=== PATIENT | male | born 1955 | race Caucasian/White ===

== ENCOUNTER 2018-11-08 05:42 | Emergency (ER) | payer BC, MEDICARE ==
[2018-11-08 05:51] VITALS: BP 133/79; PULSE 78; RESP 20; TEMP 98.3
[2018-11-08] MEDS ORDERED: MORPHINE SULFATE 4 MG/ML SYRINGE IM STA (06:33)
[2018-11-08] MEDS ORDERED: ORPHENADRINE 30 MG/ML 2 ML VIAL IM STA (06:33)
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
== END 2018-11-08 06:50 | disposition home or self-care (01) ==
LOC: EC 05:42
DX: M62.838 Other muscle spasm (principal); I10 Essential (primary) hypertension; F17.200 Nicotine dependence, unspecified, uncomplicated; Z79.899 Other long term (current) drug therapy
CPT/HCPCS: 99283; 96372 ×2; J2270; J2360

== ENCOUNTER 2018-11-10 15:02 | Inpatient (IN) | payer MEDICARE ==
[2018-11-10] MEDS ORDERED: SODIUM CHLORIDE 0.9% 1,000 ML IV STA ×2 (15:38)
[2018-11-10] MEDS ORDERED: MORPHINE SULFATE 4 MG/ML SYRINGE IVP STA (15:38)
[2018-11-10] MEDS ORDERED: PANTOPRAZOLE 40 MG/10 ML VIAL IVP STA (15:38)
[2018-11-10] MEDS ORDERED: ONDANSETRON 4 MG/2 ML VIAL IVP STA (15:38)
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
[2018-11-10 16:18] LABS: Anisocytosis Slight; Basophils % (A) 0 %; Eosinophils # (A) 0.1 k/uL (0-0.7); Eosinophils % (A) 1 %; HCT 40.7 % (39.0-53.0); HGB 13.1 gm/dL (13.0-17.5); Hypochromasia Slight; Lymphocytes # (A) 1.8 k/uL (1.0-4.8); Lymphocytes % (A) 15 %; MCHC 32.3 g/dL (31.0-37.0); MCV 80.5 fL (80.0-100.0); Mean Platelet Volume 6.9; Microcytosis Slight; Monocytes # (A) 0.9 k/uL (0-1.0); Monocytes % (A) 8 %; Neutrophils # (A) 8.4 k/uL (1.3-7.7); Neutrophils % (A) 73 %; Platelet Count 395 k/uL (150-450); RBC 5.05 m/uL (4.30-5.90); RDW 17.2 % (11.5-15.5); WBC 11.5 k/uL (3.8-10.6)
[2018-11-10] MEDS ORDERED: ONDANSETRON 4 MG/2 ML VIAL IVP PRN (16:22)
[2018-11-10 16:29] LABS: ALT 22 U/L (21-72); AST 46 U/L (17-59); Albumin 4.2 g/dL (3.5-5.0); Alkaline Phosphatase 52 U/L (38-126); Amylase <30 U/L (30-110); Anion Gap 11 mmol/L; Blood Urea Nitrogen 10 mg/dL (9-20); Calcium 9.5 mg/dL (8.4-10.2); Carbon Dioxide 23 mmol/L (22-30); Chloride 95 mmol/L (98-107); Glucose 99 mg/dL (74-99); Lipase 90 U/L (23-300); Sodium 129 mmol/L (137-145); Total Bilirubin 0.8 mg/dL (0.2-1.3); Total Protein 7.3 g/dL (6.3-8.2)
[2018-11-10 16:35] LABS: INR 0.9 (<1.2); Partial Thromboplastin Time 27.2 sec (22.0-30.0)
--- NOTE | 2018-11-10 17:52 | XR ---
EXAMINATION TYPE: XR abdomen acute w cxr DATE OF EXAM: 11/10/2018 COMPARISON: NONE HISTORY: Pain TECHNIQUE: 4 Views. FINDINGS: Chest radiograph: Negative. Supine and upright abdominal radiographs: There is no evidence for pneumoperitoneum. The bowel gas pa ttern shows nondilated gas-distended loops of small and large bowel in all 4 quadrants. The pattern s uggests nonobstructive ileus. No sizeable air fluid levels. No mass effects are seen. No unusual calcifications. IMPRESSION: Ileus pattern.
[2018-11-10] MEDS: MORPHINE SULFATE 4 MG/ML SYRINGE IVP PRN (19:47)
[2018-11-10] MEDS: PANTOPRAZOLE 40 MG/10 ML VIAL IVP SCH (19:47)
[2018-11-10] MEDS ORDERED: traMADol 50 MG TAB PO PRN (21:29)
[2018-11-10] MEDS ORDERED: NALOXONE 0.4 MG/ML 1 ML VIAL IV PRN (21:31)
[2018-11-10] MEDS ORDERED: ACETAMINOPHEN TAB 325 MG TAB PO PRN (21:31)
[2018-11-10] MEDS ORDERED: TEMAZEPAM 15 MG CAP PO PRN (21:31)
[2018-11-10] MEDS: LISINOPRIL 10 MG TAB PO SCH (21:42)
[2018-11-10] MEDS: ATENOLOL 50 MG TAB PO SCH (21:42)
[2018-11-10] MEDS: LACTATED RINGERS 1,000 ML IV SCH (21:42)
[2018-11-10] MEDS ORDERED: METHOCARBAMOL 750 MG TAB PO PRN (22:00)
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
[2018-11-10] MEDS: NICOTINE 21MG/24HR PATCH TRANSDERM SCH ×2 (22:41→22:42)
[2018-11-11] MEDS: LACTATED RINGERS 1,000 ML IV SCH ×3 (06:15→22:25)
[2018-11-11] MEDS: LISINOPRIL 10 MG TAB PO SCH ×2 (07:19→22:24)
[2018-11-11] MEDS: PANTOPRAZOLE 40 MG/10 ML VIAL IVP SCH ×2 (07:19→22:24)
[2018-11-11] MEDS: ATENOLOL 50 MG TAB PO SCH ×2 (07:20→22:24)
[2018-11-11] MEDS: MORPHINE SULFATE 4 MG/ML SYRINGE IVP PRN (07:28)
[2018-11-11] MEDS: NICOTINE 21MG/24HR PATCH TRANSDERM SCH (07:52)
[2018-11-11 08:34] LABS: Anisocytosis Slight; Basophils % (A) 0 %; Eosinophils # (A) 0.2 k/uL (0-0.7); Eosinophils % (A) 2 %; HCT 35.3 % (39.0-53.0); HGB 10.9 gm/dL (13.0-17.5); Hypochromasia Slight; Lymphocytes % (A) 27 %; MCH 25.4 pg (25.0-35.0); Mean Platelet Volume 6.4; Monocytes # (A) 0.8 k/uL (0-1.0); Monocytes % (A) 10 %; Neutrophils # (A) 4.3 k/uL (1.3-7.7); Neutrophils % (A) 56 %; Platelet Count 359 k/uL (150-450); RDW 17.5 % (11.5-15.5); WBC 7.6 k/uL (3.8-10.6)
[2018-11-11] MEDS ORDERED: LIDOCAINE 1% INJ 10MG/ML (20 ML MDV) ONE (11:13)
[2018-11-11] MEDS ORDERED: PROPOFOL 10 MG/ML 20 ML VIAL IV ONE (11:13)
[2018-11-11] MEDS ORDERED: IV FLUID CONTINUATION 1,000 ML IV ONE (11:15)
[2018-11-11] MEDS: DIAZEPAM 5 MG TAB PO PRN ×2 (12:12→19:30)
[2018-11-11 12:17] VITALS: BMI 26.6
--- NOTE | 2018-11-11 14:25 | P.PCN ---
Date of Procedure: 11/11/18 Description of Procedure: BRIEF HISTORY: 63-year-old male who presents with complaints of abdominal pain worsening over the past 3 days with associated dark stool. The patient reports numerous episodes of dark black stool. The patient had been taking Motrin 800 mg 3 times daily for the past few days prior to presentation for treatment of neck pain and spasm. Prior EGD in 2014 was significant for gastritis and duodenitis. PROCEDURE PERFORMED: Esophagogastroduodenoscopy. PREOPERATIVE DIAGNOSIS: Melena, abdominal pain. ESTIMATED BLOOD LOSS: Minimal. IV sedation per anesthesia. PROCEDURE: After informed consent was obtained, the patient was brought into the endoscopy unit. IV sedation was administered by Anesthesia under continuous monitoring. Initially the Olympus GIF-190 video endoscope was inserted into the mouth. Esophagus intubated without any difficulty. It was gradually advanced into the stomach and duodenum and carefully examined. The bulb was significant for moderate amount of inflammation and irritation suggestive of duodenitis in the setting of NSAID use. The second part of the duodenum appeared normal. The scope at this time was withdrawn to the stomach, adequately insufflated with air , and upon careful examination, mucosa of the antrum, body, cardia and the fundus appeared normal except for some mild scattered erythema in the antrum and body suggestive of gastritis. The scope was then withdrawn into the esophagus. The GE junction was located at 39 cm from the incisors. The esophagus appeared normal. There were no erosions or ulcerations seen and the patient tolerated the procedure well. IMPRESSION: 1. No active GI bleeding. 2. Mild gastritis. Moderate duodenitis. RECOMMENDATIONS: The findings of this examination were discussed with the patient. Okay for diet. Continue twice daily PPI therapy. Avoid NSAID therapy. Monitor hemoglobin and for signs and symptoms of GI bleeding.
[2018-11-11] MEDS: DIAZEPAM 5 MG TAB PO SCH (22:49)
[2018-11-11 23:09] VITALS: RESP 16
--- NOTE | 2018-11-11 23:48 | PN ---
PROGRESS NOTE DATE OF SERVICE: 11/11/2018 PRESENTING COMPLAINT: Dark stools. INTERVAL HISTORY: This patient was admitted with dark stools and abdominal pain. He had an EGD earlier today that did show duodenitis. No obvious ulcer was noted. Abdominal pain is better. Diet has been advanced. Overall feeling better. Had no further bowel movement when I saw this patient this afternoon. REVIEW OF SYSTEMS: Done for constitutional, cardiovascular, GI, pulmonary; relevant findings as above. CURRENT MEDICATIONS: Reviewed. They include IV fluids. PHYSICAL EXAMINATION: Temperature 97.2, pulse 73, respiration 20, blood pressure 118/73, pulse ox 97% on room air. GENERAL APPEARANCE: Lying in bed, comfortable. EYES: Pupils equal. Conjunctivae normal. NECK: JVD not raised. Mass not palpable. RESPIRATORY: Effort normal. LUNGS: Decreased breath sounds. CARDIOVASCULAR: First and second sounds normal. No edema. ABDOMEN: Soft, non-tender. Liver and spleen not palpable. PSYCHIATRY: Alert and oriented x3. Mood and affect normal. INVESTIGATIONS: White count 7.6, hemoglobin 10.9. ASSESSMENT: 1. Acute gastrointestinal bleed in a patient whose EGD has confirmed duodenitis. Patient may have also had a more distal bleed. 2. Acute blood loss anemia from acute gastrointestinal bleed. 3. Chronic nicotine dependence. Patient is an active cigarette smoker. 4. Chronic alcohol dependence. 5. Chronic cervical muscle neck spasms. 6. Hyponatremia, likely hypo-osmolar. PLAN: Continue current medication and treatment plan. Review patient's hemoglobin in the morning; make sure it does not drop any further. Care was discussed with the patient. Discussed with him not to take any NSAIDs. MMODL / IJN: [id number] /
[2018-11-12] MEDS: PANTOPRAZOLE 40 MG TABLET PO SCH ×2 (08:39→15:51)
[2018-11-12] MEDS: DIAZEPAM 5 MG TAB PO SCH ×2 (08:39→15:51)
[2018-11-12] MEDS: LISINOPRIL 10 MG TAB PO SCH (08:40)
[2018-11-12] MEDS: NICOTINE 21MG/24HR PATCH TRANSDERM SCH (08:40)
[2018-11-12] MEDS: ATENOLOL 50 MG TAB PO SCH (08:40)
[2018-11-12 09:42] LABS: Anisocytosis Slight; Basophils % (A) 1 %; Eosinophils # (A) 0.2 k/uL (0-0.7); Eosinophils % (A) 4 %; HCT 36.3 % (39.0-53.0); HGB 11.5 gm/dL (13.0-17.5); Hypochromasia Slight; Lymphocytes # (A) 1.7 k/uL (1.0-4.8); Lymphocytes % (A) 26 %; MCH 25.8 pg (25.0-35.0); MCHC 31.8 g/dL (31.0-37.0); MCV 81.2 fL (80.0-100.0); Mean Platelet Volume 6.4; Monocytes # (A) 0.7 k/uL (0-1.0); Monocytes % (A) 10 %; Neutrophils # (A) 3.5 k/uL (1.3-7.7); Neutrophils % (A) 56 %; Platelet Count 406 k/uL (150-450); RBC 4.47 m/uL (4.30-5.90); RDW 17.1 % (11.5-15.5); WBC 6.3 k/uL (3.8-10.6)
--- NOTE | 2018-11-12 10:41 | P.PN ---
Subjective Progress Note Date: 11/12/18 Principal diagnosis: GI bleed Hemoglobin stable 11.5. No bleeding. Denies abdominal pain. Tolerating diet. Status post EGD no evidence of peptic ulcer disease. Objective - Vital Signs Vital signs: Vital Signs Temp 99.1 F 11/12/18 07:00 Pulse 80 11/12/18 07:00 Resp 16 11/12/18 07:00 BP 140/87 11/12/18 07:00 Pulse Ox 97 11/12/18 07:00 Intake & Output 11/11/18 11/12/18 11/12/18 18:59 06:59 18:59 Intake Total 200 Balance 200 Weight 77.111 kg Intake: IV 200 Other: # Voids 3 2 # Bowel Movements 0 - Exam General appearance: The patient is alert, oriented, in no acute distress. HET: Head is normocephalic and atraumatic. Pupils are equal and reactive. Oropharynx is clear without lesions. Neck: Supple without lymphadenopathy. Trachea midline. Heart: S1 S2. Regular rate and rhythm. Lungs: No crackles or wheezes are heard. Abdomen: Soft, nontender, nondistended with bowel sounds. No peritoneal signs. No palpable organomegaly or masses. Extremities: Normal skin color and turgor. No cyanosis, rash, ulceration, clubbing, or edema. Radial and pedal pulses are 2/4 bilaterally. Neurological: No focal deficits. Strength and sensation are grossly intact. - Labs CBC & Chem 7: 11/12/18 08:36 11/10/18 15:50 Labs: Abnormal Lab Results - Last 24 Hours (Table) 11/12/18 Range/Units 08:36 Hgb 11.5 L (13.0-17.5) gm/dL Hct 36.3 L (39.0-53.0) % RDW 17.1 H (11.5-15.5) % Assessment and Plan (1) Acute GI bleeding Narrative/Plan: Status post EGD no evidence of peptic ulcer disease possible small bowel pathology appears to result with stable hemoglobin no further episodes of melena. 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 Avoid NSAIDs. Follow-up in office in 2-3 weeks. Agreeable for discharge. Light diet as tolerated. PPI daily. Assessment and plan a care discussed with Dr. Neal
[2018-11-12 15:28] VITALS: BP 156/88; PULSE 74; TEMP 97.5
--- NOTE | 2018-11-12 20:16 | DS ---
DISCHARGE SUMMARY DATE OF ADMISSION: 11/10/2018 DATE OF DISCHARGE: 11/12/2018 FINAL DIAGNOSES: 1. Acute gastrointestinal bleed in a patient showing acute duodenitis and gastritis. Patient possibly could have had a more distal small-bowel bleed. 2. Acute blood loss anemia from acute gastrointestinal bleed secondary to non- steroidal anti-inflammatories. 3. Chronic nicotine dependence. Patient is an active cigarette smoker. 4. Chronic alcohol dependence. 5. Chronic cervical muscle neck spasm. 6. Hyponatremia, likely hypo-osmolar. HOSPITAL COURSE: This patient who smokes cigarettes and drinks about 12 beers a day has known previous gastritis and duodenitis per EGD. He came in after he started taking Motrin for neck spasms with dark stools. Patient's hemoglobin did drop from 13.1 down to 10.9. Hemoglobin stabilized at 11.5. He underwent EGD that showed duodenitis but no obvious ulcer was noted. The patient was strongly advised against use of alcohol, smoking and use of any NSAIDs. On examination, temperature 97.5, pulse 74, respiration 16, blood pressure 140/87. ABDOMEN: Soft, nontender. LABS: Hemoglobin 11.5. DISCHARGE MEDICATIONS: 1. Tenormin 50 mg b.i.d. 2. [place] 10 one tablet t.i.d. p.r.n. 3. Robaxin 750 mg t.i.d. 4. Lisinopril 10 mg p.o. b.i.d. 5. Nicotine 20 mg patch. 6. Prilosec 20 mg b.i.d. NO NSAIDs. CONSULTATION: Dr. Neal from GI. Follow up with Dr. Michel on November 17, 2018. Follow up with Dr. Neal on December 04, 2018. Advised against use of NSAIDs. MMODL / IJN: [id number] /
== END 2018-11-12 16:11 | disposition home or self-care (01) | DRG 378 ==
LOC: EC 15:02 → 4MS4W 16:21
PROVIDERS: ADMIT Hospitalist; ATTEND Hospitalist
PROC: 0DJ08ZZ Inspection of Upper Intestinal Tract, Via Natural or Artificial Opening Endoscopic (ICD-10-PCS; principal; 2018-11-11 08:00)
DX: K29.81 Duodenitis with bleeding (principal); D62 Acute posthemorrhagic anemia; E87.1 Hypo-osmolality and hyponatremia; K29.71 Gastritis, unspecified, with bleeding; F10.20 Alcohol dependence, uncomplicated; F17.210 Nicotine dependence, cigarettes, uncomplicated; I10 Essential (primary) hypertension; Z71.41 Alcohol abuse counseling and surveillance of alcoholic; Z71.6 Tobacco abuse counseling; Z71.89 Other specified counseling; T39.395A Adverse effect of other nonsteroidal anti-inflammatory drugs [NSAID], initial encounter
CPT/HCPCS: 36415; 43235; 74022; 80053; 82150; 83690; 85025; 85610; 85730; 96361; 96374; 96375; 99285

== ENCOUNTER 2019-10-15 11:43 | Day surgery (SDC) | payer MEDICARE ==
[2019-10-14 09:02] VITALS: BMI 25.8
[~2019-10-15 11:43] MED LIST: LACTATED RINGERS 1,000 ML IV SCH; LIDOCAINE 1% 20 ML VIAL (10MG/ML) FOR IV START INTRADERMA PRN
[2019-10-15 12:27] VITALS: TEMP 98.1
[2019-10-15] MEDS ORDERED: PROPOFOL 10 MG/ML 20 ML VIAL IV ONE (12:50)
[2019-10-15] MEDS ORDERED: MIDAZOLAM 2 MG/2 ML VIAL ONE (12:50)
[2019-10-15] MEDS ORDERED: fentaNYL (PF) 50 MCG/ML 2 ML AMP ONE (12:50)
--- NOTE | 2019-10-15 13:04 | P.PCN ---
Date of Procedure: 10/15/19 Procedure(s) Performed: BRIEF HISTORY: Patient is a 64-year-old pleasant male scheduled for an elective colonoscopy as a part of evaluation of prior history of colon polyps. Last colonoscopy was 5 years ago. PROCEDURE PERFORMED: Colonoscopy. PREOPERATIVE DIAGNOSIS: History Of colon polyps. IV sedation per Anesthesia. PROCEDURE: After informed consent was obtained, the patient, was brought into the endoscopy unit. IV sedation was administered by Anesthesia under continuous monitoring. Digital rectal examination was normal. Initially the Olympus CF-160 flexible video colonoscope was then inserted in the rectum, gradually advanced into the cecum without any difficulty. Careful examination was performed as the scope was gradually being withdrawn. Ileocecal valve and the appendiceal orifice were visualized and appeared normal. Prep was good.. Mucosa of the cecum, ascending colon, transverse colon, descending colon, sigmoid colon, and rectum appeared normal. Retroflexion was performed in the rectum and small internal hemorrhoids were seen. The patient tolerated the procedure well. IMPRESSION: Normal-appearing colon from rectum to cecum with no evidence of colorectal neoplasia Small internal hemorrhoids. RECOMMENDATIONS: Findings of this examination were discussed with the patient as well as his family. He was advised to have a repeat surveillance colonoscopy in 5 years from now because of the prior history of colon polyps.
[2019-10-15 13:27] VITALS: BP 114/72; PULSE 78; RESP 18
== END 2019-10-15 13:40 | disposition home or self-care (01) ==
LOC: ORWHC2ENDO 11:43
PROVIDERS: ATTEND Internal Medicine Gastroenterology
DX: Z86.010 Personal history of colon polyps (principal); K64.8 Other hemorrhoids; I10 Essential (primary) hypertension; K21.9 Gastro-esophageal reflux disease without esophagitis; F17.210 Nicotine dependence, cigarettes, uncomplicated; Z79.899 Other long term (current) drug therapy; Z98.890 Other specified postprocedural states; Z97.2 Presence of dental prosthetic device (complete) (partial)
CPT/HCPCS: 45378; J2250; J3010; J2704

== ENCOUNTER 2020-03-21 23:39 | Inpatient (IN) | payer MEDICARE ==
[2020-03-21] MEDS ORDERED: MORPHINE SULFATE 4 MG/ML SYRINGE IM STA (23:56)
[2020-03-21] MEDS ORDERED: KETOROLAC 30 MG/ML 1 ML VIAL IM STA (23:56)
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
--- NOTE | 2020-03-22 00:26 | XR ---
EXAMINATION TYPE: XR ribs LT w pa chest xray DATE OF EXAM: 03/22/2020 COMPARISON: Chest x-ray 11/10/2018 HISTORY: Fall. Left rib pain TECHNIQUE: 5 views FINDINGS: Heart is normal. Lungs are clear of infiltrate. There is no pleural effusion or pneumothora x. There are mildly displaced fractures of the left side posterior lateral fourth and fifth and sixth and seventh and eighth ribs. There are no hilar masses. There is osteoarthritis in the left shoulder joint. IMPRESSION: Numerous acute left-sided rib fractures. No cardiopulmonary disease.
--- NOTE | 2020-03-22 00:28 | XR ---
EXAMINATION TYPE: XR wrist complete LT DATE OF EXAM: 03/22/2020 COMPARISON: NONE HISTORY: Fall. Wrist pain. TECHNIQUE: 4 views FINDINGS: There is some narrowing and spurring at the first carpometacarpal joint. I see no fracture nor dislocation. There are no erosions. Radiocarpal joint is intact. There is some narrowing of the s caphoid trapezium joint space. IMPRESSION: Mild osteoarthritis. No fracture seen.
[2020-03-22] MEDS ORDERED: MORPHINE SULFATE 4 MG/ML SYRINGE IVP STA (01:14)
[2020-03-22] MEDS ORDERED: HYDROmorphone 1 MG/ML 1 ML SYRINGE IVP PRN (01:14)
[2020-03-22] MEDS ORDERED: NALOXONE 0.4 MG/ML 1 ML VIAL IV PRN (01:14)
[2020-03-22] MEDS ORDERED: ACETAMINOPHEN TAB 325 MG TAB PO PRN (01:14)
[2020-03-22 01:21] LABS: Basophils % (A) 0 %; Eosinophils # (A) 0.1 k/uL (0-0.7); Eosinophils % (A) 0 %; HCT 43.4 % (39.0-53.0); HGB 14.8 gm/dL (13.0-17.5); Lymphocytes # (A) 0.9 k/uL (1.0-4.8); Lymphocytes % (A) 7 %; MCH 35.2 pg (25.0-35.0); MCHC 34.1 g/dL (31.0-37.0); MCV 103.2 fL (80.0-100.0); Macrocytosis Slight; Mean Platelet Volume 7.1; Monocytes # (A) 0.6 k/uL (0-1.0); Monocytes % (A) 4 %; Neutrophils # (A) 10.8 k/uL (1.3-7.7); Neutrophils % (A) 86 %; Platelet Count 195 k/uL (150-450); RBC 4.21 m/uL (4.30-5.90); RDW 12.8 % (11.5-15.5); WBC 12.5 k/uL (3.8-10.6)
[2020-03-22 01:33] LABS: ALT 22 U/L (4-49); AST 67 U/L (17-59); African American GFR (CKD) >90 (>60 ml/min/1.73 sqM); Albumin 4.2 g/dL (3.5-5.0); Alkaline Phosphatase 72 U/L (38-126); Anion Gap 11 mmol/L; Blood Urea Nitrogen 7 mg/dL (9-20); Carbon Dioxide 21 mmol/L (22-30); Chloride 93 mmol/L (98-107); Glucose 99 mg/dL (74-99); Non-African American GFR(CKD) >90 (>60 ml/min/1.73 sqM); Sodium 125 mmol/L (137-145); Total Bilirubin 0.5 mg/dL (0.2-1.3); Total Protein 6.9 g/dL (6.3-8.2)
[2020-03-22] MEDS: HYDROmorphone 0.5 MG/0.5 ML SYRINGE IVP PRN (07:17)
[2020-03-22] MEDS: KETOROLAC 30 MG/ML 1 ML VIAL IVP PRN (11:15)
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
[2020-03-22] MEDS: ENOXAPARIN 40 MG/0.4 ML SYRINGE SQ SCH (16:00)
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
[2020-03-22] MEDS: SODIUM CHLORIDE TAB 1 GM TAB PO SCH ×3 (18:25→21:12)
[2020-03-22] MEDS: DIAZEPAM 2 MG TAB PO SCH (18:25)
[2020-03-22] MEDS: NICOTINE 21MG/24HR PATCH TRANSDERM SCH (18:26)
[2020-03-22] MEDS ORDERED: MELATONIN 3 MG TABLET PO PRN (20:15)
[2020-03-22] MEDS: ATENOLOL 50 MG TAB PO SCH (21:12)
[2020-03-22] MEDS: LISINOPRIL 10 MG TAB PO SCH (21:12)
[2020-03-23] MEDS: DIAZEPAM 2 MG TAB PO SCH ×3 (00:33→17:41)
[2020-03-23] MEDS: HYDROmorphone 0.5 MG/0.5 ML SYRINGE IVP PRN ×3 (03:03→13:33)
[2020-03-23] MEDS: PANTOPRAZOLE 40 MG TABLET PO SCH (06:29)
[2020-03-23] MEDS: LISINOPRIL 10 MG TAB PO SCH ×2 (08:12→20:23)
[2020-03-23] MEDS: ENOXAPARIN 40 MG/0.4 ML SYRINGE SQ SCH (08:12)
[2020-03-23] MEDS: MULTIVITAMINS, THERA 1 EACH TAB PO SCH (08:12)
[2020-03-23] MEDS: ATENOLOL 50 MG TAB PO SCH ×2 (08:12→20:23)
[2020-03-23] MEDS: SODIUM CHLORIDE TAB 1 GM TAB PO SCH ×4 (08:17→20:22)
[2020-03-23 08:19] LABS: Basophils % (A) 0 %; Eosinophils # (A) 0.1 k/uL (0-0.7); Eosinophils % (A) 1 %; HCT 42.1 % (39.0-53.0); HGB 14.3 gm/dL (13.0-17.5); Lymphocytes # (A) 0.8 k/uL (1.0-4.8); Lymphocytes % (A) 9 %; MCH 35.5 pg (25.0-35.0); MCV 104.6 fL (80.0-100.0); Macrocytosis Slight; Mean Platelet Volume 7.5; Monocytes # (A) 0.5 k/uL (0-1.0); Monocytes % (A) 6 %; Neutrophils # (A) 7.7 k/uL (1.3-7.7); Neutrophils % (A) 83 %; Platelet Count 171 k/uL (150-450); RBC 4.02 m/uL (4.30-5.90); WBC 9.3 k/uL (3.8-10.6)
--- NOTE | 2020-03-23 08:20 | XR ---
EXAMINATION TYPE: XR chest 1V portable DATE OF EXAM: 03/23/2020 COMPARISON: 03/22/2020 INDICATION: Rib fractures TECHNIQUE: Single frontal view of the chest is obtained. FINDINGS: The heart size is normal. The pulmonary vasculature is normal. The lungs are clear. No pneumothorax is evident. Multiple left-sided rib fractures are again evident. This would include 3 , 5 through 7. IMPRESSION: 1. No acute pulmonary process. 2. Multiple left-sided rib fractures
[2020-03-23 08:47] LABS: ALT 23 U/L (4-49); AST 73 U/L (17-59); African American GFR (CKD) >90 (>60 ml/min/1.73 sqM); Albumin 4.3 g/dL (3.5-5.0); Alkaline Phosphatase 74 U/L (38-126); Anion Gap 8 mmol/L; Blood Urea Nitrogen 8 mg/dL (9-20); Calcium 9.2 mg/dL (8.4-10.2); Carbon Dioxide 28 mmol/L (22-30); Chloride 87 mmol/L (98-107); Glucose 114 mg/dL (74-99); Non-African American GFR(CKD) >90 (>60 ml/min/1.73 sqM); Potassium 4.4 mmol/L (3.5-5.1); Sodium 123 mmol/L (137-145); Total Protein 7.1 g/dL (6.3-8.2)
[2020-03-23] MEDS ORDERED: NON FORMULARY DRUG (Omeprazole 20 MG) PO SCH (09:00)
--- NOTE | 2020-03-23 11:14 | P.PN ---
Subjective Progress Note Date: 03/23/20 Principal diagnosis: Trauma, fall, multiple rib fractures 64-year-old white male patient of Dr. Michel with past medical history of hypertension, chronic smoker, patient carries [id number] smoking history, chronic back pain, hiatal hernia, history of gastritis and duodenitis and previous episode of GI bleeding. Patient was out fishing last night, and he was casting his fishing pole standing on the rocks by the bridge, he stepped off the rock and fell onto his left chest, and left hand and wrist, sustaining several rib fractures on the left side. He presented to the emergency department last night on 03/21/2020 at 2339 for evaluation of significant left-sided the chest pain and left wrist pain. Patient did not have any head or neck trauma, no loss of consciousness. He is not on any oral anticoagulation. His pain is significantly exacerbated with movement or deep inspiration. Chest x-ray showed numerous acute left-sided rib fractures. And his left wrist x-ray showed mild osteoarthritis but no fracture. His lab work showed white blood cell count of 12.5, hemoglobin of 14.8, MCV is 103.2, sodium is 125, potassium is 4.0, chloride is 93, CO2 is 21, B1 is 7, creatinine is 0.49, AST 67, ALT is 22, alk phos is 72. Vitals revealed a room air pulse ox of 99%, blood pressure was 163/94, he is afebrile. He is on the Toradol and Dilaudid for his left chest wall pain. He seen in the emergency department, he is awaiting a bed on selective care. No acute distress, his Covid 19 testing is pending at this time, follow-up chest x-ray has been ordered. On 03/23/2020 patient seen in follow-up on selective care unit, he is calm and comfortable, still having the left-sided chest pain, and patient is on combination of oral and IV narcotics in addition to Toradol, and pain is fairly controlled. Vital signs are stable, room air pulse ox is 94%, no fever or chills. His chest x-ray shows no acute pulmonary process, and multiple left- sided rib fractures. No pneumothorax. No acute events overnight. Today's lab work has been reviewed showing white blood cell, 9.3, sodium is down to 123, patient is free of any neurological deficits, no seizure activity. He is on fluid restriction at 1500 mL for 24 hours, and receiving oral sodium tablets. Objective - Vital Signs Vital signs: Vital Signs Temp 99.1 F 03/23/20 08:00 Pulse 83 03/23/20 08:00 Resp 16 03/23/20 08:00 BP 137/79 03/23/20 08:00 Pulse Ox 94 L 03/23/20 08:00 Intake & Output 03/22/20 03/23/20 03/23/20 18:59 06:59 18:59 Weight 74.4 kg Other: Voiding Method Toilet # Voids 3 - Exam GENERAL EXAM: Alert, pleasant, 64-year-old white male, on room air, with pulse ox of 94% on room air comfortable in no apparent distress. HEAD: Normocephalic/atraumatic. EYES: Normal reaction of pupils, equal size. Conjunctiva pink, sclera white. NOSE: Clear with pink turbinates. THROAT: No erythema or exudates. NECK: No masses, no JVD, no thyroid enlargement, no adenopathy. CHEST: No chest wall deformity. Symmetrical expansion. Left chest wall te nderness related to recent history of rib fractures from a fall LUNGS: Equal air entry with no crackles, wheeze, rhonchi or dullness. CVS: Regular rate and rhythm, normal S1 and S2, no gallops, no murmurs, no rubs ABDOMEN: Soft, nontender. No hepatosplenomegaly, normal bowel sounds, no guarding or rigidity. EXTREMITIES: No clubbing, no edema, no cyanosis, 2+ pulses and upper and lower extremities. MUSCULOSKELETAL: Muscle strength and tone normal. SPINE: No scoliosis or deformity SKIN: No rashes CENTRAL NERVOUS SYSTEM: Alert and oriented -3. No focal deficits, tone is normal in all 4 extremities. PSYCHIATRIC: Alert and oriented -3. Appropriate affect. Intact judgment and insight. - Labs CBC & Chem 7: 03/23/20 07:26 03/23/20 07:26 Labs: Abnormal Lab Results - Last 24 Hours (Table) 03/23/20 03/23/20 Range/Units 07:26 07:26 RBC 4.02 L (4.30-5.90) m/uL MCV 104.6 H (80.0-100.0) fL MCH 35.5 H (25.0-35.0) pg Lymphocytes # 0.8 L (1.0-4.8) k/uL Sodium 123 L (137-145) mmol/L Chloride 87 L (98-107) mmol/L BUN 8 L (9-20) mg/dL Creatinine 0.46 L (0.66-1.25) mg/dL Glucose 114 H (74-99) mg/dL Total Bilirubin 2.0 H (0.2-1.3) mg/dL AST 73 H (17-59) U/L Assessment and Plan Plan: Assessment: #1. Acute left chest pain related to numerous acute left-sided rib fractures, sustained after a fall on 03/21/2020 while fishing. His x-ray of the ribs showed mildly displaced fractures of the left side posterior lateral fourth, fifth, sixth, seventh and eighth ribs #2. Left wrist pain, related to a fall onto the rocks on 03/21/2020, but x-ray of the left wrist did not show acute fracture #3. Hyponatremia, possibly related to chronic EtOH abuse, with the possibility of SIADH component #4. Active history of EtOH abuse, and patient drinks 5 24 ounce beers per day #5. Hypertension #6. Previous history of GI bleeding, gastritis and duodenitis #7. Chronic back pain #8. History of hiatal hernia #9. Long history of nicotine dependence, patient carries [id number] smoking history, still smoking 1 pack a day Plan: Continue encouraging deep breathing and coughing, today's chest x-ray has been reviewed showing no evidence of pneumothorax, no acute pulmonary process. Maintain pain control, today's lab work has been reviewed and serum sodium to 123, patient is free of any neurological deficits or seizure activity, we will continue fluid restriction, and sodium tablets, send a serum and urine osmolality and urine sodium, repeat blood work in the morning. I performed a history & physical examination of the patient and discussed their management with my nurse practitioner, Luna Gamble. I reviewed the nurse practitioner's note and agree with the documented findings and plan of care. Lung sounds are positive for diminished breath sounds. The findings and the impression was discussed with the patient. I attest to the documentation by the nurse practitioner. Time with Patient: Less than 30
[2020-03-23] MEDS: guaiFENesin 600 MG TABLET.ER PO SCH ×2 (12:39→20:23)
--- NOTE | 2020-03-23 13:27 | P.PN ---
Subjective Progress Note Date: 03/23/20 CHIEF COMPLAINT: Fall HISTORY OF PRESENT ILLNESS: Patient examined at the bedside with Dr. Rowe. Patient states he is feeling well today. Denies chest pain or abdominal pain. Tolerating diet. PHYSICAL EXAM: VITAL SIGNS: Reviewed. GENERAL: Well-developed in no acute distress. HEENT: No sclera icterus. Extraocular movements grossly intact. Moist buccal mucosa. Head is atraumatic, normocephalic. ABDOMEN: Soft. Nondistended. Nontender. NEUROLOGIC: Alert and oriented. Cranial nerves II through XII grossly intact. ASSESSMENT: 1. Trauma, status post fall 2. Left-sided posterior rib fractures 4,5, 6,7 & 8 PLAN: -Pulmonary on consult. Appreciate input and recommendations -Incentive spirometer -Pain control -Anticipate discharge home when cleared by internal medicine Nurse practitioner note has been reviewed by physician. Signing provider agrees with the documented findings, assessment, and plan of care. Objective - Vital Signs Vital signs: Vital Signs Temp 99.1 F 03/23/20 12:00 Pulse 83 03/23/20 12:00 Resp 16 03/23/20 12:00 BP 137/79 03/23/20 12:00 Pulse Ox 94 L 03/23/20 12:00 Intake & Output 03/22/20 03/23/20 03/23/20 18:59 06:59 18:59 Weight 74.4 kg Other: Voiding Method Toilet Toilet # Voids 3 - Labs CBC & Chem 7: 03/23/20 07:26 03/23/20 07:26 Labs: Abnormal Lab Results - Last 24 Hours (Table) 03/23/20 03/23/20 03/23/20 Range/Units 07:26 07:26 07:26 RBC 4.02 L (4.30-5.90) m/uL MCV 104.6 H (80.0-100.0) fL MCH 35.5 H (25.0-35.0) pg Lymphocytes # 0.8 L (1.0-4.8) k/uL Sodium 123 L (137-145) mmol/L Chloride 87 L (98-107) mmol/L BUN 8 L (9-20) mg/dL Creatinine 0.46 L (0.66-1.25) mg/dL Glucose 114 H (74-99) mg/dL Osmolality 260 L (280-301) mosm/kg Total Bilirubin 2.0 H (0.2-1.3) mg/dL AST 73 H (17-59) U/L
[2020-03-23] MEDS: BUDESONIDE 1 MG/2 ML NEBU INHALATION SCH ×2 (16:38→20:32)
[2020-03-23] MEDS: IPRATROPIUM-ALBUTEROL 3 ML NEB INHALATION SCH ×3 (16:38→20:32)
--- NOTE | 2020-03-23 16:56 | P.PN ---
Progress Note - Text Progress Note Date: 03/23/20 - Chief Complaint fall - History of Present Illness Consultation: This is a pleasant 64-year-old patient who follows a Dr. Michel. Patient long- standing history of smoking and drinking significant amount of alcohol. Chronic stable conditions also include nicotine dependence, gastritis duodenitis as per EGD in 2019. Patient was climbing around the proximal near the liver. When he lost his balance. Patient fell on his left side. Hitting his chest to the rocks. Also to save his face he put his hand in front of the face and injured his left wrist. He is having pain there. But patient is able to move his thumb and fingers. Having pain in the left lateral chest wall. Patient is found to have fracture of 4-5 ribs. Patient has this chronic cough. Patient drinks about 5-24 ounce beers. Does get reflux symptoms. Denies any fever and chills. Patient was seen by me earlier today. Admitted with fall with multiple left-sided or fractures, hyponatremia,. Patient is put on fluid restriction and salt tablets. Today-patient feels better but tired. As a congested cough. On a fluid restriction diet. Sodium and on a bit more. Some wheezing. Review of systems: Was done for constitutional, cardiovascular, GI, pulmonary. relevant finding as above Active Medications Acetaminophen (Tylenol Tab) 650 mg PO Q6HR PRN PRN Reason: Mild Pain or Fever > 100.5 Last Admin: 03/22/20 11:15 Dose: 650 mg Documented by: Hydrocodone Bitart/Acetaminophen ([place] 5-325) 1 each PO Q4HR PRN PRN Reason: Pain Albuterol/Ipratropium (Duoneb 0.5 Mg-3 Mg/3 Ml Soln) 3 ml INHALATION RT-QID [facility] Last Admin: 03/23/20 16:38 Dose: 3 ml Documented by: Atenolol (Tenormin) 50 mg PO BID [facility] Last Admin: 03/23/20 08:12 Dose: 50 mg Documented by: Budesonide (Pulmicort) 1 mg INHALATION RT-BID [facility] Last Admin: 03/23/20 16:38 Dose: Not Given Documented by: Diazepam (Valium) 2 mg PO Q8H [facility] Stop: 03/23/20 23:59 Last Admin: 03/23/20 08:12 Dose: 2 mg Documented by: Diazepam (Valium) 1 mg PO Q8H [facility] Enoxaparin Sodium (Lovenox) 40 mg SQ DAILY [facility] Last Admin: 03/23/20 08:12 Dose: 40 mg Documented by: Guaifenesin (Mucinex) 1,200 mg PO Q12HR [facility] Last Admin: 03/23/20 12:39 Dose: 1,200 mg Documented by: Hydromorphone HCl (Dilaudid) 0.5 mg IVP Q3HR PRN PRN Reason: Moderate Pain Last Admin: 03/23/20 13:33 Dose: 0.5 mg Documented by: Hydromorphone HCl (Dilaudid) 1 mg IVP Q3HR PRN PRN Reason: Severe Pain Ketorolac Tromethamine (Toradol) 15 mg IVP Q6HR PRN PRN Reason: Moderate Pain Stop: 03/27/20 01:15 Last Admin: 03/22/20 11:15 Dose: 15 mg Documented by: Lisinopril (Zestril) 10 mg PO BID [facility] Last Admin: 03/23/20 08:12 Dose: 10 mg Documented by: Melatonin (Melatonin) 3 mg PO HS PRN PRN Reason: Insomnia Last Admin: 03/22/20 21:12 Dose: 3 mg Documented by: Multivitamins (Theragran) 1 each PO DAILY [facility] Last Admin: 03/23/20 08:12 Dose: 1 each Documented by: Naloxone HCl (Narcan) 0.2 mg IV Q2M PRN PRN Reason: Opioid Reversal Nicotine (Habitrol 21mg/24hr Patch) 1 patch TRANSDERM Q24H [facility] Last Admin: 03/22/20 18:26 Dose: Not Given Documented by: Pantoprazole Sodium (Protonix) 40 mg PO AC-BRKFST [facility] Last Admin: 03/23/20 06:29 Dose: 40 mg Documented by: Sodium Chloride (Sodium Chloride Tab) 2 gm PO QID [facility] Last Admin: 03/23/20 12:39 Dose: 2 gm Documented by: Physical examination: VITAL SIGNS: 99.1, 83, 20, 137/79, 94% on room air GENERAL: Sitting up in a chair, some wheezing. EYES: Pupils equal. Conjunctiva normal. HEENT: External appearance of nose and ears normal, oral cavity grossly normal. NECK: JVD not raised; masses not palpable. HEART: First and second heart sounds are normal; no edema. LUNGS: Respiratory rate increased, decreased breath sounds and extremity wheezing. ABDOMEN: Soft, nontender, liver spleen not palpable, no masses palpable. PSYCH: Alert and oriented x3; mood and affect slightly anxious MUSCULOSKELETAL: Tenderness over the left lateral chest wall . Good movement of the left wrist with some superficial bruising INVESTIGATIONS, reviewed in the clinical context: White count 9.3 hemoglobin 40.3 platelets is 171 sodium 123 creatinine 0.46 serum osmolarity 260 AST 73 Previous testing White count 12.5 hemoglobin 14.8 MCV 103.2 platelets 195 sodium 125 potassium 4 bun 7 creatinine 0.49 Left wrist x-ray-no fracture Left ribs and chest x-ray showing numerous acute left-sided or fractures no cord or pulmonary disease Assessment: -Multiple left-sided rib fractures secondary to blood injury secondary to fall -Chronic nicotine dependence patient cigarette smoker -Chronic alcohol use disorder -Hyponatremia-hypoosmolality from decreased salt intake 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 Fluid restriction to 1200 mL a day. Patient was educated again. Discussed. Continue with salt tablets. Repeat labs in the morning. Thank you Dr. Rowe
[2020-03-23] MEDS ORDERED: predniSONE 20 MG TAB PO STA (16:57)
[2020-03-23] MEDS: NICOTINE 21MG/24HR PATCH TRANSDERM SCH (17:42)
[2020-03-23] MEDS: HYDROcodone/APAP 5-325MG 1 EACH TAB PO PRN (20:22)
[2020-03-23 21:15] VITALS: RESP 16
[2020-03-23] MEDS: KETOROLAC 30 MG/ML 1 ML VIAL IVP PRN (23:18)
[2020-03-24] MEDS: HYDROcodone/APAP 5-325MG 1 EACH TAB PO PRN ×2 (06:12→10:34)
[2020-03-24] MEDS: PANTOPRAZOLE 40 MG TABLET PO SCH (06:13)
[2020-03-24 07:28] LABS: African American GFR (CKD) >90 (>60 ml/min/1.73 sqM); Anion Gap 7 mmol/L; Blood Urea Nitrogen 10 mg/dL (9-20); Calcium 9.2 mg/dL (8.4-10.2); Carbon Dioxide 26 mmol/L (22-30); Chloride 93 mmol/L (98-107); Glucose 125 mg/dL (74-99); Non-African American GFR(CKD) >90 (>60 ml/min/1.73 sqM); Potassium 4.6 mmol/L (3.5-5.1); Sodium 126 mmol/L (137-145)
[2020-03-24] MEDS ORDERED: DIAZEPAM 2 MG TAB PO SCH (08:00)
--- NOTE | 2020-03-24 08:10 | XR ---
EXAMINATION TYPE: XR chest 1V portable DATE OF EXAM: 03/24/2020 COMPARISON: Prior chest 03/24/2020 HISTORY: Rib fractures TECHNIQUE: Single frontal view of the chest is obtained. FINDINGS: Findings are similar to prior exam, technique is apical lordotic. Patient is rotated. No e vident pneumothorax. Multiple displaced left-sided rib fractures are present. Heart size is stable. P ersistent elevation of the left hemidiaphragm. Subsegmental basilar atelectatic changes noted. No michell dent effusion. IMPRESSION: Essentially stable findings. Subsegmental basilar atelectatic changes, posttraumatic keysha nges.
[2020-03-24] MEDS: BUDESONIDE 1 MG/2 ML NEBU INHALATION SCH (08:33)
[2020-03-24] MEDS: IPRATROPIUM-ALBUTEROL 3 ML NEB INHALATION SCH (08:33)
[2020-03-24] MEDS ORDERED: predniSONE 20 MG TAB PO SCH (09:00)
[2020-03-24] MEDS: ATENOLOL 50 MG TAB PO SCH (10:33)
[2020-03-24] MEDS: ENOXAPARIN 40 MG/0.4 ML SYRINGE SQ SCH (10:33)
[2020-03-24] MEDS: guaiFENesin 600 MG TABLET.ER PO SCH (10:33)
[2020-03-24] MEDS: LISINOPRIL 10 MG TAB PO SCH (10:34)
[2020-03-24] MEDS: MULTIVITAMINS, THERA 1 EACH TAB PO SCH (10:34)
[2020-03-24] MEDS: SODIUM CHLORIDE TAB 1 GM TAB PO SCH (10:37)
[2020-03-24 11:03] VITALS: BP 121/63; PULSE 79; TEMP 97.8
--- NOTE | 2020-03-24 12:06 | P.PN ---
Subjective Progress Note Date: 03/24/20 Principal diagnosis: Trauma, fall, multiple rib fractures 64-year-old white male patient of Dr. Michel with past medical history of hypertension, chronic smoker, patient carries 75-[id number] smoking history, chronic back pain, hiatal hernia, history of gastritis and duodenitis and previous episode of GI bleeding. Patient was out fishing last night, and he was casting his fishing pole standing on the rocks by the bridge, he stepped off the rock and fell onto his left chest, and left hand and wrist, sustaining several rib fractures on the left side. He presented to the emergency department last night on 03/21/2020 at 2339 for evaluation of significant left-sided the chest pain and left wrist pain. Patient did not have any head or neck trauma, no loss of consciousness. He is not on any oral anticoagulation. His pain is significantly exacerbated with movement or deep inspiration. Chest x-ray showed numerous acute left-sided rib fractures. And his left wrist x-ray showed mild osteoarthritis but no fracture. His lab work showed white blood cell count of 12.5, hemoglobin of 14.8, MCV is 103.2, sodium is 125, potassium is 4.0, chloride is 93, CO2 is 21, B1 is 7, creatinine is 0.49, AST 67, ALT is 22, alk phos is 72. Vitals revealed a room air pulse ox of 99%, blood pressure was 163/94, he is afebrile. He is on the Toradol and Dilaudid for his left chest wall pain. He seen in the emergency department, he is awaiting a bed on selective care. No acute distress, his Covid 19 testing is pending at this time, follow-up chest x-ray has been ordered. On 03/23/2020 patient seen in follow-up on selective care unit, he is calm and comfortable, still having the left-sided chest pain, and patient is on combination of oral and IV narcotics in addition to Toradol, and pain is fairly controlled. Vital signs are stable, room air pulse ox is 94%, no fever or chills. His chest x-ray shows no acute pulmonary process, and multiple left- sided rib fractures. No pneumothorax. No acute events overnight. Today's lab work has been reviewed showing white blood cell, 9.3, sodium is down to 123, patient is free of any neurological deficits, no seizure activity. He is on fluid restriction at 1500 mL for 24 hours, and receiving oral sodium tablets. On 03/24/2020 patient seen in follow-up on selective care unit, he is awake and alert, in no acute distress, sitting up in the chair, his left chest wall pain is fairly well controlled on oral medications. His been on water restriction, and receiving salt tablets and his sodium is up to 126 on today's labs. No neurologic deficits, no seizure activity, no specific complaints, no acute events overnight, room air pulse ox 94%, no fever or chills, respirations are nonlabored. Today's chest x-ray has been reviewed and showing essentially stable findings, with subsegmental basilar atelectatic changes, posture many changes. No pneumothorax, no pleural effusion. Objective - Vital Signs Vital signs: Vital Signs Temp 97.8 F 03/24/20 08:50 Pulse 79 03/24/20 08:50 Resp 16 03/24/20 08:50 BP 121/63 03/24/20 08:50 Pulse Ox 94 L 03/24/20 08:50 Intake & Output 03/23/20 03/24/20 03/24/20 18:59 06:59 18:59 Intake Total 180 360 Balance 180 360 Weight 74 kg Intake: Oral 180 360 Other: Voiding Method Toilet Toilet # Voids 2 - Exam GENERAL EXAM: Alert, pleasant, 64-year-old white male, on room air, with pulse ox of 94% on room air comfortable in no apparent distress. HEAD: Normocephalic/atraumatic. EYES: Normal reaction of pupils, equal size. Conjunctiva pink, sclera white. NOSE: Clear with pink turbinates. THROAT: No erythema or exudates. NECK: No masses, no JVD, no thyroid enlargement, no adenopathy. CHEST: No chest wall deformity. Symmetrical expansion. Left chest wall tenderness related to recent history of rib fractures from a fall LUNGS: Equal air entry with no crackles, wheeze, rhonchi or dullness. CVS: Regular rate and rhythm, normal S1 and S2, no gallops, no murmurs, no rubs ABDOMEN: Soft, nontender. No hepatosplenomegaly, normal bowel sounds, no guarding or rigidity. EXTREMITIES: No clubbing, no edema, no cyanosis, 2+ pulses and upper and lower extremities. MUSCULOSKELETAL: Muscle strength and tone normal. SPINE: No scoliosis or deformity SKIN: No rashes CENTRAL NERVOUS SYSTEM: Alert and oriented -3. No focal deficits, tone is normal in all 4 extremities. PSYCHIATRIC: Alert and oriented -3. Appropriate affect. Intact judgment and insight. - Labs CBC & Chem 7: 03/23/20 07:26 03/24/20 06:46 Labs: Abnormal Lab Results - Last 24 Hours (Table) 03/24/20 Range/Units 06:46 Sodium 126 L (137-145) mmol/L Chloride 93 L (98-107) mmol/L Creatinine 0.42 L (0.66-1.25) mg/dL Glucose 125 H (74-99) mg/dL Assessment and Plan Plan: Assessment: #1. Acute left chest pain related to numerous acute left-sided rib fractures, sustained after a fall on 03/21/2020 while fishing. His x-ray of the ribs showed mildly displaced fractures of the left side posterior lateral fourth, fifth, sixth, seventh and eighth ribs #2. Left wrist pain, related to a fall onto the rocks on 03/21/2020, but x-ray of the left wrist did not show acute fracture #3. Hyponatremia, possibly related to chronic EtOH abuse, with the possibility of SIADH component, improved with water restriction and salt tablets #4. Active history of EtOH abuse, and patient drinks 5 24 ounce beers per day #5. Hypertension #6. Previous history of GI bleeding, gastritis and duodenitis #7. Chronic back pain #8. History of hiatal hernia #9. Long history of nicotine dependence, patient carries 64-[id number]-urhc smoking history, still smoking 1 pack a day Plan: Patient is doing well, no acute events overnight, serum sodium is improving with water restriction, and salt tablets, vital signs are stable, left-sided chest pain is fairly well controlled with oral medications. From pulmonary persp ective patient is stable for discharge home today I performed a history & physical examination of the patient and discussed their management with my nurse practitioner, Luna Gamble. I reviewed the nurse practitioner's note and agree with the documented findings and plan of care. Lung sounds are positive for diminished breath sounds. The findings and the impression was discussed with the patient. I attest to the documentation by the nurse practitioner. Time with Patient: Less than 30
--- NOTE | 2020-03-24 13:08 | P.DS ---
Providers Date of admission: 03/22/20 01:16 Expected date of discharge: 03/24/20 Attending physician: Suhas Rowe Consults: 03/22/20 01:15 Consult Physician Urgent Consulting Provider: Kaela Vickers Consult Reason/Comments: Multiple rib fractures ICU management Do you want consulting provider notified?: Already Contacted 03/22/20 10:56 Consult Physician Routine Consulting Provider: Yang Gaspar Consult Reason/Comments: medical management Do you want consulting provider notified?: Yes Primary care physician: [facility] Course: 64-year-old male who presented to the emergency room after sustaining a fall. Patient states he was out fishing and fell on his left side after trying to climb on some rocks. Patient denies any loss of consciousness. Chest x-ray: Mildly displaced fractures of left-sided posterior lateral fourth, fifth, sixth, seventh, and eighth rib Wrist x-ray: Mild osteoarthritis. No fracture seen Patient was admitted to the hospital for observation. Patient was found to be hyponatremic. He was started on sodium tablets. The patient was deemed stable for discharge home today per Dr. Rowe. Please see EMR for further hospital course details. Discharge Diagnosis: 1. Trauma, status post fall 2. Left-sided posterior rib fractures 4,5, 6,7 & 8 3. Hyponatremia Nurse practitioner note has been reviewed by physician. Signing provider agrees with the documented findings, assessment, and plan of care. Patient Condition at Discharge: Stable Plan - Discharge Summary Discharge Rx Participant: No New Discharge Prescriptions: New Nicotine 21Mg/24Hr Patch [Habitrol] 1 patch TRANSDERM Q24H #14 patch Melatonin 3 mg PO HS PRN tablet PRN Reason: Insomnia predniSONE 10 mg PO DAILY #30 tab Sodium Chloride Tab 1 gm PO QID #14 tab Albuterol Sulfate [Ventolin HFA] 1 - 2 puff INHALATION Q6H PRN #1 inhaler PRN Reason: Wheezing Hydrocodone/Acetaminophen [[place] 5-325] 1 tab PO Q6HR PRN #10 tab PRN Reason: Pain Continue Atenolol [Tenormin] 50 mg PO BID Lisinopril [Zestril] 10 mg PO BID Omeprazole [PriLOSEC] 20 mg PO DAILY Multivitamins, Thera [Multivitamin (formulary)] 1 tab PO DAILY Discharge Medication List Atenolol [Tenormin] 50 mg PO BID 12/03/14 [History] Lisinopril [Zestril] 10 mg PO BID 11/10/18 [History] Omeprazole [PriLOSEC] 20 mg PO DAILY 10/14/19 [History] Multivitamins, Thera [Multivitamin (formulary)] 1 tab PO DAILY 03/22/20 [History] Albuterol Sulfate [Ventolin HFA] 1 - 2 puff INHALATION Q6H PRN #1 inhaler 03/24/20 [Rx] Hydrocodone/Acetaminophen [[place] 5-325] 1 tab PO Q6HR PRN #10 tab 03/24/20 [Rx] Melatonin 3 mg PO HS PRN tablet 03/24/20 [Rx] Nicotine 21Mg/24Hr Patch [Habitrol] 1 patch TRANSDERM Q24H #14 patch 03/24/20 [Rx] Sodium Chloride Tab 1 gm PO QID #14 tab 03/24/20 [Rx] predniSONE 10 mg PO DAILY #30 tab 03/24/20 [Rx] Follow up Appointment(s)/Referral(s): Keala Vickers MD [STAFF PHYSICIAN] - 1 Week Jc Michel DO [Primary Care Provider] - 1 Week (office is closed for lunch, please call to schedule follow up. ) Patient Instructions/Handouts: How to Stop Smoking (DC), Rib Fracture (DC) Activity/Diet/Wound Care/Special Instructions: bmp-5 days Discharge Disposition: HOME SELF-CARE
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
== END 2020-03-24 12:08 | disposition home or self-care (01) | DRG 184 ==
LOC: EC 23:39 → 2SICU 03-22 01:16 → 3SCARD 03-22 01:50
PROVIDERS: ADMIT Surgery; ATTEND Surgery
DX: S22.42XA Multiple fractures of ribs, left side, initial encounter for closed fracture (principal); E87.1 Hypo-osmolality and hyponatremia; J44.1 Chronic obstructive pulmonary disease with (acute) exacerbation; I10 Essential (primary) hypertension; K21.9 Gastro-esophageal reflux disease without esophagitis; F17.210 Nicotine dependence, cigarettes, uncomplicated; G89.29 Other chronic pain; M19.90 Unspecified osteoarthritis, unspecified site; K29.50 Unspecified chronic gastritis without bleeding; K29.80 Duodenitis without bleeding; K70.10 Alcoholic hepatitis without ascites; W18.30XA Fall on same level, unspecified, initial encounter; Z11.59 Encounter for screening for other viral diseases; Z79.899 Other long term (current) drug therapy; Z90.49 Acquired absence of other specified parts of digestive tract; Z98.890 Other specified postprocedural states
CPT/HCPCS: 36415; 71045; 80048; 80053; 83930; 83935; 84300; 85025; 87635; 94640; 96372; 96374; 96375; 99285

== ENCOUNTER 2020-03-29 14:35 | Inpatient (IN) | payer MEDICARE ==
[2020-03-29] MEDS ORDERED: SODIUM CHLORIDE 0.9% 1,000 ML IV STA ×2 (15:23→16:50)
[2020-03-29] MEDS ORDERED: PANTOPRAZOLE 40 MG/10 ML VIAL IVP STA (15:23)
[2020-03-29] MEDS ORDERED: ONDANSETRON 4 MG/2 ML VIAL IVP STA (15:23)
[2020-03-29] MEDS ORDERED: HYDROmorphone 1 MG/ML 1 ML SYRINGE IVP STA ×3 (15:23→17:16)
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
[2020-03-29 16:16] LABS: Basophils % (A) 0 %; Eosinophils % (A) 0 %; HCT 38.8 % (39.0-53.0); HGB 13.1 gm/dL (13.0-17.5); Lymphocytes % (A) 6 %; MCH 34.5 pg (25.0-35.0); MCHC 33.7 g/dL (31.0-37.0); MCV 102.5 fL (80.0-100.0); Macrocytosis Slight; Mean Platelet Volume 7.4; Monocytes % (A) 12 %; Neutrophils # (A) 12.8 k/uL (1.3-7.7); Neutrophils % (A) 78 %; RBC 3.79 m/uL (4.30-5.90); RDW 12.5 % (11.5-15.5); WBC 16.4 k/uL (3.8-10.6)
[2020-03-29 16:18] LABS: Platelet Count 452 k/uL (150-450)
[2020-03-29 16:21] LABS: Prothrombin Time 10.1 sec (9.0-12.0)
--- NOTE | 2020-03-29 16:22 | XR ---
EXAMINATION TYPE: XR chest 1V portable DATE OF EXAM: 03/29/2020 HISTORY: Shortness of breath. COMPARISON: 03/24/2020 TECHNIQUE: Single view of the chest is submitted. FINDINGS: Demonstrated are scattered senescent parenchymal change. New Left lower lobe infiltrate and/or pleural effusion. Right lung is relatively clear. The heart is stable. Hilar and mediastinal structures are within normal limits. Degenerative changes are seen of the dorsal spine. IMPRESSION: 1. New Left lower lobe infiltrate and/or pleural effusion. Right lung is relatively clear.
--- NOTE | 2020-03-29 16:40 | CT ---
EXAMINATION TYPE: CT abdomen pelvis w con DATE OF EXAM: 03/29/2020 COMPARISON: 12/03/2014 HISTORY: abdominal pain CT DLP: 627.7 mGycm CONTRAST: CT scan of the abdomen and pelvis is performed without Oral Contrast and with IV Contrast, patient in jected with 100 mL of Isovue 300. FINDINGS: LUNG BASES-: There is a large defect noted within the left hemidiaphragm which contains multiple thic kened loops of small bowel with haziness of the mesentery indicating strangulation and incarceration. There is a large left-sided pleural effusion noted. Underlying compressive atelectasis seen. Multipl e left-sided rib fractures are identified. One segmental fractures visualized. LIVER/GB: No calcified gallstones. No space occupying hepatic lesion. Biliary tree is of normal ca liber. PANCREAS: No inflammation. No distinct mass. SPLEEN: No splenic enlargement. No lesion seen. ADRENALS: No nodule. No thickening. KIDNEYS/BLADDER: No hydronephrosis. No nephrolithiasis. No distinct renal mass. Urinary bladder g rossly unremarkable. BOWEL: Normal appendix. Normal bowel caliber. No inflammation. GENITAL ORGANS: No gross abnormality. LYMPH NODES: No greater than 1cm abdominal or pelvic lymph nodes are appreciated. AORTA: No significant abnormality. OSSEOUS STRUCTURES: No significant abnormality is seen. OTHER: High density free fluid within the pelvis may represent blood byproducts. IMPRESSION: 1. Posttraumatic Large left-sided diaphragmatic hernia which contains multiple thickened loops of sma ll bowel with hazy mesentery indicating incarceration and/or strangulation. 2. Hemoperitoneum is noted. I do not see evidence for solid abdominal visceral injury. May be related to bowel injury. No definite free air is seen at this time. 3. Large left-sided pleural effusion. 4. Multiple left-sided rib fractures one of which appears to be segmental. Findings discussed with Dr. Crowley at the time of exam completion.
[2020-03-29 16:41] LABS: ALT 17 U/L (4-49); AST 34 U/L (17-59); African American GFR (CKD) >90 (>60 ml/min/1.73 sqM); Albumin 3.8 g/dL (3.5-5.0); Alkaline Phosphatase 75 U/L (38-126); Amylase 35 U/L (30-110); Anion Gap 11 mmol/L; Blood Urea Nitrogen 10 mg/dL (9-20); Calcium 9.3 mg/dL (8.4-10.2); Carbon Dioxide 24 mmol/L (22-30); Chloride 91 mmol/L (98-107); Glucose 140 mg/dL (74-99); Non-African American GFR(CKD) >90 (>60 ml/min/1.73 sqM); Potassium 4.4 mmol/L (3.5-5.1); Sodium 126 mmol/L (137-145); Total Bilirubin 1.1 mg/dL (0.2-1.3); Total Protein 6.9 g/dL (6.3-8.2)
[2020-03-29] MEDS ORDERED: NALOXONE 0.4 MG/ML 1 ML VIAL IV PRN (17:25)
[2020-03-29] MEDS ORDERED: HYDROmorphone 1 MG/ML 1 ML SYRINGE IVP PRN (17:25)
[2020-03-29] MEDS ORDERED: AMPICILLIN-SULBACTAM 3 GM in SODIUM CHLORIDE 0.9% 100 ML IVPB STA (17:26)
[2020-03-29] MEDS ORDERED: AMPICILLIN-SULBACTAM 1.5 GM in SODIUM CHLORIDE 0.9% 50 ML IVPB SCH (18:00)
[2020-03-29] MEDS ORDERED: SUCCINYLCHOLINE CHLORIDE 100 MG/5 ML SYR IV ONE (19:15)
[2020-03-29] MEDS ORDERED: fentaNYL (PF) 50 MCG/ML 2 ML AMP ONE (19:15)
[2020-03-29] MEDS ORDERED: PHENYLEPHRINE-0.9% NACL SYG 1 MG/10 ML SYRINGE ONE (19:15)
[2020-03-29] MEDS ORDERED: LIDOCAINE 1% INJ 10MG/ML (20 ML MDV) ONE (19:15)
[2020-03-29] MEDS ORDERED: ROCURONIUM BROMIDE 10 MG/ML 5 ML VIAL IV ONE (19:15)
[2020-03-29] MEDS ORDERED: MIDAZOLAM 2 MG/2 ML VIAL ONE (19:15)
[2020-03-29] MEDS ORDERED: PROPOFOL 10 MG/ML 20 ML VIAL IV ONE (19:15)
[2020-03-29] MEDS ORDERED: LACTATED RINGERS 1,000 ML IV ONE ×5 (19:20→20:41)
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
--- NOTE | 2020-03-29 20:40 | P.OP ---
Date of Procedure: 03/29/20 Preoperative Diagnosis: Strangulated diaphragmatic hernia Postoperative Diagnosis: Strangulated diaphragmatic hernia Procedure(s) Performed: Exploratory laparotomy Small bowel resection Repair of diaphragmatic hernia Placement of left chest tube Anesthesia: HERMILO Surgeon: Suhas Rowe Estimated Blood Loss (ml): 100 Pathology: other (Ischemic small bowel) Condition: critical Disposition: ICU Description of Procedure: The patient's placed the operative table in the supine position. He received general anesthesia. His abdomen was prepped and draped usual fashion. The abdomen was entered through an upper midline incision. The [place] with wound. There is evidence of some blood within the perineal cavity. The left diaphragm was examined. And there is evidence of a strangulated hernia containing small bowel. The diaphragmatic hernia was opened slightly with g entle traction and then the small bowel was reduced. The patient had approximately 40% of the small bowel within the left chest with ischemia and strangulation of the small bowel. At this point the bowel was transected proximal and distally at the viable margins and then using the Enseal device the mesentery the bowel was divided. The specimens of pathology. [id number] functional end-to-end staple anastomosis then created using MINNA and TA stapler. 3-0 GI silk sutures uses crotch stitch. Approximately 1 L of bloody fluid was aspirated from the left chest. The diaphragmatic laceration was then repaired using 0 Ethibond suture. The abdomen was then irrigated with 4 L of normal saline. The fascia was then closed with looped #1 PDS suture. Skin was closed boyd. A left chest tube was placed in the fourth intercostal space in the lateral axillary line. This extended to a Pleur-evac under suction. The patient remained intubated and was sent to the ICU in guarded condition.
[2020-03-29 21:06] LABS: Glucose,Whole Blood 105 mg/dL (75-99)
[2020-03-29] MEDS: PROPOFOL 1,000 MG in EMPTY BAG 1 BAG IV SCH (21:15)
[2020-03-29] MEDS ORDERED: PROPOFOL 100 ML IV ONE (21:18)
[2020-03-29] MEDS: SODIUM CHLORIDE 0.9% 1,000 ML IV SCH (21:41)
--- NOTE | 2020-03-29 21:43 | XR ---
EXAMINATION TYPE: XR chest 1V portable DATE OF EXAM: 03/29/2020 COMPARISON: Today HISTORY: Left side chest tube TECHNIQUE: FINDINGS: There is some patchy infiltrate and atelectasis at the left lung base. There is left-sided chest tube and the tip is in the posterior sulcus in the left paraspinal left lower lobe. There is de crease in the left pleural effusion compared to exam earlier today 5 hours ago. There is no heart brian lure. The endotracheal tube is 2 cm from the teo. I see no definite pneumothorax. There is nasogas tric tube in the stomach. IMPRESSION: Decrease in left pleural effusion compared to exam earlier today. Patchy atelectasis and infiltrate left lung base. No heart failure seen.
[2020-03-29] MEDS ORDERED: ACETAMINOPHEN TAB 325 MG TAB PO PRN (22:09)
[2020-03-29] MEDS ORDERED: IPRATROPIUM-ALBUTEROL 3 ML NEB INHALATION PRN (22:09)
[2020-03-29 22:26] LABS: ABG Base Excess -3.4 mmol/L; ABG HCO3 23 mmol/L (21-25); ABG Oxygen Saturation 99.9 % (94-97); ABG PCO2 43 mmHg (35-45); ABG PH 7.33 (7.35-7.45); ABG PO2 >400 mmHg (83-108); ABG TCO2 24 mmol/L (19-24); Allen Test Performed? Yes
[2020-03-29] MEDS ORDERED: NOREPINEPHRIN 4 MG-0.9% NS PMX 4 MG/250 ML ML IV ONE (23:34)
[2020-03-29] MEDS ORDERED: SODIUM CHLORIDE 0.9% 1,000 ML IV ONE (23:48)
[2020-03-30] MEDS: PIPERACILLIN-TAZOBACTAM 3.375 GM in SODIUM CHLORIDE 0.9% 100 ML IVPB SCH ×3 (00:19→18:15)
[2020-03-30] MEDS: AMPICILLIN-SULBACTAM 1.5 GM in SODIUM CHLORIDE 0.9% 50 ML IVPB SCH ×3 (00:19→12:16)
[2020-03-30] MEDS: IPRATROPIUM-ALBUTEROL 3 ML NEB INHALATION SCH ×6 (00:37→20:02)
[2020-03-30 01:10] LABS: HCT 39.4 % (39.0-53.0); HGB 12.7 gm/dL (13.0-17.5); Hypochromasia Slight; MCHC 32.3 g/dL (31.0-37.0); Macrocytosis Moderate; Platelet Count 320 k/uL (150-450); RBC 3.63 m/uL (4.30-5.90); RDW 12.8 % (11.5-15.5); WBC 11.1 k/uL (3.8-10.6)
[2020-03-30 01:19] LABS: MCV 108.5 fL (80.0-100.0)
[2020-03-30] MEDS: PROPOFOL 1,000 MG in EMPTY BAG 1 BAG IV SCH ×2 (02:36→06:09)
[2020-03-30] MEDS: NOREPINEPHRINE 8 MG in SODIUM CHLORIDE 0.9% 250 ML IV SCH (02:37)
[2020-03-30] MEDS: SODIUM CHLORIDE 0.9% 1,000 ML IV SCH ×3 (02:38→18:15)
[2020-03-30 02:49] LABS: Band Neutrophils % 41 %; Lymphocytes # (M) 0.78 k/uL (1.0-4.8); Metamyelocytes # (M) 0.22 k/uL (0); Metamyelocytes % 2 %; Monocytes # (M) 1.22 k/uL (0-1.0); Neutrophils % (M) 39 %; Nucleated Red Blood Cells 0 /100 WBC (0-0)
[2020-03-30 02:50] LABS: Total Cells Counted 200
[2020-03-30 02:51] LABS: Anisocytosis (M) Present; Crenated RBC Present; Poikilocytosis (M) Present; Toxic Granulation Present
[2020-03-30 05:19] LABS: ABG Base Excess -0.9 mmol/L; ABG HCO3 24 mmol/L (21-25); ABG Oxygen Saturation 97.1 % (94-97); ABG PCO2 42 mmHg (35-45); ABG PH 7.38 (7.35-7.45); ABG PO2 93 mmHg (83-108); ABG TCO2 26 mmol/L (19-24); Allen Test Performed? Yes
[2020-03-30 05:34] LABS: Appearance,Urine Clear (Clear); Bilirubin,Urine Negative (Negative); Blood,Urine Negative (Negative); Color,Urine Yellow; Glucose,Urine (UA) Negative (Negative); Ketones,Urine Negative (Negative); Leukocyte Esterase,Urine Negative (Negative); Nitrite,Urine Negative (Negative); PH, Urine 5.5 (5.0-8.0); Protein,Urine Trace (Negative)
[2020-03-30 05:44] LABS: Specific Gravity,Urine >1.050 (1.001-1.035)
[2020-03-30 05:54] LABS: HCT 39.4 % (39.0-53.0); HGB 13.3 gm/dL (13.0-17.5); MCH 35.2 pg (25.0-35.0); MCHC 33.9 g/dL (31.0-37.0); Macrocytosis Slight; Mean Platelet Volume 8.5; Platelet Count 311 k/uL (150-450); RBC 3.79 m/uL (4.30-5.90); WBC 16.1 k/uL (3.8-10.6)
[2020-03-30 06:31] LABS: Glucose,Whole Blood 91 mg/dL (75-99)
[2020-03-30 07:56] LABS: ALT 13 U/L (4-49); AST 47 U/L (17-59); African American GFR (CKD) >90 (>60 ml/min/1.73 sqM); Albumin 2.3 g/dL (3.5-5.0); Alkaline Phosphatase 41 U/L (38-126); Anion Gap 12 mmol/L; Blood Urea Nitrogen 14 mg/dL (9-20); Calcium 8.2 mg/dL (8.4-10.2); Carbon Dioxide 21 mmol/L (22-30); Chloride 98 mmol/L (98-107); Glucose 61 mg/dL (74-99); Non-African American GFR(CKD) >90 (>60 ml/min/1.73 sqM); Potassium 4.9 mmol/L (3.5-5.1); Sodium 131 mmol/L (137-145); Total Protein 4.6 g/dL (6.3-8.2)
[2020-03-30 08:12] LABS: Glucose,Whole Blood 105 mg/dL (75-99)
--- NOTE | 2020-03-30 08:52 | XR ---
EXAMINATION TYPE: XR chest 1V portable DATE OF EXAM: 03/30/2020 Comparison: 03/29/2020 Clinical History: 64-year-old male Tube placement Findings: ET tube has been pulled back, tip just below the level of the medial clavicular heads. NG tube satisf actory. Left-sided chest tube is present without appreciable pneumothorax. Low lung volumes. Patchy o pacity throughout the left mid and lower lung persists, possible small left effusion as well. Impression: 1. Left-sided chest tube without appreciable pneumothorax. 2. Low lung volumes with satisfactory ET tube. 3. Patchy left mid and lower lung infiltrate persists possibly with a small left effusion as well.
[2020-03-30 08:53] LABS: Band Neutrophils % 27 %; Lymphocytes # (M) 0.81 k/uL (1.0-4.8); Monocytes # (M) 2.09 k/uL (0-1.0); Neutrophils % (M) 56 %; Nucleated Red Blood Cells 0 /100 WBC (0-0); Total Cells Counted 200
[2020-03-30 08:56] LABS: Toxic Granulation Present
[2020-03-30 08:57] LABS: Anisocytosis (M) Present; Poikilocytosis (M) Present
[2020-03-30 08:58] LABS: Polychromasia Present
[2020-03-30] MEDS ORDERED: CHLORHEXIDINE GLUCONATE 15 ML CUP MUCOUS MEM SCH (09:00)
[2020-03-30] MEDS ORDERED: PANTOPRAZOLE 40 MG/10 ML VIAL IV SCH (09:00)
[2020-03-30] MEDS: LACTATED RINGERS 1,000 ML IV ONE ×2 (09:10→09:38)
[2020-03-30] MEDS ORDERED: LACTATED RINGERS 1,000 ML IV ONE ×3 (09:15→11:15)
[2020-03-30] MEDS ORDERED: DEXMEDETOMIDINE/0.9% NACL(PMX) 400 MCG in EMPTY BAG 1 BAG IV SCH (09:15)
[2020-03-30] MEDS: ENOXAPARIN 40 MG/0.4 ML SYRINGE SQ SCH (09:36)
[2020-03-30] MEDS: PANTOPRAZOLE 40 MG/10 ML VIAL IV SCH (09:36)
[2020-03-30] MEDS: HYDROmorphone 0.5 MG/0.5 ML SYRINGE IVP PRN ×2 (11:36→18:05)
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
--- NOTE | 2020-03-30 12:03 | P.PN ---
Subjective Progress Note Date: 03/30/20 CHIEF COMPLAINT: Strangulated diaphragmatic hernia HISTORY OF PRESENT ILLNESS: Patient is status post exploratory laparotomy, small bowel resection, repair of diaphragmatic hernia, and placement of left chest tube with Dr. Rowe. Postop day #1. Patient remains on mechanical ventilation in the intensive care unit. Patient has received 2 L of IV fluid boluses today. His urine output remains marginal. He remains on vasopressors. PHYSICAL EXAM: VITAL SIGNS: Reviewed. GENERAL: Well-developed in no acute distress. HEENT: No sclera icterus. Extraocular movements grossly intact. Moist buccal mucosa. Head is atraumatic, normocephalic. ABDOMEN: Soft. Nondistended. Dressing clean dry and intact. Abdominal binder noted. Left chest tube noted. NG to LIS NEUROLOGIC: Sedated on mechanical ventilation ASSESSMENT: 1. Strangulated diaphragmatic hernia, status post exploratory laparotomy, small bowel resection, repair of diaphragmatic hernia, and placement of left chest tube with Dr. Rowe PLAN: -Continue ventilator management per Dr. Soto -Monitor urine output -Wean vasopressors as tolerated -Given additional 2 L fluid boluses per Dr. Rowe Nurse practitioner note has been reviewed by physician. Signing provider agrees with the documented findings, assessment, and plan of care. Objective - Vital Signs Vital signs: Vital Signs Temp 100.0 F H 03/30/20 08:00 Pulse 86 03/30/20 10:00 Resp 19 03/30/20 10:00 BP 100/57 03/30/20 10:00 Pulse Ox 99 03/30/20 10:00 Intake & Output 03/29/20 03/30/20 03/30/20 18:59 06:59 18:59 Intake Total 5897.400 2313.091 Output Total 400 140 Balance 5497.400 2173.091 Weight 74.389 kg 75 kg Intake: IV 3200 Intake, IV Titration 2697.400 2313.091 Amount Ampicillin-Sulbactam 1.5 200 gm In Sodium Chloride 0.9 % 50 ml @ 100 mls/hr IVPB Q6HR [facility] Rx#:[id number] Lactated Ringers 1,000 ml 300 @ 150 mls/hr IV .Q6H40M [facility] Rx#:[id number] Lactated Ringers 1,000 ml 2000 @ 999 mls/hr IV .Q1H1M [facility] Rx#:[id number] Norepinephrine 8 mg In 36.538 53.091 Sodium Chloride 0.9% 250 ml @ 0.05 MCG/KG/MIN 7. 197 mls/hr IV .Q24H [facility] Rx#:[id number] Piperacillin-Tazobactam 3 100 .375 gm In Sodium Chloride 0.9% 100 ml @ 25 mls/hr IVPB Q8HR [facility] Rx# :[id number] Propofol 1,000 mg In 150.862 Empty Bag 1 bag @ Titrate IV .Q0M [facility] Rx#: [id number] Sodium Chloride 0.9% 1, 520 260 000 ml @ 130 mls/hr IV . Q7H42M [facility] Rx#:[id number] Sodium Chloride 0.9% 1, 390 000 ml @ 130 mls/hr IV . Q7H42M [facility] Rx#:[id number] Sodium Chloride 0.9% 1, 1000 000 ml @ 999 mls/hr IV . Q1H1M [facility] Rx#:[id number] Output: Urine 300 140 Estimated Blood Loss 100 Other: Voiding Method Indwelling Catheter - Labs CBC & Chem 7: 03/30/20 05:23 03/30/20 05:23 Labs: Abnormal Lab Results - Last 24 Hours (Table) 03/29/20 03/29/20 03/29/20 Range/Units 15:17 15:17 21:04 WBC 16.4 H (3.8-10.6) k/uL RBC 3.79 L (4.30-5.90) m/uL Hgb (13.0-17.5) gm/dL Hct 38.8 L (39.0-53.0) % MCV 102.5 H (80.0-100.0) fL MCH (25.0-35.0) pg Plt Count 452 H D (150-450) k/uL Neutrophils # 12.8 H (1.3-7.7) k/uL Neutrophils # (Manual) (1.3-7.7) k/uL Lymphocytes # (Manual) (1.0-4.8) k/uL Monocytes # 2.0 H (0-1.0) k/uL Monocytes # (Manual) (0-1.0) k/uL Metamyelocytes # (Man) (0) k/uL ABG pH (7.35-7.45) ABG pO2 (83-108) mmHg ABG Total CO2 (19-24) mmol/L ABG O2 Saturation (94-97) % Sodium 126 L (137-145) mmol/L Chloride 91 L (98-107) mmol/L Carbon Dioxide (22-30) mmol/L Creatinine 0.45 L (0.66-1.25) mg/dL Glucose 140 H (74-99) mg/dL POC Glucose (mg/dL) 105 H (75-99) mg/dL Calcium (8.4-10.2) mg/dL Total Protein (6.3-8.2) g/dL Albumin (3.5-5.0) g/dL Ur Specific [place] (1.001-1.035) Urine Protein (Negative) 03/29/20 03/30/20 03/30/20 Range/Units 22:21 00:12 04:45 WBC 11.1 H (3.8-10.6) k/uL RBC 3.63 L (4.30-5.90) m/uL Hgb 12.7 L (13.0-17.5) gm/dL Hct (39.0-53.0) % MCV 108.5 H D (80.0-100.0) fL MCH (25.0-35.0) pg Plt Count (150-450) k/uL Neutrophils # (1.3-7.7) k/uL Neutrophils # (Manual) 8.80 H (1.3-7.7) k/uL Lymphocytes # (Manual) 0.78 L (1.0-4.8) k/uL Monocytes # (0-1.0) k/uL Monocytes # (Manual) 1.22 H (0-1.0) k/uL Metamyelocytes # (Man) 0.22 H (0) k/uL ABG pH 7.33 L (7.35-7.45) ABG pO2 >400 H (83-108) mmHg ABG Total CO2 (19-24) mmol/L ABG O2 Saturation 99.9 H (94-97) % Sodium (137-145) mmol/L Chloride (98-107) mmol/L Carbon Dioxide (22-30) mmol/L Creatinine (0.66-1.25) mg/dL Glucose (74-99) mg/dL POC Glucose (mg/dL) (75-99) mg/dL Calcium (8.4-10.2) mg/dL Total Protein (6.3-8.2) g/dL Albumin (3.5-5.0) g/dL Ur Specific [place] >1.050 H (1.001-1.035) Urine Protein Trace H (Negative) 03/30/20 03/30/20 03/30/20 Range/Units 05:05 05:23 05:23 WBC 16.1 H (3.8-10.6) k/uL RBC 3.79 L (4.30-5.90) m/uL Hgb (13.0-17.5) gm/dL Hct (39.0-53.0) % MCV 104.0 H (80.0-100.0) fL MCH 35.2 H (25.0-35.0) pg Plt Count (150-450) k/uL Neutrophils # (1.3-7.7) k/uL Neutrophils # (Manual) 13.30 H (1.3-7.7) k/uL Lymphocytes # (Manual) 0.81 L (1.0-4.8) k/uL Monocytes # (0-1.0) k/uL Monocytes # (Manual) 2.09 H (0-1.0) k/uL Metamyelocytes # (Man) (0) k/uL ABG pH (7.35-7.45) ABG pO2 (83-108) mmHg ABG Total CO2 26 H (19-24) mmol/L ABG O2 Saturation 97.1 H (94-97) % Sodium 131 L (137-145) mmol/L Chloride (98-107) mmol/L Carbon Dioxide 21 L (22-30) mmol/L Creatinine (0.66-1.25) mg/dL Glucose 61 L (74-99) mg/dL POC Glucose (mg/dL) (75-99) mg/dL Calcium 8.2 L (8.4-10.2) mg/dL Total Protein 4.6 L (6.3-8.2) g/dL Albumin 2.3 L (3.5-5.0) g/dL Ur Specific [place] (1.001-1.035) Urine Protein (Negative) 03/30/20 Range/Units 08:10 WBC (3.8-10.6) k/uL RBC (4.30-5.90) m/uL Hgb (13.0-17.5) gm/dL Hct (39.0-53.0) % MCV (80.0-100.0) fL MCH (25.0-35.0) pg Plt Count (150-450) k/uL Neutrophils # (1.3-7.7) k/uL Neutrophils # (Manual) (1.3-7.7) k/uL Lymphocytes # (Manual) (1.0-4.8) k/uL Monocytes # (0-1.0) k/uL Monocytes # (Manual) (0-1.0) k/uL Metamyelocytes # (Man) (0) k/uL ABG pH (7.35-7.45) ABG pO2 (83-108) mmHg ABG Total CO2 (19-24) mmol/L ABG O2 Saturation (94-97) % Sodium (137-145) mmol/L Chloride (98-107) mmol/L Carbon Dioxide (22-30) mmol/L Creatinine (0.66-1.25) mg/dL Glucose (74-99) mg/dL POC Glucose (mg/dL) 105 H (75-99) mg/dL Calcium (8.4-10.2) mg/dL Total Protein (6.3-8.2) g/dL Albumin (3.5-5.0) g/dL Ur Specific [place] (1.001-1.035) Urine Protein (Negative) Microbiology - Last 24 Hours (Table) 03/30/20 01:03 Sputum Culture - Preliminary Sputum
[2020-03-30 12:21] LABS: Glucose,Whole Blood 98 mg/dL (75-99)
[2020-03-30] MEDS ORDERED: KETOROLAC 30 MG/ML 1 ML VIAL IVP PRN (12:31)
[2020-03-30] MEDS: ACETAMINOPHEN IV (For NPO) 1,000 MG in EMPTY BAG 1 BAG IVPB SCH ×2 (13:32→18:08)
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
[2020-03-30 17:38] LABS: Glucose,Whole Blood 71 mg/dL (75-99)
[2020-03-30] MEDS: NICOTINE 21MG/24HR PATCH TRANSDERM SCH (19:16)
[2020-03-31] MEDS: NOREPINEPHRINE 8 MG in SODIUM CHLORIDE 0.9% 250 ML IV SCH ×2 (00:29→22:41)
[2020-03-31] MEDS: ACETAMINOPHEN IV (For NPO) 1,000 MG in EMPTY BAG 1 BAG IVPB SCH ×2 (00:40→05:34)
[2020-03-31] MEDS: PIPERACILLIN-TAZOBACTAM 3.375 GM in SODIUM CHLORIDE 0.9% 100 ML IVPB SCH ×4 (00:41→23:24)
[2020-03-31] MEDS: SODIUM CHLORIDE 0.9% 1,000 ML IV SCH ×4 (00:41→23:25)
[2020-03-31] MEDS: HYDROmorphone 1 MG/ML 1 ML SYRINGE IVP PRN ×6 (00:46→23:21)
[2020-03-31 05:24] LABS: African American GFR (CKD) >90 (>60 ml/min/1.73 sqM); Anion Gap 3 mmol/L; Blood Urea Nitrogen 16 mg/dL (9-20); Calcium 7.6 mg/dL (8.4-10.2); Carbon Dioxide 26 mmol/L (22-30); Chloride 96 mmol/L (98-107); Glucose 93 mg/dL (74-99); Non-African American GFR(CKD) >90 (>60 ml/min/1.73 sqM); Sodium 125 mmol/L (137-145)
[2020-03-31 05:26] LABS: Basophils % (A) 0 %; Eosinophils # (A) 0.1 k/uL (0-0.7); Eosinophils % (A) 1 %; HCT 26.1 % (39.0-53.0); Lymphocytes % (A) 8 %; MCH 35.4 pg (25.0-35.0); Macrocytosis Slight; Mean Platelet Volume 6.9; Monocytes # (A) 0.7 k/uL (0-1.0); Monocytes % (A) 5 %; Neutrophils # (A) 10.8 k/uL (1.3-7.7); Neutrophils % (A) 84 %; Platelet Count 330 k/uL (150-450); RBC 2.51 m/uL (4.30-5.90); WBC 12.9 k/uL (3.8-10.6)
[2020-03-31 05:54] LABS: HGB 8.9 gm/dL (13.0-17.5)
[2020-03-31] MEDS: IPRATROPIUM-ALBUTEROL 3 ML NEB INHALATION SCH ×4 (07:29→20:17)
--- NOTE | 2020-03-31 08:41 | XR ---
EXAMINATION TYPE: XR chest 1V portable DATE OF EXAM: 03/31/2020 COMPARISON: Prior chest x-ray 03/30/2020 HISTORY: Extubated, left chest tube TECHNIQUE: Single frontal view of the chest is obtained. FINDINGS: Lung lines are low. Endotracheal and NG tube have been removed. Left-sided chest tube eleanor ins coiled in the lower left chest. There is no sizable pneumothorax. Abnormal increased density with in the left lung shows a similar appearance. Subsegmental basilar atelectatic changes are present on the right. Heart size is stable. Left-sided rib fractures have been previously documented. IMPRESSION: Interval extubation. Low lung volumes. Atelectatic changes, difficult to exclude effusio n
[2020-03-31] MEDS: PANTOPRAZOLE 40 MG/10 ML VIAL IV SCH (08:58)
[2020-03-31] MEDS: ENOXAPARIN 40 MG/0.4 ML SYRINGE SQ SCH (08:58)
[2020-03-31] MEDS: NICOTINE 21MG/24HR PATCH TRANSDERM SCH ×2 (08:58→09:25)
--- NOTE | 2020-03-31 09:58 | P.PN ---
Subjective Progress Note Date: 03/31/20 Principal diagnosis: Abdominal pain, status post exploratory laparotomy, small bowel resection, repair of diaphragmatic hernia, left chest tube placement. Postoperative day #2 The patient is seen today 03/31/2020 in follow-up in the intensive care unit. He had initially presented with abdominal discomfort after developing constipation from pain medication being taken for from recent fall with rib fractures. He was found to have a diaphragmatic hernia with strangulated bowel. He is status post exploratory laparotomy, small bowel resection, repair of diaphragmatic hernia, placement of left chest tube. This is postoperative day #2. He is currently sitting up in bed. Awake and alert in no acute distress. He initially was on mechanical ventilator and extubated yesterday. He is currently on 3 L nasal cannula. 0.9 normal saline at 130 ML's per hour. Today's chest x- ray reveals left-sided chest tube in the lower left chest. No sizable pneumothorax. Increased density within the left lung similar to prior. There is subsegmental basilar atelectatic changes on the right. Blood and sputum cultures reveal no growth to date. White count 12.9. Hemoglobin 8.9. MCV 104. Sodium 125. Potassium 4.0. Creatinine 0.56. Franco virus not detected. Objective - Vital Signs Vital signs: Vital Signs Temp 98.4 F 03/31/20 08:00 Pulse 86 03/31/20 09:00 Resp 14 03/31/20 09:00 BP 124/71 03/31/20 09:00 Pulse Ox 93 L 03/31/20 09:00 Intake & Output 03/30/20 03/31/20 03/31/20 18:59 06:59 18:59 Intake Total 5897.310 2328.349 490 Output Total 655 567 195 Balance 5242.310 1761.349 295 Weight 84.8 kg Intake: IV 590 1860 490 ACETAMINOPHEN IV (For NPO 100 200 ) 1,000 mg In Empty Bag 1 bag @ 400 mls/hr IVPB Q6HR [facility] Rx#:[id number] Piperacillin-Tazobactam 3 100 100 100 .375 gm In Sodium Chloride 0.9% 100 ml @ 25 mls/hr IVPB Q8HR [facility] Rx# :[id number] Sodium Chloride 0.9% 1, 390 1560 390 000 ml @ 130 mls/hr IV . Q7H42M [facility] Rx#:[id number] Intake, IV Titration 5307.310 8.349 Amount ACETAMINOPHEN IV (For NPO 400 ) 1,000 mg In Empty Bag 1 bag @ 400 mls/hr IVPB Q6HR [facility] Rx#:[id number] Dexmedetomidine/0.9% NaCl 11.594 (Pmx) 400 mcg In Empty Bag 1 bag @ Titrate IV . Q0M [facility] Rx#:[id number] Lactated Ringers 1,000 ml 3000 @ 999 mls/hr IV .Q1H1M [facility] Rx#:[id number] Lactated Ringers 1,000 ml 1000 @ 999 mls/hr IV .Q1H1M [facility] Rx#:[id number] Norepinephrine 8 mg In 145.716 8.349 Sodium Chloride 0.9% 250 ml @ 0.05 MCG/KG/MIN 7. 197 mls/hr IV .Q24H [facility] Rx#:[id number] Piperacillin-Tazobactam 3 100 .375 gm In Sodium Chloride 0.9% 100 ml @ 25 mls/hr IVPB Q8HR [facility] Rx# :[id number] Sodium Chloride 0.9% 1, 650 000 ml @ 130 mls/hr IV . Q7H42M [facility] Rx#:[id number] Oral 460 Output: Chest Tube Drainage 220 Left 220 Urine 435 567 195 Other: Voiding Method Indwelling Catheter Indwelling Catheter - Exam GENERAL EXAM: Alert, pleasant 64-year-old gentleman, and 3 L nasal cannula, fairly comfortable in no apparent distress. HEAD: Normocephalic. EYES: Normal reaction of pupils, equal size. NOSE: Clear with pink turbinates. THROAT: No erythema or exudates. NECK: No masses, no JVD. CHEST: Left chest tube remains in place. LUNGS: Equal air entry with few scattered rhonchi, crackles in the bases. CVS: S1 and S2 normal with no audible murmur, regular rhythm. ABDOMEN: Abdominal dressing dry and intact. Binder in place. No active bowel sounds. SPINE: No scoliosis or deformity SKIN: No rashes CENTRAL NERVOUS SYSTEM: No focal deficits, tone is normal in all 4 extremities. EXTREMITIES: There is no peripheral edema. No clubbing, no cyanosis. Peripheral pulses are intact. - Labs CBC & Chem 7: 03/31/20 04:49 03/31/20 04:49 Labs: Abnormal Lab Results - Last 24 Hours (Table) 03/30/20 03/31/20 03/31/20 Range/Units 17:35 04:49 04:49 WBC 12.9 H (3.8-10.6) k/uL RBC 2.51 L (4.30-5.90) m/uL Hgb 8.9 L D (13.0-17.5) gm/dL Hct 26.1 L (39.0-53.0) % MCV 104.0 H (80.0-100.0) fL MCH 35.4 H (25.0-35.0) pg Neutrophils # 10.8 H (1.3-7.7) k/uL Sodium 125 L (137-145) mmol/L Chloride 96 L (98-107) mmol/L Creatinine 0.56 L (0.66-1.25) mg/dL POC Glucose (mg/dL) 71 L (75-99) mg/dL Calcium 7.6 L (8.4-10.2) mg/dL Microbiology - Last 24 Hours (Table) 03/29/20 17:49 Blood Culture - Preliminary Blood No Growth after 24 hours 03/30/20 01:03 Gram Stain - Preliminary Sputum Sputum Culture - Preliminary Assessment and Plan Assessment: 1 Abdominal pain secondary to strangulated diaphragmatic hernia, status post exploratory laparotomy, small bowel resection, repair of diaphragmatic hernia and placement of the left chest tube. This is postoperative day #2. 2 Acute hypoxemic respiratory failure secondary to above, extubated on 03/30/2020, currently on 3 L nasal cannula 3 Recent admission for left chest wall pain and rib fractures status post fall requiring narcotics and subsequent constipation 4 Hyponatremia, suspected chronic in nature 5 Previous history of alcohol abuse 6 Chronic tobacco dependence 7 History of previous GI bleeding, gastritis and duodenitis 8 Hypertension 9 History of hiatal hernia Plan: The patient was seen and evaluated by Dr. Stoo Chest x-ray and labs reviewed Add incentive spirometer and encourage cough and deep breathing exercises Increase his activity as tolerated Could be transferred out of the intensive care unit today Repeat chest x-ray in a.m. We'll continue to follow and make further recommendations based on his clinical status I, the cosigning physician, performed a history & physical examination of the patient. Lungs sounds with few scattered rhonchi, crackles in the posterior bas es. Maintaining good O2 saturations in the 90s on 3 L/m per nasal cannula. I discussed the assessment and plan of care with my nurse practitioner, Maria Dolores Espinosa. I attest to the above note as dictated by her.
--- NOTE | 2020-03-31 13:49 | P.PN ---
Subjective Progress Note Date: 03/31/20 CHIEF COMPLAINT: Strangulated diaphragmatic hernia HISTORY OF PRESENT ILLNESS: Patient is status post exploratory laparotomy, small bowel resection, repair of diaphragmatic hernia, and placement of left chest tube with Dr. Rowe. Postop day #2. Patient was extubated yesterday. Patient is sitting up in the chair. He reports his pain is tolerable. Tolerat ing ice chips and sips of clears without nausea or vomiting. Left chest tube with 250 mL of drainage today per nursing. PHYSICAL EXAM: VITAL SIGNS: Reviewed. GENERAL: Well-developed in no acute distress. HEENT: No sclera icterus. Extraocular movements grossly intact. Moist buccal mucosa. Head is atraumatic, normocephalic. ABDOMEN: Soft. Nondistended. Dressing clean dry and intact. Abdominal binder noted. Left chest tube noted. NEUROLOGIC: Awake and alert ASSESSMENT: 1. Strangulated diaphragmatic hernia, status post exploratory laparotomy, small bowel resection, repair of diaphragmatic hernia, and placement of left chest tube with Dr. Rowe PLAN: -Pain control -Incentive spirometer -Activity as tolerated -Begin clear liquid diet -Continue chest tube -Continue Hayward catheter for today Nurse practitioner note has been reviewed by physician. Signing provider agrees with the documented findings, assessment, and plan of care. Objective - Vital Signs Vital signs: Vital Signs Temp 98.4 F 03/31/20 08:00 Pulse 94 03/31/20 11:37 Resp 20 03/31/20 11:00 BP 109/68 03/31/20 11:00 Pulse Ox 94 L 03/31/20 11:00 Intake & Output 03/30/20 03/31/20 03/31/20 18:59 06:59 18:59 Intake Total 5897.310 2328.349 750 Output Total 655 567 295 Balance 5242.310 1761.349 455 Weight 84.8 kg Intake: IV 590 1860 750 ACETAMINOPHEN IV (For NPO 100 200 ) 1,000 mg In Empty Bag 1 bag @ 400 mls/hr IVPB Q6HR [facility] Rx#:[id number] Piperacillin-Tazobactam 3 100 100 100 .375 gm In Sodium Chloride 0.9% 100 ml @ 25 mls/hr IVPB Q8HR [facility] Rx# :[id number] Sodium Chloride 0.9% 1, 390 1560 650 000 ml @ 130 mls/hr IV . Q7H42M [facility] Rx#:[id number] Intake, IV Titration 5307.310 8.349 Amount ACETAMINOPHEN IV (For NPO 400 ) 1,000 mg In Empty Bag 1 bag @ 400 mls/hr IVPB Q6HR [facility] Rx#:[id number] Dexmedetomidine/0.9% NaCl 11.594 (Pmx) 400 mcg In Empty Bag 1 bag @ Titrate IV . Q0M [facility] Rx#:[id number] Lactated Ringers 1,000 ml 3000 @ 999 mls/hr IV .Q1H1M [facility] Rx#:[id number] Lactated Ringers 1,000 ml 1000 @ 999 mls/hr IV .Q1H1M [facility] Rx#:[id number] Norepinephrine 8 mg In 145.716 8.349 Sodium Chloride 0.9% 250 ml @ 0.05 MCG/KG/MIN 7. 197 mls/hr IV .Q24H [facility] Rx#:[id number] Piperacillin-Tazobactam 3 100 .375 gm In Sodium Chloride 0.9% 100 ml @ 25 mls/hr IVPB Q8HR [facility] Rx# :[id number] Sodium Chloride 0.9% 1, 650 000 ml @ 130 mls/hr IV . Q7H42M [facility] Rx#:[id number] Oral 460 Output: Chest Tube Drainage 220 Left 220 Urine 435 567 295 Other: Voiding Method Indwelling Catheter Indwelling Catheter Indwelling Catheter - Labs CBC & Chem 7: 03/31/20 04:49 03/31/20 04:49 Labs: Abnormal Lab Results - Last 24 Hours (Table) 03/30/20 03/31/20 03/31/20 Range/Units 17:35 04:49 04:49 WBC 12.9 H (3.8-10.6) k/uL RBC 2.51 L (4.30-5.90) m/uL Hgb 8.9 L D (13.0-17.5) gm/dL Hct 26.1 L (39.0-53.0) % MCV 104.0 H (80.0-100.0) fL MCH 35.4 H (25.0-35.0) pg Neutrophils # 10.8 H (1.3-7.7) k/uL Sodium 125 L (137-145) mmol/L Chloride 96 L (98-107) mmol/L Creatinine 0.56 L (0.66-1.25) mg/dL POC Glucose (mg/dL) 71 L (75-99) mg/dL Calcium 7.6 L (8.4-10.2) mg/dL Microbiology - Last 24 Hours (Table) 03/29/20 17:49 Blood Culture - Preliminary Blood No Growth after 24 hours 03/30/20 01:03 Gram Stain - Preliminary Sputum Sputum Culture - Preliminary
[2020-03-31] MEDS ORDERED: DEXTROSE 5% IN WATER 100 ML with AMIODARONE 150 MG IV ONE (21:30)
[2020-03-31] MEDS ORDERED: AMIODARONE 360 MG in DEXTROSE 5% IN WATER 200 ML IV ONE ×2 (22:00)
--- NOTE | 2020-03-31 22:06 | P.PN ---
Progress Note - Text Progress Note Date: 03/31/20 - Chief Complaint Abdominal pain Consultation: This is a pleasant 64-year-old patient who follows a Dr. Michel. Patient long- standing history of smoking and drinking significant amount of alcohol. Chronic stable conditions also include nicotine dependence, gastritis duodenitis as per EGD in 2019. Patient is having the hospital about 7 days ago he took a fall was admitted with left-sided rib fractures 4 to-5 drips also found to be severely hyponatremic. Patient is doing well at the time of discharge. Patient now presents with worsening abdominal pain going on for close to a week. Has not had a bowel movement since then. End patient's abdominal pain was progressively getting worse. He also noticed some bruising to the left lower abdomen for the last couple of days. Denied any fever and chills. Some nausea. Patient was taken to the operating room by Dr. Rowe last night. Found to strangulate a diaphragmatic hernia. Does some blood in the peritoneal cavity. The hernia containing small bowel. Patient about 40% of the small bowel within the left chest and ischemia to strangulate of the small bowel. About 1 L of bloody fluid was aspirated from the left chest. Patient is currently in the ICU. Has a midline dressing. In the abdomen. Left chest tube to suction. Today-in the ICU. Sitting upon a chair. On a clear liquid diet. Chest tube connected to drain. Some abdominal pain is present. Review of systems: Was done for constitutional, cardiovascular, GI, pulmonary. relevant finding as above Active Medications Acetaminophen (Tylenol Tab) 650 mg PO Q4HR PRN PRN Reason: Fever and/or Mild Pain Albuterol/Ipratropium (Duoneb 0.5 Mg-3 Mg/3 Ml Soln) 3 ml INHALATION RT-Q2H PRN PRN Reason: Shortness Of Breath Or Wheezing Albuterol/Ipratropium (Duoneb 0.5 Mg-3 Mg/3 Ml Soln) 3 ml INHALATION RT-QID [facility] Last Admin: 03/31/20 20:17 Dose: 3 ml Documented by: Enoxaparin Sodium (Lovenox) 40 mg SQ DAILY [facility] Last Admin: 03/31/20 08:58 Dose: 40 mg Documented by: Hydromorphone HCl (Dilaudid) 0.5 mg IVP Q3HR PRN PRN Reason: Moderate to Severe Pain Last Admin: 03/30/20 18:05 Dose: 0.5 mg Documented by: Hydromorphone HCl (Dilaudid) 1 mg IVP Q2HR PRN PRN Reason: Severe Pain Last Admin: 03/31/20 16:52 Dose: 1 mg Documented by: Sodium Chloride (Saline 0.9%) 1,000 mls @ 130 mls/hr IV .Q7H42M [facility] Last Admin: 03/31/20 16:51 Dose: 130 mls/hr Documented by: Piperacillin Sod/Tazobactam (Sod 3.375 gm/ Sodium Chloride) 100 mls @ 25 mls/hr IVPB Q8HR [facility] Last Admin: 03/31/20 16:51 Dose: 25 mls/hr Documented by: Norepinephrine Bitartrate 8 mg (/ Sodium Chloride) 258 mls @ 7.197 mls/hr IV .Q24H [facility]; Protocol Last Admin: 03/31/20 00:29 Dose: Not Given Documented by: Amiodarone HCl 360 mg/ (Dextrose/Water) 200 mls @ 33.333 mls/hr IV .Q6H [facility]; Protocol Stop: 04/01/20 03:59 Last Admin: 03/31/20 21:32 Dose: 1 mg/min, 33.333 mls/hr Documented by: Amiodarone HCl 300 mg/ (Dextrose/Water) 250 mls @ 25 mls/hr IV .Q10H [facility]; Protocol Stop: 04/01/20 21:59 Ketorolac Tromethamine (Toradol) 15 mg IVP Q6HR PRN PRN Reason: Mild Pain Stop: 04/03/20 12:31 Naloxone HCl (Narcan) 0.2 mg IV Q2M PRN PRN Reason: Opioid Reversal Nicotine (Habitrol 21mg/24hr Patch) 1 patch TRANSDERM DAILY [facility] Last Admin: 03/31/20 09:25 Dose: Not Given Documented by: Ondansetron HCl (Zofran) 4 mg IVP Q8HR PRN PRN Reason: Nausea And Vomiting Pantoprazole Sodium (Protonix) 40 mg IV DAILY [facility] Last Admin: 03/31/20 08:58 Dose: 40 mg Documented by: Physical examination: VITAL SIGNS: 97.5, 90, 18, 124/77, 97% on 3 L GENERAL: Sitting up in a chair, awake more comfortable today EYES: Pupils equal. Conjunctiva normal. HEENT: External appearance of nose and ears normal, oral cavity grossly normal. NECK: JVD not raised; masses not palpable. HEART: First and second heart sounds are normal; no edema. LUNGS: Respiratory rate increased, decreased breath sounds chest tube to the left chest wall to drainage. ABDOMEN: Tender, no guarding or rigidity, dressing over midline incision, liver spleen not palpable, no masses palpable. PSYCH: Alert and oriented x3; mood and affect normal. MUSCULOSKELETAL: Tenderness over the left lateral chest wall . INVESTIGATIONS, reviewed in the clinical context: White count 12.9 hemoglobin 8.9 potassium 4 creatinine 0.56 sodium 125 Admission testing: Computed tomography scan of the chest abdomen-large left-sided diaphragmatic hernia which contains multiple thickened loops of small bowel with a haziness entry, hemoperitoneum was noted, large left-sided pleural effusion, multiple left-sided rib fracture White count 16.4 hemoglobin 13.1 sodium 126 potassium 4.4 creatinine 0.45-upon presentation Assessment: -Acute strangulate diaphragmatic hernia with small bowel loops with ischemia strangulate the small bowel-status post surgery -Chronic nicotine dependence patient cigarette smoker -Chronic alcohol use disorder -Hyponatremia suspect hypoosmolar -Chronic gastritis, duodenitis from alcoholism -GERD -Essential hypertension -Multiple left-sided fractures from recent falls -Hemoperitoneum from ischemic bowel -Hypoglycemia from alcoholism and decreased oral intake Plan: ICU. On DuoNeb, on IV Zosyn. Nicotine patch. Advance to clear liquid diet by Dr. Rowe. Later put on amiodarone. Thank you Dr. Rowe
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
[2020-04-01] MEDS: HYDROmorphone 1 MG/ML 1 ML SYRINGE IVP PRN (03:36)
[2020-04-01] MEDS ORDERED: LORazepam 2 MG/ML INJ IV PRN ×3 (03:45)
[2020-04-01] MEDS: AMIODARONE 300 MG in DEXTROSE 5% IN WATER 250 ML IV SCH ×4 (04:00→14:46)
[2020-04-01 06:27] LABS: Basophils % (A) 0 %; Eosinophils # (A) 0.2 k/uL (0-0.7); Eosinophils % (A) 1 %; HCT 27.3 % (39.0-53.0); HGB 8.7 gm/dL (13.0-17.5); Lymphocytes # (A) 0.9 k/uL (1.0-4.8); Lymphocytes % (A) 5 %; MCHC 31.8 g/dL (31.0-37.0); MCV 103.8 fL (80.0-100.0); Macrocytosis Slight; Mean Platelet Volume 7.1; Monocytes # (A) 0.8 k/uL (0-1.0); Monocytes % (A) 5 %; Neutrophils # (A) 14.2 k/uL (1.3-7.7); Neutrophils % (A) 87 %; Platelet Count 377 k/uL (150-450); RBC 2.63 m/uL (4.30-5.90); RDW 12.7 % (11.5-15.5); WBC 16.3 k/uL (3.8-10.6)
[2020-04-01 06:37] LABS: ALT 17 U/L (4-49); AST 41 U/L (17-59); African American GFR (CKD) >90 (>60 ml/min/1.73 sqM); Albumin 1.9 g/dL (3.5-5.0); Alkaline Phosphatase 56 U/L (38-126); Blood Urea Nitrogen 11 mg/dL (9-20); Calcium 7.6 mg/dL (8.4-10.2); Carbon Dioxide 26 mmol/L (22-30); Glucose 98 mg/dL (74-99); Non-African American GFR(CKD) >90 (>60 ml/min/1.73 sqM); Potassium 3.9 mmol/L (3.5-5.1); Sodium 126 mmol/L (137-145); Total Bilirubin 0.7 mg/dL (0.2-1.3)
--- NOTE | 2020-04-01 06:39 | XR ---
EXAMINATION TYPE: XR chest 1V portable DATE OF EXAM: 04/01/2020 CLINICAL HISTORY: Difficulty breathing progress study. TECHNIQUE: Single AP portable upright view of the chest is obtained. COMPARISON: Chest x-ray from one day earlier and older studies. FINDINGS: Low lung volumes redemonstrated. Persistent left basilar chest tube. There is no sizable p neumothorax. Adjacent subcutaneous emphysema noted. Abnormal increased density within the left lung s hows more prominent towards the base is redemonstrated. Slightly more prominent right basilar opacity noted. Heart size is stable and mildly enlarged. Left-sided rib fractures not as well-seen on curren t study. IMPRESSION: Low lung volumes and chronic parenchymal changes with left-sided chest tube and left mid to lower lung acute infiltrate and/or atelectasis. Findings fairly stable. Better visualization or sl ightly more prominent adjacent subcutaneous emphysema noted. Worsening patchy right basilar acute ate lectasis and/or infiltrate noted.
[2020-04-01 06:51] LABS: Anion Gap 5 mmol/L; Chloride 95 mmol/L (98-107)
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
[2020-04-01] MEDS: IPRATROPIUM-ALBUTEROL 3 ML NEB INHALATION SCH ×4 (07:43→20:23)
[2020-04-01] MEDS: PIPERACILLIN-TAZOBACTAM 3.375 GM in SODIUM CHLORIDE 0.9% 100 ML IVPB SCH (08:07)
[2020-04-01] MEDS: SODIUM CHLORIDE 0.9% 1,000 ML IV SCH ×4 (08:08→22:30)
[2020-04-01] MEDS ORDERED: Potassium Replacement Protocol 1 EACH MISC MISCELLANE PRN (08:26)
[2020-04-01] MEDS: NICOTINE 21MG/24HR PATCH TRANSDERM SCH (08:54)
[2020-04-01] MEDS: ENOXAPARIN 40 MG/0.4 ML SYRINGE SQ SCH (08:54)
[2020-04-01] MEDS: PANTOPRAZOLE 40 MG/10 ML VIAL IV SCH (08:54)
[2020-04-01] MEDS: METOPROLOL TARTRATE 25 MG TAB PO SCH ×2 (08:55→20:01)
[2020-04-01] MEDS ORDERED: POTASSIUM CHLORIDE ER 20 MEQ TAB.ER PO SCH (09:00)
[2020-04-01] MEDS: HYDROmorphone 0.5 MG/0.5 ML SYRINGE IVP PRN ×3 (09:18→19:56)
--- NOTE | 2020-04-01 10:28 | P.PN ---
Subjective Progress Note Date: 04/01/20 Principal diagnosis: Traumatic diaphragmatic injury Patient doing well. Mild tachycardia. White blood cell count 16.3. Hemoglobin 8.7 today. Last night he did have A. fib with rapid ventricular response. Improved this morning. No bowel activity. Denies nausea or vomiting. Tolerating clears. Objective - Vital Signs Vital signs: Vital Signs Temp 98.8 F 04/01/20 08:00 Pulse 112 H 04/01/20 09:00 Resp 17 04/01/20 09:00 BP 122/87 04/01/20 09:00 Pulse Ox 95 04/01/20 09:00 Intake & Output 03/31/20 04/01/20 04/01/20 18:59 06:59 18:59 Intake Total 1630 1130 740 Output Total 950 485 110 Balance 680 645 630 Weight 91 kg Intake: IV 1630 1010 490 Piperacillin-Tazobactam 3 200 100 100 .375 gm In Sodium Chloride 0.9% 100 ml @ 25 mls/hr IVPB Q8HR [facility] Rx# :[id number] Sodium Chloride 0.9% 1, 1430 910 390 000 ml @ 130 mls/hr IV . Q7H42M [facility] Rx#:[id number] Oral 120 250 Output: Chest Tube Drainage 320 Left 320 Urine 630 485 110 Other: Voiding Method Indwelling Catheter Indwelling Catheter Indwelling Catheter - Exam Abdomen: Soft, mild distention, mild tenderness, dressing clean dry - Labs CBC & Chem 7: 04/01/20 05:26 04/01/20 05:26 Labs: Abnormal Lab Results - Last 24 Hours (Table) 04/01/20 04/01/20 Range/Units 05:26 05:26 WBC 16.3 H (3.8-10.6) k/uL RBC 2.63 L (4.30-5.90) m/uL Hgb 8.7 L (13.0-17.5) gm/dL Hct 27.3 L (39.0-53.0) % MCV 103.8 H (80.0-100.0) fL Neutrophils # 14.2 H (1.3-7.7) k/uL Lymphocytes # 0.9 L (1.0-4.8) k/uL Sodium 126 L (137-145) mmol/L Chloride 95 L (98-107) mmol/L Creatinine 0.39 L (0.66-1.25) mg/dL Calcium 7.6 L (8.4-10.2) mg/dL Total Protein 4.0 L (6.3-8.2) g/dL Albumin 1.9 L (3.5-5.0) g/dL Microbiology - Last 24 Hours (Table) 03/29/20 17:49 Blood Culture - Preliminary Blood No Growth after 48 hours 03/30/20 01:03 Gram Stain - Preliminary Sputum Sputum Culture - Preliminary Streptococcus pneumoniae Assessment and Plan (1) Diaphragmatic hernia Narrative/Plan: Continue pulmonary to it. Continue ICU observation for today. Keep on clear liquids. Appreciate cardiology input. Hold anticoagulation. Current Visit: Yes Status: Acute Code(s): K44.9 - DIAPHRAGMATIC HERNIA WITHOUT OBSTRUCTION OR GANGRENE SNOMED Code(s): 19882120
--- NOTE | 2020-04-01 12:32 | XR ---
EXAMINATION TYPE: XR chest 1V portable DATE OF EXAM: 04/01/2020 CLINICAL HISTORY: Left-sided chest tube removal. TECHNIQUE: Single AP portable upright view of the chest is obtained. COMPARISON: Chest x-ray from earlier today FINDINGS: Tiny left apical pneumothorax estimated under 5% is felt present after left basilar chest tube removal. Background low lung volumes and chronic minimal change with left greater than right bib asilar opacities. Persistent left lower thoracic subcutaneous emphysema. Persistent cardiomegaly with atherosclerotic and ectatic thoracic aorta causing mass effect on trachea. Redemonstration of displa lois lateral left rib fractures. IMPRESSION: Suspect tiny left apical pneumothorax under 5% after chest tube removal.
--- NOTE | 2020-04-01 13:12 | ECHOF ---
Referral Reason:EF MEASUREMENTS -------- HEIGHT: 172.7 cm WEIGHT: 90.7 kg BP: 105/69 IVSd: 1.4 cm (0.6 - 1.1) LVIDd: 3.2 cm (3.9 - 5.3) LVPWd: 1.6 cm (0.6 - 1.1) IVSs: 1.9 cm LVIDs: 1.7 cm LVPWs: 1.7 cm Ao Diam: 3.7 cm (2.0 - 3.7) AV Cusp: 1.7 cm (1.5 - 2.6) LA Diam: 4.2 cm (2.7 - 3.8) MV EXCURSION: 34.360 mm (> 18.000) MV EF SLOPE: 102 mm/s (70 - 150) EPSS: 1.2 cm MV E [place]: 1.00 m/s MV DecT: 220 ms MV A [place]: 0.51 m/s MV E/A Ratio: 1.95 AR PHT: 697 ms RAP: 5.00 mmHg RVSP: 27.75 mmHg FINDINGS -------- Resting tachycardia (HR>100bpm). This was a technically adequate study. The left ventricular size is normal. There is moderate concentric left ventricular hypertrophy. O verall left ventricular systolic function is normal with, an EF between 60 - 65 %. The right ventricle is normal in size. The left atrial size is normal. The right atrial size is normal. Unable to visualize the septum. The aortic valve is trileaflet and appears structurally normal. There is mild aortic regurgitation. The mitral valve is normal. The mitral valve leaflets are mildly thickened. There is trace mitral regurgitation. The tricuspid valve appears structurally normal. Trace tricuspid regurgitation present. Right willian tricular systolic pressure is normal at < 35 mmHg. There is no pulmonic regurgitation present. The aortic root size is normal. IVC Not well visulized. There is a trivial pericardial effusion present. CONCLUSIONS -------- 1. Resting tachycardia (HR>100bpm). 2. This was a technically adequate study. 3. The left ventricular size is normal. 4. There is moderate concentric left ventricular hypertrophy. 5. Overall left ventricular systolic function is normal with, an EF between 60 - 65 %. 6. The right ventricle is normal in size. 7. The left atrial size is normal. 8. The right atrial size is normal. 9. Unable to visualize the septum. 10. The aortic valve is trileaflet and appears structurally normal. 11. There is mild aortic regurgitation. 12. The mitral valve is normal. 13. The mitral valve leaflets are mildly thickened. 14. There is trace mitral regurgitation. 15. The tricuspid valve appears structurally normal. 16. Trace tricuspid regurgitation present. 17. Right ventricular systolic pressure is normal at < 35 mmHg. 18. There is no pulmonic regurgitation present. 19. The aortic root size is normal. 20. IVC Not well visulized. 21. There is a trivial pericardial effusion present. CDL TRUCK DRIVER: Angella Tinsley RDCS
--- NOTE | 2020-04-01 13:26 | P.PN ---
Subjective Progress Note Date: 04/01/20 Principal diagnosis: Abdominal pain, status post exploratory laparotomy, small bowel resection, repair of diaphragmatic hernia, left chest tube placement. Postoperative day #3 The patient is seen today 04/01/2020 in follow-up in the intensive care unit. He had initially presented with abdominal discomfort after developing constipation from pain medication being taken for from recent fall with rib fractures. He was found to have a diaphragmatic hernia with strangulated bowel. He is status post exploratory laparotomy, small bowel resection, repair of diaphragmatic hernia, placement of left chest tube. This is postoperative day #3. Pathology revealed acute ischemic enteritis with submucosal and mesenteric hemorrhage and vascular congestion. No evidence of malignancy. He is currently sitting up in a chair. Awake and alert in no acute distress. He initially was on mechanical ventilator and extubated on 03/30/2020. He is currently on 2 L nasal cannula. Chest x-ray reveals low lung volumes and chronic parenchymal changes with left- sided chest tube and left mid to lower lung acute infiltrate/atelectasis. Stable compared to previous. Subcutaneous emphysema noted. Worsening patchy right basilar acute atelectasis. He has been having atrial fibrillation which is new for him. Echocardiogram revealed preserved left ventricular systolic function with ejection fraction 60-65%. He is on amiodarone drip at 0.5 mg/m. 0.9 normal saline at 130 ML's per hour. 0.9 normal saline at 130 ML's per hour. Sputum culture is positive for Streptococcus pneumoniae and Haemophilus influenza. He is currently on Zosyn. Objective - Vital Signs Vital signs: Vital Signs Temp 98.4 F 04/01/20 12:00 Pulse 107 H 04/01/20 13:00 Resp 12 04/01/20 13:00 BP 94/68 04/01/20 12:00 Pulse Ox 99 04/01/20 13:00 Intake & Output 03/31/20 04/01/20 04/01/20 18:59 06:59 18:59 Intake Total 1630 1130 1510 Output Total 950 485 220 Balance 388 091 6309 Weight 91 kg Intake: IV 1630 1010 1010 Piperacillin-Tazobactam 3 200 100 100 .375 gm In Sodium Chloride 0.9% 100 ml @ 25 mls/hr IVPB Q8HR [facility] Rx# :[id number] Sodium Chloride 0.9% 1, 1430 910 910 000 ml @ 130 mls/hr IV . Q7H42M [facility] Rx#:[id number] Oral 120 500 Output: Chest Tube Drainage 320 Left 320 Urine 630 485 220 Other: Voiding Method Indwelling Catheter Indwelling Catheter Indwelling Catheter - Exam GENERAL EXAM: Alert, pleasant 64-year-old gentleman, and 2 L nasal cannula, fairly comfortable in no apparent distress. HEAD: Normocephalic. EYES: Normal reaction of pupils, equal size. NOSE: Clear with pink turbinates. THROAT: No erythema or exudates. NECK: No masses, no JVD. CHEST: Left chest tube remains in place. LUNGS: Equal air entry with few scattered rhonchi, crackles in the bases. CVS: S1 and S2 normal with no audible murmur, regular rhythm. ABDOMEN: Abdominal dressing dry and intact. Binder in place. No active bowel sounds. SPINE: No scoliosis or deformity SKIN: No rashes CENTRAL NERVOUS SYSTEM: No focal deficits, tone is normal in all 4 extremities. EXTREMITIES: There is no peripheral edema. No clubbing, no cyanosis. Peripheral pulses are intact. - Labs CBC & Chem 7: 04/01/20 05:26 04/01/20 05:26 Labs: Abnormal Lab Results - Last 24 Hours (Table) 04/01/20 04/01/20 Range/Units 05:26 05:26 WBC 16.3 H (3.8-10.6) k/uL RBC 2.63 L (4.30-5.90) m/uL Hgb 8.7 L (13.0-17.5) gm/dL Hct 27.3 L (39.0-53.0) % MCV 103.8 H (80.0-100.0) fL Neutrophils # 14.2 H (1.3-7.7) k/uL Lymphocytes # 0.9 L (1.0-4.8) k/uL Sodium 126 L (137-145) mmol/L Chloride 95 L (98-107) mmol/L Creatinine 0.39 L (0.66-1.25) mg/dL Calcium 7.6 L (8.4-10.2) mg/dL Total Protein 4.0 L (6.3-8.2) g/dL Albumin 1.9 L (3.5-5.0) g/dL Microbiology - Last 24 Hours (Table) 03/30/20 01:03 Gram Stain - Final Sputum Sputum Culture - Final Streptococcus pneumoniae Haemophilus influenzae 03/29/20 17:49 Blood Culture - Preliminary Blood No Growth after 48 hours Assessment and Plan Assessment: 1 Abdominal pain secondary to strangulated diaphragmatic hernia, status post exploratory laparotomy, small bowel resection, repair of diaphragmatic hernia and placement of the left chest tube. This is postoperative day #3. 2 Acute hypoxemic respiratory failure secondary to above, extubated on 03/30/2020, currently on 2 L nasal cannula. Sputum cultures positive for Streptococcus pneumoniae and Haemophilus influenza 3 Recent admission for left chest wall pain and rib fractures status post fall requiring narcotics and subsequent constipation 4 Hyponatremia, suspected chronic in nature, sodium 126 5 Previous history of alcohol abuse 6 Chronic tobacco dependence 7 History of previous GI bleeding, gastritis and duodenitis 8 Hypertension 9 History of hiatal hernia 10 New-onset atrial fibrillation, currently on amiodarone drip at 0.5 mg/m. Plan: The patient was seen and evaluated by Dr. Soto Chest x-ray and labs reviewed Left-sided chest tube removed, follow-up chest x-ray reveals less than 5% pneumothorax in the left apex Encouraged the increased use of the incentive spirometer and encourage cough and deep breathing exercises Sputum culture reviewed, discontinue Zosyn. Start oral Levaquin. Increase his activity as tolerated We'll continue to follow and make further recommendations based on his clinical status I, the cosigning physician, performed a history & physical examination of the patient. Lungs sounds with few scattered rhonchi, crackles in the posterior bases. Maintaining good O2 saturations in the 90s on 2 L/m per nasal cannula. I discussed the assessment and plan of care with my nurse practitioner, Maria Dolores Espinosa. I attest to the above note as dictated by her.
--- NOTE | 2020-04-01 18:34 | PN ---
PROGRESS NOTE DATE OF SERVICE: 04/01/2020 REASON FOR FOLLOWUP: Pneumonia. INTERVAL HISTORY: The patient is currently afebrile. Patient is breathing comfortably. The patient's chest pain as well as abdominal pain is currently controlled. No nausea, no vomiting and no diarrhea. PHYSICAL EXAMINATION: Blood pressure 94/68 with a pulse of 94, temperature 98.4. He is 99% on 2 L nasal cannula. General description is an elderly male up in the chair in no distress. Respiratory system: Unlabored breathing, decreased breath sounds. No wheeze. HEART: S1, S2. Regular rate and rhythm. Abdomen soft, no tenderness. LABS: Hemoglobin 8.7, hematocrit 15.2, BUN of 11, creatinine 0.39. Sputum is strep pneumo Haemophilus influenzae is sensitive pathogen. DIAGNOSTIC IMPRESSION AND PLAN: Patient with a positive strep pneumo, Haemophilus influenzae sensitive pathogen in this patient admitted to hospital with incarcerated diaphragmatic hernia status post repair. The patient's antibiotic has been adjusted to Augmentin. Will continue and we will monitor clinical course closely. MMODL / IJN: [id number] /
[2020-04-01] MEDS: AMIODARONE 200 MG TAB PO SCH (20:01)
[2020-04-01] MEDS: AMOXIC-POT CLAV 875-125MG 1 EACH TAB PO SCH (20:01)
[2020-04-01] MEDS: ONDANSETRON 4 MG/2 ML VIAL IVP PRN (20:04)
[2020-04-01] MEDS ORDERED: SODIUM CHLORIDE 0.9% 500 ML 500 ML IV ONE (20:58)
[2020-04-01] MEDS: METOCLOPRAMIDE 5 MG/ML 2 ML VIAL IVP SCH (21:23)
--- NOTE | 2020-04-01 22:23 | P.PN ---
Progress Note - Text Progress Note Date: 04/01/20 - Chief Complaint Abdominal pain Consultation: This is a pleasant 64-year-old patient who follows a Dr. Michel. Patient long- standing history of smoking and drinking significant amount of alcohol. Chronic stable conditions also include nicotine dependence, gastritis duodenitis as per EGD in 2019. Patient is having the hospital about 7 days ago he took a fall was admitted with left-sided rib fractures 4 to-5 drips also found to be severely hyponatremic. Patient is doing well at the time of discharge. Patient now presents with worsening abdominal pain going on for close to a week. Has not had a bowel movement since then. End patient's abdominal pain was progressively getting worse. He also noticed some bruising to the left lower abdomen for the last couple of days. Denied any fever and chills. Some nausea. Patient was taken to the operating room by Dr. Rowe last night. Found to strangulate a diaphragmatic hernia. Does some blood in the peritoneal cavity. The hernia containing small bowel. Patient about 40% of the small bowel within the left chest and ischemia to strangulate of the small bowel. About 1 L of bloody fluid was aspirated from the left chest. Patient is currently in the ICU. Has a midline dressing. In the abdomen. Left chest tube to suction. Recently went into atrial fibrillation with rapid ventricular rate. Put on IV amiodarone. Today-ICU. Up in a chair. This morning chest tube was taken out. Pain better controlled. No bowel movement.. Patient had been a clear liquid diet. Review of systems: Was done for constitutional, cardiovascular, GI, pulmonary. relevant finding as above Active Medications Acetaminophen (Tylenol Tab) 650 mg PO Q4HR PRN PRN Reason: Fever and/or Mild Pain Albuterol/Ipratropium (Duoneb 0.5 Mg-3 Mg/3 Ml Soln) 3 ml INHALATION RT-Q2H PRN PRN Reason: Shortness Of Breath Or Wheezing Albuterol/Ipratropium (Duoneb 0.5 Mg-3 Mg/3 Ml Soln) 3 ml INHALATION RT-QID [facility] Last Admin: 04/01/20 20:23 Dose: 3 ml Documented by: Amiodarone HCl (Cordarone) 400 mg PO BID [facility] Last Admin: 04/01/20 20:01 Dose: 400 mg Documented by: Amoxicillin/Clavulanate Potassium (Augmentin 875-125) 1 each PO Q12HR [facility] Last Admin: 04/01/20 20:01 Dose: 1 each Documented by: Enoxaparin Sodium (Lovenox) 40 mg SQ DAILY [facility] Last Admin: 04/01/20 08:54 Dose: 40 mg Documented by: Hydromorphone HCl (Dilaudid) 0.5 mg IVP Q3HR PRN PRN Reason: Moderate to Severe Pain Last Admin: 04/01/20 19:56 Dose: 0.5 mg Documented by: Hydromorphone HCl (Dilaudid) 1 mg IVP Q2HR PRN PRN Reason: Severe Pain Last Admin: 04/01/20 03:36 Dose: 1 mg Documented by: Sodium Chloride (Saline 0.9%) 1,000 mls @ 130 mls/hr IV .Q7H42M [facility] Last Admin: 04/01/20 21:23 Dose: 130 mls/hr Documented by: Norepinephrine Bitartrate 8 mg (/ Sodium Chloride) 258 mls @ 7.197 mls/hr IV .Q24H [facility]; Protocol Last Admin: 03/31/20 22:41 Dose: Not Given Documented by: Ketorolac Tromethamine (Toradol) 15 mg IVP Q6HR PRN PRN Reason: Mild Pain Stop: 04/03/20 12:31 Last Admin: 04/01/20 08:10 Dose: 15 mg Documented by: Lorazepam (Ativan) 1 mg IV Q2HR PRN PRN Reason: CIWA 8 or 9 Lorazepam (Ativan) 1 mg IV Q1HR PRN PRN Reason: CIWA 10 to 15 Last Admin: 04/01/20 03:55 Dose: 1 mg Documented by: Lorazepam (Ativan) 2 mg IV Q10M PRN PRN Reason: CIWA 16 or higher Stop: 04/03/20 03:45 Metoclopramide HCl (Reglan) 10 mg IVP Q6H [facility] Last Admin: 04/01/20 21:23 Dose: 10 mg Documented by: Metoprolol Tartrate (Lopressor) 25 mg PO BID [facility] Last Admin: 04/01/20 20:01 Dose: 25 mg Documented by: Miscellaneous Information (Potassium Per Protocol) 1 each MISCELLANE DAILY PRN; Protocol PRN Reason: Per Protocol Naloxone HCl (Narcan) 0.2 mg IV Q2M PRN PRN Reason: Opioid Reversal Nicotine (Habitrol 21mg/24hr Patch) 1 patch TRANSDERM DAILY [facility] Last Admin: 04/01/20 08:54 Dose: 1 patch Documented by: Ondansetron HCl (Zofran) 4 mg IVP Q8HR PRN PRN Reason: Nausea And Vomiting Last Admin: 04/01/20 20:04 Dose: 4 mg Documented by: Pantoprazole Sodium (Protonix) 40 mg IV DAILY [facility] Last Admin: 04/01/20 08:54 Dose: 40 mg Documented by: Physical examination: VITAL SIGNS: 98.4, 105, 12, 119/80, 96% on nasal cannula GENERAL: Sitting up in a chair, awake EYES: Pupils equal. Conjunctiva normal. HEENT: External appearance of nose and ears normal, oral cavity grossly normal. NECK: JVD not raised; masses not palpable. HEART: First and second heart sounds are normal; no edema. LUNGS: Respiratory rate increased, decreased breath sounds-chest tube discontinued. ABDOMEN: Tender, no guarding or rigidity, dressing over midline incision, liver spleen not palpable, no masses palpable. PSYCH: Alert and oriented x3; mood and affect normal. MUSCULOSKELETAL: Tenderness over the left lateral chest wall . INVESTIGATIONS, reviewed in the clinical context: White count 6.3 hemoglobin 8.7 sodium 126 potassium 3.9 creatinine 0.39 Admission testing: Computed tomography scan of the chest abdomen-large left-sided diaphragmatic hernia which contains multiple thickened loops of small bowel with a haziness entry, hemoperitoneum was noted, large left-sided pleural effusion, multiple left-sided rib fracture White count 16.4 hemoglobin 13.1 sodium 126 potassium 4.4 creatinine 0.45-upon presentation 2-D echocardiogram-moderate concentric LVH, EF 60-65% Assessment: -Acute strangulate diaphragmatic hernia with small bowel loops with ischemia strangulate the small bowel-status post surgery -Chronic nicotine dependence patient cigarette smoker -Chronic alcohol use disorder -Hyponatremia suspect hypoosmolar -soaked respond -Chronic gastritis, duodenitis from alcoholism -GERD -Essential hypertension -Multiple left-sided fractures from recent falls -Hemoperitoneum from ischemic bowel -Hypoglycemia from alcoholism and decreased oral intake -Paroxysmal atrial fibrillation with rapid ventricular rate Plan: ICU. On DuoNeb, changed from IV Zosyn to oral Augmentin.. Nicotine patch. Clear liquid diet. Now on oral amiodarone. And beta ari. We'll put the patient on salt tablets. Decreased IV fluids. Thank you Dr. Rowe
[2020-04-02] MEDS: NOREPINEPHRINE 8 MG in SODIUM CHLORIDE 0.9% 250 ML IV SCH ×2 (01:23→23:39)
[2020-04-02] MEDS: SODIUM CHLORIDE TAB 1 GM TAB PO SCH ×4 (02:04→21:20)
[2020-04-02] MEDS: HYDROmorphone 1 MG/ML 1 ML SYRINGE IVP PRN (03:46)
[2020-04-02] MEDS: METOCLOPRAMIDE 5 MG/ML 2 ML VIAL IVP SCH ×4 (03:46→21:22)
[2020-04-02 04:58] LABS: Basophils % (A) 0 %; Eosinophils # (A) 0.1 k/uL (0-0.7); Eosinophils % (A) 0 %; HGB 9.1 gm/dL (13.0-17.5); Lymphocytes # (A) 0.6 k/uL (1.0-4.8); Lymphocytes % (A) 4 %; MCH 35.1 pg (25.0-35.0); MCHC 33.6 g/dL (31.0-37.0); MCV 104.3 fL (80.0-100.0); Macrocytosis Slight; Mean Platelet Volume 7.8; Monocytes # (A) 0.7 k/uL (0-1.0); Monocytes % (A) 5 %; Neutrophils # (A) 14.3 k/uL (1.3-7.7); Neutrophils % (A) 90 %; Platelet Count 461 k/uL (150-450); RBC 2.58 m/uL (4.30-5.90); RDW 12.7 % (11.5-15.5)
[2020-04-02 05:25] LABS: ALT 18 U/L (4-49); AST 35 U/L (17-59); African American GFR (CKD) >90 (>60 ml/min/1.73 sqM); Albumin 2.2 g/dL (3.5-5.0); Alkaline Phosphatase 71 U/L (38-126); Anion Gap 9 mmol/L; Blood Urea Nitrogen 11 mg/dL (9-20); Calcium 7.8 mg/dL (8.4-10.2); Carbon Dioxide 22 mmol/L (22-30); Chloride 94 mmol/L (98-107); Glucose 86 mg/dL (74-99); Non-African American GFR(CKD) >90 (>60 ml/min/1.73 sqM); Sodium 125 mmol/L (137-145); Total Bilirubin 0.9 mg/dL (0.2-1.3); Total Protein 4.7 g/dL (6.3-8.2)
--- NOTE | 2020-04-02 07:01 | P.PN ---
Subjective Progress Note Date: 04/02/20 Principal diagnosis: Paroxysmal atrial fibrillation This is a 64-year-old gentleman who I requested to see in the ICU for further evaluation of atrial fibrillation which is a new to the patient. The patient is a 64-year-old gentleman with a past medical history significant for hypertension where he was receiving as an outpatient atenolol as well as lisinopril but no diabetes or dyslipidemia or coronary artery disease. The patient does have significant history of smoking as well as drinking alcohol. The patient presented to the emergency department with abdominal discomfort and he was diagnosed with fourth and fifth rib fractures on the right side. Apparently the patient fell. He is a somewhat poor historian. He was taken to the operation room where he underwent partial small bowel resection was From repair. Apparently the surgery was quite extensive. The patient was found to have strangulated hiatal hernia as well. We consulted to see the patient this time because off further evaluation of atrial fibrillation with RVR. Please note that the patient is alcohol he. This is the #3 after the surgery. Last night he went into atrial fibrillation with RVR and he was started on amiodarone drip. His blood pressure has been marginal. Anticoagulation is on hold at this point because of the recent surgery. No prior history of atrial fibrillation. No prior history of coronary artery disease or congestive heart failure or any kind of cardiac arrhythmia. 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 At this point, I am going to start the patient on oral beta ari with metoprolol at 12.5 mg by mouth twice a day and continue monitor the blood pressure very closely. I would keep the amiodarone IV and restart him on amiodarone by mouth. We will hold oral anticoagulation at this point until from the surgeon. Beside that I am going to obtain an echocardiogram was Doppler and follow-up with the patient. The patient was seen today, April 022019. He is converted to normal sinus mechanism. The heart rate appears to be in the 80s. The pressure is within normal limits. I am going to increase the dose of metoprolol to 25 mg by mouth 3 times a day trying to keep the patient in normal sinus mechanism. Continue holding any oral anticoagulation at this point until we have the green light from the surgical team. The echo was reviewed and reveals normal left ventricular systolic function without significant valvular abnormalities. Objective - Vital Signs Vital signs: Vital Signs Temp 97.4 F L 04/02/20 04:00 Pulse 96 04/02/20 06:00 Resp 20 04/02/20 06:00 BP 134/80 04/02/20 06:00 Pulse Ox 95 04/02/20 06:00 Intake & Output 04/01/20 04/01/20 04/02/20 06:59 18:59 06:59 Intake Total 1130 2690 2400 Output Total 485 400 235 Balance 645 2290 2165 Weight 91 kg Intake: IV 1010 1790 780 Piperacillin-Tazobactam 3 100 100 .375 gm In Sodium Chloride 0.9% 100 ml @ 25 mls/hr IVPB Q8HR [facility] Rx# :[id number] Sodium Chloride 0.9% 1, 910 1690 780 000 ml @ 130 mls/hr IV . Q7H42M [facility] Rx#:[id number] Intake, IV Titration 250 1500 Amount Amiodarone 300 mg In 250 Dextrose 5% in Water 250 ml @ 0.5 MG/MIN 25 mls/hr IV .Q10H [facility] Rx#: [id number] Sodium Chloride 0.9% 500 1500 ml 500 ml @ 999 mls/hr IV .Q31M [facility] Rx#:[id number] Oral 120 650 120 Output: Urine 485 400 235 Other: Voiding Method Indwelling Catheter Indwelling Catheter Indwelling Catheter - Constitutional General appearance: Present: no acute distress - Cardiovascular Rhythm: regular Heart sounds: normal: S1, S2 - Labs CBC & Chem 7: 04/02/20 03:55 04/02/20 03:55 Labs: Abnormal Lab Results - Last 24 Hours (Table) 04/02/20 04/02/20 Range/Units 03:55 03:55 WBC 16.0 H (3.8-10.6) k/uL RBC 2.58 L (4.30-5.90) m/uL Hgb 9.1 L (13.0-17.5) gm/dL Hct 27.0 L (39.0-53.0) % MCV 104.3 H (80.0-100.0) fL MCH 35.1 H (25.0-35.0) pg Plt Count 461 H (150-450) k/uL Neutrophils # 14.3 H (1.3-7.7) k/uL Lymphocytes # 0.6 L (1.0-4.8) k/uL Sodium 125 L (137-145) mmol/L Chloride 94 L (98-107) mmol/L Creatinine 0.38 L (0.66-1.25) mg/dL Calcium 7.8 L (8.4-10.2) mg/dL Total Protein 4.7 L (6.3-8.2) g/dL Albumin 2.2 L (3.5-5.0) g/dL Microbiology - Last 24 Hours (Table) 03/29/20 17:49 Blood Culture - Preliminary Blood No Growth after 72 hours 03/30/20 01:03 Gram Stain - Final Sputum Sputum Culture - Final Streptococcus pneumoniae Haemophilus influenzae Assessment and Plan Assessment: Assessment #1 status post fall and chest/abdominal trauma #2 status post abdominal surgery #3 paroxysmal atrial fibrillation #4 hypertension #5 significant history of alcohol use #6 significant history of smoking Plan #1 continue amiodarone by mouth #2 increase the dose of metoprolol #3 hold oral anticoagulation at this point #4 the echo was reviewed and showed normal LV function #5 follow-up with the patient
--- NOTE | 2020-04-02 07:29 | XR ---
EXAMINATION TYPE: XR chest 1V portable DATE OF EXAM: 04/02/2020 COMPARISON: 04/01/2020 HISTORY: Chest tube removal. Small pneumothorax. TECHNIQUE: Single frontal view of the chest is obtained. FINDINGS: Left apical pneumothorax estimated to be approximately 5% or less. Similarly redemonstrate d medially along the left lung apex. Left basilar linear atelectasis is again noted. Subcutaneous emp hysema in the left chest is improved. Cardiomediastinal silhouette is rotated secondary to patient po sitioning creating artificial widening of the mediastinum. IMPRESSION: Redemonstration of a very small 5% or less left apical pneumothorax and left basal atele ctasis with improving left chest wall subcutaneous emphysema.
[2020-04-02] MEDS: IPRATROPIUM-ALBUTEROL 3 ML NEB INHALATION SCH ×4 (08:11→20:13)
[2020-04-02] MEDS: HYDROmorphone 0.5 MG/0.5 ML SYRINGE IVP PRN ×3 (08:54→21:16)
[2020-04-02] MEDS: AMIODARONE 200 MG TAB PO SCH ×2 (08:57→21:21)
[2020-04-02] MEDS: ENOXAPARIN 40 MG/0.4 ML SYRINGE SQ SCH (08:57)
[2020-04-02] MEDS: AMOXIC-POT CLAV 875-125MG 1 EACH TAB PO SCH ×2 (08:57→21:21)
[2020-04-02] MEDS: NICOTINE 21MG/24HR PATCH TRANSDERM SCH (08:58)
[2020-04-02] MEDS: PANTOPRAZOLE 40 MG/10 ML VIAL IV SCH (08:58)
[2020-04-02] MEDS: ONDANSETRON 4 MG/2 ML VIAL IVP PRN (10:05)
[2020-04-02] MEDS ORDERED: FUROSEMIDE 10 MG/ML 4 ML VIAL IV STA (10:23)
[2020-04-02] MEDS: METOPROLOL TARTRATE 25 MG TAB PO SCH ×3 (10:29→21:21)
[2020-04-02 12:40] LABS: Magnesium 1.4 mg/dL (1.6-2.3); Phosphorus 3.2 mg/dL (2.5-4.5)
--- NOTE | 2020-04-02 12:41 | P.PN ---
Subjective Progress Note Date: 04/02/20 Principal diagnosis: Abdominal pain, status post exploratory laparotomy, small bowel resection, repair of diaphragmatic hernia, left chest tube placement. Postoperative day #3 The patient is seen today 04/01/2020 in follow-up in the intensive care unit. He had initially presented with abdominal discomfort after developing constipation from pain medication being taken for from recent fall with rib fractures. He was found to have a diaphragmatic hernia with strangulated bowel. He is status post exploratory laparotomy, small bowel resection, repair of diaphragmatic hernia, placement of left chest tube. This is postoperative day #3. Pathology revealed acute ischemic enteritis with submucosal and mesenteric hemorrhage and vascular congestion. No evidence of malignancy. He is currently sitting up in a chair. Awake and alert in no acute distress. He initially was on mechanical ventilator and extubated on 03/30/2020. He is currently on 2 L nasal cannula. Chest x-ray reveals low lung volumes and chronic parenchymal changes with left- sided chest tube and left mid to lower lung acute infiltrate/atelectasis. Stable compared to previous. Subcutaneous emphysema noted. Worsening patchy right basilar acute atelectasis. He has been having atrial fibrillation which is new for him. Echocardiogram revealed preserved left ventricular systolic function with ejection fraction 60-65%. He is on amiodarone drip at 0.5 mg/m. 0.9 normal saline at 130 ML's per hour. 0.9 normal saline at 130 ML's per hour. Sputum culture is positive for Streptococcus pneumoniae and Haemophilus influenza. He is currently on Zosyn. The patient is seen today 04/02/2020 in follow-up in the intensive care unit. He is currently sitting up in a chair at the bedside. Awake and alert in no acute distress. He is maintaining O2 saturations in the 90s on 2 L/m per nasal cannula. Chest x-ray reveals less than 5% left apical pneumothorax and left basal atelectasis with improving left chest wall subcutaneous emphysema. Chest tube was removed yesterday. Sputum was positive for Streptococcus pneumoniae in Haemophilus influenza. He has 0.9 normal saline at 130 ML's per hour. He remains in a positive balance. He is having some increased lower extremity edema. White count 16.0. Hemoglobin 9.1. Sodium 125. Potassium 4.0. Creatinine 0.38. He remains on bronchodilators, Augmentin, oral amiodarone. Objective - Vital Signs Vital signs: Vital Signs Temp 97.8 F 04/02/20 12:00 Pulse 118 H 04/02/20 12:00 Resp 12 04/02/20 12:00 BP 141/89 04/02/20 12:00 Pulse Ox 98 04/02/20 12:00 Intake & Output 04/01/20 04/02/20 04/02/20 18:59 06:59 18:59 Intake Total 2690 2660 720 Output Total 400 280 635 Balance 2290 2380 85 Weight 91 kg Intake: IV 1790 1040 620 Piperacillin-Tazobactam 3 100 .375 gm In Sodium Chloride 0.9% 100 ml @ 25 mls/hr IVPB Q8HR [facility] Rx# :[id number] Sodium Chloride 0.9% 1, 1690 1040 520 000 ml @ 130 mls/hr IV . Q7H42M [facility] Rx#:[id number] Sodium Chloride 0.9% 1, 100 000 ml @ 50 mls/hr IV . Q20H [facility] Rx#:[id number] Intake, IV Titration 250 1500 Amount Amiodarone 300 mg In 250 Dextrose 5% in Water 250 ml @ 0.5 MG/MIN 25 mls/hr IV .Q10H [facility] Rx#: [id number] Sodium Chloride 0.9% 500 1500 ml 500 ml @ 999 mls/hr IV .Q31M [facility] Rx#:[id number] Oral 650 120 100 Output: Urine 400 280 635 Other: Voiding Method Indwelling Catheter Indwelling Catheter Indwelling Catheter - Exam GENERAL EXAM: Alert, pleasant 64-year-old gentleman, and 2 L nasal cannula, fairly comfortable in no apparent distress. HEAD: Normocephalic. EYES: Normal reaction of pupils, equal size. NOSE: Clear with pink turbinates. THROAT: No erythema or exudates. NECK: No masses, no JVD. CHEST: Left chest tube remains in place. LUNGS: Equal air entry with few scattered rhonchi, crackles in the bases. CVS: S1 and S2 normal with no audible murmur, regular rhythm. ABDOMEN: Abdominal dressing dry and intact. Binder in place. No active bowel sounds. SPINE: No scoliosis or deformity SKIN: No rashes CENTRAL NERVOUS SYSTEM: No focal deficits, tone is normal in all 4 extremities. EXTREMITIES: There is no peripheral edema. No clubbing, no cyanosis. Peripheral pulses are intact. - Labs CBC & Chem 7: 04/02/20 03:55 04/02/20 03:55 Labs: Abnormal Lab Results - Last 24 Hours (Table) 04/02/20 04/02/20 Range/Units 03:55 03:55 WBC 16.0 H (3.8-10.6) k/uL RBC 2.58 L (4.30-5.90) m/uL Hgb 9.1 L (13.0-17.5) gm/dL Hct 27.0 L (39.0-53.0) % MCV 104.3 H (80.0-100.0) fL MCH 35.1 H (25.0-35.0) pg Plt Count 461 H (150-450) k/uL Neutrophils # 14.3 H (1.3-7.7) k/uL Lymphocytes # 0.6 L (1.0-4.8) k/uL Sodium 125 L (137-145) mmol/L Chloride 94 L (98-107) mmol/L Creatinine 0.38 L (0.66-1.25) mg/dL Calcium 7.8 L (8.4-10.2) mg/dL Total Protein 4.7 L (6.3-8.2) g/dL Albumin 2.2 L (3.5-5.0) g/dL Microbiology - Last 24 Hours (Table) 03/29/20 17:49 Blood Culture - Preliminary Blood No Growth after 72 hours 03/30/20 01:03 Gram Stain - Final Sputum Sputum Culture - Final Streptococcus pneumoniae Haemophilus influenzae Assessment and Plan Assessment: 1 Abdominal pain secondary to strangulated diaphragmatic hernia, status post exploratory laparotomy, small bowel resection, repair of diaphragmatic hernia and placement of the left chest tube with subsequent removal on 04/01/2020. This is postoperative day #4. 2 Acute hypoxemic respiratory failure secondary to above, extubated on 03/30/2020, currently on 2 L nasal cannula. Sputum cultures positive for Streptococcus pneumoniae and Haemophilus influenza 3 Recent admission for left chest wall pain and rib fractures status post fall requiring narcotics and subsequent constipation 4 Hyponatremia, suspected chronic in nature, sodium 125 5 History of alcohol abuse 6 Chronic tobacco dependence 7 History of previous GI bleeding, gastritis and duodenitis 8 Hypertension 9 History of hiatal hernia 10 New-onset atrial fibrillation, currently on oral amiodarone Plan: The patient was seen and evaluated by Dr. Soto Chest x-ray and labs reviewed We'll give Lasix 40 mg IVP 1 Decrease IV fluids to 0.9 normal saline at 50 mL per hour Encouraged the increased use of the incentive spirometer Continued on bronchodilators and Augmentin Increase his activity as tolerated We'll continue to follow and make further recommendations based on his clinical status I, the cosigning physician, performed a history & physical examination of the patient. Lungs sounds with few scattered rhonchi, crackles in the posterior bases. Maintaining good O2 saturations in the 90s on 2 L/m per nasal cannula. I discussed the assessment and plan of care with my nurse practitioner, Maria Dolores Espinosa. I attest to the above note as dictated by her.
[2020-04-02] MEDS ORDERED: BISACODYL 10 MG SUPP RECTAL STA (13:04)
[2020-04-02] MEDS: SODIUM CHLORIDE 0.9% 1,000 ML IV SCH (13:25)
--- NOTE | 2020-04-02 13:54 | P.PN ---
Subjective Progress Note Date: 04/02/20 Principal diagnosis: Traumatic diaphragmatic injury Patient doing fairly well today. Heart rate remains slightly elevated. White blood cell count 16. Chest tube was removed. Chest x-ray shows less than 5% pneumothorax. Pain is 5 out of 10. He says he feels well. No bowel movement or flatus. He was nauseated yesterday. No nausea currently. He states he is hungry. Objective - Vital Signs Vital signs: Vital Signs Temp 97.8 F 04/02/20 12:00 Pulse 118 H 04/02/20 13:00 Resp 12 04/02/20 13:00 BP 141/89 04/02/20 13:00 Pulse Ox 98 04/02/20 12:00 Intake & Output 04/01/20 04/02/20 04/02/20 18:59 06:59 18:59 Intake Total 2690 2660 895 Output Total 400 280 785 Balance 2290 2380 110 Weight 91 kg Intake: IV 1790 1040 670 Piperacillin-Tazobactam 3 100 .375 gm In Sodium Chloride 0.9% 100 ml @ 25 mls/hr IVPB Q8HR [facility] Rx# :[id number] Sodium Chloride 0.9% 1, 1690 1040 520 000 ml @ 130 mls/hr IV . Q7H42M [facility] Rx#:[id number] Sodium Chloride 0.9% 1, 150 000 ml @ 50 mls/hr IV . Q20H [facility] Rx#:[id number] Intake, IV Titration 250 1500 Amount Amiodarone 300 mg In 250 Dextrose 5% in Water 250 ml @ 0.5 MG/MIN 25 mls/hr IV .Q10H [facility] Rx#: [id number] Sodium Chloride 0.9% 500 1500 ml 500 ml @ 999 mls/hr IV .Q31M [facility] Rx#:[id number] Oral 650 120 225 Output: Urine 400 280 785 Other: Voiding Method Indwelling Catheter Indwelling Catheter Indwelling Catheter - Exam Abdomen: Soft, minimal distention, mild tenderness, incision clean and dry - Labs CBC & Chem 7: 04/02/20 03:55 04/02/20 03:55 Labs: Abnormal Lab Results - Last 24 Hours (Table) 04/02/20 04/02/20 04/02/20 Range/Units 03:55 03:55 03:55 WBC 16.0 H (3.8-10.6) k/uL RBC 2.58 L (4.30-5.90) m/uL Hgb 9.1 L (13.0-17.5) gm/dL Hct 27.0 L (39.0-53.0) % MCV 104.3 H (80.0-100.0) fL MCH 35.1 H (25.0-35.0) pg Plt Count 461 H (150-450) k/uL Neutrophils # 14.3 H (1.3-7.7) k/uL Lymphocytes # 0.6 L (1.0-4.8) k/uL Sodium 125 L (137-145) mmol/L Chloride 94 L (98-107) mmol/L Creatinine 0.38 L (0.66-1.25) mg/dL Calcium 7.8 L (8.4-10.2) mg/dL Magnesium 1.4 L (1.6-2.3) mg/dL Total Protein 4.7 L (6.3-8.2) g/dL Albumin 2.2 L (3.5-5.0) g/dL Microbiology - Last 24 Hours (Table) 03/29/20 17:49 Blood Culture - Preliminary Blood No Growth after 72 hours 03/30/20 01:03 Gram Stain - Final Sputum Sputum Culture - Final Streptococcus pneumoniae Haemophilus influenzae Assessment and Plan (1) Diaphragmatic hernia Narrative/Plan: Resume clear liquid diet. Dulcolax suppository daily. Continue pulmonary toilet. Continue observation in the ICU. Current Visit: Yes Status: Acute Code(s): K44.9 - DIAPHRAGMATIC HERNIA WITHOUT OBSTRUCTION OR GANGRENE SNOMED Code(s): 96026697
[2020-04-02] MEDS ORDERED: MVI, ADULT NO.4 WITH VIT K 10 ML, TRACE (CONC-1ML/DOSE) 1 ML in AMINO ACID 4.25%-D10W+L... IV ONE ×3 (14:00)
[2020-04-02] MEDS: FAT EMULSION 20% 250 ML in EMPTY BAG 1 BAG IV SCH (14:58)
--- NOTE | 2020-04-02 20:02 | P.PN ---
Progress Note - Text Progress Note Date: 04/02/20 - Chief Complaint Abdominal pain Consultation: This is a pleasant 64-year-old patient who follows a Dr. Michel. Patient long- standing history of smoking and drinking significant amount of alcohol. Chronic stable conditions also include nicotine dependence, gastritis duodenitis as per EGD in 2019. Patient is having the hospital about 7 days ago he took a fall was admitted with left-sided rib fractures 4 to-5 drips also found to be severely hyponatremic. Patient is doing well at the time of discharge. Patient now presents with worsening abdominal pain going on for close to a week. Has not had a bowel movement since then. End patient's abdominal pain was progressively getting worse. He also noticed some bruising to the left lower abdomen for the last couple of days. Denied any fever and chills. Some nausea. Patient was taken to the operating room by Dr. Rowe last night. Found to strangulate a diaphragmatic hernia. Does some blood in the peritoneal cavity. The hernia containing small bowel. Patient about 40% of the small bowel within the left chest and ischemia to strangulate of the small bowel. About 1 L of bloody fluid was aspirated from the left chest. Patient is currently in the ICU. Has a midline dressing. In the abdomen. Left chest tube to suction. Recently went into atrial fibrillation with rapid ventricular rate. Put on IV amiodarone. Today-ICU. Up in a chair. Breathing stable. Overnight does some distention of the abdomen. Was made nothing by mouth. Clear liquids resumed this morning by Dr. Johnson. Did get some IV fluids. Some edema. Not passed any flatus. Some left lateral chest wall. Review of systems: Was done for constitutional, cardiovascular, GI, pulmonary. relevant finding as above Active Medications Acetaminophen (Tylenol Tab) 650 mg PO Q4HR PRN PRN Reason: Fever and/or Mild Pain Albuterol/Ipratropium (Duoneb 0.5 Mg-3 Mg/3 Ml Soln) 3 ml INHALATION RT-Q2H PRN PRN Reason: Shortness Of Breath Or Wheezing Albuterol/Ipratropium (Duoneb 0.5 Mg-3 Mg/3 Ml Soln) 3 ml INHALATION RT-QID [facility] Last Admin: 04/02/20 15:37 Dose: 3 ml Documented by: Amiodarone HCl (Cordarone) 400 mg PO BID [facility] Last Admin: 04/02/20 08:57 Dose: 400 mg Documented by: Amoxicillin/Clavulanate Potassium (Augmentin 875-125) 1 each PO Q12HR [facility] Last Admin: 04/02/20 08:57 Dose: 1 each Documented by: Bisacodyl (Dulcolax) 10 mg RECTAL DAILY [facility] Enoxaparin Sodium (Lovenox) 40 mg SQ DAILY [facility] Last Admin: 04/02/20 08:57 Dose: 40 mg Documented by: Hydromorphone HCl (Dilaudid) 0.5 mg IVP Q3HR PRN PRN Reason: Moderate to Severe Pain Last Admin: 04/02/20 13:23 Dose: 0.5 mg Documented by: Hydromorphone HCl (Dilaudid) 1 mg IVP Q2HR PRN PRN Reason: Severe Pain Last Admin: 04/02/20 03:46 Dose: 1 mg Documented by: Norepinephrine Bitartrate 8 mg (/ Sodium Chloride) 258 mls @ 7.197 mls/hr IV .Q24H [facility]; Protocol Last Admin: 04/02/20 01:23 Dose: Not Given Documented by: Sodium Chloride (Saline 0.9%) 1,000 mls @ 50 mls/hr IV .Q20H [facility] Last Admin: 04/02/20 13:25 Dose: 50 mls/hr Documented by: Fat Emulsion Intravenous 250 (ml/ IV Solution) 250 mls @ 21 mls/hr IV Q24H [facility] Last Admin: 04/02/20 14:58 Dose: 21 mls/hr Documented by: Parenteral Vitamin Supplement 10 ml/ Chromium/Copper/Manganese/Seleni/Zn 1 ml/Amino Ac/Electrol/Dextrose/Calcium 1,011 mls @ 50 mls/hr IV .[id number] ONE Stop: 04/03/20 10:13 Last Admin: 04/02/20 14:58 Dose: 50 mls/hr Documented by: Parenteral Vitamin Supplement 10 ml/ Chromium/Copper/Manganese/Seleni/Zn 1 ml/Amino Ac/Electrol/Dextrose/Calcium 1,011 mls @ 100 mls/hr IV .BY DURATION [facility] Amino Ac/Electrol/Dextrose/Calcium (Clinimix E 4.25%-D10% Solution) 1,000 mls @ 100 mls/hr IV .BY DURATION [facility] Ketorolac Tromethamine (Toradol) 15 mg IVP Q6HR PRN PRN Reason: Mild Pain Stop: 04/03/20 12:31 Last Admin: 04/01/20 08:10 Dose: 15 mg Documented by: Lorazepam (Ativan) 1 mg IV Q2HR PRN PRN Reason: CIWA 8 or 9 Lorazepam (Ativan) 1 mg IV Q1HR PRN PRN Reason: CIWA 10 to 15 Last Admin: 04/01/20 03:55 Dose: 1 mg Documented by: Lorazepam (Ativan) 2 mg IV Q10M PRN PRN Reason: CIWA 16 or higher Stop: 04/03/20 03:45 Metoclopramide HCl (Reglan) 10 mg IVP Q6H [facility] Last Admin: 04/02/20 15:22 Dose: 10 mg Documented by: Metoprolol Tartrate (Lopressor) 25 mg PO TID [facility] Last Admin: 04/02/20 16:10 Dose: 25 mg Documented by: Miscellaneous Information (Potassium Per Protocol) 1 each MISCELLANE DAILY PRN; Protocol PRN Reason: Per Protocol Naloxone HCl (Narcan) 0.2 mg IV Q2M PRN PRN Reason: Opioid Reversal Nicotine (Habitrol 21mg/24hr Patch) 1 patch TRANSDERM DAILY [facility] Last Admin: 04/02/20 08:58 Dose: Not Given Documented by: Ondansetron HCl (Zofran) 4 mg IVP Q8HR PRN PRN Reason: Nausea And Vomiting Last Admin: 04/02/20 10:05 Dose: 4 mg Documented by: Pantoprazole Sodium (Protonix) 40 mg IV DAILY [facility] Last Admin: 04/02/20 08:58 Dose: 40 mg Documented by: Sodium Chloride (Sodium Chloride Tab) 2 gm PO TID [facility] Last Admin: 04/02/20 16:10 Dose: 2 gm Documented by: Physical examination: VITAL SIGNS: 97.8, 118, 12, 141/89, 98% on 2 L GENERAL: Sitting up in a chair, slightly anxious EYES: Pupils equal. Conjunctiva normal. HEENT: External appearance of nose and ears normal, oral cavity grossly normal. NECK: JVD not raised; masses not palpable. HEART: First and second heart sounds are normal; mild edema LUNGS: Respiratory rate increased, decreased breath sounds-chest tube discontinued. ABDOMEN: Tender, no guarding or rigidity, dressing over midline incision, liver spleen not palpable, no masses palpable. PSYCH: Alert and oriented x3; mood and affect slightly anxious . INVESTIGATIONS, reviewed in the clinical context: White count 16 hemoglobin 9.1 platelets 461 sodium 125 potassium 4 creatinine 0.38 Admission testing: Computed tomography scan of the chest abdomen-large left-sided diaphragmatic hernia which contains multiple thickened loops of small bowel with a haziness entry, hemoperitoneum was noted, large left-sided pleural effusion, multiple left-sided rib fracture White count 16.4 hemoglobin 13.1 sodium 126 potassium 4.4 creatinine 0.45-upon presentation 2-D echocardiogram-moderate concentric LVH, EF 60-65% Assessment: -Acute strangulate diaphragmatic hernia with small bowel loops with ischemia strangulate the small bowel-status post surgery -Chronic nicotine dependence patient cigarette smoker -Chronic alcohol use disorder -Hyponatremia suspect hypoosmolar -slow to respond -Chronic gastritis, duodenitis from alcoholism -GERD -Essential hypertension -Multiple left-sided fractures from recent falls -Hemoperitoneum from ischemic bowel -Hypoglycemia from alcoholism and decreased oral intake -Paroxysmal atrial fibrillation with rapid ventricular rate Plan: ICU. Started on TPN and lipids. On salt tablets. Check serum osmolality in the the morning.. Thank you Dr. Rowe
--- NOTE | 2020-04-03 01:10 | PN ---
PROGRESS NOTE DATE OF SERVICE: 04/02/2020 REASON FOR FOLLOWUP: Pneumonia. INTERIM HISTORY: The patient is currently afebrile, has been breathing comfortably. Denies chest pain, currently controlled. Occasional cough. No nausea, vomiting. No abdominal pain, no diarrhea. PHYSICAL EXAMINATION: Blood pressure 131/67 with the pulse of 94, temperature 98.3. He is 97% on 2 L nasal cannula. General description is an elderly male up in the chair in no distress. RESPIRATORY SYSTEM: Unlabored breathing with decreased intense breath sounds. No wheeze. HEART: S1, S2. Regular rate and rhythm. ABDOMEN: Soft, no tenderness. LABS: Hemoglobin 9.1, white count 16, with a BUN of 11, creatinine 0.38. DIAGNOSTIC IMPRESSION AND PLAN: 1. The patient with Streptococcus pneumoniae and Haemophilus influenzae pneumonia currently covered with Augmentin. 2. Patient with elevated white count, possibly reactive and will monitor closely. If there is any fever or any worsening white count to adjust antibiotic further. MMODL / IJN: [id number] /
[2020-04-03] MEDS: HYDROmorphone 0.5 MG/0.5 ML SYRINGE IVP PRN (03:16)
[2020-04-03] MEDS ORDERED: FUROSEMIDE 10 MG/ML 2 ML VIAL IV ONE (04:16)
[2020-04-03] MEDS: METOCLOPRAMIDE 5 MG/ML 2 ML VIAL IVP SCH ×4 (04:36→20:43)
[2020-04-03 04:54] LABS: Basophils % (A) 0 %; Eosinophils # (A) 0.1 k/uL (0-0.7); Eosinophils % (A) 1 %; HCT 28.7 % (39.0-53.0); HGB 9.1 gm/dL (13.0-17.5); Hypochromasia Slight; Lymphocytes # (A) 0.5 k/uL (1.0-4.8); Lymphocytes % (A) 4 %; MCH 32.4 pg (25.0-35.0); MCHC 31.6 g/dL (31.0-37.0); MCV 102.6 fL (80.0-100.0); Macrocytosis Slight; Mean Platelet Volume 6.8; Monocytes # (A) 0.4 k/uL (0-1.0); Monocytes % (A) 3 %; Neutrophils # (A) 12.3 k/uL (1.3-7.7); Neutrophils % (A) 89 %; Platelet Count 540 k/uL (150-450); RDW 12.8 % (11.5-15.5); WBC 13.9 k/uL (3.8-10.6)
[2020-04-03 05:04] LABS: Ionized Calcium 4.8 mg/dL (4.5-5.3)
[2020-04-03 05:16] LABS: ALT 18 U/L (4-49); AST 34 U/L (17-59); African American GFR (CKD) >90 (>60 ml/min/1.73 sqM); Albumin 2.3 g/dL (3.5-5.0); Alkaline Phosphatase 75 U/L (38-126); Anion Gap 5 mmol/L; Blood Urea Nitrogen 14 mg/dL (9-20); Calcium 8.1 mg/dL (8.4-10.2); Carbon Dioxide 27 mmol/L (22-30); Chloride 92 mmol/L (98-107); Glucose 126 mg/dL (74-99); Magnesium 1.6 mg/dL (1.6-2.3); Non-African American GFR(CKD) >90 (>60 ml/min/1.73 sqM); Phosphorus 3.1 mg/dL (2.5-4.5); Potassium 3.8 mmol/L (3.5-5.1); Sodium 124 mmol/L (137-145); Total Bilirubin 0.7 mg/dL (0.2-1.3); Total Protein 4.9 g/dL (6.3-8.2)
[2020-04-03] MEDS: MAGNESIUM SULFATE-D5W PMX 1 GM in DEXTROSE/WATER 1 100ML.BAG IVPB SCH ×2 (06:38→08:01)
[2020-04-03] MEDS ORDERED: POTASSIUM CHLORIDE ER 20 MEQ TAB.ER PO SCH (07:00)
--- NOTE | 2020-04-03 07:23 | P.PN ---
Subjective Progress Note Date: 04/03/20 Principal diagnosis: Paroxysmal atrial fibrillation This is a 64-year-old gentleman who I requested to see in the ICU for further evaluation of atrial fibrillation which is a new to the patient. The patient is a 64-year-old gentleman with a past medical history significant for hypertension where he was receiving as an outpatient atenolol as well as lisinopril but no diabetes or dyslipidemia or coronary artery disease. The patient does have significant history of smoking as well as drinking alcohol. The patient presented to the emergency department with abdominal discomfort and he was diagnosed with fourth and fifth rib fractures on the right side. Apparently the patient fell. He is a somewhat poor historian. He was taken to the operation room where he underwent partial small bowel resection was From repair. Apparently the surgery was quite extensive. The patient was found to have strangulated hiatal hernia as well. We consulted to see the patient this time because off further evaluation of atrial fibrillation with RVR. Please note that the patient is alcohol he. This is the #3 after the surgery. Last night he went into atrial fibrillation with RVR and he was started on amiodarone drip. His blood pressure has been marginal. Anticoagulation is on hold at this point because of the recent surgery. No prior history of atrial fibrillation. No prior history of coronary artery disease or congestive heart failure or any kind of cardiac arrhythmia. The patient does not follow-up with a toddler caregiver. At this point, I am going to start the patient on oral beta ari with metoprolol at 12.5 mg by mouth twice a day and continue monitor the blood pressure very closely. I would keep the amiodarone IV and restart him on amiodarone by mouth. We will hold oral anticoagulation at this point until from the surgeon. Beside that I am going to obtain an echocardiogram was Doppler and follow-up with the patient. The patient was seen today, April [id number]. He has been in and out of atrial fibrillation. Currently he is on amiodarone by mouth as well as metoprolol by mouth. I'm going to increase the dose of metoprolol to 50 mg by mouth twice a day. Continue monitor the blood pressure very closely. Would back of the dose of metoprolol if the pressure dropped down. Also we will check with the surgical team when it's safe to start the patient on oral anticoagulation. Objective - Vital Signs Vital signs: Vital Signs Temp 98.5 F 04/03/20 04:00 Pulse 96 04/03/20 07:00 Resp 18 04/03/20 07:00 BP 132/81 04/03/20 07:00 Pulse Ox 93 L 04/03/20 07:00 Intake & Output 04/02/20 04/03/20 04/03/20 18:59 06:59 18:59 Intake Total 1445 1200 150 Output Total 1280 756 140 Balance 165 444 10 Weight 91 kg 93.1 kg Intake: IV 920 1200 150 Mvi, Adult No.4 with Vit 600 100 K 10 ml Trace (Conc-1Ml/ Dose) 1 ml In Amino Acid 4.25%-D10w+Lytes*E* 1,000 ml @ 100 mls/hr IV .BY DURATION [facility] Rx#: [id number] Sodium Chloride 0.9% 1, 520 000 ml @ 130 mls/hr IV . Q7H42M [facility] Rx#:[id number] Sodium Chloride 0.9% 1, 400 600 50 000 ml @ 50 mls/hr IV . Q20H [facility] Rx#:[id number] Oral 525 Output: Urine 1280 756 140 Other: Voiding Method Indwelling Catheter Indwelling Catheter # Bowel Movements 1 - Constitutional General appearance: Present: no acute distress - Labs CBC & Chem 7: 04/03/20 04:22 04/03/20 04:22 Labs: Abnormal Lab Results - Last 24 Hours (Table) 04/02/20 04/03/20 04/03/20 Range/Units 03:55 04:22 04:22 WBC 13.9 H (3.8-10.6) k/uL RBC 2.80 L (4.30-5.90) m/uL Hgb 9.1 L (13.0-17.5) gm/dL Hct 28.7 L (39.0-53.0) % MCV 102.6 H (80.0-100.0) fL Plt Count 540 H (150-450) k/uL Neutrophils # 12.3 H (1.3-7.7) k/uL Lymphocytes # 0.5 L (1.0-4.8) k/uL Sodium 124 L (137-145) mmol/L Chloride 92 L (98-107) mmol/L Creatinine 0.44 L (0.66-1.25) mg/dL Glucose 126 H (74-99) mg/dL Calcium 8.1 L (8.4-10.2) mg/dL Magnesium 1.4 L (1.6-2.3) mg/dL Total Protein 4.9 L (6.3-8.2) g/dL Albumin 2.3 L (3.5-5.0) g/dL Microbiology - Last 24 Hours (Table) 03/29/20 17:49 Blood Culture - Preliminary Blood No Growth after 96 hours Assessment and Plan Assessment: Assessment #1 status post fall and chest/abdominal trauma #2 status post abdominal surgery #3 paroxysmal atrial fibrillation #4 hypertension #5 significant history of alcohol use #6 significant history of smoking Plan #1 continue amiodarone by mouth #2 increase the dose of metoprolol #3 hold oral anticoagulation at this point #4 the echo was reviewed and showed normal LV function #5 follow-up with the patient
--- NOTE | 2020-04-03 07:29 | XR ---
EXAMINATION TYPE: XR chest 1V portable DATE OF EXAM: 04/03/2020 COMPARISON: 04/02/2020 HISTORY: Abnormal x-ray TECHNIQUE: Single frontal view of the chest is obtained. FINDINGS: Chronic changes involving the AC joints noted. Persistent bilateral consolidation and pleu ral effusion greater on the left. Subcutaneous emphysema noted. No sizable pneumothorax. Chronic rib deformities on the left seen. Heart size stable. IMPRESSION: 1. No sizable pneumothorax on today's exam. 2. Bilateral consolidation and pleural effusion persist.
[2020-04-03] MEDS: IPRATROPIUM-ALBUTEROL 3 ML NEB INHALATION SCH ×4 (08:02→19:28)
[2020-04-03] MEDS: AMOXIC-POT CLAV 875-125MG 1 EACH TAB PO SCH ×2 (08:03→20:49)
[2020-04-03] MEDS: METOPROLOL TARTRATE 50 MG TAB PO SCH ×2 (08:03→20:43)
[2020-04-03] MEDS: AMIODARONE 200 MG TAB PO SCH ×2 (08:03→20:43)
[2020-04-03] MEDS: SODIUM CHLORIDE TAB 1 GM TAB PO SCH ×3 (08:03→23:27)
[2020-04-03] MEDS: SODIUM CHLORIDE 0.9% 1,000 ML IV SCH (08:04)
[2020-04-03] MEDS: ENOXAPARIN 40 MG/0.4 ML SYRINGE SQ SCH (08:04)
[2020-04-03] MEDS: PANTOPRAZOLE 40 MG/10 ML VIAL IV SCH (08:04)
[2020-04-03] MEDS: NICOTINE 21MG/24HR PATCH TRANSDERM SCH (08:05)
[2020-04-03] MEDS: BISACODYL 10 MG SUPP RECTAL SCH (08:05)
[2020-04-03] MEDS ORDERED: FUROSEMIDE 10 MG/ML 4 ML VIAL IV STA (08:18)
--- NOTE | 2020-04-03 12:25 | P.PN ---
Subjective Progress Note Date: 04/03/20 this is a 64-year-old malet is being seen in follow-up in the intensivcare unit. Note tmitted initially for abdominal pain, status post exploratory laparotomy, small bowel resection, repair of diaphragmatic hernia, left chest tube placement. Postoperative day #4. He had initially presented with abdominal discomfort after developing constipation from pain medication being taken for from recent fall with rib fractures. He was found to have a diaphragmatic hernia with strangulated bowel. He is status post exploratory laparotomy, small bowel resection, repair of diaphragmatic hernia, placement of left chest tube. Pathology revealed acute ischemic enteritis with submucosal and mesenteric hemorrhage and vascular congestion. No evidence of malignancy. He initially was on mechanical ventilator and extubated on 03/30/2020. He is currently on 2 L nasal cannula. Chest x-ray reveals low lung volumes and chronic parenchymal changes with left-sided chest tube was removed. He has been having atrial fibrillation which is new for him. Echocardiogram revealed preserved left ventricular systolic function with ejection fraction 60-65%. He is on amiodarone drip has been discontinued and the patient was started on oral amiodarone. . Sputum culture is positive for Streptococcus pneumoniae and Haemophilus influenza. He is currently on Zosyn. On today's evaluation of 04/03/2020, the patient is sitting up on a chair. He was noted to have some increased swelling in lower extremities bilaterally and some in the upper extremities. He was receiving IV fluids at the rate of 50 mL an hour in addition to TPN for nutritional support running at 100 mL an hour. He is on 2 L of oxygen by nasal cannula with a pulse ox of 93%. He is using incentive spirometer pulling approximately 500-750. He didn't pass bowel movements. The chest x-ray from today shows no sizable pneumothorax and there is some bilateral consolidation and pleural effusions that are still present compared to the earlier chest x- ray. Objective - Vital Signs Vital signs: Vital Signs Temp 98.2 F 04/03/20 08:00 Pulse 99 04/03/20 11:27 Resp 19 04/03/20 11:00 BP 130/72 04/03/20 11:00 Pulse Ox 93 L 04/03/20 11:00 Intake & Output 04/02/20 04/03/20 04/03/20 18:59 06:59 18:59 Intake Total 1445 1200 600 Output Total 1280 756 900 Balance 165 444 -300 Weight 91 kg 93.1 kg Intake: IV 920 1200 600 Mvi, Adult No.4 with Vit 600 500 K 10 ml Trace (Conc-1Ml/ Dose) 1 ml In Amino Acid 4.25%-D10w+Lytes*E* 1,000 ml @ 100 mls/hr IV .BY DURATION [facility] Rx#: [id number] Sodium Chloride 0.9% 1, 520 000 ml @ 130 mls/hr IV . Q7H42M [facility] Rx#:[id number] Sodium Chloride 0.9% 1, 400 600 100 000 ml @ 50 mls/hr IV . Q20H [facility] Rx#:[id number] Oral 525 Output: Urine 1280 756 900 Other: Voiding Method Indwelling Catheter Indwelling Catheter Indwelling Catheter # Bowel Movements 1 - Exam GENERAL EXAM: Alert, pleasant 64-year-old gentleman, and 2 L nasal cannula, fairly comfortable in no apparent distress. HEAD: Normocephalic. EYES: Normal reaction of pupils, equal size. NOSE: Clear with pink turbinates. THROAT: No erythema or exudates. NECK: No masses, no JVD. CHEST: Left chest tube remains in place. LUNGS: Equal air entry with few scattered rhonchi, crackles in the bases. CVS: S1 and S2 normal with no audible murmur, regular rhythm. ABDOMEN: Abdominal dressing dry and intact. Binder in place. No active bowel sounds. The patient has no abdominal drains. The patient has bowel sounds in all 4 quadrants. He was passing bowel movements. No direct tenderness. No rebound tenderness. No guarding. SPINE: No scoliosis or deformity SKIN: No rashes CENTRAL NERVOUS SYSTEM: No focal deficits, tone is normal in all 4 extremities. EXTREMITIES: There is significant peripheral edema in all 4 extremities.. No clubbing, no cyanosis. Peripheral pulses are intact. - Labs CBC & Chem 7: 04/03/20 04:22 04/03/20 04:22 Labs: Abnormal Lab Results - Last 24 Hours (Table) 04/02/20 04/03/20 04/03/20 Range/Units 03:55 04:22 04:22 WBC 13.9 H (3.8-10.6) k/uL RBC 2.80 L (4.30-5.90) m/uL Hgb 9.1 L (13.0-17.5) gm/dL Hct 28.7 L (39.0-53.0) % MCV 102.6 H (80.0-100.0) fL Plt Count 540 H (150-450) k/uL Neutrophils # 12.3 H (1.3-7.7) k/uL Lymphocytes # 0.5 L (1.0-4.8) k/uL Sodium 124 L (137-145) mmol/L Chloride 92 L (98-107) mmol/L Creatinine 0.44 L (0.66-1.25) mg/dL Glucose 126 H (74-99) mg/dL Calcium 8.1 L (8.4-10.2) mg/dL Magnesium 1.4 L (1.6-2.3) mg/dL Total Protein 4.9 L (6.3-8.2) g/dL Albumin 2.3 L (3.5-5.0) g/dL Microbiology - Last 24 Hours (Table) 03/29/20 17:49 Blood Culture - Preliminary Blood No Growth after 96 hours Assessment and Plan Plan: 1 Abdominal pain secondary to strangulated diaphragmatic hernia, status post exploratory laparotomy, small bowel resection, repair of diaphragmatic hernia and placement of the left chest tube with subsequent removal on 04/01/2020. This is postoperative day #5. The patient is currently on PPN for nutritional support. The patient is receiving oral Augmentin and he was taken off the IV Zosyn. The patient has bowel sounds and the patient has had bowel movement. Chest x-ray showed no evidence of any pneumothorax. The patient has developed some increased edema in lower extremities bilaterally. 2 Acute hypoxemic respiratory failure secondary to above, extubated on 03/30/2020, currently on 2 L nasal cannula. Sputum cultures positive for Streptococcus pneumoniae and Haemophilus influenza, and the patient has significant consolidation of the lung bases left more than right, with subsequent improvement. The patient is currently on oxygen at 2 L per minute. 3 Recent admission for left chest wall pain and rib fractures status post fall requiring narcotics and subsequent constipation. Noted the patient was in the hospital approximately 10 days ago where the patientwas admitted with left-sided rib fractures and the patient was found also to be hyponatremic attributed to alcohol drinking. 4 Hyponatremia, suspected chronic in nature, sodium 124 5 History of alcohol abuse 6 Chronic tobacco dependence 7 History of previous GI bleeding, gastritis and duodenitis 8 Hypertension 9 History of hiatal hernia 10 New-onset atrial fibrillation, currently on oral amiodarone Plan The IV Fluids to KVO Give the patient dose of Lasix 40 mg IV push Continue oral Augmentin Continue PPN for nutritional support Gradually advance diet as tolerated Continue oral metoprolol and amiodarone was switched to oral 400 mg by mouth twice a day monitored abdominal wound Monitor sodium level We'll continue to follow.
--- NOTE | 2020-04-03 13:29 | P.PN ---
Subjective Progress Note Date: 04/03/20 CHIEF COMPLAINT: Strangulated diaphragmatic hernia HISTORY OF PRESENT ILLNESS: Patient is status post exploratory laparotomy, small bowel resection, repair of diaphragmatic hernia, and placement of left chest tube with Dr. Rowe. Postop day #5. Patient states his pain is tolerable. Tolerating clear liquid diet. No nausea or vomiting. PHYSICAL EXAM: VITAL SIGNS: Reviewed. GENERAL: Well-developed in no acute distress. HEENT: No sclera icterus. Extraocular movements grossly intact. Moist buccal mucosa. Head is atraumatic, normocephalic. ABDOMEN: Soft. Nondistended. Dressing clean dry and intact. NEUROLOGIC: Awake and alert ASSESSMENT: 1. Strangulated diaphragmatic hernia, status post exploratory laparotomy, small bowel resection, repair of diaphragmatic hernia, and placement of left chest tube with Dr. Rowe PLAN: -Pain control -Incentive spirometer -Activity as tolerated -Discontinue benson -advance diet to full liquids -Wean off TPN Nurse practitioner note has been reviewed by physician. Signing provider agrees with the documented findings, assessment, and plan of care. Objective - Vital Signs Vital signs: Vital Signs Temp 98.2 F 04/03/20 08:00 Pulse 94 04/03/20 10:00 Resp 14 04/03/20 10:00 BP 131/71 04/03/20 10:00 Pulse Ox 94 L 04/03/20 10:00 Intake & Output 04/02/20 04/03/20 04/03/20 18:59 06:59 18:59 Intake Total 1445 1200 500 Output Total 1280 756 825 Balance 165 444 -325 Weight 91 kg 93.1 kg Intake: IV 920 1200 500 Mvi, Adult No.4 with Vit 600 400 K 10 ml Trace (Conc-1Ml/ Dose) 1 ml In Amino Acid 4.25%-D10w+Lytes*E* 1,000 ml @ 100 mls/hr IV .BY DURATION [facility] Rx#: [id number] Sodium Chloride 0.9% 1, 520 000 ml @ 130 mls/hr IV . Q7H42M [facility] Rx#:[id number] Sodium Chloride 0.9% 1, 400 600 100 000 ml @ 50 mls/hr IV . Q20H [facility] Rx#:[id number] Oral 525 Output: Urine 1280 756 825 Other: Voiding Method Indwelling Catheter Indwelling Catheter # Bowel Movements 1 - Labs CBC & Chem 7: 04/03/20 04:22 04/03/20 04:22 Labs: Abnormal Lab Results - Last 24 Hours (Table) 04/02/20 04/03/20 04/03/20 Range/Units 03:55 04:22 04:22 WBC 13.9 H (3.8-10.6) k/uL RBC 2.80 L (4.30-5.90) m/uL Hgb 9.1 L (13.0-17.5) gm/dL Hct 28.7 L (39.0-53.0) % MCV 102.6 H (80.0-100.0) fL Plt Count 540 H (150-450) k/uL Neutrophils # 12.3 H (1.3-7.7) k/uL Lymphocytes # 0.5 L (1.0-4.8) k/uL Sodium 124 L (137-145) mmol/L Chloride 92 L (98-107) mmol/L Creatinine 0.44 L (0.66-1.25) mg/dL Glucose 126 H (74-99) mg/dL Calcium 8.1 L (8.4-10.2) mg/dL Magnesium 1.4 L (1.6-2.3) mg/dL Total Protein 4.9 L (6.3-8.2) g/dL Albumin 2.3 L (3.5-5.0) g/dL Microbiology - Last 24 Hours (Table) 03/29/20 17:49 Blood Culture - Preliminary Blood No Growth after 96 hours
[2020-04-03] MEDS: 1: MVI, ADULT NO.4 WITH VIT K 10 ML, TRACE (CONC-1ML/DOSE) 1 ML in AMINO ACID 4.25%-D10W IV SCH ×6 (14:55→15:08)
[2020-04-03] MEDS: FAT EMULSION 20% 250 ML in EMPTY BAG 1 BAG IV SCH (14:56)
--- NOTE | 2020-04-03 18:56 | P.PN ---
Progress Note - Text Progress Note Date: 04/03/20 - Chief Complaint Abdominal pain Consultation: This is a pleasant 64-year-old patient who follows a Dr. Michel. Patient long- standing history of smoking and drinking significant amount of alcohol. Chronic stable conditions also include nicotine dependence, gastritis duodenitis as per EGD in 2019. Patient is having the hospital about 7 days ago he took a fall was admitted with left-sided rib fractures 4 to-5 drips also found to be severely hyponatremic. Patient is doing well at the time of discharge. Patient now presents with worsening abdominal pain going on for close to a week. Has not had a bowel movement since then. End patient's abdominal pain was progressively getting worse. He also noticed some bruising to the left lower abdomen for the last couple of days. Denied any fever and chills. Some nausea. Patient was taken to the operating room by Dr. Rowe last night. Found to strangulate a diaphragmatic hernia. Does some blood in the peritoneal cavity. The hernia containing small bowel. Patient about 40% of the small bowel within the left chest and ischemia to strangulate of the small bowel. About 1 L of bloody fluid was aspirated from the left chest. Patient is currently in the ICU. Has a midline dressing. In the abdomen. Left chest tube to suction. Recently went into atrial fibrillation with rapid ventricular rate. Put on IV amiodarone. Today-ICU. Sitting up in a chair. Awake. Using incentive spirometry. Has a Hayward catheter. No bowel movement. Has been tolerating liquids. Getting TPN and lipids. Patient remains in and out of atrial fibrillation. Review of systems: Was done for constitutional, cardiovascular, GI, pulmonary. relevant finding as above Active Medications Acetaminophen (Tylenol Tab) 650 mg PO Q4HR PRN PRN Reason: Fever and/or Mild Pain Albuterol/Ipratropium (Duoneb 0.5 Mg-3 Mg/3 Ml Soln) 3 ml INHALATION RT-Q2H PRN PRN Reason: Shortness Of Breath Or Wheezing Albuterol/Ipratropium (Duoneb 0.5 Mg-3 Mg/3 Ml Soln) 3 ml INHALATION RT-QID [facility] Last Admin: 04/03/20 15:34 Dose: 3 ml Documented by: Amiodarone HCl (Cordarone) 400 mg PO BID [facility] Last Admin: 04/03/20 08:03 Dose: 400 mg Documented by: Amoxicillin/Clavulanate Potassium (Augmentin 875-125) 1 each PO Q12HR [facility] Last Admin: 04/03/20 08:03 Dose: 1 each Documented by: Bisacodyl (Dulcolax) 10 mg RECTAL DAILY [facility] Last Admin: 04/03/20 08:05 Dose: Not Given Documented by: Enoxaparin Sodium (Lovenox) 40 mg SQ DAILY [facility] Last Admin: 04/03/20 08:04 Dose: 40 mg Documented by: Hydromorphone HCl (Dilaudid) 0.5 mg IVP Q3HR PRN PRN Reason: Moderate to Severe Pain Last Admin: 04/03/20 03:16 Dose: 0.5 mg Documented by: Hydromorphone HCl (Dilaudid) 1 mg IVP Q2HR PRN PRN Reason: Severe Pain Last Admin: 04/02/20 03:46 Dose: 1 mg Documented by: Norepinephrine Bitartrate 8 mg (/ Sodium Chloride) 258 mls @ 7.197 mls/hr IV .Q24H [facility]; Protocol Last Admin: 04/02/20 23:39 Dose: Not Given Documented by: Fat Emulsion Intravenous 250 (ml/ IV Solution) 250 mls @ 21 mls/hr IV Q24H [facility] Last Admin: 04/03/20 14:56 Dose: 21 mls/hr Documented by: Parenteral Vitamin Supplement 10 ml/ Chromium/Copper/Manganese/Seleni/Zn 1 ml/Amino Ac/Electrol/Dextrose/Calcium 1,011 mls @ 100 mls/hr IV .BY DURATION [facility] Stop: 04/04/20 00:59 Last Admin: 04/03/20 14:55 Dose: 100 mls/hr Documented by: Amino Ac/Electrol/Dextrose/Calcium (Clinimix E 4.25%-D10% Solution) 1,000 mls @ 100 mls/hr IV .BY DURATION [facility] Stop: 04/04/20 00:59 Last Admin: 04/03/20 15:08 Dose: Not Given Documented by: Parenteral Vitamin Supplement 10 ml/ Chromium/Copper/Manganese/Seleni/Zn 1 ml/Amino Ac/Electrol/Dextrose/Calcium 1,011 mls @ 100 mls/hr IV .BY DURATION [facility] Amino Ac/Electrol/Dextrose/Calcium (Clinimix E 4.25%-D10% Solution) 1,000 mls @ 100 mls/hr IV .BY DURATION [facility] Lorazepam (Ativan) 1 mg IV Q2HR PRN PRN Reason: CIWA 8 or 9 Lorazepam (Ativan) 1 mg IV Q1HR PRN PRN Reason: CIWA 10 to 15 Last Admin: 04/01/20 03:55 Dose: 1 mg Documented by: Metoclopramide HCl (Reglan) 10 mg IVP Q6H [facility] Last Admin: 04/03/20 15:15 Dose: 10 mg Documented by: Metoprolol Tartrate (Lopressor) 50 mg PO BID [facility] Last Admin: 04/03/20 08:03 Dose: 50 mg Documented by: Miscellaneous Information (Potassium Per Protocol) 1 each MISCELLANE DAILY PRN; Protocol PRN Reason: Per Protocol Naloxone HCl (Narcan) 0.2 mg IV Q2M PRN PRN Reason: Opioid Reversal Nicotine (Habitrol 21mg/24hr Patch) 1 patch TRANSDERM DAILY [facility] Last Admin: 04/03/20 08:05 Dose: Not Given Documented by: Ondansetron HCl (Zofran) 4 mg IVP Q8HR PRN PRN Reason: Nausea And Vomiting Last Admin: 04/02/20 10:05 Dose: 4 mg Documented by: Pantoprazole Sodium (Protonix) 40 mg IV DAILY [facility] Last Admin: 04/03/20 08:04 Dose: 40 mg Documented by: Sodium Chloride (Sodium Chloride Tab) 2 gm PO TID [facility] Last Admin: 04/03/20 17:27 Dose: 2 gm Documented by: Physical examination: VITAL SIGNS: 98.1, 92, 19, 116/83, 93% on 2 L GENERAL: Sitting up in a chair, slightly anxious EYES: Pupils equal. Conjunctiva normal. HEENT: External appearance of nose and ears normal, oral cavity grossly normal. NECK: JVD not raised; masses not palpable. HEART: First and second heart sounds are normal; mild edema LUNGS: Respiratory rate increased, decreased breath sounds-chest tube discontinued. ABDOMEN: Tender, no guarding or rigidity, dressing over midline incision, liver spleen not palpable, no masses palpable. Hayward catheter. PSYCH: Alert and oriented x3; mood and affect slightly anxious . INVESTIGATIONS, reviewed in the clinical context: White count 13.9 hemoglobin 9.1 potassium 3.8 crit 0.44 Admission testing: Computed tomography scan of the chest abdomen-large left-sided diaphragmatic hernia which contains multiple thickened loops of small bowel with a haziness entry, hemoperitoneum was noted, large left-sided pleural effusion, multiple left-sided rib fracture White count 16.4 hemoglobin 13.1 sodium 126 potassium 4.4 creatinine 0.45-upon presentation 2-D echocardiogram-moderate concentric LVH, EF 60-65% Assessment: -Acute strangulate diaphragmatic hernia with small bowel loops with ischemia strangulate the small bowel-status post surgery -Chronic nicotine dependence patient cigarette smoker -Chronic alcohol use disorder -Hyponatremia suspect hypoosmolar -slow to respond -Chronic gastritis, duodenitis from alcoholism -GERD -Essential hypertension -Multiple left-sided fractures from recent falls -Hemoperitoneum from ischemic bowel -Hypoglycemia from alcoholism and decreased oral intake -Paroxysmal atrial fibrillation with rapid ventricular rate. Has been in and out of atrial fibrillation. On amiodarone. Plan: ICU. Continue TPN and lipids. Hayward catheter will be discontinued. Patient been advanced to full liquids for supper per surgery. Patient encouraged to use incentive spirometer. Rakan wrap's during daytime. On the lower extremity. There was a beta ari being increased by cardiology. Thank you Dr. Rowe
--- NOTE | 2020-04-03 22:29 | PN ---
PROGRESS NOTE DATE OF SERVICE: 04/03/2020 REASON FOR FOLLOWUP: Pneumonia. INTERVAL HISTORY: The patient is currently afebrile, has been breathing comfortably. Denies having any chest pain. Occasional cough. No nausea or vomiting. No abdominal pain or diarrhea. PHYSICAL EXAMINATION: Blood pressure 102/60 with a pulse of 74, temperature 98.7. He is 92% on 2 L nasal cannula. General description is an elderly male up in the chair in no distress. RESPIRATORY SYSTEM: Unlabored breathing with decreased breath sounds at the base. No wheeze. HEART: S1, S2. Regular rate and rhythm. ABDOMEN: Soft. No tenderness. LABS: Hemoglobin 9.1, white count 13.9, BUN of 14, creatinine 0.44. DIAGNOSTIC IMPRESSION AND PLAN: Patient with Streptococcus pneumoniae and Haemophilus pneumonias, on Augmentin; to continue and monitor clinical course closely. MMODL / IJN: [id number] /
[2020-04-03] MEDS: NOREPINEPHRINE 8 MG in SODIUM CHLORIDE 0.9% 250 ML IV SCH (22:31)
[2020-04-04] MEDS ORDERED: 1: MVI, ADULT NO.4 WITH VIT K 10 ML, TRACE (CONC-1ML/DOSE) 1 ML in AMINO ACID 4.25%-D10W IV SCH ×3 (01:00)
[2020-04-04] MEDS: METOCLOPRAMIDE 5 MG/ML 2 ML VIAL IVP SCH ×2 (02:53→08:00)
[2020-04-04 04:54] LABS: Basophils % (A) 0 %; Eosinophils # (A) 0.1 k/uL (0-0.7); Eosinophils % (A) 1 %; HCT 25.5 % (39.0-53.0); HGB 8.1 gm/dL (13.0-17.5); Hypochromasia Slight; Lymphocytes # (A) 0.6 k/uL (1.0-4.8); Lymphocytes % (A) 5 %; MCH 32.8 pg (25.0-35.0); MCHC 31.9 g/dL (31.0-37.0); MCV 102.7 fL (80.0-100.0); Macrocytosis Slight; Mean Platelet Volume 6.7; Monocytes # (A) 1.1 k/uL (0-1.0); Monocytes % (A) 8 %; Neutrophils # (A) 10.7 k/uL (1.3-7.7); Neutrophils % (A) 83 %; Platelet Count 519 k/uL (150-450); RBC 2.48 m/uL (4.30-5.90); RDW 12.8 % (11.5-15.5); WBC 12.8 k/uL (3.8-10.6)
[2020-04-04 05:12] LABS: African American GFR (CKD) >90 (>60 ml/min/1.73 sqM); Anion Gap 5 mmol/L; Blood Urea Nitrogen 13 mg/dL (9-20); Carbon Dioxide 29 mmol/L (22-30); Chloride 89 mmol/L (98-107); Glucose 102 mg/dL (74-99); Magnesium 1.8 mg/dL (1.6-2.3); Non-African American GFR(CKD) >90 (>60 ml/min/1.73 sqM); Phosphorus 2.9 mg/dL (2.5-4.5); Potassium 3.8 mmol/L (3.5-5.1); Sodium 123 mmol/L (137-145)
[2020-04-04] MEDS ORDERED: POTASSIUM CHLORIDE ER 20 MEQ TAB.ER PO SCH (07:00)
[2020-04-04] MEDS: 1: MVI, ADULT NO.4 WITH VIT K 10 ML, TRACE (CONC-1ML/DOSE) 1 ML in AMINO ACID 4.25%-D10W IV SCH ×6 (07:37→17:30)
[2020-04-04] MEDS: NICOTINE 21MG/24HR PATCH TRANSDERM SCH (07:38)
[2020-04-04] MEDS: BISACODYL 10 MG SUPP RECTAL SCH (07:38)
[2020-04-04] MEDS: SODIUM CHLORIDE TAB 1 GM TAB PO SCH ×3 (07:58→20:55)
[2020-04-04] MEDS: AMOXIC-POT CLAV 875-125MG 1 EACH TAB PO SCH (07:59)
[2020-04-04] MEDS: METOPROLOL TARTRATE 50 MG TAB PO SCH ×2 (07:59→20:56)
[2020-04-04] MEDS: AMIODARONE 200 MG TAB PO SCH ×2 (07:59→20:55)
[2020-04-04] MEDS: ENOXAPARIN 40 MG/0.4 ML SYRINGE SQ SCH ×2 (07:59→08:20)
[2020-04-04] MEDS: PANTOPRAZOLE 40 MG/10 ML VIAL IV SCH (08:01)
[2020-04-04] MEDS: DILTIAZEM 125 MG in SODIUM CHLORIDE 0.9% 100 ML IV SCH ×2 (08:01→23:28)
[2020-04-04] MEDS: IPRATROPIUM-ALBUTEROL 3 ML NEB INHALATION SCH ×4 (08:54→20:32)
--- NOTE | 2020-04-04 08:54 | XR ---
EXAMINATION TYPE: XR chest 1V portable DATE OF EXAM: 04/04/2020 COMPARISON: 04/03/2020 HISTORY: Tube placement TECHNIQUE: Single frontal view of the chest is obtained. FINDINGS: Bilateral consolidation and pleural effusion seen. Subcutaneous emphysema and rib deformit ies are again noted. As a tiny less than 5% left apical pneumothorax. Heart size stable. IMPRESSION: 1. Bilateral infiltrate and pleural effusion stable. There is interval development of 5% left apical pneumothorax. 2. Persistent chronic rib cage deformity suggestive of fracture.
--- NOTE | 2020-04-04 08:56 | P.PN ---
Subjective Progress Note Date: 04/04/20 Principal diagnosis: Paroxysmal atrial fibrillation This is a 64-year-old gentleman who I requested to see in the ICU for further evaluation of atrial fibrillation which is a new to the patient. The patient is a 64-year-old gentleman with a past medical history significant for hypertension where he was receiving as an outpatient atenolol as well as lisinopril but no diabetes or dyslipidemia or coronary artery disease. The patient does have significant history of smoking as well as drinking alcohol. The patient presented to the emergency department with abdominal discomfort and he was diagnosed with fourth and fifth rib fractures on the right side. Apparently the patient fell. He is a somewhat poor historian. He was taken to the operation room where he underwent partial small bowel resection was From repair. Apparently the surgery was quite extensive. The patient was found to have strangulated hiatal hernia as well. We consulted to see the patient this time because off further evaluation of atrial fibrillation with RVR. Please note that the patient is alcohol he. This is the #3 after the surgery. Last night he went into atrial fibrillation with RVR and he was started on amiodarone drip. His blood pressure has been marginal. Anticoagulation is on hold at this point because of the recent surgery. No prior history of atrial fibrillation. No prior history of coronary artery disease or congestive heart failure or any kind of cardiac arrhythmia. The patient does not follow-up with a clinical reimbursement specialist. At this point, I am going to start the patient on oral beta ari with metoprolol at 12.5 mg by mouth twice a day and continue monitor the blood pressure very closely. I would keep the amiodarone IV and restart him on amiodarone by mouth. We will hold oral anticoagulation at this point until from the surgeon. Beside that I am going to obtain an echocardiogram was Doppler and follow-up with the patient. The patient was seen today, April [id number]. He flipped back into atrial fibrillation with RVR and continues to be in atrial fibrillation. Currently he is on amiodarone by mouth as well as metoprolol by mouth. I am going to start the patient on Cardizem IV. We'll check with the surgical team regarding the safety of starting oral anticoagulation. Objective - Vital Signs Vital signs: Vital Signs Temp 97.2 F L 04/04/20 08:00 Pulse 123 H 04/04/20 08:00 Resp 25 H 04/04/20 08:00 BP 113/86 04/04/20 08:00 Pulse Ox 90 L 04/04/20 08:00 Intake & Output 04/03/20 04/04/20 04/04/20 18:59 06:59 18:59 Intake Total 1384 1452 171 Output Total 1200 540 50 Balance 184 912 121 Weight 92.6 kg Intake: IV 1384 1452 171 Fat Emulsion 20% 250 ml 84 252 21 In Empty Bag 1 bag @ 21 mls/hr IV Q24H [facility] Rx#: [id number] Mvi, Adult No.4 with Vit 1200 1200 150 K 10 ml Trace (Conc-1Ml/ Dose) 1 ml In Amino Acid 4.25%-D10w+Lytes*E* 1,000 ml @ 100 mls/hr IV .BY DURATION [facility] Rx#: [id number] Sodium Chloride 0.9% 1, 100 000 ml @ 50 mls/hr IV . Q20H [facility] Rx#:[id number] Output: Urine 1200 540 50 Other: Voiding Method Urinal Urinal # Voids 0 0 0 # Bowel Movements 3 - Constitutional General appearance: Present: no acute distress - Respiratory Respiratory: bilateral: diminished - Cardiovascular Rhythm: irregularly irregular Heart sounds: normal: S1, S2 - Labs CBC & Chem 7: 04/04/20 04:12 04/04/20 04:12 Labs: Abnormal Lab Results - Last 24 Hours (Table) 04/04/20 04/04/20 Range/Units 04:12 04:12 WBC 12.8 H (3.8-10.6) k/uL RBC 2.48 L (4.30-5.90) m/uL Hgb 8.1 L (13.0-17.5) gm/dL Hct 25.5 L (39.0-53.0) % MCV 102.7 H (80.0-100.0) fL Plt Count 519 H (150-450) k/uL Neutrophils # 10.7 H (1.3-7.7) k/uL Lymphocytes # 0.6 L (1.0-4.8) k/uL Monocytes # 1.1 H (0-1.0) k/uL Sodium 123 L (137-145) mmol/L Chloride 89 L (98-107) mmol/L Creatinine 0.36 L (0.66-1.25) mg/dL Glucose 102 H (74-99) mg/dL Calcium 8.0 L (8.4-10.2) mg/dL Microbiology - Last 24 Hours (Table) 03/29/20 17:49 Blood Culture - Preliminary Blood No Growth after 120 hours Assessment and Plan Assessment: Assessment #1 status post fall and chest/abdominal trauma #2 status post abdominal surgery #3 paroxysmal atrial fibrillation #4 hypertension #5 significant history of alcohol use #6 significant history of smoking Plan #1 continue oral amiodarone and oral metoprolol #2 start the patient on Cardizem IV #3 follow-up with the patient
[2020-04-04] MEDS ORDERED: LORazepam 2 MG/ML INJ IV PRN (08:57)
[2020-04-04] MEDS ORDERED: FUROSEMIDE 10 MG/ML 4 ML VIAL IV SCH (09:00)
[2020-04-04] MEDS ORDERED: [UNRECOGNIZED DRUG - REMARK] IV SCH ×4 (09:00)
[2020-04-04] MEDS ORDERED: FUROSEMIDE 10 MG/ML 4 ML VIAL IV STA ×2 (09:07→14:25)
[2020-04-04 11:00] LABS: Glucose,Whole Blood 104 mg/dL (75-99)
--- NOTE | 2020-04-04 11:04 | CT ---
EXAMINATION TYPE: CT brain wo con for TPA DATE OF EXAM: 04/04/2020 COMPARISON: None INDICATION: AMS DLP: 1088 mGycm, Automated exposure control for dose reduction was used. CONTRAST: None CT of the brain is performed utilizing 3 mm thick sections through the posterior fossa and 3 mm thick sections through the remaining calvarium. Study is performed within 24 hours of arrival to the hosp ital. No abnormal hyperdensity is present to suggest an acute intracranial hemorrhage. No mass lesion is evident. No acute infarcts are evident. There is some mild periventricular white matter hypodensity, most like ly on the basis of chronic white matter ischemic changes. Ventricles and sulci are prominent for the patient age. Paranasal sinuses and mastoid air cells within the [id number] are clear. IMPRESSIONS: 1. Mild atrophy with chronic appearing periventricular white matter ischemic type changes.
[2020-04-04 11:17] LABS: Basophils % (A) 0 %; Eosinophils # (A) 0.1 k/uL (0-0.7); Eosinophils % (A) 1 %; HCT 26.1 % (39.0-53.0); HGB 8.5 gm/dL (13.0-17.5); Hypochromasia Slight; Lymphocytes # (A) 0.5 k/uL (1.0-4.8); Lymphocytes % (A) 3 %; MCH 33.5 pg (25.0-35.0); MCHC 32.4 g/dL (31.0-37.0); MCV 103.6 fL (80.0-100.0); Macrocytosis Slight; Monocytes # (A) 0.9 k/uL (0-1.0); Monocytes % (A) 6 %; Neutrophils # (A) 13.4 k/uL (1.3-7.7); Neutrophils % (A) 87 %; Platelet Count 539 k/uL (150-450); RBC 2.52 m/uL (4.30-5.90); RDW 13.2 % (11.5-15.5); WBC 15.3 k/uL (3.8-10.6)
[2020-04-04 11:25] LABS: ALT 16 U/L (4-49); AST 34 U/L (17-59); African American GFR (CKD) >90 (>60 ml/min/1.73 sqM); Albumin 2.2 g/dL (3.5-5.0); Alkaline Phosphatase 69 U/L (38-126); Anion Gap 4 mmol/L; Blood Urea Nitrogen 12 mg/dL (9-20); Calcium 7.7 mg/dL (8.4-10.2); Carbon Dioxide 30 mmol/L (22-30); Chloride 90 mmol/L (98-107); Glucose 93 mg/dL (74-99); Non-African American GFR(CKD) >90 (>60 ml/min/1.73 sqM); Potassium 3.4 mmol/L (3.5-5.1); Sodium 124 mmol/L (137-145); Total Bilirubin 0.5 mg/dL (0.2-1.3); Total Protein 4.7 g/dL (6.3-8.2)
[2020-04-04 11:42] LABS: INR 0.9 (<1.2); Partial Thromboplastin Time 29.5 sec (22.0-30.0); Prothrombin Time 9.8 sec (9.0-12.0)
--- NOTE | 2020-04-04 11:47 | CT ---
EXAMINATION TYPE: CT angio head neck DATE OF EXAM: 04/04/2020 HISTORY: AMS COMPARISON: None CT DLP: 591.2 mGycm. Automated Exposure Control for Dose Reduction was Utilized. TECHNIQUE: CTA scan of the neck is performed with IV Contrast, patient injected with 65 mL of Isovue 370, axial images are obtained, coronal and sagittal reformatted images are reviewed. Three-D recons tructed images are created on an independent workstation and reviewed. Source images are reviewed. FINDINGS: Carotid/Vascular Structures: There is a three-vessel arch. The origin of the left common carotid jazz ry may be stenotic at the aortic arch. Likewise, the left subclavian artery likely stenotic at the or igin on the arch. There is atheromatous plaquing at the bilateral carotid bifurcations. Significant f low-limiting stenosis is not identified. There is some redundancy of the internal carotid arteries bi laterally. Cervical of [place]: Vertebral basilar system appears normal. Posterior cerebral vasculature is unrema rkable. Internal carotid arteries bifurcate normally into A1 and M1 segments. A2 segments are normal. The anterior communicating artery is patent. Left Posterior communicating artery is patent. Right po sterior communicating artery is patent. Other: Small left apical pneumothorax is evident. Reported on the prior chest film. Small left and mi nimal right pleural fluid collections are present. There is some thickening along the lateral left up per lung field. IMPRESSION: 1. No flow-limiting stenosis bilateral carotid bifurcations. Atheromatous plaquing is present and the re is some tortuosity of the bilateral internal carotid arteries 2. Some plaquing at the great vessel aortic arch origins may be contributing to stenosis at these le vels. 3. Normal [place] 4. Small Left apical pneumothorax 5-10%. Report was called to the LEA Villareal RN by Dr Sarabia by tel ephone to confirm knowledge of the pneumothorax 11:40 hours.
[2020-04-04 11:58] LABS: ABG Base Excess 3.1 mmol/L; ABG HCO3 27 mmol/L (21-25); ABG Oxygen Saturation 94.5 % (94-97); ABG PCO2 41 mmHg (35-45); ABG PH 7.43 (7.35-7.45); ABG PO2 73 mmHg (83-108); ABG TCO2 29 mmol/L (19-24); Allen Test Performed? Yes
[2020-04-04] MEDS ORDERED: SODIUM CHLORIDE 3%(HYPERTONIC) 500 ML IV SCH (12:00)
--- NOTE | 2020-04-04 12:15 | XR ---
EXAMINATION TYPE: XR chest 1V DATE OF EXAM: 04/04/2020 COMPARISON: 04/04/2020 HISTORY: Shortness of breath TECHNIQUE: Single frontal view of the chest is obtained. FINDINGS: There are low lung volumes. There is blunting of the left costophrenic angle poor visualiz ation of the left hemidiaphragm. Right basilar consolidation has resolved. Cardiomediastinal silhouet te appears enlarged but overall stable from the prior and is visualized portion. Subcutaneous emphyse ma noted along the left chest wall with left-sided rib fractures. Less than 5% left apical pneumothor ax redemonstrated. IMPRESSION: Stable exam of the left hemithorax with trace apical left pneumothorax and small left pl eural effusion as well as left rib fractures and subcutaneous emphysema the chest wall. Resolved righ t basilar atelectasis.
[2020-04-04] MEDS: POTASSIUM CHLORIDE 10 MEQ in WATER FOR INJECTION 1 100ML.BAG IVPB SCH ×4 (12:27→16:05)
--- NOTE | 2020-04-04 13:04 | P.PN ---
Subjective Progress Note Date: 04/04/20 this is a 64-year-old male is being seen in follow-up in the intensivcare unit. Note tmitted initially for abdominal pain, status post exploratory laparotomy, small bowel resection, repair of diaphragmatic hernia, left chest tube placement. Postoperative day #4. He had initially presented with abdominal discomfort after developing constipation from pain medication being taken for from recent fall with rib fractures. He was found to have a diaphragmatic hernia with strangulated bowel. He is status post exploratory laparotomy, small bowel resection, repair of diaphragmatic hernia, placement of left chest tube. Pathology revealed acute ischemic enteritis with submucosal and mesenteric hemorrhage and vascular congestion. No evidence of malignancy. He initially was on mechanical ventilator and extubated on 03/30/2020. He is currently on 2 L nasal cannula. Chest x-ray reveals low lung volumes and chronic parenchymal changes with left-sided chest tube was removed. He has been having atrial fibrillation which is new for him. Echocardiogram revealed preserved left ventricular systolic function with ejection fraction 60-65%. He is on amiodarone drip has been discontinued and the patient was started on oral amiodarone. . Sputum culture is positive for Streptococcus pneumoniae and Haemophilus influenza. He is currently on Zosyn. On today's evaluation of 04/03/2020, the patient is sitting up on a chair. He was noted to have some increased swelling in lower extremities bilaterally and some in the upper extremities. He was receiving IV fluids at the rate of 50 mL an hour in addition to TPN for nutritional support running at 100 mL an hour. He is on 2 L of oxygen by nasal cannula with a pulse ox of 93%. He is using incentive spirometer pulling approximately 500-750. He didn't pass bowel movements. The chest x-ray from today shows no sizable pneumothorax and there is some bilateral consolidation and pleural effusions that are still present compared to the earlier chest x- ray. On today's evaluation of 62,020 and seeing Yordy for a follow-up in the intensive care unit following his abdominal surgery. As mentioned, the patient is alcoholic and he is postop day #5 with the patient underwent expiratory laparotomy and small bowel resection and repair of a diaphragmatic hernia with a left-sided chest tube insertion and subsequent removal. Earlier this morning, he felt that the patient was lethargic and weak and a bit confused. He told that he hasn't slept for several days. He told me that he typically takes alcohol to help him with his chronic insomnia. He had requested some Ativan to help him sleep as the patient was getting jittery and nervous overnight. He was having excessive swelling in all 4 extremities and especially in the lower extremities and the patient had significant third spacing. Note that the patient was given a dose of Lasix yesterday for the grams IV push following which she made adequate urine output. Nevertheless, he is overall fluid balance has been essentially positive. The patient did have a bout of atrial fibrillation yesterday and the patient is currently on oral amiodarone 400 mg by mouth twice a day and metoprolol 50 mg by mouth twice a day. His sodium level remains low at 124. Rest of the electrolytes show some mild hypokalemia with a potassium level of 3.4. Based on this, I made a decision to aggressively d iurese this patient and I put an order for Lasix 40 mg IV push every 8 hours. Within a few hours of my around, the patient became acutely unresponsive. Based on this a code stroke was called and the robot was activated. The patient was found to be quite unresponsive and lethargic and his initial NIH score was 4. The patient was having unintelligible speech and was told that the patient was aphasic in addition to confusion. No focal neurological deficit was noted. The patient was taken for a stat CAT scan of the brain and it showed mild atrophy and chronic periventricular white matter ischemic Changes. The patient also had a CT angios done that showed no flow limitation stenosis in the carotids bilaterally. There was some plaquing of the great vessels of the aortic arch mainly. There was a normal [place] of [place]. Neurology consultation has been obtained. The chest x-ray showed a stable left lung with a very tiny left apical pneumothorax and a left-sided pleural effusion in addition to some minimal amount of subcutaneous emphysema. The right basilar atelectatic changes have already resolved. The patient had a blood gases that showed a pH of 7.43 with a pCO2 of 41 and pO2 of 73 and this was done and 36% FiO2. His sodium level was 123. He was started on hypertonic saline solution at 3% normal state rate of 40 mL an hour. Close monitoring of his sodium level will be done. Consider symptomatically hyponatremia. Consider altered mentation related to electrolyte imbalance. No documented seizure activity and Neurology has been involved. Objective - Vital Signs Vital signs: Vital Signs Temp 98.4 F 04/04/20 12:00 Pulse 98 04/04/20 12:00 Resp 15 04/04/20 12:00 BP 109/73 04/04/20 12:00 Pulse Ox 94 L 04/04/20 11:00 Intake & Output 04/03/20 04/04/20 04/04/20 18:59 06:59 18:59 Intake Total 1384 1452 221 Output Total 8480 143 4750 Balance 184 912 -779 Weight 92.6 kg Intake: IV 1384 1452 221 Fat Emulsion 20% 250 ml 84 252 21 In Empty Bag 1 bag @ 21 mls/hr IV Q24H YAJAIRA Rx#: [id number] Mvi, Adult No.4 with Vit 1200 1200 200 K 10 ml Trace (Conc-1Ml/ Dose) 1 ml In Amino Acid 4.25%-D10w+Lytes*E* 1,000 ml @ 100 mls/hr IV .BY DURATION YAJAIRA Rx#: [id number] Sodium Chloride 0.9% 1, 100 000 ml @ 50 mls/hr IV . Q20H YAJAIRA Rx#:[id number] Output: Urine 8413 777 7542 Other: Voiding Method Urinal Urinal # Voids 0 0 0 # Bowel Movements 3 - Exam GENERAL EXAM: Alert, pleasant 64-year-old gentleman, and the patient was placed on on the percent nonrebreather facemask. At this point in time, the patient is lethargic and has diminished level of consciousness. No agitation. No focal neurological deficits. HEAD: Normocephalic. EYES: Normal reaction of pupils, equal size. NOSE: Clear with pink turbinates. THROAT: No erythema or exudates. NECK: No masses, no JVD. CHEST: Left chest tube remains in place. LUNGS: Equal air entry with few scattered rhonchi, crackles in the bases. CVS: S1 and S2 normal with no audible murmur, regular rhythm. ABDOMEN: Abdominal dressing dry and intact. Binder in place. No active bowel sounds. The patient has no abdominal drains. The patient has bowel sounds in all 4 quadrants. He was passing bowel movements. No direct tenderness. No rebound tenderness. No guarding. SPINE: No scoliosis or deformity SKIN: No rashes CENTRAL NERVOUS SYSTEM: Lethargic and obtunded, withdraws to painful stimulation. Pupils are equal and reactive to light. No nystagmus. No preferential gaze. No facial asymmetry. EXTREMITIES: There is significant peripheral edema in all 4 extremities.. No clubbing, no cyanosis. Peripheral pulses are intact. - Labs CBC & Chem 7: 04/04/20 11:02 04/04/20 11:02 Labs: Abnormal Lab Results - Last 24 Hours (Table) 04/04/20 04/04/20 04/04/20 Range/Units 04:12 04:12 10:58 WBC 12.8 H (3.8-10.6) k/uL RBC 2.48 L (4.30-5.90) m/uL Hgb 8.1 L (13.0-17.5) gm/dL Hct 25.5 L (39.0-53.0) % MCV 102.7 H (80.0-100.0) fL Plt Count 519 H (150-450) k/uL Neutrophils # 10.7 H (1.3-7.7) k/uL Lymphocytes # 0.6 L (1.0-4.8) k/uL Monocytes # 1.1 H (0-1.0) k/uL ABG pO2 (83-108) mmHg ABG HCO3 (21-25) mmol/L ABG Total CO2 (19-24) mmol/L Sodium 123 L (137-145) mmol/L Potassium (3.5-5.1) mmol/L Chloride 89 L (98-107) mmol/L Creatinine 0.36 L (0.66-1.25) mg/dL Glucose 102 H (74-99) mg/dL POC Glucose (mg/dL) 104 H (75-99) mg/dL Calcium 8.0 L (8.4-10.2) mg/dL Total Protein (6.3-8.2) g/dL Albumin (3.5-5.0) g/dL 04/04/20 04/04/20 04/04/20 Range/Units 11:02 11:02 11:56 WBC 15.3 H (3.8-10.6) k/uL RBC 2.52 L (4.30-5.90) m/uL Hgb 8.5 L (13.0-17.5) gm/dL Hct 26.1 L (39.0-53.0) % MCV 103.6 H (80.0-100.0) fL Plt Count 539 H (150-450) k/uL Neutrophils # 13.4 H (1.3-7.7) k/uL Lymphocytes # 0.5 L (1.0-4.8) k/uL Monocytes # (0-1.0) k/uL ABG pO2 73 L (83-108) mmHg ABG HCO3 27 H (21-25) mmol/L ABG Total CO2 29 H (19-24) mmol/L Sodium 124 L (137-145) mmol/L Potassium 3.4 L (3.5-5.1) mmol/L Chloride 90 L (98-107) mmol/L Creatinine 0.37 L (0.66-1.25) mg/dL Glucose (74-99) mg/dL POC Glucose (mg/dL) (75-99) mg/dL Calcium 7.7 L (8.4-10.2) mg/dL Total Protein 4.7 L (6.3-8.2) g/dL Albumin 2.2 L (3.5-5.0) g/dL Microbiology - Last 24 Hours (Table) 03/29/20 17:49 Blood Culture - Preliminary Blood No Growth after 120 hours Assessment and Plan Plan: 1 Abdominal pain secondary to strangulated diaphragmatic hernia, status post exploratory laparotomy, small bowel resection, repair of diaphragmatic hernia and placement of the left chest tube with subsequent removal on 04/01/2020. This is postoperative day # 6. The patient is currently on PPN for nutritional support. The patient is receiving oral Augmentin and he was taken off the IV Zosyn. The patient has bowel sounds and the patient has had bowel movement. Chest x-ray showed no evidence of any pneumothorax. The patient has developed some increased edema in lower extremities bilaterally. 2 Acute hypoxemic respiratory failure secondary to above, extubated on 03/30/2020 . Sputum cultures positive for Streptococcus pneumoniae and Haemophilus influenza, and the patient has significant consolidation of the lung bases left more than right, with subsequent improvement. The patient had a follow-up chest x-ray showed a tiny left apical pneumothorax without any significant abnormalities and there is improvement in the right basilar atelectasis. Small bilateral pleural effusions are probably present. 3 Recent admission for left chest wall pain and rib fractures status post fall requiring narcotics and subsequent constipation. Noted the patient was in the hospital approximately 10 days ago where the patient was admitted with left- sided rib fractures and the patient was found also to be hyponatremic attributed to alcohol drinking. 4 altered mentation possibly related to symptomatic hyponatremia. Neuro workup has been completed including a CAT scan of the brain and a CT angiogram showed no evidence of any acute CVA. Sodium level is at 123 and the patient is given hypertonic saline solution at 3% running at 40 mL an hour. Close monitoring of the sodium level is being done in the intensive care unit. A repeat level is to be done in 3 hours. 5 History of alcohol abuse 6 Chronic tobacco dependence 7 History of previous GI bleeding, gastritis and duodenitis 8 Hypertension 9 History of hiatal hernia 10 New-onset atrial fibrillation, currently on amiodarone Plan Monitor mental status Neurology consultation Hypertonic saline at 3% at the rate of 40 mL an hour IV Lasix Monitor urine output Monitor sodium level at 3 hour interval Cardizem drip at 5 mg an hour for rate control Unable to take the oral medication for now and the patient will be given his oral medication was more awake. He did develop some altered mentation as stated above. Check ammonia level Blood gas was noted. Continue supportive care will continue to follow make further recommendations based on his progress. Condition is critical. This evaluation was done a than 30 minutes. Case was discussed with general surgeon. Time with Patient: Greater than 30
--- NOTE | 2020-04-04 15:38 | PN ---
PROGRESS NOTE DATE OF SERVICE: 04/04/2020 REASON FOR FOLLOWUP: Pneumonia. INTERVAL HISTORY: The patient did have a change in his clinical condition, as the patient seems to be getting a little bit confused and less responsive. No vomiting or diarrhea has been reported by the nursing staff. The patient denies having any chest pain, though requiring a high level of oxygen. No pressor support. Denies worsening abdominal pain or diarrhea. PHYSICAL EXAMINATION: Blood pressure 116/52 with a pulse of 84, temperature 98.4. He is 95% on 4 L nasal cannula. General description is an elderly male up in the bed in no distress. RESPIRATORY SYSTEM: Unlabored breathing with some coarse breath sounds at the base. No wheeze. HEART: S1, S2. Regular rate and rhythm. ABDOMEN: Soft, mildly distended. No guarding or rigidity. LABS: White count is up to 15,000. DIAGNOSTIC IMPRESSION AND PLAN: Patient with pneumonia. Sputum has been positive for Strep pneumoniae , now with worsening of his respiratory status and a question of aspiration pneumonitis. Antibiotic will be adjusted to Unasyn 3 grams q.6 hours. Clinical condition will be monitored closely. Continue with supportive care. MMODL / IJN: [id number] /
[2020-04-04] MEDS ORDERED: FAT EMULSION 20% 250 ML in EMPTY BAG 1 BAG IV SCH (16:00)
[2020-04-04] MEDS: FUROSEMIDE 10 MG/ML 4 ML VIAL IV SCH ×2 (16:05→23:23)
[2020-04-04] MEDS ORDERED: METOPROLOL TARTRATE 50 MG TAB PO STA (16:24)
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
[2020-04-04] MEDS: AMPICILLIN-SULBACTAM 3 GM in SODIUM CHLORIDE 0.9% 100 ML IVPB SCH ×2 (17:06→20:55)
[2020-04-04] MEDS: HYDROmorphone 1 MG/ML 1 ML SYRINGE IVP PRN (20:56)
--- NOTE | 2020-04-04 22:28 | P.PN ---
Progress Note - Text Progress Note Date: 04/04/20 - Chief Complaint Abdominal pain Consultation: This is a pleasant 64-year-old patient who follows a Dr. Michel. Patient long- standing history of smoking and drinking significant amount of alcohol. Chronic stable conditions also include nicotine dependence, gastritis duodenitis as per EGD in 2019. Patient is having the hospital about 7 days ago he took a fall was admitted with left-sided rib fractures 4 to-5 drips also found to be severely hyponatremic. Patient is doing well at the time of discharge. Patient now presents with worsening abdominal pain going on for close to a week. Has not had a bowel movement since then. End patient's abdominal pain was progressively getting worse. He also noticed some bruising to the left lower abdomen for the last couple of days. Denied any fever and chills. Some nausea. Patient was taken to the operating room by Dr. Rowe last night. Found to strangulate a diaphragmatic hernia. Does some blood in the peritoneal cavity. The hernia containing small bowel. Patient about 40% of the small bowel within the left chest and ischemia to strangulate of the small bowel. About 1 L of bloody fluid was aspirated from the left chest. Patient is currently in the ICU. Has a midline dressing. In the abdomen. Left chest tube to suction. Recently went into atrial fibrillation with rapid ventricular rate. Put on IV amiodarone. Today-ICU. Patient became more lethargic today. Had edema. A computed tomography scan of the brain was done. No stroke. Starting a daily dose of IV Lasix. Patient requiring Ventimask. Patient does answer some questions.. Review of systems: Attempted for constitutional, cardiovascular, GI, pulmonary. relevant finding as above Active Medications Acetaminophen (Tylenol Tab) 650 mg PO Q4HR PRN PRN Reason: Fever and/or Mild Pain Albuterol/Ipratropium (Duoneb 0.5 Mg-3 Mg/3 Ml Soln) 3 ml INHALATION RT-Q2H PRN PRN Reason: Shortness Of Breath Or Wheezing Albuterol/Ipratropium (Duoneb 0.5 Mg-3 Mg/3 Ml Soln) 3 ml INHALATION RT-QID [facility] Last Admin: 04/04/20 20:32 Dose: Not Given Documented by: Amiodarone HCl (Cordarone) 400 mg PO BID [facility] Last Admin: 04/04/20 20:55 Dose: 400 mg Documented by: Enoxaparin Sodium (Lovenox) 40 mg SQ DAILY [facility] Last Admin: 04/04/20 08:20 Dose: 40 mg Documented by: Furosemide (Lasix) 40 mg IV Q8HR [facility] Last Admin: 04/04/20 16:05 Dose: 40 mg Documented by: Hydromorphone HCl (Dilaudid) 0.5 mg IVP Q3HR PRN PRN Reason: Moderate to Severe Pain Last Admin: 04/03/20 03:16 Dose: 0.5 mg Documented by: Hydromorphone HCl (Dilaudid) 1 mg IVP Q2HR PRN PRN Reason: Severe Pain Last Admin: 04/04/20 20:56 Dose: 1 mg Documented by: Diltiazem HCl 125 mg/ Sodium (Chloride) 125 mls @ 5 mls/hr IV .Q24H [facility] Last Admin: 04/04/20 08:01 Dose: 5 mg/hr, 5 mls/hr Documented by: Sodium Chloride (Hypertonic) (Saline 3% (Hypertonic)) 500 mls @ 20 mls/hr IV .Q24H [facility]; Protocol Stop: 04/05/20 11:55 Last Admin: 04/04/20 12:28 Dose: 20 mls/hr Documented by: Ampicillin Sodium/Sulbactam (Sodium 3 gm/ Sodium Chloride) 100 mls @ 200 mls/hr IVPB Q6H [facility] Last Admin: 04/04/20 20:55 Dose: 200 mls/hr Documented by: Fat Emulsion Intravenous 250 (ml/ IV Solution) 250 mls @ 21 mls/hr IV Q24H [facility] Last Admin: 04/04/20 17:30 Dose: 21 mls/hr Documented by: Parenteral Vitamin Supplement 10 ml/ Chromium/Copper/Manganese/Seleni/Zn 1 ml/Amino Ac/Electrol/Dextrose/Calcium 1,011 mls @ 100 mls/hr IV .BY DURATION [facility] Last Admin: 04/04/20 17:30 Dose: 100 mls/hr Documented by: Amino Ac/Electrol/Dextrose/Calcium (Clinimix E 4.25%-D10% Solution) 1,000 mls @ 100 mls/hr IV .BY DURATION [facility] Lorazepam (Ativan) 1 mg IV Q8HR PRN PRN Reason: Anxiety Last Admin: 04/04/20 09:15 Dose: 1 mg Documented by: Metoprolol Tartrate (Lopressor) 100 mg PO BID [facility] Last Admin: 04/04/20 20:56 Dose: 100 mg Documented by: Miscellaneous Information (Potassium Per Protocol) 1 each MISCELLANE DAILY PRN; Protocol PRN Reason: Per Protocol Naloxone HCl (Narcan) 0.2 mg IV Q2M PRN PRN Reason: Opioid Reversal Nicotine (Habitrol 21mg/24hr Patch) 1 patch TRANSDERM DAILY [facility] Last Admin: 04/04/20 07:38 Dose: Not Given Documented by: Ondansetron HCl (Zofran) 4 mg IVP Q8HR PRN PRN Reason: Nausea And Vomiting Last Admin: 04/02/20 10:05 Dose: 4 mg Documented by: Pantoprazole Sodium (Protonix) 40 mg IV DAILY [facility] Last Admin: 04/04/20 08:01 Dose: 40 mg Documented by: Sodium Chloride (Sodium Chloride Tab) 2 gm PO TID [facility] Last Admin: 04/04/20 20:55 Dose: 2 gm Documented by: Physical examination: VITAL SIGNS: 98.4, 98, 25, 109 073, 95% on a Ventimask, GENERAL: Propped up in bed, lethargic but arousable short of breath EYES: Pupils equal. Conjunctiva normal. HEENT: External appearance of nose and ears normal, oral cavity grossly normal. NECK: JVD not raised; masses not palpable. HEART: First and second heart sounds are normal; mild edema LUNGS: Respiratory rate increased, decreased breath accessory muscles a working, not able to speak in full sentences ABDOMEN: Tender, no guarding or rigidity, dressing over midline incision, liver spleen not palpable, no masses palpable. [place] catheter. PSYCH: Lethargic but arousable can answer occasional questions . INVESTIGATIONS, reviewed in the clinical context: White count 15.3 hemoglobin 8.5 platelets 539 sodium 124 potassium 3.4 creatinine 0.37, pro calcitonin 0.3 to Chest x-ray film personally reviewed by me-no obvious infiltrate Admission testing: Computed tomography scan of the chest abdomen-large left-sided diaphragmatic hernia which contains multiple thickened loops of small bowel with a haziness entry, hemoperitoneum was noted, large left-sided pleural effusion, multiple left-sided rib fracture White count 16.4 hemoglobin 13.1 sodium 126 potassium 4.4 creatinine 0.45-upon presentation 2-D echocardiogram-moderate concentric LVH, EF 60-65% Assessment: -Acute change in mental status with some delirium possibly could be from alcohol withdrawal syndrome/DTs patient does drink a significant amount of alcohol, patient's sodium has been running low for quite a while that could be contributing. -Acute pulmonary edema -Acute hypoxic respiratory failure, patient requiring higher amount of oxygen today -Acute strangulate diaphragmatic hernia with small bowel loops with ischemia strangulate the small bowel-status post surgery -Chronic nicotine dependence patient cigarette smoker -Chronic alcohol use disorder -Hyponatremia suspect hypoosmolar -slow to respond -Chronic gastritis, duodenitis from alcoholism -GERD -Essential hypertension -Multiple left-sided fractures from recent falls -Hemoperitoneum from ischemic bowel -Hypoglycemia from alcoholism and decreased oral intake -Paroxysmal atrial fibrillation with rapid ventricular rate. Has been in and out of atrial fibrillation. On amiodarone. Plan: ICU-computed tomography scan of the brain was done to rule out a stroke. Patient does receive a dose of IV Lasix earlier today. I did repeat a dose of Lasix this afternoon. Neurology was consulted. Hypertonic saline as ordered per Dr. Phillips. Alcohol withdrawal syndrome cannot be ruled out. Including DTs Thank you Dr. Rowe
[2020-04-05] MEDS: HYDROmorphone 1 MG/ML 1 ML SYRINGE IVP PRN (00:44)
[2020-04-05] MEDS: AMPICILLIN-SULBACTAM 3 GM in SODIUM CHLORIDE 0.9% 100 ML IVPB SCH ×4 (02:16→21:06)
[2020-04-05] MEDS: 1: MVI, ADULT NO.4 WITH VIT K 10 ML, TRACE (CONC-1ML/DOSE) 1 ML in AMINO ACID 4.25%-D10W IV SCH ×3 (02:53)
[2020-04-05 04:58] LABS: Basophils % (A) 0 %; Eosinophils # (A) 0.3 k/uL (0-0.7); Eosinophils % (A) 2 %; HCT 25.3 % (39.0-53.0); HGB 8.2 gm/dL (13.0-17.5); Hypochromasia Slight; Lymphocytes # (A) 0.9 k/uL (1.0-4.8); Lymphocytes % (A) 6 %; MCH 33.9 pg (25.0-35.0); MCHC 32.5 g/dL (31.0-37.0); MCV 104.4 fL (80.0-100.0); Macrocytosis Slight; Mean Platelet Volume 7.4; Monocytes # (A) 1.2 k/uL (0-1.0); Monocytes % (A) 8 %; Neutrophils # (A) 12.9 k/uL (1.3-7.7); Neutrophils % (A) 84 %; Platelet Count 523 k/uL (150-450); RBC 2.42 m/uL (4.30-5.90); RDW 13.2 % (11.5-15.5); WBC 15.4 k/uL (3.8-10.6)
[2020-04-05 05:11] LABS: African American GFR (CKD) >90 (>60 ml/min/1.73 sqM); Anion Gap 5 mmol/L; Blood Urea Nitrogen 9 mg/dL (9-20); Calcium 7.4 mg/dL (8.4-10.2); Carbon Dioxide 30 mmol/L (22-30); Chloride 91 mmol/L (98-107); Glucose 97 mg/dL (74-99); Magnesium 1.5 mg/dL (1.6-2.3); Non-African American GFR(CKD) >90 (>60 ml/min/1.73 sqM); Phosphorus 3.5 mg/dL (2.5-4.5); Potassium 3.8 mmol/L (3.5-5.1); Sodium 126 mmol/L (137-145)
[2020-04-05] MEDS ORDERED: Magnesium Replacement Protocol 1 EACH MISC MISCELLANE PRN (05:18)
[2020-04-05] MEDS: MAGNESIUM SULFATE-D5W PMX 1 GM in DEXTROSE/WATER 1 100ML.BAG IVPB SCH ×2 (05:23→06:37)
[2020-04-05] MEDS ORDERED: POTASSIUM CHLORIDE ER 20 MEQ TAB.ER PO SCH (06:00)
--- NOTE | 2020-04-05 07:17 | P.PN ---
Subjective Progress Note Date: 04/04/20 CHIEF COMPLAINT: Strangulated diaphragmatic hernia HISTORY OF PRESENT ILLNESS: Patient is status post exploratory laparotomy, small bowel resection, repair of diaphragmatic hernia, and placement of left chest tube with Dr. Rowe. Postop day #6. Patient apparently became unresponsive earlier and a code stroke was called. CT negative. Neurology is following. PHYSICAL EXAM: VITAL SIGNS: Reviewed. GENERAL: Well-developed in no acute distress. HEENT: No sclera icterus. Extraocular movements grossly intact. Moist buccal mucosa. Head is atraumatic, normocephalic. ABDOMEN: Soft. Nondistended. Dressing clean dry and intact. NEUROLOGIC: Awake and alert. ASSESSMENT: 1. Strangulated diaphragmatic hernia, status post exploratory laparotomy, small bowel resection, repair of diaphragmatic hernia, and placement of left chest tube with Dr. Rowe PLAN: -Pain control -Incentive spirometer -Activity as tolerated -Continue diet as tolerated -Continue TPN Nurse practitioner note has been reviewed by physician. Signing provider agrees with the documented findings, assessment, and plan of care. Objective - Vital Signs Vital signs: Vital Signs Temp 98.4 F 04/04/20 12:00 Pulse 87 04/04/20 13:00 Resp 19 04/04/20 13:00 BP 116/52 04/04/20 13:00 Pulse Ox 94 L 04/04/20 11:00 Intake & Output 04/03/20 04/04/20 04/04/20 18:59 06:59 18:59 Intake Total 1384 1452 241 Output Total 9218 908 5320 Balance 184 912 -884 Weight 92.6 kg Intake: IV 1384 1452 241 Fat Emulsion 20% 250 ml 84 252 21 In Empty Bag 1 bag @ 21 mls/hr IV Q24H [facility] Rx#: [id number] Mvi, Adult No.4 with Vit 1200 1200 200 K 10 ml Trace (Conc-1Ml/ Dose) 1 ml In Amino Acid 4.25%-D10w+Lytes*E* 1,000 ml @ 100 mls/hr IV .BY DURATION [facility]A Rx#: [id number] Sodium Chloride 0.9% 1, 100 000 ml @ 50 mls/hr IV . Q20H [facility] Rx#:[id number] Sodium Chloride 3%( 20 Hypertonic) 500 ml @ 20 mls/hr IV .Q24H [facility] Rx#: [id number] Output: Urine 5303 063 5610 Other: Voiding Method Urinal Urinal # Voids 0 0 0 # Bowel Movements 3 - Labs CBC & Chem 7: 04/05/20 04:22 04/05/20 04:22 Labs: Abnormal Lab Results - Last 24 Hours (Table) 04/04/20 04/04/20 04/04/20 Range/Units 04:12 04:12 10:58 WBC 12.8 H (3.8-10.6) k/uL RBC 2.48 L (4.30-5.90) m/uL Hgb 8.1 L (13.0-17.5) gm/dL Hct 25.5 L (39.0-53.0) % MCV 102.7 H (80.0-100.0) fL Plt Count 519 H (150-450) k/uL Neutrophils # 10.7 H (1.3-7.7) k/uL Lymphocytes # 0.6 L (1.0-4.8) k/uL Monocytes # 1.1 H (0-1.0) k/uL ABG pO2 (83-108) mmHg ABG HCO3 (21-25) mmol/L ABG Total CO2 (19-24) mmol/L Sodium 123 L (137-145) mmol/L Potassium (3.5-5.1) mmol/L Chloride 89 L (98-107) mmol/L Creatinine 0.36 L (0.66-1.25) mg/dL Glucose 102 H (74-99) mg/dL POC Glucose (mg/dL) 104 H (75-99) mg/dL Calcium 8.0 L (8.4-10.2) mg/dL Total Protein (6.3-8.2) g/dL Albumin (3.5-5.0) g/dL 04/04/20 04/04/20 04/04/20 Range/Units 11:02 11:02 11:56 WBC 15.3 H (3.8-10.6) k/uL RBC 2.52 L (4.30-5.90) m/uL Hgb 8.5 L (13.0-17.5) gm/dL Hct 26.1 L (39.0-53.0) % MCV 103.6 H (80.0-100.0) fL Plt Count 539 H (150-450) k/uL Neutrophils # 13.4 H (1.3-7.7) k/uL Lymphocytes # 0.5 L (1.0-4.8) k/uL Monocytes # (0-1.0) k/uL ABG pO2 73 L (83-108) mmHg ABG HCO3 27 H (21-25) mmol/L ABG Total CO2 29 H (19-24) mmol/L Sodium 124 L (137-145) mmol/L Potassium 3.4 L (3.5-5.1) mmol/L Chloride 90 L (98-107) mmol/L Creatinine 0.37 L (0.66-1.25) mg/dL Glucose (74-99) mg/dL POC Glucose (mg/dL) (75-99) mg/dL Calcium 7.7 L (8.4-10.2) mg/dL Total Protein 4.7 L (6.3-8.2) g/dL Albumin 2.2 L (3.5-5.0) g/dL Microbiology - Last 24 Hours (Table) 03/29/20 17:49 Blood Culture - Preliminary Blood No Growth after 120 hours
[2020-04-05] MEDS: IPRATROPIUM-ALBUTEROL 3 ML NEB INHALATION SCH ×5 (07:41→20:28)
[2020-04-05] MEDS: NICOTINE 21MG/24HR PATCH TRANSDERM SCH (08:40)
--- NOTE | 2020-04-05 08:43 | XR ---
EXAMINATION TYPE: XR chest 1V DATE OF EXAM: 04/05/2020 COMPARISON: 04/04/2020 HISTORY: Shortness of breath TECHNIQUE: Single frontal view of the chest is obtained. FINDINGS: Subcutaneous emphysema is noted. Left apical pneumothorax measuring less than 5% stable. M ultiple rib fractures seen and there is bilateral consolidation and small effusion. No overt failure. Arthropathy of the shoulders. IMPRESSION: 1. Bilateral pleural-parenchymal changes are stable. Less than 5% left apical pneumothorax stable.
[2020-04-05] MEDS: FUROSEMIDE 10 MG/ML 4 ML VIAL IV SCH ×3 (09:03→23:07)
[2020-04-05] MEDS: AMIODARONE 200 MG TAB PO SCH ×2 (09:03→21:07)
[2020-04-05] MEDS: METOPROLOL TARTRATE 50 MG TAB PO SCH ×2 (09:04→21:07)
[2020-04-05] MEDS: ENOXAPARIN 40 MG/0.4 ML SYRINGE SQ SCH (09:04)
[2020-04-05] MEDS: PANTOPRAZOLE 40 MG/10 ML VIAL IV SCH (09:04)
[2020-04-05] MEDS: SODIUM CHLORIDE TAB 1 GM TAB PO SCH (09:05)
--- NOTE | 2020-04-05 10:03 | P.PN ---
Subjective Progress Note Date: 04/05/20 Principal diagnosis: Paroxysmal atrial fibrillation This is a 64-year-old gentleman who I requested to see in the ICU for further evaluation of atrial fibrillation which is a new to the patient. The patient is a 64-year-old gentleman with a past medical history significant for hypertension where he was receiving as an outpatient atenolol as well as lisinopril but no diabetes or dyslipidemia or coronary artery disease. The patient does have significant history of smoking as well as drinking alcohol. The patient presented to the emergency department with abdominal discomfort and he was diagnosed with fourth and fifth rib fractures on the right side. Apparently the patient fell. He is a somewhat poor historian. He was taken to the operation room where he underwent partial small bowel resection was From repair. Apparently the surgery was quite extensive. The patient was found to have strangulated hiatal hernia as well. We consulted to see the patient this time because off further evaluation of atrial fibrillation with RVR. Please note that the patient is alcohol he. This is the #3 after the surgery. Last night he went into atrial fibrillation with RVR and he was started on amiodarone drip. His blood pressure has been marginal. Anticoagulation is on hold at this point because of the recent surgery. No prior history of atrial fibrillation. No prior history of coronary artery disease or congestive heart failure or any kind of cardiac arrhythmia. 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 At this point, I am going to start the patient on oral beta ari with metoprolol at 12.5 mg by mouth twice a day and continue monitor the blood pressure very closely. I would keep the amiodarone IV and restart him on amiodarone by mouth. We will hold oral anticoagulation at this point until from the surgeon. Beside that I am going to obtain an echocardiogram was Doppler and follow-up with the patient. The patient was seen today, 04/05/2020. Overall he is doing good from the cardiac vascular standpoint overview. He has been maintaining normal sinus mechanism. He is on amiodarone by mouth as well as metoprolol by mouth. He still on Cardizem IV which I am going to shut down. Also going to start the patient on oral anticoagulation. Objective - Vital Signs Vital signs: Vital Signs Temp 98.9 F 04/05/20 08:00 Pulse 87 06/03/20 08:00 Resp 18 04/05/20 08:00 BP 102/63 04/05/20 08:00 Pulse Ox 100 04/05/20 08:00 Intake & Output 04/04/20 04/05/20 04/05/20 18:59 06:59 18:59 Intake Total 1062 2210.25 241 Output Total 1765 1625 55 Balance -703 585.25 186 Weight 90.7 kg Intake: IV 1062 2133 241 Amino Acid 4.25%-D10w+ 500 100 Lytes*E* 1,000 ml @ 100 mls/hr IV .BY DURATION YAJAIRA Rx#:[id number] Ampicillin-Sulbactam 3 gm 100 200 In Sodium Chloride 0.9% 100 ml @ 200 mls/hr IVPB Q6H YAJAIRA Rx#:[id number] Fat Emulsion 20% 250 ml 42 273 21 In Empty Bag 1 bag @ 21 mls/hr IV Q24H YAJAIRA Rx#: [id number] Magnesium Sulfate-D5w Pmx 100 100 1 gm In Dextrose/Water 1 100ml.bag @ 100 mls/hr IVPB Q1H YAJAIRA Rx#: [id number] Mvi, Adult No.4 with Vit 300 800 K 10 ml Trace (Conc-1Ml/ Dose) 1 ml In Amino Acid 4.25%-D10w+Lytes*E* 1,000 ml @ 100 mls/hr IV .BY DURATION YAJAIRA Rx#: [id number] Potassium Chloride 10 meq 500 In Water For Injection 1 100ml.bag @ 100 mls/hr IVPB Q1HR YAJAIRA Rx#: [id number] Sodium Chloride 3%( 120 260 20 Hypertonic) 500 ml @ 20 mls/hr IV .Q24H YAJAIRA Rx#: [id number] Intake, IV Titration 77.25 Amount Diltiazem 125 mg In 77.25 Sodium Chloride 0.9% 100 ml @ 5 MG/HR 5 mls/hr IV .Q24H YAJAIRA Rx#:[id number] Output: Urine 1765 1625 55 Other: Voiding Method Indwelling Catheter Indwelling Catheter Indwelling Catheter # Voids 0 # Bowel Movements 1 - Constitutional General appearance: Present: no acute distress - Respiratory Respiratory: bilateral: diminished - Cardiovascular Rhythm: regular Heart sounds: normal: S1, S2 - Labs CBC & Chem 7: 04/05/20 04:22 04/05/20 08:25 Labs: Abnormal Lab Results - Last 24 Hours (Table) 04/04/20 04/04/20 04/04/20 Range/Units 10:58 11:02 11:02 WBC 15.3 H (3.8-10.6) k/uL RBC 2.52 L (4.30-5.90) m/uL Hgb 8.5 L (13.0-17.5) gm/dL Hct 26.1 L (39.0-53.0) % MCV 103.6 H (80.0-100.0) fL Plt Count 539 H (150-450) k/uL Neutrophils # 13.4 H (1.3-7.7) k/uL Lymphocytes # 0.5 L (1.0-4.8) k/uL Monocytes # (0-1.0) k/uL ABG pO2 (83-108) mmHg ABG HCO3 (21-25) mmol/L ABG Total CO2 (19-24) mmol/L Sodium 124 L (137-145) mmol/L Potassium 3.4 L (3.5-5.1) mmol/L Chloride 90 L (98-107) mmol/L Creatinine 0.37 L (0.66-1.25) mg/dL POC Glucose (mg/dL) 104 H (75-99) mg/dL Calcium 7.7 L (8.4-10.2) mg/dL Magnesium (1.6-2.3) mg/dL Total Protein 4.7 L (6.3-8.2) g/dL Albumin 2.2 L (3.5-5.0) g/dL Procalcitonin (0.02-0.09) ng/mL 04/04/20 04/04/20 04/04/20 Range/Units 11:02 11:56 14:56 WBC (3.8-10.6) k/uL RBC (4.30-5.90) m/uL Hgb (13.0-17.5) gm/dL Hct (39.0-53.0) % MCV (80.0-100.0) fL Plt Count (150-450) k/uL Neutrophils # (1.3-7.7) k/uL Lymphocytes # (1.0-4.8) k/uL Monocytes # (0-1.0) k/uL ABG pO2 73 L (83-108) mmHg ABG HCO3 27 H (21-25) mmol/L ABG Total CO2 29 H (19-24) mmol/L Sodium 124 L (137-145) mmol/L Potassium (3.5-5.1) mmol/L Chloride (98-107) mmol/L Creatinine (0.66-1.25) mg/dL POC Glucose (mg/dL) (75-99) mg/dL Calcium (8.4-10.2) mg/dL Magnesium (1.6-2.3) mg/dL Total Protein (6.3-8.2) g/dL Albumin (3.5-5.0) g/dL Procalcitonin 0.32 H (0.02-0.09) ng/mL 04/04/20 04/04/20 04/05/20 Range/Units 18:53 22:57 04:22 WBC (3.8-10.6) k/uL RBC (4.30-5.90) m/uL Hgb (13.0-17.5) gm/dL Hct (39.0-53.0) % MCV (80.0-100.0) fL Plt Count (150-450) k/uL Neutrophils # (1.3-7.7) k/uL Lymphocytes # (1.0-4.8) k/uL Monocytes # (0-1.0) k/uL ABG pO2 (83-108) mmHg ABG HCO3 (21-25) mmol/L ABG Total CO2 (19-24) mmol/L Sodium 125 L 125 L 126 L (137-145) mmol/L Potassium (3.5-5.1) mmol/L Chloride 91 L (98-107) mmol/L Creatinine 0.34 L (0.66-1.25) mg/dL POC Glucose (mg/dL) (75-99) mg/dL Calcium 7.4 L (8.4-10.2) mg/dL Magnesium 1.5 L (1.6-2.3) mg/dL Total Protein (6.3-8.2) g/dL Albumin (3.5-5.0) g/dL Procalcitonin (0.02-0.09) ng/mL 04/05/20 04/05/20 Range/Units 04:22 08:25 WBC 15.4 H (3.8-10.6) k/uL RBC 2.42 L (4.30-5.90) m/uL Hgb 8.2 L (13.0-17.5) gm/dL Hct 25.3 L (39.0-53.0) % MCV 104.4 H (80.0-100.0) fL Plt Count 523 H (150-450) k/uL Neutrophils # 12.9 H (1.3-7.7) k/uL Lymphocytes # 0.9 L (1.0-4.8) k/uL Monocytes # 1.2 H (0-1.0) k/uL ABG pO2 (83-108) mmHg ABG HCO3 (21-25) mmol/L ABG Total CO2 (19-24) mmol/L Sodium 126 L (137-145) mmol/L Potassium (3.5-5.1) mmol/L Chloride (98-107) mmol/L Creatinine (0.66-1.25) mg/dL POC Glucose (mg/dL) (75-99) mg/dL Calcium (8.4-10.2) mg/dL Magnesium (1.6-2.3) mg/dL Total Protein (6.3-8.2) g/dL Albumin (3.5-5.0) g/dL Procalcitonin (0.02-0.09) ng/mL Microbiology - Last 24 Hours (Table) 03/29/20 17:49 Blood Culture - Final Blood No Growth after 144 hours Assessment and Plan Assessment: Assessment #1 status post fall and chest/abdominal trauma #2 status post abdominal surgery #3 paroxysmal atrial fibrillation #4 hypertension #5 significant history of alcohol use #6 significant history of smoking Plan #1 continue the current dose of amiodarone and metoprolol by mouth #2 start the patient on oral anticoagulation #3 follow-up with the patient
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
[2020-04-05] MEDS ORDERED: SODIUM CHLORIDE 0.65% NASAL SPRAY 44 ML BTL NASAL PRN (11:34)
--- NOTE | 2020-04-05 11:47 | P.PN ---
Subjective Progress Note Date: 04/05/20 this is a 64-year-old male is being seen in follow-up in the intensivcare unit. Note tmitted initially for abdominal pain, status post exploratory laparotomy, small bowel resection, repair of diaphragmatic hernia, left chest tube placement. Postoperative day #4. He had initially presented with abdominal discomfort after developing constipation from pain medication being taken for from recent fall with rib fractures. He was found to have a diaphragmatic hernia with strangulated bowel. He is status post exploratory laparotomy, small bowel resection, repair of diaphragmatic hernia, placement of left chest tube. Pathology revealed acute ischemic enteritis with submucosal and mesenteric hemorrhage and vascular congestion. No evidence of malignancy. He initially was on mechanical ventilator and extubated on 03/30/2020. He is currently on 2 L nasal cannula. Chest x-ray reveals low lung volumes and chronic parenchymal changes with left-sided chest tube was removed. He has been having atrial fibrillation which is new for him. Echocardiogram revealed preserved left ventricular systolic function with ejection fraction 60-65%. He is on amiodarone drip has been discontinued and the patient was started on oral amiodarone. . Sputum culture is positive for Streptococcus pneumoniae and Haemophilus influenza. He is currently on Zosyn. On today's evaluation of 04/03/2020, the patient is sitting up on a chair. He was noted to have some increased swelling in lower extremities bilaterally and some in the upper extremities. He was receiving IV fluids at the rate of 50 mL an hour in addition to TPN for nutritional support running at 100 mL an hour. He is on 2 L of oxygen by nasal cannula with a pulse ox of 93%. He is using incentive spirometer pulling approximately 500-750. He didn't pass bowel movements. The chest x-ray from today shows no sizable pneumothorax and there is some bilateral consolidation and pleural effusions that are still present compared to the earlier chest x- ray. On today's evaluation of 62,020 and seeing Yordy for a follow-up in the intensive care unit following his abdominal surgery. As mentioned, the patient is alcoholic and he is postop day #5 with the patient underwent expiratory laparotomy and small bowel resection and repair of a diaphragmatic hernia with a left-sided chest tube insertion and subsequent removal. Earlier this morning, he felt that the patient was lethargic and weak and a bit confused. He told that he hasn't slept for several days. He told me that he typically takes alcohol to help him with his chronic insomnia. He had requested some Ativan to help him sleep as the patient was getting jittery and nervous overnight. He was having excessive swelling in all 4 extremities and especially in the lower extremities and the patient had significant third spacing. Note that the patient was given a dose of Lasix yesterday for the grams IV push following which she made adequate urine output. Nevertheless, he is overall fluid balance has been essentially positive. The patient did have a bout of atrial fibrillation yesterday and the patient is currently on oral amiodarone 400 mg by mouth twice a day and metoprolol 50 mg by mouth twice a day. His sodium level remains low at 124. Rest of the electrolytes show some mild hypokalemia with a potassium level of 3.4. Based on this, I made a decision to aggressively d iurese this patient and I put an order for Lasix 40 mg IV push every 8 hours. Within a few hours of my around, the patient became acutely unresponsive. Based on this a code stroke was called and the robot was activated. The patient was found to be quite unresponsive and lethargic and his initial NIH score was 4. The patient was having unintelligible speech and was told that the patient was aphasic in addition to confusion. No focal neurological deficit was noted. The patient was taken for a stat CAT scan of the brain and it showed mild atrophy and chronic periventricular white matter ischemic Changes. The patient also had a CT angios done that showed no flow limitation stenosis in the carotids bilaterally. There was some plaquing of the great vessels of the aortic arch mainly. There was a normal [place]. Neurology consultation has been obtained. The chest x-ray showed a stable left lung with a very tiny left apical pneumothorax and a left-sided pleural effusion in addition to some minimal amount of subcutaneous emphysema. The right basilar atelectatic changes have already resolved. The patient had a blood gases that showed a pH of 7.43 with a pCO2 of 41 and pO2 of 73 and this was done and 36% FiO2. His sodium level was 123. He was started on hypertonic saline solution at 3% normal state rate of 40 mL an hour. Close monitoring of his sodium level will be done. Consider symptomatically hyponatremia. Consider altered mentation related to electrolyte imbalance. No documented seizure activity and Neurology has been involved. On 04/05/2020, the patient is being seen for a follow-up. Is awake and alert and following commands and answering questions. No significant complaints. Is sitting up on a chair. Since yesterday, the patient had liquidy stool around 7- 10 of them. The patient has possible sounds. Surgical with a dry clean and intact. He remains on IV Unasyn. His IV fluids currently is on a hypertonic saline solution at 20 mL an hour and the patient is receiving IV Lasix 40 mg every 8 hours. He is also on a hypertonic saline solution 20 mL an hour. There has been gradual improvement in his sodium level which is up to 126 on today's evaluation and the patient's sodium level is being monitored very closely as the patient has chronic hyponatremia. Mental status improved significantly and the patient is back to normal. There noted improvement in the peripheral edema. He is taking oral material and for that reason the TPN will be discontinued and stool for C. diff will be checked. No other complaints otherwise. Is awake and alert and he is using incentive spirometer. He is afebrile. Ammonia level was less than 9 from yesterday. Objective - Vital Signs Vital signs: Vital Signs Temp 98.9 F 04/05/20 08:00 Pulse 87 04/05/20 11:00 Resp 20 04/05/20 11:00 BP 119/74 04/05/20 11:00 Pulse Ox 97 04/05/20 11:00 Intake & Output 04/04/20 04/05/20 04/05/20 18:59 06:59 18:59 Intake Total 1062 2210.25 781 Output Total 1765 1625 165 Balance -703 585.25 616 Weight 90.7 kg Intake: IV 1062 2133 481 Amino Acid 4.25%-D10w+ 500 100 Lytes*E* 1,000 ml @ 100 mls/hr IV .BY DURATION YAJAIRA Rx#:[id number] Ampicillin-Sulbactam 3 gm 100 200 In Sodium Chloride 0.9% 100 ml @ 200 mls/hr IVPB Q6H YAJAIRA Rx#:[id number] Fat Emulsion 20% 250 ml 42 273 21 In Empty Bag 1 bag @ 21 mls/hr IV Q24H YAJAIRA Rx#: [id number] Magnesium Sulfate-D5w Pmx 100 300 1 gm In Dextrose/Water 1 100ml.bag @ 100 mls/hr IVPB Q1H YAJAIRA Rx#: [id number] Mvi, Adult No.4 with Vit 300 800 K 10 ml Trace (Conc-1Ml/ Dose) 1 ml In Amino Acid 4.25%-D10w+Lytes*E* 1,000 ml @ 100 mls/hr IV .BY DURATION YAJAIRA Rx#: [id number] Potassium Chloride 10 meq 500 In Water For Injection 1 100ml.bag @ 100 mls/hr IVPB Q1HR YAJAIRA Rx#: [id number] Sodium Chloride 3%( 120 260 60 Hypertonic) 500 ml @ 20 mls/hr IV .Q24H YAJAIRA Rx#: [id number] Intake, IV Titration 77.25 Amount Diltiazem 125 mg In 77.25 Sodium Chloride 0.9% 100 ml @ 5 MG/HR 5 mls/hr IV .Q24H YAJAIRA Rx#:[id number] Oral 300 Output: Urine 1765 1625 165 Other: Voiding Method Indwelling Catheter Indwelling Catheter Indwelling Catheter # Voids 0 # Bowel Movements 1 2 - Exam GENERAL EXAM: Alert, pleasant 64-year-old gentleman, . and the patient is currently on 4 L of oxygen by nasal cannula, comfortable hemodynamically stable awake and alert following commands and answering questions appropriately. HEAD: Normocephalic. EYES: Normal reaction of pupils, equal size. NOSE: Clear with pink turbinates. THROAT: No erythema or exudates. NECK: No masses, no JVD. CHEST: Left chest tube remains in place. LUNGS: Equal air entry with few scattered rhonchi, crackles in the bases. CVS: S1 and S2 normal with no audible murmur, regular rhythm. ABDOMEN: Abdominal dressing dry and intact. Binder in place. No active bowel sounds. The patient has no abdominal drains. The patient has bowel sounds in all 4 quadrants. He was passing bowel movements. No direct tenderness. No rebound tenderness. No guarding. SPINE: No scoliosis or deformity SKIN: No rashes CENTRAL NERVOUS SYSTEM: awake and oriented 3 without any focal neurological deficit. Pupils are equal and reactive to light. No nystagmus. No preferential gaze. No facial asymmetry. EXTREMITIES: There is significant peripheral edema in all 4 extremities.. No clubbing, no cyanosis. Peripheral pulses are intact. - Labs CBC & Chem 7: 04/05/20 04:22 04/05/20 08:25 Labs: Abnormal Lab Results - Last 24 Hours (Table) 04/04/20 04/04/20 04/04/20 Range/Units 11:02 11:56 14:56 WBC (3.8-10.6) k/uL RBC (4.30-5.90) m/uL Hgb (13.0-17.5) gm/dL Hct (39.0-53.0) % MCV (80.0-100.0) fL Plt Count (150-450) k/uL Neutrophils # (1.3-7.7) k/uL Lymphocytes # (1.0-4.8) k/uL Monocytes # (0-1.0) k/uL ABG pO2 73 L (83-108) mmHg ABG HCO3 27 H (21-25) mmol/L ABG Total CO2 29 H (19-24) mmol/L Sodium 124 L (137-145) mmol/L Chloride (98-107) mmol/L Creatinine (0.66-1.25) mg/dL Calcium (8.4-10.2) mg/dL Magnesium (1.6-2.3) mg/dL Procalcitonin 0.32 H (0.02-0.09) ng/mL 04/04/20 04/04/20 04/05/20 Range/Units 18:53 22:57 04:22 WBC (3.8-10.6) k/uL RBC (4.30-5.90) m/uL Hgb (13.0-17.5) gm/dL Hct (39.0-53.0) % MCV (80.0-100.0) fL Plt Count (150-450) k/uL Neutrophils # (1.3-7.7) k/uL Lymphocytes # (1.0-4.8) k/uL Monocytes # (0-1.0) k/uL ABG pO2 (83-108) mmHg ABG HCO3 (21-25) mmol/L ABG Total CO2 (19-24) mmol/L Sodium 125 L 125 L 126 L (137-145) mmol/L Chloride 91 L (98-107) mmol/L Creatinine 0.34 L (0.66-1.25) mg/dL Calcium 7.4 L (8.4-10.2) mg/dL Magnesium 1.5 L (1.6-2.3) mg/dL Procalcitonin (0.02-0.09) ng/mL 04/05/20 04/05/20 Range/Units 04:22 08:25 WBC 15.4 H (3.8-10.6) k/uL RBC 2.42 L (4.30-5.90) m/uL Hgb 8.2 L (13.0-17.5) gm/dL Hct 25.3 L (39.0-53.0) % MCV 104.4 H (80.0-100.0) fL Plt Count 523 H (150-450) k/uL Neutrophils # 12.9 H (1.3-7.7) k/uL Lymphocytes # 0.9 L (1.0-4.8) k/uL Monocytes # 1.2 H (0-1.0) k/uL ABG pO2 (83-108) mmHg ABG HCO3 (21-25) mmol/L ABG Total CO2 (19-24) mmol/L Sodium 126 L (137-145) mmol/L Chloride (98-107) mmol/L Creatinine (0.66-1.25) mg/dL Calcium (8.4-10.2) mg/dL Magnesium (1.6-2.3) mg/dL Procalcitonin (0.02-0.09) ng/mL Microbiology - Last 24 Hours (Table) 03/29/20 17:49 Blood Culture - Final Blood No Growth after 144 hours Assessment and Plan Plan: 1 Abdominal pain secondary to strangulated diaphragmatic hernia, status post exploratory laparotomy, small bowel resection, repair of diaphragmatic hernia and placement of the left chest tube with subsequent removal on 04/01/2020. This is postoperative day # 7. The patient is currently on PPN for nutritional support. The patient is receiving oral Augmentin and he was taken off the IV Zosyn. The patient was subsequently changed to IV Unasyn. In any rate, the surgical wound site is dry clean and intact and the patient is tolerating oral material and the patient may be taken off the TPN for now. He is having loose liquidy bowel movements. The patient will have stool for C. diff checked. 2 Acute hypoxemic respiratory failure secondary to above, extubated on 03/30/2020 . Sputum cultures positive for Streptococcus pneumoniae and Haemophilus influenza, and the patient has significant consolidation of the lung bases left more than right, with subsequent improvement. The patient had a follow-up chest x-ray showed a tiny left apical pneumothorax without any significant abnormalities and there is improvement in the right basilar atelectasis. Small bilateral pleural effusions are probably present. the patient is currently on 4 L of oxygen by nasal cannula, comfortable using incentive spirometer. 3 Recent admission for left chest wall pain and rib fractures status post fall requiring narcotics and subsequent constipation. Noted the patient was in the hospital approximately 10 days ago where the patient was admitted with left- sided rib fractures and the patient was found also to be hyponatremic attributed to alcohol drinking. 4 altered mentation possibly related to symptomatic hyponatremia. the neuro workup was negative. The patient recovered his mentation is back to normal. Sodium level is gradually building up to 126 and the patient is receiving hypertonic saline in addition to diuresis. 5 History of alcohol abuse 6 Chronic tobacco dependence 7 History of previous GI bleeding, gastritis and duodenitis 8 Hypertension 9 History of hiatal hernia 10 New-onset atrial fibrillation, currently on by mouth amiodarone and the patient is also on long-term articulation with Eliquis. Cardizem had to be restarted family grams an hour for a tighter rate control. 11 chronic hyponatremia, currently on hypertonic saline solution at the rate of 20 mL an hour and the patient has a sodium level up to 126. Plan Mental status is improved Continue IV Lasix Continue 3% saline at the rate of 20 mL's an hour Monitor sodium level and stop the hypertonic saline once the sodium level is up to 128 to 1:30 The patient will increase his oral intake Stop PPN Check stool for C. diff Ammonia level was normal Monitor fluid balance IV Unasyn per ID Management of atrial fibrillation with a combination of metoprolol and Eliquis. The patient is also on Cardizem 5 mg an hour this can be weaned off and discontinued We'll continue to follow
--- NOTE | 2020-04-05 14:56 | P.PN ---
Subjective Progress Note Date: 04/05/20 CHIEF COMPLAINT: Strangulated diaphragmatic hernia HISTORY OF PRESENT ILLNESS: Patient is status post exploratory laparotomy, small bowel resection, repair of diaphragmatic hernia, and placement of left chest tube with Dr. Rowe. Patient states his pain is tolerable. He is tolerating full liquid diet. He is having frequent loose bowel movements. WBC 15.4. Hemoglobin 8.2. PHYSICAL EXAM: VITAL SIGNS: Reviewed. GENERAL: Well-developed in no acute distress. HEENT: No sclera icterus. Extraocular movements grossly intact. Moist buccal mucosa. Head is atraumatic, normocephalic. ABDOMEN: Soft. Nondistended. Dressing clean dry and intact. NEUROLOGIC: Awake and alert. ASSESSMENT: 1. Strangulated diaphragmatic hernia, status post exploratory laparotomy, small bowel resection, repair of diaphragmatic hernia, and placement of left chest tube with Dr. Rowe PLAN: -Pain control -Incentive spirometer -Activity as tolerated -Advance diet -Discontinue TPN -May discontinue urinary catheter if okay with other consulting providers Nurse practitioner note has been reviewed by physician. Signing provider agrees with the documented findings, assessment, and plan of care. Objective - Vital Signs Vital signs: Vital Signs Temp 98.9 F 04/05/20 08:00 Pulse 87 04/05/20 11:00 Resp 20 04/05/20 11:00 BP 119/74 04/05/20 11:00 Pulse Ox 97 04/05/20 11:00 Intake & Output 04/04/20 04/05/20 04/05/20 18:59 06:59 18:59 Intake Total 1062 2210.25 861 Output Total 1765 1625 1065 Balance -703 585.25 -204 Weight 90.7 kg Intake: IV 1062 2133 561 .9 NS 40 Amino Acid 4.25%-D10w+ 500 100 Lytes*E* 1,000 ml @ 100 mls/hr IV .BY DURATION YAJAIRA Rx#:[id number] Ampicillin-Sulbactam 3 gm 100 200 In Sodium Chloride 0.9% 100 ml @ 200 mls/hr IVPB Q6H YAJAIRA Rx#:[id number] Fat Emulsion 20% 250 ml 42 273 21 In Empty Bag 1 bag @ 21 mls/hr IV Q24H YAJAIRA Rx#: [id number] Magnesium Sulfate-D5w Pmx 100 300 1 gm In Dextrose/Water 1 100ml.bag @ 100 mls/hr IVPB Q1H YAJAIRA Rx#: [id number] Mvi, Adult No.4 with Vit 300 800 K 10 ml Trace (Conc-1Ml/ Dose) 1 ml In Amino Acid 4.25%-D10w+Lytes*E* 1,000 ml @ 100 mls/hr IV .BY DURATION YAJAIRA Rx#: [id number] Potassium Chloride 10 meq 500 In Water For Injection 1 100ml.bag @ 100 mls/hr IVPB Q1HR YAJAIRA Rx#: [id number] Sodium Chloride 3%( 120 260 100 Hypertonic) 500 ml @ 20 mls/hr IV .Q24H YAJAIRA Rx#: [id number] Intake, IV Titration 77.25 Amount Diltiazem 125 mg In 77.25 Sodium Chloride 0.9% 100 ml @ 5 MG/HR 5 mls/hr IV .Q24H YAJAIRA Rx#:[id number] Oral 300 Output: Urine 1765 1625 1065 Other: Voiding Method Indwelling Catheter Indwelling Catheter Indwelling Catheter # Voids 0 # Bowel Movements 1 2 - Labs CBC & Chem 7: 04/05/20 04:22 04/05/20 12:09 Labs: Abnormal Lab Results - Last 24 Hours (Table) 04/04/20 04/04/20 04/04/20 Range/Units 11:02 14:56 18:53 WBC (3.8-10.6) k/uL RBC (4.30-5.90) m/uL Hgb (13.0-17.5) gm/dL Hct (39.0-53.0) % MCV (80.0-100.0) fL Plt Count (150-450) k/uL Neutrophils # (1.3-7.7) k/uL Lymphocytes # (1.0-4.8) k/uL Monocytes # (0-1.0) k/uL Sodium 124 L 125 L (137-145) mmol/L Chloride (98-107) mmol/L Creatinine (0.66-1.25) mg/dL Calcium (8.4-10.2) mg/dL Magnesium (1.6-2.3) mg/dL Procalcitonin 0.32 H (0.02-0.09) ng/mL 0604/05/20 04/05/20 Range/Units 22:57 04:22 04:22 WBC 15.4 H (3.8-10.6) k/uL RBC 2.42 L (4.30-5.90) m/uL Hgb 8.2 L (13.0-17.5) gm/dL Hct 25.3 L (39.0-53.0) % MCV 104.4 H (80.0-100.0) fL Plt Count 523 H (150-450) k/uL Neutrophils # 12.9 H (1.3-7.7) k/uL Lymphocytes # 0.9 L (1.0-4.8) k/uL Monocytes # 1.2 H (0-1.0) k/uL Sodium 125 L 126 L (137-145) mmol/L Chloride 91 L (98-107) mmol/L Creatinine 0.34 L (0.66-1.25) mg/dL Calcium 7.4 L (8.4-10.2) mg/dL Magnesium 1.5 L (1.6-2.3) mg/dL Procalcitonin (0.02-0.09) ng/mL 04/05/20 Range/Units 08:25 WBC (3.8-10.6) k/uL RBC (4.30-5.90) m/uL Hgb (13.0-17.5) gm/dL Hct (39.0-53.0) % MCV (80.0-100.0) fL Plt Count (150-450) k/uL Neutrophils # (1.3-7.7) k/uL Lymphocytes # (1.0-4.8) k/uL Monocytes # (0-1.0) k/uL Sodium 126 L (137-145) mmol/L Chloride (98-107) mmol/L Creatinine (0.66-1.25) mg/dL Calcium (8.4-10.2) mg/dL Magnesium (1.6-2.3) mg/dL Procalcitonin (0.02-0.09) ng/mL Microbiology - Last 24 Hours (Table) 03/29/20 17:49 Blood Culture - Final Blood No Growth after 144 hours
--- NOTE | 2020-04-05 15:25 | PN ---
PROGRESS NOTE DATE OF SERVICE: 04/05/2020 REASON FOR FOLLOWUP: Pneumonia. INTERVAL HISTORY: The patient is currently afebrile. The patient seems to be more awake and alert today, he is breathing comfortably. Denies having any chest pain. Occasional cough. No abdominal pain or diarrhea. PHYSICAL EXAMINATION: Blood pressure 110/66, pulse 85, temperature 98.9, he is 97% on 4 L. His general description is an elderly male, up in the chair in no distress. RESPIRATORY SYSTEM: Unlabored breathing with coarse breath sounds at the base. No wheeze. HEART: S1, S2. Regular rate and rhythm. ABDOMEN: Soft, no tenderness. LABS: Hemoglobin 8.8, white count 15.4, BUN of 9, creatinine 0.34. DIAGNOSTIC IMPRESSION AND PLAN: Patient with strep pneumo and hemoptysis pneumonia. This patient is currently responding to Unasyn. He seems to have shown improvement compared to yesterday. Will continue to monitor clinical course closely. MMODL / IJN: [id number] /
--- NOTE | 2020-04-05 15:56 | P.PN ---
Subjective Progress Note Date: 04/05/20 Patient was seen for a follow-up. Patient is sitting on the bedside commode. Fully alert and awake. Denies any numbness tingling focal weakness. Objective - Vital Signs Vital signs: Vital Signs Temp 98.9 F 04/05/20 12:00 Pulse 86 04/05/20 15:00 Resp 18 04/05/20 15:00 BP 123/66 04/05/20 14:00 Pulse Ox 97 04/05/20 15:00 Intake & Output 04/04/20 04/05/20 04/05/20 18:59 06:59 18:59 Intake Total 1062 2210.25 981 Output Total 1765 1625 1565 Balance -703 585.25 -584 Weight 90.7 kg 90.7 kg Intake: IV 1062 2133 681 .9 NS 80 Amino Acid 4.25%-D10w+ 500 100 Lytes*E* 1,000 ml @ 100 mls/hr IV .BY DURATION YAJAIRA Rx#:[id number] Ampicillin-Sulbactam 3 gm 100 200 In Sodium Chloride 0.9% 100 ml @ 200 mls/hr IVPB Q6H YAJAIRA Rx#:[id number] Fat Emulsion 20% 250 ml 42 273 21 In Empty Bag 1 bag @ 21 mls/hr IV Q24H YAJAIRA Rx#: [id number] Magnesium Sulfate-D5w Pmx 100 300 1 gm In Dextrose/Water 1 100ml.bag @ 100 mls/hr IVPB Q1H YAJAIRA Rx#: [id number] Mvi, Adult No.4 with Vit 300 800 K 10 ml Trace (Conc-1Ml/ Dose) 1 ml In Amino Acid 4.25%-D10w+Lytes*E* 1,000 ml @ 100 mls/hr IV .BY DURATION YAJAIRA Rx#: [id number] Potassium Chloride 10 meq 500 In Water For Injection 1 100ml.bag @ 100 mls/hr IVPB Q1HR YAJAIRA Rx#: [id number] Sodium Chloride 3%( 120 260 180 Hypertonic) 500 ml @ 20 mls/hr IV .Q24H YAJAIRA Rx#: [id number] Intake, IV Titration 77.25 Amount Diltiazem 125 mg In 77.25 Sodium Chloride 0.9% 100 ml @ 5 MG/HR 5 mls/hr IV .Q24H YAJAIRA Rx#:[id number] Oral 300 Output: Urine 1765 1625 1565 Other: Voiding Method Indwelling Catheter Indwelling Catheter Indwelling Catheter # Voids 0 # Bowel Movements 1 2 - Exam Patient's mental status, speech and language functions are normal. Cranial nerves appears normal. Detailed testing deferred. - Labs CBC & Chem 7: 04/05/20 04:22 04/05/20 12:09 Labs: Abnormal Lab Results - Last 24 Hours (Table) 04/04/20 04/04/20 04/04/20 Range/Units 11:02 18:53 22:57 WBC (3.8-10.6) k/uL RBC (4.30-5.90) m/uL Hgb (13.0-17.5) gm/dL Hct (39.0-53.0) % MCV (80.0-100.0) fL Plt Count (150-450) k/uL Neutrophils # (1.3-7.7) k/uL Lymphocytes # (1.0-4.8) k/uL Monocytes # (0-1.0) k/uL Sodium 125 L 125 L (137-145) mmol/L Chloride (98-107) mmol/L Creatinine (0.66-1.25) mg/dL Osmolality (280-301) mosm/kg Calcium (8.4-10.2) mg/dL Magnesium (1.6-2.3) mg/dL Procalcitonin 0.32 H (0.02-0.09) ng/mL 04/05/20 04/05/20 04/05/20 Range/Units 04:22 04:22 08:25 WBC 15.4 H (3.8-10.6) k/uL RBC 2.42 L (4.30-5.90) m/uL Hgb 8.2 L (13.0-17.5) gm/dL Hct 25.3 L (39.0-53.0) % MCV 104.4 H (80.0-100.0) fL Plt Count 523 H (150-450) k/uL Neutrophils # 12.9 H (1.3-7.7) k/uL Lymphocytes # 0.9 L (1.0-4.8) k/uL Monocytes # 1.2 H (0-1.0) k/uL Sodium 126 L 126 L (137-145) mmol/L Chloride 91 L (98-107) mmol/L Creatinine 0.34 L (0.66-1.25) mg/dL Osmolality (280-301) mosm/kg Calcium 7.4 L (8.4-10.2) mg/dL Magnesium 1.5 L (1.6-2.3) mg/dL Procalcitonin (0.02-0.09) ng/mL 04/05/20 Range/Units 12:09 WBC (3.8-10.6) k/uL RBC (4.30-5.90) m/uL Hgb (13.0-17.5) gm/dL Hct (39.0-53.0) % MCV (80.0-100.0) fL Plt Count (150-450) k/uL Neutrophils # (1.3-7.7) k/uL Lymphocytes # (1.0-4.8) k/uL Monocytes # (0-1.0) k/uL Sodium 125 L (137-145) mmol/L Chloride (98-107) mmol/L Creatinine (0.66-1.25) mg/dL Osmolality 260 L (280-301) mosm/kg Calcium (8.4-10.2) mg/dL Magnesium (1.6-2.3) mg/dL Procalcitonin (0.02-0.09) ng/mL Microbiology - Last 24 Hours (Table) 03/29/20 17:49 Blood Culture - Final Blood No Growth after 144 hours Assessment and Plan Assessment: * Altered mental status, possible toxic metabolic encephalopathy. Some focal symptoms were noted, therefore TIAs also a possibility. * New onset atrial fibrillation. * Status post respiratory failure. * Pneumonia * Peripheral edema * History of alcohol use, tobacco use disorder * Hypertension Plan: * Patient's mentation is back to normal. * Patient has atrial fibrillation. Patient has been started on Apixaban 2.5 mg twice a day. * Gastric ulcer prophylaxis. Patient currently on Protonix. * Your medical management. * Neurology will sign off. Please call neurology if any other concerns.
--- NOTE | 2020-04-05 16:41 | P.PN ---
Progress Note - Text Progress Note Date: 04/05/20 - Chief Complaint Abdominal pain Consultation: This is a pleasant 64-year-old patient who follows a Dr. Michel. Patient long- standing history of smoking and drinking significant amount of alcohol. Chronic stable conditions also include nicotine dependence, gastritis duodenitis as per EGD in 2019. Patient is having the hospital about 7 days ago he took a fall was admitted with left-sided rib fractures 4 to-5 drips also found to be severely hyponatremic. Patient is doing well at the time of discharge. Patient now presents with worsening abdominal pain going on for close to a week. Has not had a bowel movement since then. End patient's abdominal pain was progressively getting worse. He also noticed some bruising to the left lower abdomen for the last couple of days. Denied any fever and chills. Some nausea. Patient was taken to the operating room by Dr. Rowe last night. Found to strangulate a diaphragmatic hernia. Does some blood in the peritoneal cavity. The hernia containing small bowel. Patient about 40% of the small bowel within the left chest and ischemia to strangulate of the small bowel. About 1 L of bloody fluid was aspirated from the left chest. Patient is currently in the ICU. Has a midline dressing. In the abdomen. Left chest tube to suction. Recently went into atrial fibrillation with rapid ventricular rate. Put on IV amiodarone. Left chest tube was pulled out. Patient had become hypoxic lethargic. Computed tomography scan of the brain was negative for stroke. When I followed overload. Proceed IV Lasix. Responded well. Also has pneumonia treated with antibiotics. Also received hypertonic saline for hyponatremia. Also started on eliquis. Today-ICU. Patient much more awake today. Sitting up. Having a few loose stools. Abdominal pain better. Tolerated full liquids. On 4 L nasal cannula. Salt tablets were discontinued. Patient received hypertonic saline. Patient back into sinus rhythm. IV Cardizem drip is being discontinued. Review of systems: Done for constitutional, cardiovascular, GI, pulmonary. relevant finding as above Active Medications Acetaminophen (Tylenol Tab) 650 mg PO Q4HR PRN PRN Reason: Fever and/or Mild Pain Albuterol/Ipratropium (Duoneb 0.5 Mg-3 Mg/3 Ml Soln) 3 ml INHALATION RT-Q2H PRN PRN Reason: Shortness Of Breath Or Wheezing Albuterol/Ipratropium (Duoneb 0.5 Mg-3 Mg/3 Ml Soln) 3 ml INHALATION RT-QID [facility] Last Admin: 04/05/20 16:04 Dose: Not Given Documented by: Amiodarone HCl (Cordarone) 400 mg PO BID [facility] Last Admin: 04/05/20 09:03 Dose: 400 mg Documented by: Apixaban (Eliquis) 2.5 mg PO BID [facility] Furosemide (Lasix) 40 mg IV Q8HR [facility] Last Admin: 04/05/20 09:03 Dose: 40 mg Documented by: Hydromorphone HCl (Dilaudid) 0.5 mg IVP Q3HR PRN PRN Reason: Moderate to Severe Pain Last Admin: 04/03/20 03:16 Dose: 0.5 mg Documented by: Hydromorphone HCl (Dilaudid) 1 mg IVP Q2HR PRN PRN Reason: Severe Pain Last Admin: 04/05/20 00:44 Dose: 1 mg Documented by: Diltiazem HCl 125 mg/ Sodium (Chloride) 125 mls @ 5 mls/hr IV .Q24H [facility] Last Admin: 04/04/20 23:28 Dose: 5 mg/hr, 5 mls/hr Documented by: Ampicillin Sodium/Sulbactam (Sodium 3 gm/ Sodium Chloride) 100 mls @ 200 mls/hr IVPB Q6H [facility] Last Admin: 04/05/20 11:40 Dose: 200 mls/hr Documented by: Fat Emulsion Intravenous 250 (ml/ IV Solution) 250 mls @ 21 mls/hr IV Q24H [facility] Last Admin: 04/04/20 17:30 Dose: 21 mls/hr Documented by: Parenteral Vitamin Supplement 10 ml/ Chromium/Copper/Manganese/Seleni/Zn 1 ml/Amino Ac/Electrol/Dextrose/Calcium 1,011 mls @ 100 mls/hr IV .BY DURATION [facility] Last Admin: 04/04/20 17:30 Dose: 100 mls/hr Documented by: Amino Ac/Electrol/Dextrose/Calcium (Clinimix E 4.25%-D10% Solution) 1,000 mls @ 100 mls/hr IV .BY DURATION [facility] Last Admin: 04/05/20 02:53 Dose: 100 mls/hr Documented by: Lorazepam (Ativan) 1 mg IV Q8HR PRN PRN Reason: Anxiety Last Admin: 04/04/20 09:15 Dose: 1 mg Documented by: Metoprolol Tartrate (Lopressor) 100 mg PO BID [facility] Last Admin: 04/05/20 09:04 Dose: 100 mg Documented by: Miscellaneous Information (Potassium Per Protocol) 1 each MISCELLANE DAILY PRN; Protocol PRN Reason: Per Protocol Miscellaneous Information (Magnesium Per Protocol) 1 each MISCELLANE DAILY PRN; Protocol PRN Reason: Per Protocol Naloxone HCl (Narcan) 0.2 mg IV Q2M PRN PRN Reason: Opioid Reversal Nicotine (Habitrol 21mg/24hr Patch) 1 patch TRANSDERM DAILY [facility] Last Admin: 04/05/20 08:40 Dose: Not Given Documented by: Ondansetron HCl (Zofran) 4 mg IVP Q8HR PRN PRN Reason: Nausea And Vomiting Last Admin: 04/02/20 10:05 Dose: 4 mg Documented by: Pantoprazole Sodium (Protonix) 40 mg IV DAILY [facility] Last Admin: 04/05/20 09:04 Dose: 40 mg Documented by: Sodium Chloride (Deep Sea) 2 spray NASAL QID PRN PRN Reason: Dry Nasal Passages Physical examination: VITAL SIGNS: 98.9, 86, 22, 140/64, 96% on 4 L GENERAL: Sitting upon a chair, awake, answering questions, on nasal cannula EYES: Pupils equal. Conjunctiva normal. HEENT: External appearance of nose and ears normal, oral cavity grossly normal. NECK: JVD not raised; masses not palpable. HEART: Heart sounds irregular; mild edema LUNGS: Respiratory rate increased, decreased breath sounds ABDOMEN: Less Tender, no guarding or rigidity, dressing over midline incision, liver spleen not palpable, no masses palpable. Hayward catheter. PSYCH: Lethargic but arousable can answer occasional questions . INVESTIGATIONS, reviewed in the clinical context: White count 15.4 hemoglobin 8.2 platelets 523 potassium 3.8 creatinine 0.34 sodium 126 serum osmolality-260 Admission testing: Computed tomography scan of the chest abdomen-large left-sided diaphragmatic hernia which contains multiple thickened loops of small bowel with a haziness entry, hemoperitoneum was noted, large left-sided pleural effusion, multiple left-sided rib fracture White count 16.4 hemoglobin 13.1 sodium 126 potassium 4.4 creatinine 0.45-upon presentation 2-D echocardiogram-moderate concentric LVH, EF 60-65% Assessment: -Acute change in mental status with some delirium possibly could be from alcohol withdrawal syndrome/DTs patient does drink a significant amount of alcohol, patient's sodium has been running low for quite a while that could be contributing.-Improved -Acute pulmonary edema-improved -Acute hypoxic respiratory failure,-respond to Lasix now on 4 L of oxygen -Acute strangulate diaphragmatic hernia with small bowel loops with ischemia strangulate the small bowel-status post surgery -Chronic nicotine dependence patient cigarette smoker -Chronic alcohol use disorder -Hyponatremia suspect hypoosmolar -, on hypertonic saline, slow to respond -Chronic gastritis, duodenitis from alcoholism -GERD -Essential hypertension -Multiple left-sided fractures from recent falls -Hemoperitoneum from ischemic bowel -Hypoglycemia from alcoholism and decreased oral intake -Paroxysmal atrial fibrillation with rapid ventricular rate. Has been in and out of atrial fibrillation. On amiodarone.-Now back in sinus rhythm -Alcohol dependence syndrome -Pneumonia from Streptococcus pneumoniae and Haemophilus influenza Plan: ICU-patient is on 4 L walked in. More awake. The patient. On a full liquid diet. Has had a few bowel movements. On hypertonic saline. Serum osmolality-260. On IV Unasyn. On TPN and lipids. IV Cardizem drip has been discontinued. Started him eliquis. Spoke to patient's on the phone. At length. Clinical picture was described all the conditions were discussed and questions were answered. Total time spent today was about 40 minutes with over 25 minutes in discussion. Thank you Dr. Rowe
[2020-04-05 20:54] LABS: % Iron Saturation 5.26 (15.00-50.00)
[2020-04-05] MEDS: APIXABAN 2.5 MG TABLET PO SCH (21:07)
[2020-04-05] MEDS: MELATONIN 3 MG TABLET PO PRN (21:07)
[2020-04-05] MEDS ORDERED: TOLVAPTAN 15 MG 1/2 TABLET PO ONE (22:00)
[2020-04-06] MEDS: AMPICILLIN-SULBACTAM 3 GM in SODIUM CHLORIDE 0.9% 100 ML IVPB SCH ×4 (02:08→20:06)
[2020-04-06 04:57] LABS: Basophils % (A) 0 %; Eosinophils # (A) 0.2 k/uL (0-0.7); Eosinophils % (A) 2 %; HCT 26.5 % (39.0-53.0); HGB 8.8 gm/dL (13.0-17.5); Hypochromasia Moderate; Lymphocytes % (A) 8 %; MCH 33.7 pg (25.0-35.0); MCHC 33.3 g/dL (31.0-37.0); MCV 101.3 fL (80.0-100.0); Monocytes # (A) 0.7 k/uL (0-1.0); Monocytes % (A) 5 %; Neutrophils # (A) 11.1 k/uL (1.3-7.7); Neutrophils % (A) 83 %; Platelet Count 634 k/uL (150-450); Poikilocytosis Slight; RBC 2.62 m/uL (4.30-5.90); RDW 13.2 % (11.5-15.5); WBC 13.4 k/uL (3.8-10.6)
[2020-04-06 05:21] LABS: African American GFR (CKD) >90 (>60 ml/min/1.73 sqM); Albumin 2.3 g/dL (3.5-5.0); Alkaline Phosphatase 71 U/L (38-126); Anion Gap 6 mmol/L; Calcium 7.7 mg/dL (8.4-10.2); Carbon Dioxide 29 mmol/L (22-30); Chloride 93 mmol/L (98-107); Glucose 88 mg/dL (74-99); Non-African American GFR(CKD) >90 (>60 ml/min/1.73 sqM); Sodium 128 mmol/L (137-145); Total Bilirubin 0.7 mg/dL (0.2-1.3)
[2020-04-06 05:24] LABS: Blood Urea Nitrogen 6 mg/dL (9-20); Phosphorus 3.1 mg/dL (2.5-4.5); Potassium 4.4 mmol/L (3.5-5.1)
[2020-04-06 05:25] LABS: ALT 16 U/L (4-49); AST 41 U/L (17-59); Magnesium 1.4 mg/dL (1.6-2.3)
[2020-04-06] MEDS: IPRATROPIUM-ALBUTEROL 3 ML NEB INHALATION SCH ×4 (07:31→20:32)
[2020-04-06] MEDS: NICOTINE 21MG/24HR PATCH TRANSDERM SCH (07:33)
--- NOTE | 2020-04-06 09:05 | XR ---
EXAMINATION TYPE: XR chest 1V DATE OF EXAM: 04/06/2020 COMPARISON: 04/05/2020 HISTORY: Pleural effusion, TECHNIQUE: Single frontal view of the chest is obtained. FINDINGS: Chronic rib deformities are seen. Arthropathy of the shoulders. Bilateral consolidation sm all effusion. No overt failure. No pneumothorax. IMPRESSION: 1. Multiple rib fractures with chronic pleural-parenchymal changes which are stable.
[2020-04-06] MEDS: METOPROLOL TARTRATE 50 MG TAB PO SCH ×2 (09:09→20:05)
[2020-04-06] MEDS: AMIODARONE 200 MG TAB PO SCH ×2 (09:09→20:06)
[2020-04-06] MEDS: APIXABAN 2.5 MG TABLET PO SCH ×2 (09:10→20:06)
[2020-04-06] MEDS: FUROSEMIDE 10 MG/ML 4 ML VIAL IV SCH ×3 (09:10→23:29)
[2020-04-06] MEDS: PANTOPRAZOLE 40 MG/10 ML VIAL IV SCH (09:10)
--- NOTE | 2020-04-06 09:11 | P.PN ---
Subjective Progress Note Date: 04/06/20 Principal diagnosis: Paroxysmal atrial fibrillation This is a 64-year-old gentleman who I requested to see in the ICU for further evaluation of atrial fibrillation which is a new to the patient. The patient is a 64-year-old gentleman with a past medical history significant for hypertension where he was receiving as an outpatient atenolol as well as lisinopril but no diabetes or dyslipidemia or coronary artery disease. The patient does have significant history of smoking as well as drinking alcohol. The patient presented to the emergency department with abdominal discomfort and he was diagnosed with fourth and fifth rib fractures on the right side. Apparently the patient fell. He is a somewhat poor historian. He was taken to the operation room where he underwent partial small bowel resection was From repair. Apparently the surgery was quite extensive. The patient was found to have strangulated hiatal hernia as well. We consulted to see the patient this time because off further evaluation of atrial fibrillation with RVR. Please note that the patient is alcohol he. This is the #3 after the surgery. Last night he went into atrial fibrillation with RVR and he was started on amiodarone drip. His blood pressure has been marginal. Anticoagulation is on hold at this point because of the recent surgery. No prior history of atrial fibrillation. No prior history of coronary artery disease or congestive heart failure or any kind of cardiac arrhythmia. 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 At this point, I am going to start the patient on oral beta ari with metoprolol at 12.5 mg by mouth twice a day and continue monitor the blood pressure very closely. I would keep the amiodarone IV and restart him on amiodarone by mouth. We will hold oral anticoagulation at this point until from the surgeon. Beside that I am going to obtain an echocardiogram was Doppler and follow-up with the patient. The patient was seen today, April [id number]. Overall is doing better. He is in normal sinus mechanism. He is on amiodarone as well as metoprolol. I started the patient yesterday on oral anticoagulation. From the cardiovascular sta ndpoint of view, the patient can be transferred out of the ICU. Objective - Vital Signs Vital signs: Vital Signs Temp 98.7 F 04/06/20 04:00 Pulse 96 04/06/20 07:44 Resp 15 04/06/20 07:00 BP 100/71 06/04/20 06:00 Pulse Ox 96 04/06/20 07:00 Intake & Output 04/05/20 04/06/20 04/06/20 18:59 06:59 18:59 Intake Total 1011 320 10 Output Total 2225 1950 200 Balance -5404 -7150 -190 Weight 90.7 kg 87.5 kg Intake: IV 711 320 10 .9 NS 110 120 10 Amino Acid 4.25%-D10w+ 100 Lytes*E* 1,000 ml @ 100 mls/hr IV .BY DURATION [facility] Rx#:[id number] Ampicillin-Sulbactam 3 gm 200 In Sodium Chloride 0.9% 100 ml @ 200 mls/hr IVPB Q6H [facility] Rx#:[id number] Fat Emulsion 20% 250 ml 21 In Empty Bag 1 bag @ 21 mls/hr IV Q24H [facility] Rx#: [id number] Magnesium Sulfate-D5w Pmx 300 1 gm In Dextrose/Water 1 100ml.bag @ 100 mls/hr IVPB Q1H [facility] Rx#: [id number] Sodium Chloride 3%( 180 Hypertonic) 500 ml @ 20 mls/hr IV .Q24H [facility] Rx#: [id number] Oral 300 Output: Urine 2225 1950 200 Other: Voiding Method Indwelling Catheter Indwelling Catheter # Bowel Movements 2 1 - Constitutional General appearance: Present: no acute distress - Respiratory Respiratory: bilateral: CTA - Cardiovascular Rhythm: regular Heart sounds: normal: S1, S2 - Labs CBC & Chem 7: 04/06/20 04:42 04/06/20 04:42 Labs: Abnormal Lab Results - Last 24 Hours (Table) 04/05/20 04/05/20 04/05/20 Range/Units 08:25 12:09 15:55 WBC (3.8-10.6) k/uL RBC (4.30-5.90) m/uL Hgb (13.0-17.5) gm/dL Hct (39.0-53.0) % MCV (80.0-100.0) fL Plt Count (150-450) k/uL Neutrophils # (1.3-7.7) k/uL Sodium 126 L 125 L 127 L (137-145) mmol/L Chloride (98-107) mmol/L BUN (9-20) mg/dL Creatinine (0.66-1.25) mg/dL Osmolality 260 L (280-301) mosm/kg Calcium (8.4-10.2) mg/dL Magnesium (1.6-2.3) mg/dL Iron 10 L (65-175) ug/dL TIBC 190 L (228-460) ug/dL % Saturation 5.26 L (15.00-50.00) Total Protein (6.3-8.2) g/dL Albumin (3.5-5.0) g/dL 04/05/20 04/06/20 04/06/20 Range/Units 20:22 00:41 04:42 WBC (3.8-10.6) k/uL RBC (4.30-5.90) m/uL Hgb (13.0-17.5) gm/dL Hct (39.0-53.0) % MCV (80.0-100.0) fL Plt Count (150-450) k/uL Neutrophils # (1.3-7.7) k/uL Sodium 126 L 126 L 128 L (137-145) mmol/L Chloride 93 L (98-107) mmol/L BUN 6 L (9-20) mg/dL Creatinine 0.35 L (0.66-1.25) mg/dL Osmolality (280-301) mosm/kg Calcium 7.7 L (8.4-10.2) mg/dL Magnesium 1.4 L (1.6-2.3) mg/dL Iron (65-175) ug/dL TIBC (228-460) ug/dL % Saturation (15.00-50.00) Total Protein 5.0 L (6.3-8.2) g/dL Albumin 2.3 L (3.5-5.0) g/dL 04/06/20 Range/Units 04:42 WBC 13.4 H (3.8-10.6) k/uL RBC 2.62 L (4.30-5.90) m/uL Hgb 8.8 L (13.0-17.5) gm/dL Hct 26.5 L (39.0-53.0) % MCV 101.3 H (80.0-100.0) fL Plt Count 634 H (150-450) k/uL Neutrophils # 11.1 H (1.3-7.7) k/uL Sodium (137-145) mmol/L Chloride (98-107) mmol/L BUN (9-20) mg/dL Creatinine (0.66-1.25) mg/dL Osmolality (280-301) mosm/kg Calcium (8.4-10.2) mg/dL Magnesium (1.6-2.3) mg/dL Iron (65-175) ug/dL TIBC (228-460) ug/dL % Saturation (15.00-50.00) Total Protein (6.3-8.2) g/dL Albumin (3.5-5.0) g/dL Assessment and Plan Assessment: Assessment #1 status post fall and chest/abdominal trauma #2 status post abdominal surgery #3 paroxysmal atrial fibrillation #4 hypertension #5 significant history of alcohol use #6 significant history of smoking Plan #1 continue the current dose of amiodarone and metoprolol by mouth #2 continue oral anticoagulation #3 the patient can be transferred out of the ICU
--- NOTE | 2020-04-06 11:21 | P.PN ---
Subjective Progress Note Date: 04/06/20 this is a 64-year-old male is being seen in follow-up in the intensivcare unit. Note tmitted initially for abdominal pain, status post exploratory laparotomy, small bowel resection, repair of diaphragmatic hernia, left chest tube placement. Postoperative day #4. He had initially presented with abdominal discomfort after developing constipation from pain medication being taken for from recent fall with rib fractures. He was found to have a diaphragmatic hernia with strangulated bowel. He is status post exploratory laparotomy, small bowel resection, repair of diaphragmatic hernia, placement of left chest tube. Pathology revealed acute ischemic enteritis with submucosal and mesenteric hemorrhage and vascular congestion. No evidence of malignancy. He initially was on mechanical ventilator and extubated on 03/30/2020. He is currently on 2 L nasal cannula. Chest x-ray reveals low lung volumes and chronic parenchymal changes with left-sided chest tube was removed. He has been having atrial fibrillation which is new for him. Echocardiogram revealed preserved left ventricular systolic function with ejection fraction 60-65%. He is on amiodarone drip has been discontinued and the patient was started on oral amiodarone. . Sputum culture is positive for Streptococcus pneumoniae and Haemophilus influenza. He is currently on Zosyn. On today's evaluation of 04/03/2020, the patient is sitting up on a chair. He was noted to have some increased swelling in lower extremities bilaterally and some in the upper extremities. He was receiving IV fluids at the rate of 50 mL an hour in addition to TPN for nutritional support running at 100 mL an hour. He is on 2 L of oxygen by nasal cannula with a pulse ox of 93%. He is using incentive spirometer pulling approximately 500-750. He didn't pass bowel movements. The chest x-ray from today shows no sizable pneumothorax and there is some bilateral consolidation and pleural effusions that are still present compared to the earlier chest x- ray. On today's evaluation of 62,020 and seeing Yordy for a follow-up in the intensive care unit following his abdominal surgery. As mentioned, the patient is alcoholic and he is postop day #5 with the patient underwent expiratory laparotomy and small bowel resection and repair of a diaphragmatic hernia with a left-sided chest tube insertion and subsequent removal. Earlier this morning, he felt that the patient was lethargic and weak and a bit confused. He told that he hasn't slept for several days. He told me that he typically takes alcohol to help him with his chronic insomnia. He had requested some Ativan to help him sleep as the patient was getting jittery and nervous overnight. He was having excessive swelling in all 4 extremities and especially in the lower extremities and the patient had significant third spacing. Note that the patient was given a dose of Lasix yesterday for the grams IV push following which she made adequate urine output. Nevertheless, he is overall fluid balance has been essentially positive. The patient did have a bout of atrial fibrillation yesterday and the patient is currently on oral amiodarone 400 mg by mouth twice a day and metoprolol 50 mg by mouth twice a day. His sodium level remains low at 124. Rest of the electrolytes show some mild hypokalemia with a potassium level of 3.4. Based on this, I made a decision to aggressively d iurese this patient and I put an order for Lasix 40 mg IV push every 8 hours. Within a few hours of my around, the patient became acutely unresponsive. Based on this a code stroke was called and the robot was activated. The patient was found to be quite unresponsive and lethargic and his initial NIH score was 4. The patient was having unintelligible speech and was told that the patient was aphasic in addition to confusion. No focal neurological deficit was noted. The patient was taken for a stat CAT scan of the brain and it showed mild atrophy and chronic periventricular white matter ischemic Changes. The patient also had a CT angios done that showed no flow limitation stenosis in the carotids bilaterally. There was some plaquing of the great vessels of the aortic arch mainly. There was a normal [place] of [place]. Neurology consultation has been obtained. The chest x-ray showed a stable left lung with a very tiny left apical pneumothorax and a left-sided pleural effusion in addition to some minimal amount of subcutaneous emphysema. The right basilar atelectatic changes have already resolved. The patient had a blood gases that showed a pH of 7.43 with a pCO2 of 41 and pO2 of 73 and this was done and 36% FiO2. His sodium level was 123. He was started on hypertonic saline solution at 3% normal state rate of 40 mL an hour. Close monitoring of his sodium level will be done. Consider symptomatically hyponatremia. Consider altered mentation related to electrolyte imbalance. No documented seizure activity and Neurology has been involved. On 04/05/2020, the patient is being seen for a follow-up. Is awake and alert and following commands and answering questions. No significant complaints. Is sitting up on a chair. Since yesterday, the patient had liquidy stool around 7- 10 of them. The patient has possible sounds. Surgical with a dry clean and intact. He remains on IV Unasyn. His IV fluids currently is on a hypertonic saline solution at 20 mL an hour and the patient is receiving IV Lasix 40 mg every 8 hours. He is also on a hypertonic saline solution 20 mL an hour. There has been gradual improvement in his sodium level which is up to 126 on today's evaluation and the patient's sodium level is being monitored very closely as the patient has chronic hyponatremia. Mental status improved significantly and the patient is back to normal. There noted improvement in the peripheral edema. He is taking oral material and for that reason the TPN will be discontinued and stool for C. diff will be checked. No other complaints otherwise. Is awake and alert and he is using incentive spirometer. He is afebrile. Ammonia level was less than 9 from yesterday. On 04/06/2020 the patient is doing well. No complaints. Sitting up on a chair. Still being diuresed with IV Lasix. Hypertonic saline solution was discontinued as the patient's sodium level is up to 128. Abdominal incision is having some minimal amount of serous drainage. No erythema. No signs of infection. He was weaned off and he was placed on room air oxygen with a pulse of 71-92%. No IV fluids which are currently at KVO. He is using incentive spirometer at 7 50 mL and the patient is a dynamically stable. The patient is producing stool. No altered mentation. He is gradually getting stronger. Objective - Vital Signs Vital signs: Vital Signs Temp 98.7 F 04/06/20 04:00 Pulse 89 04/06/20 09:00 Resp 22 04/06/20 09:00 BP 114/68 04/06/20 09:00 Pulse Ox 92 L 04/06/20 09:00 Intake & Output 04/05/20 04/06/20 04/06/20 18:59 06:59 18:59 Intake Total 1011 320 10 Output Total 8153 9928 710 Balance -1214 -1630 -700 Weight 90.7 kg 87.5 kg Intake: IV 711 320 10 .9 NS 110 120 10 Amino Acid 4.25%-D10w+ 100 Lytes*E* 1,000 ml @ 100 mls/hr IV .BY DURATION [facility] Rx#:[id number] Ampicillin-Sulbactam 3 gm 200 In Sodium Chloride 0.9% 100 ml @ 200 mls/hr IVPB Q6H [facility] Rx#:[id number] Fat Emulsion 20% 250 ml 21 In Empty Bag 1 bag @ 21 mls/hr IV Q24H [facility] Rx#: [id number] Magnesium Sulfate-D5w Pmx 300 1 gm In Dextrose/Water 1 100ml.bag @ 100 mls/hr IVPB Q1H [facility] Rx#: [id number] Sodium Chloride 3%( 180 Hypertonic) 500 ml @ 20 mls/hr IV .Q24H [facility] Rx#: [id number] Oral 300 Output: Urine 2225 1950 710 Other: Voiding Method Indwelling Catheter Indwelling Catheter Indwelling Catheter # Bowel Movements 2 1 - Exam GENERAL EXAM: Alert, pleasant 64-year-old gentleman, . and the patient is currently on room air oxygen, comfortable hemodynamically stable awake and alert following commands and answering questions appropriately. HEAD: Normocephalic. EYES: Normal reaction of pupils, equal size. NOSE: Clear with pink turbinates. THROAT: No erythema or exudates. NECK: No masses, no JVD. CHEST: Left chest tube remains in place. LUNGS: Equal air entry with few scattered rhonchi, crackles in the bases. CVS: S1 and S2 normal with no audible murmur, regular rhythm. ABDOMEN: Abdominal dressing dry and intact. Binder in place. No active bowel sounds. The patient has no abdominal drains. The patient has bowel sounds in all 4 quadrants. He was passing bowel movements. No direct tenderness. No rebound tenderness. No guarding. SPINE: No scoliosis or deformity SKIN: No rashes CENTRAL NERVOUS SYSTEM: awake and oriented 3 without any focal neurological deficit. Pupils are equal and reactive to light. No nystagmus. No preferential gaze. No facial asymmetry. EXTREMITIES: There is significant peripheral edema in all 4 extremities.. No clubbing, no cyanosis. Peripheral pulses are intact. - Labs CBC & Chem 7: 04/06/20 04:42 04/06/20 04:42 Labs: Abnormal Lab Results - Last 24 Hours (Table) 04/05/20 04/05/20 04/05/20 Range/Units 12:09 15:55 20:22 WBC (3.8-10.6) k/uL RBC (4.30-5.90) m/uL Hgb (13.0-17.5) gm/dL Hct (39.0-53.0) % MCV (80.0-100.0) fL Plt Count (150-450) k/uL Neutrophils # (1.3-7.7) k/uL Sodium 125 L 127 L 126 L (137-145) mmol/L Chloride (98-107) mmol/L BUN (9-20) mg/dL Creatinine (0.66-1.25) mg/dL Osmolality 260 L (280-301) mosm/kg Calcium (8.4-10.2) mg/dL Magnesium (1.6-2.3) mg/dL Iron 10 L (65-175) ug/dL TIBC 190 L (228-460) ug/dL % Saturation 5.26 L (15.00-50.00) Total Protein (6.3-8.2) g/dL Albumin (3.5-5.0) g/dL 04/06/20 04/06/20 04/06/20 Range/Units 00:41 04:42 04:42 WBC 13.4 H (3.8-10.6) k/uL RBC 2.62 L (4.30-5.90) m/uL Hgb 8.8 L (13.0-17.5) gm/dL Hct 26.5 L (39.0-53.0) % MCV 101.3 H (80.0-100.0) fL Plt Count 634 H (150-450) k/uL Neutrophils # 11.1 H (1.3-7.7) k/uL Sodium 126 L 128 L (137-145) mmol/L Chloride 93 L (98-107) mmol/L BUN 6 L (9-20) mg/dL Creatinine 0.35 L (0.66-1.25) mg/dL Osmolality (280-301) mosm/kg Calcium 7.7 L (8.4-10.2) mg/dL Magnesium 1.4 L (1.6-2.3) mg/dL Iron (65-175) ug/dL TIBC (228-460) ug/dL % Saturation (15.00-50.00) Total Protein 5.0 L (6.3-8.2) g/dL Albumin 2.3 L (3.5-5.0) g/dL Assessment and Plan Plan: 1 Abdominal pain secondary to strangulated diaphragmatic hernia, status post exploratory laparotomy, small bowel resection, repair of diaphragmatic hernia and placement of the left chest tube with subsequent removal on 04/01/2020. This is postoperative day # 8. Still on IV Zosyn. Off TPN. Diet is being advanced. 2 Acute hypoxemic respiratory failure secondary to above, extubated on 03/30/2020 . Sputum cultures positive for Streptococcus pneumoniae and Haemophilus influenza, and the patient has significant consolidation of the lung bases left more than right, with subsequent improvement. The patient is currently on room air oxygen. Using incentive spirometer. 3 Recent admission for left chest wall pain and rib fractures status post fall requiring narcotics and subsequent constipation. Noted the patient was in the hospital approximately 10 days ago where the patient was admitted with left- sided rib fractures and the patient was found also to be hyponatremic attributed to alcohol drinking. 4 altered mentation possibly related to symptomatic hyponatremia. The sodium level is improved and the patient's mentation has normalized 5 History of alcohol abuse 6 Chronic tobacco dependence 7 History of previous GI bleeding, gastritis and duodenitis 8 Hypertension 9 History of hiatal hernia 10 New-onset atrial fibrillation, currently on by mouth amiodarone and the patient is also on long-term articulation with Eliquis. 11 chronic hyponatremia, currently on hypertonic saline solution at the rate of 20 mL an hour and the patient has a sodium level up to 128 Plan Continued IV Lasix and the patient continues to have some edema in lower extremities bilaterally. The patient is receiving 40 mg every 8 hours. Aggressive pulmonary toileting Continue IV Unasyn PPN has been discontinued Advance diet as tolerated Surgical wound site is dry clean and intact Monitor the sodium level Continue oral amiodarone and metoprolol and Eliquis The patient can be downgraded to medical surgical floor transferred
--- NOTE | 2020-04-06 12:16 | P.PN ---
Subjective Progress Note Date: 04/06/20 CHIEF COMPLAINT: Strangulated diaphragmatic hernia HISTORY OF PRESENT ILLNESS: Patient is status post exploratory laparotomy, small bowel resection, repair of diaphragmatic hernia, and placement of left chest tube with Dr. Rowe. Patient states his pain is tolerable. He is tolerating regular diet. He is having frequent loose bowel movements. WBC 13.4. He moglobin 8.8. PHYSICAL EXAM: VITAL SIGNS: Reviewed. GENERAL: Well-developed in no acute distress. HEENT: No sclera icterus. Extraocular movements grossly intact. Moist buccal mucosa. Head is atraumatic, normocephalic. ABDOMEN: Soft. Nondistended. Dressing clean dry and intact. NEUROLOGIC: Awake and alert. ASSESSMENT: 1. Strangulated diaphragmatic hernia, status post exploratory laparotomy, small bowel resection, repair of diaphragmatic hernia, and placement of left chest tube with Dr. Rowe PLAN: -Pain control -Incentive spirometer -Activity as tolerated -Continue current diet Nurse practitioner note has been reviewed by physician. Signing provider agrees with the documented findings, assessment, and plan of care. Objective - Vital Signs Vital signs: Vital Signs Temp 98.7 F 04/06/20 04:00 Pulse 89 04/06/20 09:00 Resp 22 04/06/20 09:00 BP 114/68 04/06/20 09:00 Pulse Ox 92 L 04/06/20 09:00 Intake & Output 04/05/20 04/06/20 04/06/20 18:59 06:59 18:59 Intake Total 1011 320 110 Output Total 2225 1950 1810 Balance -1214 -1630 -1700 Weight 90.7 kg 87.5 kg Intake: IV 711 320 110 .9 NS 110 120 10 Amino Acid 4.25%-D10w+ 100 Lytes*E* 1,000 ml @ 100 mls/hr IV .BY DURATION [facility] Rx#:[id number] Ampicillin-Sulbactam 3 gm 200 100 In Sodium Chloride 0.9% 100 ml @ 200 mls/hr IVPB Q6H [facility] Rx#:[id number] Fat Emulsion 20% 250 ml 21 In Empty Bag 1 bag @ 21 mls/hr IV Q24H [facility] Rx#: [id number] Magnesium Sulfate-D5w Pmx 300 1 gm In Dextrose/Water 1 100ml.bag @ 100 mls/hr IVPB Q1H [facility] Rx#: [id number] Sodium Chloride 3%( 180 Hypertonic) 500 ml @ 20 mls/hr IV .Q24H [facility] Rx#: [id number] Oral 300 Output: Urine 2225 1950 1810 Other: Voiding Method Indwelling Catheter Indwelling Catheter Indwelling Catheter # Bowel Movements 2 1 - Labs CBC & Chem 7: 04/06/20 04:42 04/06/20 04:42 Labs: Abnormal Lab Results - Last 24 Hours (Table) 04/05/20 04/05/20 04/05/20 Range/Units 12:09 15:55 20:22 WBC (3.8-10.6) k/uL RBC (4.30-5.90) m/uL Hgb (13.0-17.5) gm/dL Hct (39.0-53.0) % MCV (80.0-100.0) fL Plt Count (150-450) k/uL Neutrophils # (1.3-7.7) k/uL Sodium 125 L 127 L 126 L (137-145) mmol/L Chloride (98-107) mmol/L BUN (9-20) mg/dL Creatinine (0.66-1.25) mg/dL Osmolality 260 L (280-301) mosm/kg Calcium (8.4-10.2) mg/dL Magnesium (1.6-2.3) mg/dL Iron 10 L (65-175) ug/dL TIBC 190 L (228-460) ug/dL % Saturation 5.26 L (15.00-50.00) Total Protein (6.3-8.2) g/dL Albumin (3.5-5.0) g/dL 04/06/20 04/06/20 04/06/20 Range/Units 00:41 04:42 04:42 WBC 13.4 H (3.8-10.6) k/uL RBC 2.62 L (4.30-5.90) m/uL Hgb 8.8 L (13.0-17.5) gm/dL Hct 26.5 L (39.0-53.0) % MCV 101.3 H (80.0-100.0) fL Plt Count 634 H (150-450) k/uL Neutrophils # 11.1 H (1.3-7.7) k/uL Sodium 126 L 128 L (137-145) mmol/L Chloride 93 L (98-107) mmol/L BUN 6 L (9-20) mg/dL Creatinine 0.35 L (0.66-1.25) mg/dL Osmolality (280-301) mosm/kg Calcium 7.7 L (8.4-10.2) mg/dL Magnesium 1.4 L (1.6-2.3) mg/dL Iron (65-175) ug/dL TIBC (228-460) ug/dL % Saturation (15.00-50.00) Total Protein 5.0 L (6.3-8.2) g/dL Albumin 2.3 L (3.5-5.0) g/dL
[2020-04-06] MEDS ORDERED: TOLVAPTAN 15 MG 1/2 TABLET PO ONE (13:00)
--- NOTE | 2020-04-06 13:58 | PN ---
PROGRESS NOTE Patient is seen for follow up for hyponatremia which is mainly hypervolemic. Patient was maintained on sodium chloride tablets and 3% saline. He has significant edema. He is also maintained on IV Lasix. The 3% saline was discontinued yesterday along with the sodium chloride tablets. Patient did receive a dose of tolvaptan last night. His serum sodium today is 128 and improved. On examination today, patient is comfortable. He denies any significant complaints. He is trying to increase his oral intake. Blood pressure is 101/74, heart rate 91 per minute, he is afebrile. Examination of the heart, S1, S2. Examination of the lungs, breath sounds are heard, decreased breath sounds at the bases. Abdomen is soft, nontender. Examination of the lower extremities reveal edema bilaterally. [employer]LE [employer] examination grossly intact. LABS: Show sodium 128, potassium 4.4, chloride 93, . ASSESSMENT: 1. Hyponatremia which is mainly hyperolemic, maintained on Lasix, s/p tolvaptan 15 mg yesterday. I will repeat another dose of tolvaptan today. . 2. Status post fall and strangulated left diaphragmatic hernia, s/p repair 3. Left pneumothorax, s/p chest tube. No active bleeding noted. RECOMMENDATION: 1. Continue off of 3% saline and sodium chloride tabs, repeat tolvaptan. Repaet labs . MMODL / IJN: [id number] / MTDD
--- NOTE | 2020-04-06 19:53 | P.PN ---
Progress Note - Text Progress Note Date: 04/06/20 - Chief Complaint Abdominal pain Consultation: This is a pleasant 64-year-old patient who follows a Dr. Michel. Patient long- standing history of smoking and drinking significant amount of alcohol. Chronic stable conditions also include nicotine dependence, gastritis duodenitis as per EGD in 2019. Patient is having the hospital about 7 days ago he took a fall was admitted with left-sided rib fractures 4 to-5 drips also found to be severely hyponatremic. Patient is doing well at the time of discharge. Patient now presents with worsening abdominal pain going on for close to a week. Has not had a bowel movement since then. End patient's abdominal pain was progressively getting worse. He also noticed some bruising to the left lower abdomen for the last couple of days. Denied any fever and chills. Some nausea. Patient was taken to the operating room by Dr. Rowe last night. Found to strangulate a diaphragmatic hernia. Does some blood in the peritoneal cavity. The hernia containing small bowel. Patient about 40% of the small bowel within the left chest and ischemia to strangulate of the small bowel. About 1 L of bloody fluid was aspirated from the left chest. Patient is currently in the ICU. Has a midline dressing. In the abdomen. Left chest tube to suction. Recently went into atrial fibrillation with rapid ventricular rate. Put on IV amiodarone. Left chest tube was pulled out. Patient had become hypoxic lethargic. Computed tomography scan of the brain was negative for stroke. When I followed overload. Proceed IV Lasix. Responded well. Also has pneumonia treated with antibiotics. Also received hypertonic saline for hyponatremia. Also started on eliquis. Today-ICU. Doing much better. On room air. That advance to regular. Sodium up to 128. Getting IV Lasix bolus. Walked about 50 feet with physical therapist. Slight serous drainage from the incision site of the abdomen. Breathing better. Review of systems: Done for constitutional, cardiovascular, GI, pulmonary. relevant finding as above Active Medications Acetaminophen (Tylenol Tab) 650 mg PO Q4HR PRN PRN Reason: Fever and/or Mild Pain Last Admin: 04/05/20 17:05 Dose: 650 mg Documented by: Albuterol/Ipratropium (Duoneb 0.5 Mg-3 Mg/3 Ml Soln) 3 ml INHALATION RT-Q2H PRN PRN Reason: Shortness Of Breath Or Wheezing Albuterol/Ipratropium (Duoneb 0.5 Mg-3 Mg/3 Ml Soln) 3 ml INHALATION RT-QID [facility] Last Admin: 04/06/20 16:34 Dose: 3 ml Documented by: Amiodarone HCl (Cordarone) 400 mg PO BID [facility] Last Admin: 04/06/20 09:09 Dose: 400 mg Documented by: Apixaban (Eliquis) 2.5 mg PO BID [facility] Last Admin: 04/06/20 09:10 Dose: 2.5 mg Documented by: Furosemide (Lasix) 40 mg IV Q8HR [facility] Last Admin: 04/06/20 16:22 Dose: 40 mg Documented by: Hydromorphone HCl (Dilaudid) 0.5 mg IVP Q3HR PRN PRN Reason: Moderate to Severe Pain Last Admin: 04/03/20 03:16 Dose: 0.5 mg Documented by: Hydromorphone HCl (Dilaudid) 1 mg IVP Q2HR PRN PRN Reason: Severe Pain Last Admin: 04/05/20 00:44 Dose: 1 mg Documented by: Ampicillin Sodium/Sulbactam (Sodium 3 gm/ Sodium Chloride) 100 mls @ 200 mls/hr IVPB Q6H [facility] Last Admin: 04/06/20 16:22 Dose: 200 mls/hr Documented by: Ferric Sodium Gluconate 125 mg (/ Sodium Chloride) 110 mls @ 100 mls/hr IVPB DAILY [facility] Stop: 04/09/20 23:59 Lorazepam (Ativan) 1 mg IV Q8HR PRN PRN Reason: Anxiety Last Admin: 04/04/20 09:15 Dose: 1 mg Documented by: Melatonin (Melatonin) 3 mg PO HS PRN PRN Reason: Insomnia Last Admin: 04/05/20 21:07 Dose: 3 mg Documented by: Metoprolol Tartrate (Lopressor) 100 mg PO BID [facility] Last Admin: 04/06/20 09:09 Dose: 100 mg Documented by: Miscellaneous Information (Potassium Per Protocol) 1 each MISCELLANE DAILY PRN; Protocol PRN Reason: Per Protocol Miscellaneous Information (Magnesium Per Protocol) 1 each MISCELLANE DAILY PRN; Protocol PRN Reason: Per Protocol Naloxone HCl (Narcan) 0.2 mg IV Q2M PRN PRN Reason: Opioid Reversal Nicotine (Habitrol 21mg/24hr Patch) 1 patch TRANSDERM DAILY [facility] Last Admin: 04/06/20 07:33 Dose: Not Given Documented by: Ondansetron HCl (Zofran) 4 mg IVP Q8HR PRN PRN Reason: Nausea And Vomiting Last Admin: 04/02/20 10:05 Dose: 4 mg Documented by: Pantoprazole Sodium (Protonix) 40 mg IV DAILY [facility] Last Admin: 04/06/20 09:10 Dose: 40 mg Documented by: Sodium Chloride (Deep Sea) 2 spray NASAL QID PRN PRN Reason: Dry Nasal Passages Physical examination: VITAL SIGNS: 98.7, 81, 16, 110 076, 96% room air GENERAL: Sitting upon a chair, breathing better EYES: Pupils equal. Conjunctiva normal. HEENT: External appearance of nose and ears normal, oral cavity grossly normal. NECK: JVD not raised; masses not palpable. HEART: Heart sounds irregular; mild edema LUNGS: Respiratory rate increased, decreased breath sounds ABDOMEN: Less Tender, no guarding or rigidity, dressing over midline incision, liver spleen not palpable, no masses palpable. [place] catheter. PSYCH: Alert and she, more affect anxious . INVESTIGATIONS, reviewed in the clinical context: White count 13.4 hemoglobin 8.8 platelets 674 sodium 128 potassium 4.4 creatinine 0.35 Admission testing: Computed tomography scan of the chest abdomen-large left-sided diaphragmatic hernia which contains multiple thickened loops of small bowel with a haziness entry, hemoperitoneum was noted, large left-sided pleural effusion, multiple left-sided rib fracture White count 16.4 hemoglobin 13.1 sodium 126 potassium 4.4 creatinine 0.45-upon presentation 2-D echocardiogram-moderate concentric LVH, EF 60-65% serum osmolality-260 Assessment: -Acute change in mental status with some delirium possibly could be from alcohol withdrawal syndrome/DTs patient does drink a significant amount of alcohol, patient's sodium has been running low for quite a while that could be contributing.-Improved -Acute pulmonary edema-improved -Acute hypoxic respiratory failure,-respond to Lasix now on 4 L of oxygen -Acute strangulate diaphragmatic hernia with small bowel loops with ischemia strangulate the small bowel-status post surgery -Chronic nicotine dependence patient cigarette smoker -Chronic alcohol use disorder -Hyponatremia suspect hypoosmolar -, on hypertonic saline, slow to respond -Chronic gastritis, duodenitis from alcoholism -GERD -Essential hypertension -Multiple left-sided fractures from recent falls -Hemoperitoneum from ischemic bowel -Hypoglycemia from alcoholism and decreased oral intake -Paroxysmal atrial fibrillation with rapid ventricular rate. Has been in and out of atrial fibrillation. On amiodarone.-Now back in sinus rhythm -Alcohol dependence syndrome -Pneumonia from Streptococcus pneumoniae and Haemophilus influenza Plan: Doing better. Sodium slowly coming up. Did ambulate about 50 feet. Diet has been advanced. Some diarrhea present. Patient been cleared by Dr. Phillips to move to the medical floor. Continue with IV Zosyn. TPN and liquids is disconnected. Atrial fibrillation.
[2020-04-06] MEDS: MELATONIN 3 MG TABLET PO PRN (20:11)
--- NOTE | 2020-04-06 22:54 | PN ---
PROGRESS NOTE DATE OF SERVICE: 04/06/2020 REASON FOR FOLLOWUP: Pneumonia. INTERVAL HISTORY: The patient is currently afebrile, has been breathing comfortably. Denies having any chest pain. Occasional cough. Some nausea but no vomiting. No abdominal pain or diarrhea. PHYSICAL EXAMINATION: Blood pressure 110/76, pulse of 81, temperature 98.7. He is 96% on room air. General description is an elderly male lying in bed in no distress. RESPIRATORY SYSTEM: Unlabored breathing. Clear to auscultation anteriorly. HEART: S1, S2. Regular rate and rhythm. ABDOMEN: Soft. No tenderness. LABS: Hemoglobin is 8.8, white count down to 13.4 with a BUN of 6, creatinine 0.35. DIAGNOSTIC IMPRESSION AND PLAN: Patient with Streptococcus pneumoniae and Haemophilus influenza with pneumonia. The patient is covered with Unasyn; to continue. Monitor his clinical course closely. Continue with supportive care. MMODL / IJN: [id number] /
[2020-04-07] MEDS: AMPICILLIN-SULBACTAM 3 GM in SODIUM CHLORIDE 0.9% 100 ML IVPB SCH ×3 (03:27→16:24)
[2020-04-07 05:50] LABS: Basophils % (A) 0 %; Eosinophils # (A) 0.2 k/uL (0-0.7); Eosinophils % (A) 1 %; HCT 27.8 % (39.0-53.0); HGB 9.1 gm/dL (13.0-17.5); Hypochromasia Moderate; Lymphocytes # (A) 1.2 k/uL (1.0-4.8); Lymphocytes % (A) 8 %; MCH 33.3 pg (25.0-35.0); MCHC 32.8 g/dL (31.0-37.0); MCV 101.5 fL (80.0-100.0); Macrocytosis Slight; Mean Platelet Volume 7.1; Monocytes # (A) 0.8 k/uL (0-1.0); Monocytes % (A) 6 %; Neutrophils # (A) 12.4 k/uL (1.3-7.7); Neutrophils % (A) 83 %; Platelet Count 712 k/uL (150-450); Poikilocytosis Slight; RBC 2.74 m/uL (4.30-5.90); RDW 13.1 % (11.5-15.5); WBC 14.9 k/uL (3.8-10.6)
[2020-04-07 06:06] LABS: ALT 16 U/L (4-49); AST 34 U/L (17-59); African American GFR (CKD) >90 (>60 ml/min/1.73 sqM); Albumin 2.4 g/dL (3.5-5.0); Alkaline Phosphatase 83 U/L (38-126); Anion Gap 7 mmol/L; Blood Urea Nitrogen 2 mg/dL (9-20); Calcium 7.9 mg/dL (8.4-10.2); Carbon Dioxide 32 mmol/L (22-30); Chloride 92 mmol/L (98-107); Glucose 101 mg/dL (74-99); Magnesium 1.2 mg/dL (1.6-2.3); Non-African American GFR(CKD) >90 (>60 ml/min/1.73 sqM); Phosphorus 3.6 mg/dL (2.5-4.5); Potassium 3.4 mmol/L (3.5-5.1); Sodium 131 mmol/L (137-145); Total Bilirubin 0.4 mg/dL (0.2-1.3); Total Protein 5.2 g/dL (6.3-8.2)
[2020-04-07] MEDS ORDERED: Potassium Replacement Protocol 1 EACH MISC MISCELLANE PRN (06:11)
[2020-04-07] MEDS: POTASSIUM CHLORIDE ER 20 MEQ TAB.ER PO SCH ×2 (06:16→08:53)
[2020-04-07] MEDS: MAGNESIUM SULFATE-D5W PMX 1 GM in DEXTROSE/WATER 1 100ML.BAG IVPB SCH ×3 (06:16→10:15)
[2020-04-07] MEDS: IPRATROPIUM-ALBUTEROL 3 ML NEB INHALATION SCH ×4 (06:56→20:57)
--- NOTE | 2020-04-07 07:45 | P.PN ---
Subjective Progress Note Date: 04/07/20 Principal diagnosis: Paroxysmal atrial fibrillation This is a 64-year-old gentleman who I requested to see in the ICU for further evaluation of atrial fibrillation which is a new to the patient. The patient is a 64-year-old gentleman with a past medical history significant for hypertension where he was receiving as an outpatient atenolol as well as lisinopril but no diabetes or dyslipidemia or coronary artery disease. The patient does have significant history of smoking as well as drinking alcohol. The patient presented to the emergency department with abdominal discomfort and he was diagnosed with fourth and fifth rib fractures on the right side. Apparently the patient fell. He is a somewhat poor historian. He was taken to the operation room where he underwent partial small bowel resection was From repair. Apparently the surgery was quite extensive. The patient was found to have strangulated hiatal hernia as well. We consulted to see the patient this time because off further evaluation of atrial fibrillation with RVR. Please note that the patient is alcohol he. This is the #3 after the surgery. Last night he went into atrial fibrillation with RVR and he was started on amiodarone drip. His blood pressure has been marginal. Anticoagulation is on hold at this point because of the recent surgery. No prior history of atrial fibrillation. No prior history of coronary artery disease or congestive heart failure or any kind of cardiac arrhythmia. 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 At this point, I am going to start the patient on oral beta ari with metoprolol at 12.5 mg by mouth twice a day and continue monitor the blood pressure very closely. I would keep the amiodarone IV and restart him on amiodarone by mouth. We will hold oral anticoagulation at this point until from the surgeon. Beside that I am going to obtain an echocardiogram was Doppler and follow-up with the patient. The patient was seen today, April [id number]. Overall is doing better. He is in normal sinus mechanism. He is on amiodarone as well as metoprolol. Beside that he is on oral anticoagulation. The patient keep asking about discharge home. At least the patient can be transferred out of the intensive care unit from the cardiac vascular standpoint overview. Objective - Vital Signs Vital signs: Vital Signs Temp 98.8 F 04/06/20 22:54 Pulse 96 04/07/20 07:06 Resp 18 04/06/20 22:54 BP 111/74 04/06/20 22:54 Pulse Ox 92 L 04/06/20 22:54 Intake & Output 04/06/20 04/07/20 04/07/20 18:59 06:59 18:59 Intake Total 110 200 Output Total 2210 3150 Balance -2100 -2950 Weight 83.1 kg Intake: IV 110 200 .9 NS 10 Ampicillin-Sulbactam 3 gm 100 200 In Sodium Chloride 0.9% 100 ml @ 200 mls/hr IVPB Q6H [facility] Rx#:[id number] Output: Urine 2210 3150 Other: Voiding Method Indwelling Catheter Indwelling Catheter # Bowel Movements 5 - Constitutional General appearance: Present: no acute distress - Respiratory Respiratory: bilateral: diminished - Cardiovascular Rhythm: regular Heart sounds: normal: S1, S2 - Labs CBC & Chem 7: 04/07/20 05:17 04/07/20 05:17 Labs: Abnormal Lab Results - Last 24 Hours (Table) 04/07/20 04/07/20 Range/Units 05:17 05:17 WBC 14.9 H (3.8-10.6) k/uL RBC 2.74 L (4.30-5.90) m/uL Hgb 9.1 L (13.0-17.5) gm/dL Hct 27.8 L (39.0-53.0) % MCV 101.5 H (80.0-100.0) fL Plt Count 712 H (150-450) k/uL Neutrophils # 12.4 H (1.3-7.7) k/uL Sodium 131 L (137-145) mmol/L Potassium 3.4 L (3.5-5.1) mmol/L Chloride 92 L (98-107) mmol/L Carbon Dioxide 32 H (22-30) mmol/L BUN 2 L (9-20) mg/dL Creatinine 0.38 L (0.66-1.25) mg/dL Glucose 101 H (74-99) mg/dL Calcium 7.9 L (8.4-10.2) mg/dL Magnesium 1.2 L (1.6-2.3) mg/dL Total Protein 5.2 L (6.3-8.2) g/dL Albumin 2.4 L (3.5-5.0) g/dL Assessment and Plan Assessment: Assessment #1 status post fall and chest/abdominal trauma #2 status post abdominal surgery #3 paroxysmal atrial fibrillation #4 hypertension #5 significant history of alcohol use #6 significant history of smoking Plan #1 continue the current dose of amiodarone and metoprolol by mouth #2 continue oral anticoagulation #3 the patient can be transferred out of the ICU
--- NOTE | 2020-04-07 07:56 | P.PN ---
Subjective Progress Note Date: 04/07/20 CHIEF COMPLAINT: Strangulated diaphragmatic hernia HISTORY OF PRESENT ILLNESS: Patient is status post exploratory laparotomy, small bowel resection, repair of diaphragmatic hernia, and placement of left chest tube with Dr. Rowe. Patient states his pain is tolerable. He is tolerating regular diet. He is having frequent loose bowel movements. WBC 14.9. He moglobin 9.1. PHYSICAL EXAM: VITAL SIGNS: Reviewed. GENERAL: Well-developed in no acute distress. HEENT: No sclera icterus. Extraocular movements grossly intact. Moist buccal mucosa. Head is atraumatic, normocephalic. ABDOMEN: Soft. Nondistended. Dressing clean dry and intact. NEUROLOGIC: Awake and alert. ASSESSMENT: 1. Strangulated diaphragmatic hernia, status post exploratory laparotomy, small bowel resection, repair of diaphragmatic hernia, and placement of left chest tube with Dr. Rowe PLAN: -Pain control -Incentive spirometer -Activity as tolerated -Continue current diet -May transfer out of ICU to general medical floor -Possible discharge home within next 24 hrs. Nurse practitioner note has been reviewed by physician. Signing provider agrees with the documented findings, assessment, and plan of care. Objective - Vital Signs Vital signs: Vital Signs Temp 98.8 F 04/06/20 22:54 Pulse 96 04/07/20 07:06 Resp 18 04/06/20 22:54 BP 111/74 04/06/20 22:54 Pulse Ox 92 L 04/06/20 22:54 Intake & Output 04/06/20 04/07/20 04/07/20 18:59 06:59 18:59 Intake Total 110 200 Output Total 2210 3150 Balance -2100 -2950 Weight 83.1 kg Intake: IV 110 200 .9 NS 10 Ampicillin-Sulbactam 3 gm 100 200 In Sodium Chloride 0.9% 100 ml @ 200 mls/hr IVPB Q6H [facility] Rx#:[id number] Output: Urine 2210 3150 Other: Voiding Method Indwelling Catheter Indwelling Catheter # Bowel Movements 5 - Labs CBC & Chem 7: 04/07/20 05:17 04/07/20 05:17 Labs: Abnormal Lab Results - Last 24 Hours (Table) 04/07/20 04/07/20 Range/Units 05:17 05:17 WBC 14.9 H (3.8-10.6) k/uL RBC 2.74 L (4.30-5.90) m/uL Hgb 9.1 L (13.0-17.5) gm/dL Hct 27.8 L (39.0-53.0) % MCV 101.5 H (80.0-100.0) fL Plt Count 712 H (150-450) k/uL Neutrophils # 12.4 H (1.3-7.7) k/uL Sodium 131 L (137-145) mmol/L Potassium 3.4 L (3.5-5.1) mmol/L Chloride 92 L (98-107) mmol/L Carbon Dioxide 32 H (22-30) mmol/L BUN 2 L (9-20) mg/dL Creatinine 0.38 L (0.66-1.25) mg/dL Glucose 101 H (74-99) mg/dL Calcium 7.9 L (8.4-10.2) mg/dL Magnesium 1.2 L (1.6-2.3) mg/dL Total Protein 5.2 L (6.3-8.2) g/dL Albumin 2.4 L (3.5-5.0) g/dL
[2020-04-07] MEDS ORDERED: FUROSEMIDE 10 MG/ML 4 ML VIAL IV SCH (08:30)
[2020-04-07] MEDS: APIXABAN 2.5 MG TABLET PO SCH ×2 (08:53→20:25)
[2020-04-07] MEDS: NICOTINE 21MG/24HR PATCH TRANSDERM SCH (08:53)
[2020-04-07] MEDS: METOPROLOL TARTRATE 50 MG TAB PO SCH ×2 (08:53→20:24)
[2020-04-07] MEDS: AMIODARONE 200 MG TAB PO SCH ×2 (08:53→20:24)
[2020-04-07] MEDS: PANTOPRAZOLE 40 MG/10 ML VIAL IV SCH (08:53)
[2020-04-07] MEDS: FUROSEMIDE 10 MG/ML 4 ML VIAL IV SCH ×2 (08:54→20:22)
[2020-04-07] MEDS: SODIUM FERRIC GLUCONAT-SUCROSE 125 MG in SODIUM CHLORIDE 0.9% 100 ML IVPB SCH (10:16)
[2020-04-07 10:23] VITALS: BMI 27.8
--- NOTE | 2020-04-07 11:31 | P.PN ---
Subjective Progress Note Date: 04/07/20 this is a 64-year-old male is being seen in follow-up in the intensivcare unit. Note tmitted initially for abdominal pain, status post exploratory laparotomy, small bowel resection, repair of diaphragmatic hernia, left chest tube placement. Postoperative day #4. He had initially presented with abdominal discomfort after developing constipation from pain medication being taken for from recent fall with rib fractures. He was found to have a diaphragmatic hernia with strangulated bowel. He is status post exploratory laparotomy, small bowel resection, repair of diaphragmatic hernia, placement of left chest tube. Pathology revealed acute ischemic enteritis with submucosal and mesenteric hemorrhage and vascular congestion. No evidence of malignancy. He initially was on mechanical ventilator and extubated on 03/30/2020. He is currently on 2 L nasal cannula. Chest x-ray reveals low lung volumes and chronic parenchymal changes with left-sided chest tube was removed. He has been having atrial fibrillation which is new for him. Echocardiogram revealed preserved left ventricular systolic function with ejection fraction 60-65%. He is on amiodarone drip has been discontinued and the patient was started on oral amiodarone. . Sputum culture is positive for Streptococcus pneumoniae and Haemophilus influenza. He is currently on Zosyn. On today's evaluation of 04/03/2020, the patient is sitting up on a chair. He was noted to have some increased swelling in lower extremities bilaterally and some in the upper extremities. He was receiving IV fluids at the rate of 50 mL an hour in addition to TPN for nutritional support running at 100 mL an hour. He is on 2 L of oxygen by nasal cannula with a pulse ox of 93%. He is using incentive spirometer pulling approximately 500-750. He didn't pass bowel movements. The chest x-ray from today shows no sizable pneumothorax and there is some bilateral consolidation and pleural effusions that are still present compared to the earlier chest x- ray. On today's evaluation of 62,020 and seeing Yordy for a follow-up in the intensive care unit following his abdominal surgery. As mentioned, the patient is alcoholic and he is postop day #5 with the patient underwent expiratory laparotomy and small bowel resection and repair of a diaphragmatic hernia with a left-sided chest tube insertion and subsequent removal. Earlier this morning, he felt that the patient was lethargic and weak and a bit confused. He told that he hasn't slept for several days. He told me that he typically takes alcohol to help him with his chronic insomnia. He had requested some Ativan to help him sleep as the patient was getting jittery and nervous overnight. He was having excessive swelling in all 4 extremities and especially in the lower extremities and the patient had significant third spacing. Note that the patient was given a dose of Lasix yesterday for the grams IV push following which she made adequate urine output. Nevertheless, he is overall fluid balance has been essentially positive. The patient did have a bout of atrial fibrillation yesterday and the patient is currently on oral amiodarone 400 mg by mouth twice a day and metoprolol 50 mg by mouth twice a day. His sodium level remains low at 124. Rest of the electrolytes show some mild hypokalemia with a potassium level of 3.4. Based on this, I made a decision to aggressively d iurese this patient and I put an order for Lasix 40 mg IV push every 8 hours. Within a few hours of my around, the patient became acutely unresponsive. Based on this a code stroke was called and the robot was activated. The patient was found to be quite unresponsive and lethargic and his initial NIH score was 4. The patient was having unintelligible speech and was told that the patient was aphasic in addition to confusion. No focal neurological deficit was noted. The patient was taken for a stat CAT scan of the brain and it showed mild atrophy and chronic periventricular white matter ischemic Changes. The patient also had a CT angios done that showed no flow limitation stenosis in the carotids bilaterally. There was some plaquing of the great vessels of the aortic arch mainly. There was a normal absentee-[place] of [place]. Neurology consultation has been obtained. The chest x-ray showed a stable left lung with a very tiny left apical pneumothorax and a left-sided pleural effusion in addition to some minimal amount of subcutaneous emphysema. The right basilar atelectatic changes have already resolved. The patient had a blood gases that showed a pH of 7.43 with a pCO2 of 41 and pO2 of 73 and this was done and 36% FiO2. His sodium level was 123. He was started on hypertonic saline solution at 3% normal state rate of 40 mL an hour. Close monitoring of his sodium level will be done. Consider symptomatically hyponatremia. Consider altered mentation related to electrolyte imbalance. No documented seizure activity and Neurology has been involved. On 04/05/2020, the patient is being seen for a follow-up. Is awake and alert and following commands and answering questions. No significant complaints. Is sitting up on a chair. Since yesterday, the patient had liquidy stool around 7- 10 of them. The patient has possible sounds. Surgical with a dry clean and intact. He remains on IV Unasyn. His IV fluids currently is on a hypertonic saline solution at 20 mL an hour and the patient is receiving IV Lasix 40 mg every 8 hours. He is also on a hypertonic saline solution 20 mL an hour. There has been gradual improvement in his sodium level which is up to 126 on today's evaluation and the patient's sodium level is being monitored very closely as the patient has chronic hyponatremia. Mental status improved significantly and the patient is back to normal. There noted improvement in the peripheral edema. He is taking oral material and for that reason the TPN will be discontinued and stool for C. diff will be checked. No other complaints otherwise. Is awake and alert and he is using incentive spirometer. He is afebrile. Ammonia level was less than 9 from yesterday. On 04/06/2020 the patient is doing well. No complaints. Sitting up on a chair. Still being diuresed with IV Lasix. Hypertonic saline solution was discontinued as the patient's sodium level is up to 128. Abdominal incision is having some minimal amount of serous drainage. No erythema. No signs of infection. He was weaned off and he was placed on room air oxygen with a pulse of 71-92%. No IV fluids which are currently at KVO. He is using incentive spirometer at 7 50 mL and the patient is a dynamically stable. The patient is producing stool. No altered mentation. He is gradually getting stronger. On 04/07/2020 I'm seeing the patient for a follow-up. Doing well-appearing no complaints. Resting comfortably in bed. Multivitamin distress. Sodium level is up 131. As stated earlier, he was given hypertonic saline that was ultimately discontinued and the patient is currently on IV Lasix. He is in a negative fluid balance. He is improving in terms of his fluid retention and lower extremity edema. He is 5 L in a negative fluid balance over the past 24 hours. He is taking Lasix 40 mg every 8 hours IV and this is to be modified to twice a day. Surgical wound site is dry clean and intact. He is passing stool. He is tolerating diet. He is on IV fluids at KVO. Using incentive spirometer. No fever or chills. Nausea for pain control. Remains on IV Unasyn. He is on long-term anticoagulation with Eliquis for atrial fibrillation. Objective - Vital Signs Vital signs: Vital Signs Temp 98.8 F 04/06/20 22:54 Pulse 84 04/07/20 11:11 Resp 18 04/06/20 22:54 BP 111/74 04/06/20 22:54 Pulse Ox 92 L 04/06/20 22:54 Intake & Output 04/06/20 04/07/20 04/07/20 18:59 06:59 18:59 Intake Total 110 200 Output Total 2210 3150 Balance -2100 -2950 Weight 83.1 kg 83.1 kg Intake: IV 110 200 .9 NS 10 Ampicillin-Sulbactam 3 gm 100 200 In Sodium Chloride 0.9% 100 ml @ 200 mls/hr IVPB Q6H [facility] Rx#:[id number] Output: Urine 2210 3150 Other: Voiding Method Indwelling Catheter Indwelling Catheter Indwelling Catheter # Bowel Movements 5 - Exam GENERAL EXAM: Alert, pleasant 64-year-old gentleman, . and the patient is currently on room air oxygen, comfortable hemodynamically stable awake and alert following commands and answering questions appropriately. HEAD: Normocephalic. EYES: Normal reaction of pupils, equal size. NOSE: Clear with pink turbinates. THROAT: No erythema or exudates. NECK: No masses, no JVD. CHEST: Left chest tube remains in place. LUNGS: Equal air entry with few scattered rhonchi, crackles in the bases. CVS: S1 and S2 normal with no audible murmur, regular rhythm. ABDOMEN: Abdominal dressing dry and intact. Binder in place. No active bowel sounds. The patient has no abdominal drains. The patient has bowel sounds in all 4 quadrants. He was passing bowel movements. No direct tenderness. No rebound tenderness. No guarding. SPINE: No scoliosis or deformity SKIN: No rashes CENTRAL NERVOUS SYSTEM: awake and oriented 3 without any focal neurological deficit. Pupils are equal and reactive to light. No nystagmus. No preferential gaze. No facial asymmetry. EXTREMITIES: There is significant peripheral edema in all 4 extremities.. No clubbing, no cyanosis. Peripheral pulses are intact. - Labs CBC & Chem 7: 04/07/20 05:17 04/07/20 05:17 Labs: Abnormal Lab Results - Last 24 Hours (Table) 04/07/20 04/07/20 Range/Units 05:17 05:17 WBC 14.9 H (3.8-10.6) k/uL RBC 2.74 L (4.30-5.90) m/uL Hgb 9.1 L (13.0-17.5) gm/dL Hct 27.8 L (39.0-53.0) % MCV 101.5 H (80.0-100.0) fL Plt Count 712 H (150-450) k/uL Neutrophils # 12.4 H (1.3-7.7) k/uL Sodium 131 L (137-145) mmol/L Potassium 3.4 L (3.5-5.1) mmol/L Chloride 92 L (98-107) mmol/L Carbon Dioxide 32 H (22-30) mmol/L BUN 2 L (9-20) mg/dL Creatinine 0.38 L (0.66-1.25) mg/dL Glucose 101 H (74-99) mg/dL Calcium 7.9 L (8.4-10.2) mg/dL Magnesium 1.2 L (1.6-2.3) mg/dL Total Protein 5.2 L (6.3-8.2) g/dL Albumin 2.4 L (3.5-5.0) g/dL Assessment and Plan Plan: 1 Abdominal pain secondary to strangulated diaphragmatic hernia, status post ex ploratory laparotomy, small bowel resection, repair of diaphragmatic hernia and placement of the left chest tube with subsequent removal on 04/01/2020. This is postoperative day # 9. Still on IV Unasyn. Tolerating diet 2 Acute hypoxemic respiratory failure secondary to above, extubated on 03/30 . Sputum cultures positive for Streptococcus pneumoniae and Haemophilus influenza, and the patient has significant consolidation of the lung bases left more than right, with subsequent improvement. The patient is currently on room air oxygen. Using incentive spirometer. 3 Recent admission for left chest wall pain and rib fractures status post fall requiring narcotics and subsequent constipation. Noted the patient was in the hospital approximately 10 days ago where the patient was admitted with left- sided rib fractures and the patient was found also to be hyponatremic attributed to alcohol drinking. 4 altered mentation possibly related to symptomatic hyponatremia. The sodium l evel is improved and the patient's mentation has normalized. The mental status is currently within normal limits. 5 History of alcohol abuse 6 Chronic tobacco dependence 7 History of previous GI bleeding, gastritis and duodenitis 8 Hypertension 9 History of hiatal hernia 10 New-onset atrial fibrillation, currently on by mouth amiodarone and the patient is also on long-term articulation with Eliquis. 11 chronic hyponatremia, currently sodium level up to normal levels Plan Continued IV Lasix and the patient continues to have some edema in lower extremities bilaterally. The patient is receiving 40 mg every 8 hours. I'm going to reduce the dose to 40 g every 4 hours as the patient is aggressively diuresing and is at least 5 L negative over the past 24 hours. Aggressive pulmonary toileting Continue IV Unasyn Advance diet as tolerated Surgical wound site is dry clean and intact Monitor the sodium level Continue oral amiodarone and metoprolol and Eliquis The patient can be downgraded to medical surgical floor transferred
--- NOTE | 2020-04-07 15:44 | PN ---
PROGRESS NOTE Patient is seen for followup for hyponatremia which was mainly hypervolemic and currently improving with IV Lasix. Patient was admitted to the hospital, status post fall. He had strangulated diaphragmatic hernia and is status post repair of the diaphragmatic hernia status post explorative laparotomy on 03/29/2020. Patient also had bowel resection. This morning he is awake, comfortable. He is not in any acute distress. Blood pressure was 111/74, heart rate 85 per minute, he is afebrile. Examination of the heart S1, S2. Examination of the lungs, decreased breath sounds at bases. Abdomen is soft, nontender. Examination of the lower extremities shows edema 2+ bilaterally. 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 LABS: Show sodium 131, potassium 3.4, chloride 92, BUN 2, serum creatinine 0.38, hemoglobin 9.1 g/dL. ASSESSMENT: 1. Hypervolemic hyponatremia, currently improving with IV Lasix. Continue to maintain patient off sodium chloride tabs. He is off 3% saline as well. Encourage increased oral intake. 2. Hypokalemia being replaced. 3. Status post fall with strangulated diaphragmatic hernia, status post explorative laparotomy and bowel resection on 03/29/2020. 4. Left pneumothorax, status post left chest tube placement and removal. 5. Pneumonia with sputum culture positive for Streptococcus pneumoniae and Haemophilus influenzae, maintained on antibiotics. 6. Paroxysmal atrial fibrillation with controlled rate, maintained on amiodarone and metoprolol. 7. Anemia with severe iron deficiency maintained on IV iron. PLAN: Continue with IV Lasix replace potassium repeat labs in a.m. MMODL / IJN: [id number] /
--- NOTE | 2020-04-07 16:26 | PN ---
PROGRESS NOTE DATE OF SERVICE: 04/07/2020 REASON FOR FOLLOWUP: Aspiration pneumonia. INTERVAL HISTORY: The patient is currently afebrile, has been breathing comfortably. Denies having any chest pain or shortness of breath. Occasional cough. Abdominal pain is currently controlled. No nausea, no vomiting. PHYSICAL EXAMINATION: Blood pressure 130/83 with a pulse of 93, temperature 97.9. He is 95% on room air. General description is an elderly male, up in the bed in no distress. RESPIRATORY SYSTEM: Unlabored breathing, decreased breath sounds at bases. No wheeze. HEART: S1, S2. Regular rate and rhythm. ABDOMEN: Soft no tenderness. LABS: Hemoglobin 9.8, white count of 14.9, creatinine 0.38. DIAGNOSTIC IMPRESSION AND PLAN: Patient with step pneumo in her mouth with influenza pneumonia concern for possible aspiration etiology. The patient is currently on Unasyn to continue therapy with oral Augmentin 5 b.i.d. for about a week and close outpatient followup. MMODL / IJN: [id number] /
--- NOTE | 2020-04-07 16:38 | P.PN ---
Progress Note - Text Progress Note Date: 04/07/20 - Chief Complaint Abdominal pain Consultation: This is a pleasant 64-year-old patient who follows a Dr. Michel. Patient long- standing history of smoking and drinking significant amount of alcohol. Chronic stable conditions also include nicotine dependence, gastritis duodenitis as per EGD in 2019. Patient is having the hospital about 7 days ago he took a fall was admitted with left-sided rib fractures 4 to-5 drips also found to be severely hyponatremic. Patient is doing well at the time of discharge. Patient now presents with worsening abdominal pain going on for close to a week. Has not had a bowel movement since then. End patient's abdominal pain was progressively getting worse. He also noticed some bruising to the left lower abdomen for the last couple of days. Denied any fever and chills. Some nausea. Patient was taken to the operating room by Dr. Rowe last night. Found to strangulate a diaphragmatic hernia. Does some blood in the peritoneal cavity. The hernia containing small bowel. Patient about 40% of the small bowel within the left chest and ischemia to strangulate of the small bowel. About 1 L of bloody fluid was aspirated from the left chest. Patient is currently in the ICU. Has a midline dressing. In the abdomen. Left chest tube to suction. Recently went into atrial fibrillation with rapid ventricular rate. Put on IV amiodarone. Left chest tube was pulled out. Patient had become hypoxic lethargic. Computed tomography scan of the brain was negative for stroke. When I followed overload. Proceed IV Lasix. Responded well. Also has pneumonia treated with antibiotics. Also received hypertonic saline for hyponatremia. Also started on eliquis. Today-ICU. . Intake of about 75% breakfast. some loose stools. Abdominal pain is better. For more awake. On room air. Review of systems: Done for constitutional, cardiovascular, GI, pulmonary. relevant finding as above Active Medications Acetaminophen (Tylenol Tab) 650 mg PO Q4HR PRN PRN Reason: Fever and/or Mild Pain Last Admin: 04/05/20 17:05 Dose: 650 mg Documented by: Albuterol/Ipratropium (Duoneb 0.5 Mg-3 Mg/3 Ml Soln) 3 ml INHALATION RT-Q2H PRN PRN Reason: Shortness Of Breath Or Wheezing Albuterol/Ipratropium (Duoneb 0.5 Mg-3 Mg/3 Ml Soln) 3 ml INHALATION RT-QID [facility] Last Admin: 04/07/20 15:21 Dose: 3 ml Documented by: Amiodarone HCl (Cordarone) 400 mg PO BID [facility] Last Admin: 04/07/20 08:53 Dose: 400 mg Documented by: Apixaban (Eliquis) 2.5 mg PO BID [facility] Last Admin: 04/07/20 08:53 Dose: 2.5 mg Documented by: Furosemide (Lasix) 40 mg IV Q12H [facility] Last Admin: 04/07/20 08:54 Dose: 40 mg Documented by: Hydromorphone HCl (Dilaudid) 0.5 mg IVP Q3HR PRN PRN Reason: Moderate to Severe Pain Last Admin: 04/03/20 03:16 Dose: 0.5 mg Documented by: Hydromorphone HCl (Dilaudid) 1 mg IVP Q2HR PRN PRN Reason: Severe Pain Last Admin: 04/05/20 00:44 Dose: 1 mg Documented by: Ampicillin Sodium/Sulbactam (Sodium 3 gm/ Sodium Chloride) 100 mls @ 200 mls/hr IVPB Q6H [facility] Last Admin: 04/07/20 16:24 Dose: 200 mls/hr Documented by: Ferric Sodium Gluconate 125 mg (/ Sodium Chloride) 110 mls @ 100 mls/hr IVPB DAILY [facility] Stop: 04/09/20 23:59 Last Admin: 04/07/20 10:16 Dose: 100 mls/hr Documented by: Lorazepam (Ativan) 1 mg IV Q8HR PRN PRN Reason: Anxiety Last Admin: 04/04/20 09:15 Dose: 1 mg Documented by: Melatonin (Melatonin) 3 mg PO HS PRN PRN Reason: Insomnia Last Admin: 04/06/20 20:11 Dose: 3 mg Documented by: Metoprolol Tartrate (Lopressor) 100 mg PO BID [facility] Last Admin: 04/07/20 08:53 Dose: 100 mg Documented by: Miscellaneous Information (Potassium Per Protocol) 1 each MISCELLANE DAILY PRN; Protocol PRN Reason: Per Protocol Miscellaneous Information (Magnesium Per Protocol) 1 each MISCELLANE DAILY PRN; Protocol PRN Reason: Per Protocol Miscellaneous Information (Potassium Per Protocol) 1 each MISCELLANE DAILY PRN; Protocol PRN Reason: Per Protocol Naloxone HCl (Narcan) 0.2 mg IV Q2M PRN PRN Reason: Opioid Reversal Nicotine (Habitrol 21mg/24hr Patch) 1 patch TRANSDERM DAILY [facility] Last Admin: 04/07/20 08:53 Dose: 1 patch Documented by: Ondansetron HCl (Zofran) 4 mg IVP Q8HR PRN PRN Reason: Nausea And Vomiting Last Admin: 04/02/20 10:05 Dose: 4 mg Documented by: Pantoprazole Sodium (Protonix) 40 mg IV DAILY [facility] Last Admin: 04/07/20 08:53 Dose: 40 mg Documented by: Sodium Chloride (Deep Sea) 2 spray NASAL QID PRN PRN Reason: Dry Nasal Passages Physical examination: VITAL SIGNS: 97.9, 87, 18, 130/83, 95% on room air GENERAL: Sitting upon a chair, awake more comfortable EYES: Pupils equal. Conjunctiva normal. HEENT: External appearance of nose and ears normal, oral cavity grossly normal. NECK: JVD not raised; masses not palpable. HEART: Heart sounds irregular; mild edema LUNGS: Respiratory rate increased, decreased breath sounds ABDOMEN: Less Tender, no guarding or rigidity, dressing over midline incision, liver spleen not palpable, no masses palpable. [place] catheter. PSYCH: Alert and she, more affect anxious . INVESTIGATIONS, reviewed in the clinical context: White count 14.9 hemoglobin 9.1 potassium 3.4 creatinine 0.38 albumin 2.4 Admission testing: Computed tomography scan of the chest abdomen-large left-sided diaphragmatic hernia which contains multiple thickened loops of small bowel with a haziness entry, hemoperitoneum was noted, large left-sided pleural effusion, multiple left-sided rib fracture White count 16.4 hemoglobin 13.1 sodium 126 potassium 4.4 creatinine 0.45-upon presentation 2-D echocardiogram-moderate concentric LVH, EF 60-65% serum osmolality-260 Assessment: -Acute change in mental status with some delirium possibly could be from alcohol withdrawal syndrome/DTs patient does drink a significant amount of alcohol, patient's sodium has been running low for quite a while that could be contributing.-Improved -Acute pulmonary edema-improved -Acute hypoxic respiratory failure,-respond to Lasix-improved to room air -Acute strangulate diaphragmatic hernia with small bowel loops with ischemia strangulate the small bowel-status post surgery -Chronic nicotine dependence patient cigarette smoker -Chronic alcohol use disorder -Hyponatremia suspect hypoosmolar -, on hypertonic saline, improving -Chronic gastritis, duodenitis from alcoholism -GERD -Essential hypertension -Multiple left-sided fractures from recent falls -Hemoperitoneum from ischemic bowel -Hypoglycemia from alcoholism and decreased oral intake-corrected -Paroxysmal atrial fibrillation with rapid ventricular rate. Has been in and out of atrial fibrillation. On amiodarone.- -Alcohol dependence syndrome -Pneumonia from Streptococcus pneumoniae and Haemophilus influenza Plan: Patient carries to improve slowly. Sodium is coming up.. He was on IV Unasyn. Bronchodilators. On atelectasis. Change the patient to oral PPI.
[2020-04-07] MEDS ORDERED: PROPOFOL 100 ML IV ONE (18:04)
[2020-04-07] MEDS: PANTOPRAZOLE 40 MG TABLET PO SCH (19:37)
[2020-04-07] MEDS: AMOXIC-POT CLAV 500-125 MG 1 EACH TAB PO SCH (20:25)
[2020-04-07] MEDS: MELATONIN 3 MG TABLET PO PRN (20:36)
[2020-04-07 23:14] VITALS: RESP 16
[2020-04-08 05:04] LABS: Basophils % (A) 0 %; Eosinophils # (A) 0.2 k/uL (0-0.7); Eosinophils % (A) 1 %; HCT 26.2 % (39.0-53.0); HGB 8.2 gm/dL (13.0-17.5); Hypochromasia Moderate; Lymphocytes # (A) 1.4 k/uL (1.0-4.8); Lymphocytes % (A) 12 %; MCH 32.3 pg (25.0-35.0); MCHC 31.4 g/dL (31.0-37.0); MCV 102.8 fL (80.0-100.0); Macrocytosis Slight; Mean Platelet Volume 6.6; Monocytes # (A) 0.7 k/uL (0-1.0); Monocytes % (A) 6 %; Neutrophils # (A) 9.3 k/uL (1.3-7.7); Neutrophils % (A) 78 %; Platelet Count 728 k/uL (150-450); Poikilocytosis Slight; RBC 2.55 m/uL (4.30-5.90); RDW 13.9 % (11.5-15.5); WBC 11.8 k/uL (3.8-10.6)
[2020-04-08 05:13] LABS: ALT 16 U/L (4-49); AST 29 U/L (17-59); African American GFR (CKD) >90 (>60 ml/min/1.73 sqM); Albumin 2.2 g/dL (3.5-5.0); Alkaline Phosphatase 81 U/L (38-126); Anion Gap 3 mmol/L; Blood Urea Nitrogen 3 mg/dL (9-20); Carbon Dioxide 35 mmol/L (22-30); Chloride 92 mmol/L (98-107); Glucose 102 mg/dL (74-99); Magnesium 1.4 mg/dL (1.6-2.3); Non-African American GFR(CKD) >90 (>60 ml/min/1.73 sqM); Potassium 3.3 mmol/L (3.5-5.1); Sodium 130 mmol/L (137-145); Total Bilirubin 0.3 mg/dL (0.2-1.3); Total Protein 4.7 g/dL (6.3-8.2)
[2020-04-08] MEDS: POTASSIUM CHLORIDE ER 20 MEQ TAB.ER PO SCH ×2 (05:40→08:24)
[2020-04-08] MEDS: IPRATROPIUM-ALBUTEROL 3 ML NEB INHALATION SCH ×2 (07:46→11:26)
[2020-04-08] MEDS: NICOTINE 21MG/24HR PATCH TRANSDERM SCH (08:20)
[2020-04-08] MEDS: APIXABAN 2.5 MG TABLET PO SCH (08:25)
[2020-04-08] MEDS: AMOXIC-POT CLAV 500-125 MG 1 EACH TAB PO SCH (08:25)
[2020-04-08] MEDS: AMIODARONE 200 MG TAB PO SCH (08:25)
[2020-04-08] MEDS: PANTOPRAZOLE 40 MG TABLET PO SCH (08:25)
[2020-04-08] MEDS: METOPROLOL TARTRATE 50 MG TAB PO SCH (08:25)
[2020-04-08] MEDS ORDERED: FUROSEMIDE 40 MG TAB PO SCH (09:00)
[2020-04-08] MEDS: SODIUM FERRIC GLUCONAT-SUCROSE 125 MG in SODIUM CHLORIDE 0.9% 100 ML IVPB SCH (09:27)
--- NOTE | 2020-04-08 11:06 | P.PN ---
Subjective Progress Note Date: 04/08/20 Principal diagnosis: This is a 64-year-old followed up for chronic hyponatremia. Currently he is being treated as hypervolemic hyponatremia with diuretics. His Lasix was changed from 40 IV every 12 to 40 mg by mouth today. He has poor appetite. His urine output is 6 L, he has lost 10 kg since last 4 days since admission. No shortness of breath dizziness is able to walk. No headache, shortness of breath fever chills abdominal pain no diarrhea no nausea vomiting Objective - Vital Signs Vital signs: Vital Signs Temp 97.8 F 04/08/20 07:00 Pulse 85 04/08/20 08:00 Resp 16 04/08/20 07:00 BP 123/66 04/08/20 07:00 Pulse Ox 96 04/08/20 07:00 Intake & Output 04/07/20 04/08/20 04/08/20 18:59 06:59 18:59 Intake Total 500 Output Total 550 Balance -50 Weight 83.1 kg 82.5 kg Intake: Oral 500 Output: Urine 550 Other: Voiding Method Indwelling Catheter Indwelling Catheter Examination awake alert oriented comfortable HEENT exam no JVP neck is supple no facial asymmetry Lungs are clear to auscultation with good air entry bilaterally Heart sounds are unremarkable no murmur rub gallop Abdomen soft nontender Extremity exam was moderate edema Neurologically awake alert oriented Patient would like to go home - Labs CBC & Chem 7: 04/08/20 04:32 04/08/20 04:32 Labs: Abnormal Lab Results - Last 24 Hours (Table) 04/08/20 04/08/20 Range/Units 04:32 04:32 WBC 11.8 H (3.8-10.6) k/uL RBC 2.55 L (4.30-5.90) m/uL Hgb 8.2 L (13.0-17.5) gm/dL Hct 26.2 L (39.0-53.0) % MCV 102.8 H (80.0-100.0) fL Plt Count 728 H (150-450) k/uL Neutrophils # 9.3 H (1.3-7.7) k/uL Sodium 130 L (137-145) mmol/L Potassium 3.3 L (3.5-5.1) mmol/L Chloride 92 L (98-107) mmol/L Carbon Dioxide 35 H (22-30) mmol/L BUN 3 L (9-20) mg/dL Creatinine 0.40 L (0.66-1.25) mg/dL Glucose 102 H (74-99) mg/dL Calcium 8.0 L (8.4-10.2) mg/dL Magnesium 1.4 L (1.6-2.3) mg/dL Total Protein 4.7 L (6.3-8.2) g/dL Albumin 2.2 L (3.5-5.0) g/dL Assessment and Plan Assessment: Impression 1. Chronic hyponatremia, currently hypervolemic with edema. With Lasix improved from 126-131 yesterday and today to 1:30. There is no TSH available in the previous hospitalization here in this EMR 2. Mild element of metabolic alkalosis with bicarb of 35, secondary to diuresis 3. Mild hypokalemia secondary to diuresis, also from low magnesium at 1.4 4. Small effusion on the left. Chest x-ray unchanged 5. Iron deficiency on Venofer. 6. Anemia hemoglobin went down to 8.2. 7. Status post exploratory laparotomy and small bowel resection for diaphragmatic hernia dated 03/29/2020 Recommendation 1. Patient likes to be discharged. He is currently on 40 of Lasix by mouth 2. He would need to be followed up with electrolytes been one or 2 days or the current 40 mg of Lasix by mouth. Also his bicarb is to be followed up. 3. He'll need potassium replacement of about 40 mEq 4. Magnesium sulfate 4 g before he goes home
--- NOTE | 2020-04-08 11:36 | P.PN ---
Subjective Progress Note Date: 04/08/20 this is a 64-year-old male is being seen in follow-up in the intensivcare unit. Note tmitted initially for abdominal pain, status post exploratory laparotomy, small bowel resection, repair of diaphragmatic hernia, left chest tube placement. Postoperative day #4. He had initially presented with abdominal discomfort after developing constipation from pain medication being taken for from recent fall with rib fractures. He was found to have a diaphragmatic hernia with strangulated bowel. He is status post exploratory laparotomy, small bowel resection, repair of diaphragmatic hernia, placement of left chest tube. Pathology revealed acute ischemic enteritis with submucosal and mesenteric hemorrhage and vascular congestion. No evidence of malignancy. He initially was on mechanical ventilator and extubated on 03/30/2020. He is currently on 2 L nasal cannula. Chest x-ray reveals low lung volumes and chronic parenchymal changes with left-sided chest tube was removed. He has been having atrial fibrillation which is new for him. Echocardiogram revealed preserved left ventricular systolic function with ejection fraction 60-65%. He is on amiodarone drip has been discontinued and the patient was started on oral amiodarone. . Sputum culture is positive for Streptococcus pneumoniae and Haemophilus influenza. He is currently on Zosyn. On today's evaluation of 04/03/2020, the patient is sitting up on a chair. He was noted to have some increased swelling in lower extremities bilaterally and some in the upper extremities. He was receiving IV fluids at the rate of 50 mL an hour in addition to TPN for nutritional support running at 100 mL an hour. He is on 2 L of oxygen by nasal cannula with a pulse ox of 93%. He is using incentive spirometer pulling approximately 500-750. He didn't pass bowel movements. The chest x-ray from today shows no sizable pneumothorax and there is some bilateral consolidation and pleural effusions that are still present compared to the earlier chest x- ray. On today's evaluation of 62,020 and seeing Yordy for a follow-up in the intensive care unit following his abdominal surgery. As mentioned, the patient is alcoholic and he is postop day #5 with the patient underwent expiratory laparotomy and small bowel resection and repair of a diaphragmatic hernia with a left-sided chest tube insertion and subsequent removal. Earlier this morning, he felt that the patient was lethargic and weak and a bit confused. He told that he hasn't slept for several days. He told me that he typically takes alcohol to help him with his chronic insomnia. He had requested some Ativan to help him sleep as the patient was getting jittery and nervous overnight. He was having excessive swelling in all 4 extremities and especially in the lower extremities and the patient had significant third spacing. Note that the patient was given a dose of Lasix yesterday for the grams IV push following which she made adequate urine output. Nevertheless, he is overall fluid balance has been essentially positive. The patient did have a bout of atrial fibrillation yesterday and the patient is currently on oral amiodarone 400 mg by mouth twice a day and metoprolol 50 mg by mouth twice a day. His sodium level remains low at 124. Rest of the electrolytes show some mild hypokalemia with a potassium level of 3.4. Based on this, I made a decision to aggressively d iurese this patient and I put an order for Lasix 40 mg IV push every 8 hours. Within a few hours of my around, the patient became acutely unresponsive. Based on this a code stroke was called and the robot was activated. The patient was found to be quite unresponsive and lethargic and his initial NIH score was 4. The patient was having unintelligible speech and was told that the patient was aphasic in addition to confusion. No focal neurological deficit was noted. The patient was taken for a stat CAT scan of the brain and it showed mild atrophy and chronic periventricular white matter ischemic Changes. The patient also had a CT angios done that showed no flow limitation stenosis in the carotids bilaterally. There was some plaquing of the great vessels of the aortic arch mainly. There was a normal upper [place] of [place]. Neurology consultation has been obtained. The chest x-ray showed a stable left lung with a very tiny left apical pneumothorax and a left-sided pleural effusion in addition to some minimal amount of subcutaneous emphysema. The right basilar atelectatic changes have already resolved. The patient had a blood gases that showed a pH of 7.43 with a pCO2 of 41 and pO2 of 73 and this was done and 36% FiO2. His sodium level was 123. He was started on hypertonic saline solution at 3% normal state rate of 40 mL an hour. Close monitoring of his sodium level will be done. Consider symptomatically hyponatremia. Consider altered mentation related to electrolyte imbalance. No documented seizure activity and Neurology has been involved. On 04/05/2020, the patient is being seen for a follow-up. Is awake and alert and following commands and answering questions. No significant complaints. Is sitting up on a chair. Since yesterday, the patient had liquidy stool around 7- 10 of them. The patient has possible sounds. Surgical with a dry clean and intact. He remains on IV Unasyn. His IV fluids currently is on a hypertonic saline solution at 20 mL an hour and the patient is receiving IV Lasix 40 mg every 8 hours. He is also on a hypertonic saline solution 20 mL an hour. There has been gradual improvement in his sodium level which is up to 126 on today's evaluation and the patient's sodium level is being monitored very closely as the patient has chronic hyponatremia. Mental status improved significantly and the patient is back to normal. There noted improvement in the peripheral edema. He is taking oral material and for that reason the TPN will be discontinued and stool for C. diff will be checked. No other complaints otherwise. Is awake and alert and he is using incentive spirometer. He is afebrile. Ammonia level was less than 9 from yesterday. On 04/06/2020 the patient is doing well. No complaints. Sitting up on a chair. Still being diuresed with IV Lasix. Hypertonic saline solution was discontinued as the patient's sodium level is up to 128. Abdominal incision is having some minimal amount of serous drainage. No erythema. No signs of infection. He was weaned off and he was placed on room air oxygen with a pulse of 71-92%. No IV fluids which are currently at KVO. He is using incentive spirometer at 7 50 mL and the patient is a dynamically stable. The patient is producing stool. No altered mentation. He is gradually getting stronger. On 04/07/2020 I'm seeing the patient for a follow-up. Doing well-appearing no complaints. Resting comfortably in bed. Multivitamin distress. Sodium level is up 131. As stated earlier, he was given hypertonic saline that was ultimately discontinued and the patient is currently on IV Lasix. He is in a negative fluid balance. He is improving in terms of his fluid retention and lower extremity edema. He is 5 L in a negative fluid balance over the past 24 hours. He is taking Lasix 40 mg every 8 hours IV and this is to be modified to twice a day. Surgical wound site is dry clean and intact. He is passing stool. He is tolerating diet. He is on IV fluids at KVO. Using incentive spirometer. No fever or chills. Nausea for pain control. Remains on IV Unasyn. He is on long-term anticoagulation with Eliquis for atrial fibrillation. On 04/08/2020, the patient has no new complaints. Lower extremity edema has improved significantly and the patient is producing significant amount of urine output and the patient is being diuresis with IV Lasix. He has diuresed more than 7 L negative fluid balance over the past 24 hours. Surgical wound site is dry clean and intact. Is back to normal diet. No nausea. No vomiting. No abdominal pain. No fever. No chills. No night sweats. He is currently on oral Augmentin and IV Unasyn has been discontinued. No signs of any delirium tremens. He is on long-term articulation with Eliquis. His cardiac rhythm is atrial fibrillation. Objective - Vital Signs Vital signs: Vital Signs Temp 97.8 F 04/08/20 07:00 Pulse 89 04/08/20 11:27 Resp 16 04/08/20 07:00 BP 123/66 04/08/20 07:00 Pulse Ox 96 04/08/20 07:00 Intake & Output 04/07/20 04/08/20 04/08/20 18:59 06:59 18:59 Intake Total 500 Output Total 550 Balance -50 Weight 83.1 kg 82.5 kg Intake: Oral 500 Output: Urine 550 Other: Voiding Method Indwelling Catheter Indwelling Catheter Indwelling Catheter - Exam GENERAL EXAM: Alert, pleasant 64-year-old gentleman, . and the patient is currently on room air oxygen, comfortable hemodynamically stable awake and alert following commands and answering questions appropriately. HEAD: Normocephalic. EYES: Normal reaction of pupils, equal size. NOSE: Clear with pink turbinates. THROAT: No erythema or exudates. NECK: No masses, no JVD. CHEST: Left chest tube remains in place. LUNGS: Equal air entry with few scattered rhonchi, crackles in the bases. CVS: S1 and S2 normal with no audible murmur, regular rhythm. ABDOMEN: Abdominal dressing dry and intact. Binder in place. No active bowel sounds. The patient has no abdominal drains. The patient has bowel sounds in all 4 quadrants. He was passing bowel movements. No direct tenderness. No rebound tenderness. No guarding. SPINE: No scoliosis or deformity SKIN: No rashes CENTRAL NERVOUS SYSTEM: awake and oriented 3 without any focal neurological deficit. Pupils are equal and reactive to light. No nystagmus. No preferential gaze. No facial asymmetry. EXTREMITIES: There is significant improvement in the peripheral edema in all 4 extremities.. No clubbing, no cyanosis. Peripheral pulses are intact. - Labs CBC & Chem 7: 04/08/20 04:32 04/08/20 04:32 Labs: Abnormal Lab Results - Last 24 Hours (Table) 04/08/20 04/08/20 Range/Units 04:32 04:32 WBC 11.8 H (3.8-10.6) k/uL RBC 2.55 L (4.30-5.90) m/uL Hgb 8.2 L (13.0-17.5) gm/dL Hct 26.2 L (39.0-53.0) % MCV 102.8 H (80.0-100.0) fL Plt Count 728 H (150-450) k/uL Neutrophils # 9.3 H (1.3-7.7) k/uL Sodium 130 L (137-145) mmol/L Potassium 3.3 L (3.5-5.1) mmol/L Chloride 92 L (98-107) mmol/L Carbon Dioxide 35 H (22-30) mmol/L BUN 3 L (9-20) mg/dL Creatinine 0.40 L (0.66-1.25) mg/dL Glucose 102 H (74-99) mg/dL Calcium 8.0 L (8.4-10.2) mg/dL Magnesium 1.4 L (1.6-2.3) mg/dL Total Protein 4.7 L (6.3-8.2) g/dL Albumin 2.2 L (3.5-5.0) g/dL Assessment and Plan Plan: 1 Abdominal pain secondary to strangulated diaphragmatic hernia, status post exploratory laparotomy, small bowel resection, repair of diaphragmatic hernia and placement of the left chest tube with subsequent removal on 04/01/2020. This is postoperative day # 10. The patient is currently on regular diet. The patient is emanating. Surgical wound is dry clean and intact. No active issues for now and his resuming his normal activities. 2 Acute hypoxemic respiratory failure secondary to above, extubated on 0 03/30/2020 . Sputum cultures positive for Streptococcus pneumoniae and Haemophilus influenza, and the patient has significant consolidation of the lung bases left more than right, with subsequent improvement. The patient is currently on room air oxygen. Using incentive spirometer. The patient is currently on room air oxygen without having any major respiratory difficulties for now. 3 Recent admission for left chest wall pain and rib fractures status post fall requiring narcotics and subsequent constipation. Noted the patient was in the hospital approximately 10 days ago where the patient was admitted with left- sided rib fractures and the patient was found also to be hyponatremic attributed to alcohol drinking. 4 altered mentation recovered 5 History of alcohol abuse 6 Chronic tobacco dependence 7 History of previous GI bleeding, gastritis and duodenitis 8 Hypertension 9 History of hiatal hernia 10 New-onset atrial fibrillation, currently on by mouth amiodarone and the p atient is also on long-term articulation with Eliquis. 11 chronic hyponatremia, currently sodium level up to normal levels Plan Switch this patient to oral Lasix 40 mg by mouth daily Switch this patient to oral Augmentin Aggressive pulmonary toileting Advance diet as tolerated Surgical wound site is dry clean and intact Monitor the sodium level Continue oral amiodarone and metoprolol and Eliquis The patient can be downgraded to medical surgical floor transferred, even be cleared for discharge if surgery and the rest of the medical team is agreeable.
[2020-04-08 11:47] VITALS: PULSE 88
--- NOTE | 2020-04-08 13:02 | P.PN ---
Subjective Progress Note Date: 04/08/20 Principal diagnosis: Traumatic diaphragmatic injury Patient doing well today. He is very anxious to go home. Tolerating diet. Good bowel function. Did have some drainage from his incision. White blood cell count 11.8, hemoglobin 8.2. Electrolytes somewhat low being replaced. Objective - Vital Signs Vital signs: Vital Signs Temp 97.8 F 04/08/20 07:00 Pulse 88 04/08/20 11:46 Resp 16 04/08/20 07:00 BP 123/66 04/08/20 07:00 Pulse Ox 96 04/08/20 07:00 Intake & Output 04/07/20 04/08/20 04/08/20 18:59 06:59 18:59 Intake Total 500 Output Total 550 Balance -50 Weight 83.1 kg 82.5 kg Intake: Oral 500 Output: Urine 550 Other: Voiding Method Indwelling Catheter Indwelling Catheter Indwelling Catheter - Exam Abdomen: Soft, nondistended, some seropurulent fluid from the mid aspect of incision, 2 boyd removed, wound opened, seropurulent fluid evacuated small in volume. No fascial defect noted. Wound repacked with wet-to-dry. - Labs CBC & Chem 7: 04/08/20 04:32 04/08/20 04:32 Labs: Abnormal Lab Results - Last 24 Hours (Table) 04/08/20 04/08/20 Range/Units 04:32 04:32 WBC 11.8 H (3.8-10.6) k/uL RBC 2.55 L (4.30-5.90) m/uL Hgb 8.2 L (13.0-17.5) gm/dL Hct 26.2 L (39.0-53.0) % MCV 102.8 H (80.0-100.0) fL Plt Count 728 H (150-450) k/uL Neutrophils # 9.3 H (1.3-7.7) k/uL Sodium 130 L (137-145) mmol/L Potassium 3.3 L (3.5-5.1) mmol/L Chloride 92 L (98-107) mmol/L Carbon Dioxide 35 H (22-30) mmol/L BUN 3 L (9-20) mg/dL Creatinine 0.40 L (0.66-1.25) mg/dL Glucose 102 H (74-99) mg/dL Calcium 8.0 L (8.4-10.2) mg/dL Magnesium 1.4 L (1.6-2.3) mg/dL Total Protein 4.7 L (6.3-8.2) g/dL Albumin 2.2 L (3.5-5.0) g/dL Assessment and Plan (1) Diaphragmatic hernia Narrative/Plan: Patient anxious to go home today. He is tolerating his diet. He does have a small superficial wound infection. Will arrange home care. Begin Aquacel silver rope dressings every other day. Possible discharge later today if cleared by consultants. Current Visit: Yes Status: Acute Code(s): K44.9 - DIAPHRAGMATIC HERNIA WITHOUT OBSTRUCTION OR GANGRENE SNOMED Code(s): 81859279
[2020-04-08 14:27] VITALS: BP 106/73; TEMP 98.6
--- NOTE | 2020-04-08 20:19 | P.PN ---
Progress Note - Text Progress Note Date: 04/08/20 - Chief Complaint Abdominal pain Consultation: This is a pleasant 64-year-old patient who follows a Dr. Michel. Patient long- standing history of smoking and drinking significant amount of alcohol. Chronic stable conditions also include nicotine dependence, gastritis duodenitis as per EGD in 2019. Patient is having the hospital about 7 days ago he took a fall was admitted with left-sided rib fractures 4 to-5 drips also found to be severely hyponatremic. Patient is doing well at the time of discharge. Patient now presents with worsening abdominal pain going on for close to a week. Has not had a bowel movement since then. End patient's abdominal pain was progressively getting worse. He also noticed some bruising to the left lower abdomen for the last couple of days. Denied any fever and chills. Some nausea. Patient was taken to the operating room by Dr. Rowe last night. Found to strangulate a diaphragmatic hernia. Does some blood in the peritoneal cavity. The hernia containing small bowel. Patient about 40% of the small bowel within the left chest and ischemia to strangulate of the small bowel. About 1 L of bloody fluid was aspirated from the left chest. Patient is currently in the ICU. Has a midline dressing. In the abdomen. Left chest tube to suction. Recently went into atrial fibrillation with rapid ventricular rate. Put on IV amiodarone. Left chest tube was pulled out. Patient had become hypoxic lethargic. Computed tomography scan of the brain was negative for stroke. When I followed overload. Proceed IV Lasix. Responded well. Also has pneumonia treated with antibiotics. Also received hypertonic saline for hyponatremia. Also started on eliquis. Today-ICU. Eating better. Breathing is better. Has been up. Diarrhea is improving. Abdominal pain much better Review of systems: Done for constitutional, cardiovascular, GI, pulmonary. relevant finding as above Current medications reviewed and the resulting chronic records Physical examination: VITAL SIGNS: 98.6, 88, 16, 106/73, 95% GENERAL: Sitting upon a chair,, comfortable EYES: Pupils equal. Conjunctiva normal. HEENT: External appearance of nose and ears normal, oral cavity grossly normal. NECK: JVD not raised; masses not palpable. HEART: Heart sounds irregular; mild edema LUNGS: Respiratory rate increased, decreased breath sounds ABDOMEN: Minimal tenderness, no guarding or rigidity, dressing over midline incision, liver spleen not palpable, no masses palpable. [place] catheter. PSYCH: Alert and she, more affect anxious . INVESTIGATIONS, reviewed in the clinical context: White count 10.8 hemoglobin 8.2 potassium 3.3 creatinine 0.40 sodium 1:30 Admission testing: Computed tomography scan of the chest abdomen-large left-sided diaphragmatic hernia which contains multiple thickened loops of small bowel with a haziness entry, hemoperitoneum was noted, large left-sided pleural effusion, multiple left-sided rib fracture White count 16.4 hemoglobin 13.1 sodium 126 potassium 4.4 creatinine 0.45-upon presentation 2-D echocardiogram-moderate concentric LVH, EF 60-65% serum osmolality-260 Assessment: -Acute change in mental status with some delirium possibly could be from alcohol withdrawal syndrome/DTs patient does drink a significant amount of alcohol, patient's sodium has been running low for quite a while that could be contributing.-Improved -Acute pulmonary edema-improved -Acute hypoxic respiratory failure,-respond to Lasix-improved to room air -Acute strangulate diaphragmatic hernia with small bowel loops with ischemia strangulate the small bowel-status post surgery -Chronic nicotine dependence patient cigarette smoker -Chronic alcohol use disorder -Hyponatremia suspect hypoosmolar -, on hypertonic saline, improving -Chronic gastritis, duodenitis from alcoholism -GERD -Essential hypertension -Multiple left-sided fractures from recent falls -Hemoperitoneum from ischemic bowel -Hypoglycemia from alcoholism and decreased oral intake-corrected -Paroxysmal atrial fibrillation with rapid ventricular rate. Has been in and out of atrial fibrillation. On amiodarone.- -Alcohol dependence syndrome -Pneumonia from Streptococcus pneumoniae and Haemophilus influenza Plan: -Patient will overall doing much better. Very keen to go home. Has been discharged to the primary team. Told the patient to follow his family doctor. Supplement to potassium and magnesium to be taken. Thank you Dr. Rowe
--- NOTE | 2020-04-10 07:49 | CDI ---
Documentation Clarification Form Date: 04/27/20 From: Evy Miner/Konrad Phone: If you have a question about this query, please contact Becky Dill, [employer] at [phone] between 8am and 5pm. Admit Date: 03/29/20 Discharge Date: 04/08/20 Patient Name: NNAMDI BLAIR Visit Number: [id number] ATTENTION: The Clinical Documentation Specialists (CDI) and [facility] Coding Staff appreciate your assistance in clarifying documentation. Please respond to the clarification below the line at the bottom and electronically sign. The CDI & [facility] Coding staff will review the response and follow-up if needed. Please note: Queries are made part of the Legal Health Record. If you have any questions, please contact the author of this message via ITS. Dear Dr. Bertrand Mcgee, Documentation states: Mild hypokalemia secondary to diuresis, also from low magnesium at 1.4 History/Risk Factors: HTN, alcoholism w gastritis and duodenitis 04/02-04/08 Abnormal: Mg:-1.4, 1.6, 1.8, 1.5, 1.4, 1.2, 1.4 Treatment: Magnesium Sulfate/Dextrose 1 gm 100 mls @ 100 mls/hr IVPB Q 1H [id number] Clinical significance of diagnostic testing and treatment CANNOT be assumed or coded without physician documentation of significance if any. Please clarify what abnormal laboratory signifies: Hypomagnesemia Unable to determine Other, please specify se mg 1.2__ MTDD
--- NOTE | 2020-05-01 09:02 | P.DS ---
Providers Date of admission: 03/29/20 20:45 Expected date of discharge: 04/10/20 Attending physician: Suhas Rowe Consults: 03/29/20 20:41 Consult Physician Routine Consulting Provider: Jorge Soto Consult Reason/Comments: ICU management Do you want consulting provider notified?: Yes Consult Physician Routine Consulting Provider: Yang Gaspar Consult Reason/Comments: Medical management Do you want consulting provider notified?: Yes 03/31/20 14:57 Consult Physician Routine Consulting Provider: Octavia Humphries Consult Reason/Comments: Positive sputum culture Do you want consulting provider notified?: Yes 03/31/20 21:04 Consult Physician Stat Consulting Provider: Hallie Vasques Consult Reason/Comments: AFIB/RVR Do you want consulting provider notified?: Already Contacted 04/04/20 11:56 Consult Physician Stat Consulting Provider: Ghassan Ca Consult Reason/Comments: Hyponatremia Do you want consulting provider notified?: Yes 04/04/20 11:57 Consult Physician Stat Consulting Provider: Jared Pina Consult Reason/Comments: Code stroke Do you want consulting provider notified?: Yes Primary care physician: Jc [facility] Hospital Course: This a 64-year-old male who was admitted to Hospital. Patient an acute abdomen on admission. 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 Patient had a prolonged hospital course. Please see hospital chart for details. Procedures: Exploratory laparotomy, small bowel resection, repair of diaphragmatic laceratio n Patient Condition at Discharge: Good Plan - Discharge Summary Discharge Rx Participant: Yes New Discharge Prescriptions: New Hydrocodone/Acetaminophen [[place] 5-325] 1 tab PO Q6HR PRN #10 tab PRN Reason: Pain Apixaban [Eliquis] 2.5 mg PO BID #60 tab Amoxic-Pot Clav 500-125 mg [Augmentin 500-125 mg] 1 each PO BID #14 tab Amiodarone [Cordarone] 400 mg PO DAILY #30 tab Sodium Chloride 0.65% Nasal [Deep Sea (Saline)] 2 spray NASAL QID PRN spray PRN Reason: Dry Nasal Passages Potassium Chloride ER [K-Dur 20] 20 meq PO DAILY #14 tab Furosemide [Lasix] 40 mg PO DAILY #10 tab Metoprolol Tartrate [Lopressor] 100 mg PO BID #60 tab Magnesium Oxide [Mag-Oxide] 200 mg PO BID #60 tablet Continue Omeprazole [PriLOSEC] 20 mg PO DAILY Multivitamins, Thera [Multivitamin (formulary)] 1 tab PO DAILY Nicotine 21Mg/24Hr Patch [Habitrol] 1 patch TRANSDERM Q24H #14 patch Melatonin 3 mg PO HS PRN tablet PRN Reason: Insomnia Albuterol Sulfate [Ventolin HFA] 1 - 2 puff INHALATION Q6H PRN #1 inhaler PRN Reason: Wheezing Hydrocodone/Acetaminophen [[place] 5-325] 1 tab PO Q6HR PRN #10 tab PRN Reason: Pain Discontinued Atenolol [Tenormin] 50 mg PO BID Lisinopril [Zestril] 10 mg PO BID Sodium Chloride Tab 1 gm PO QID #14 tab predniSONE See Taper PO DAILY Discharge Medication List Omeprazole [PriLOSEC] 20 mg PO DAILY 10/14/19 [History] Multivitamins, Thera [Multivitamin (formulary)] 1 tab PO DAILY 03/22/20 [History] Albuterol Sulfate [Ventolin HFA] 1 - 2 puff INHALATION Q6H PRN #1 inhaler 03/24/20 [Rx] Hydrocodone/Acetaminophen [[place] 5-325] 1 tab PO Q6HR PRN #10 tab 03/24/20 [Rx] Melatonin 3 mg PO HS PRN tablet 03/24/20 [Rx] Nicotine 21Mg/24Hr Patch [Habitrol] 1 patch TRANSDERM Q24H #14 patch 03/24/20 [Rx] Hydrocodone/Acetaminophen [[place] 5-325] 1 tab PO Q6HR PRN #10 tab 03/31/20 [Rx] Apixaban [Eliquis] 2.5 mg PO BID #60 tab 04/07/20 [Rx] Amiodarone [Cordarone] 400 mg PO DAILY #30 tab 04/08/20 [Rx] Amoxic-Pot Clav 500-125 mg [Augmentin 500-125 mg] 1 each PO BID #14 tab 04/08/20 [Rx] Furosemide [Lasix] 40 mg PO DAILY #10 tab 04/08/20 [Rx] Magnesium Oxide [Mag-Oxide] 200 mg PO BID #60 tablet 04/08/20 [Rx] Metoprolol Tartrate [Lopressor] 100 mg PO BID #60 tab 04/08/20 [Rx] Potassium Chloride ER [K-Dur 20] 20 meq PO DAILY #14 tab 04/08/20 [Rx] Sodium Chloride 0.65% Nasal [Deep Sea (Saline)] 2 spray NASAL QID PRN spray 04/08/20 [Rx] Follow up Appointment(s)/Referral(s): Jc Michel DO [Primary Care Provider] - 1-2 days [facility], [NON-STAFF] - 1-2 Days Talisha Velazco MD [REFERRING] - As Needed Suhas Rowe MD [STAFF PHYSICIAN] - 1 Week Activity/Diet/Wound Care/Special Instructions: No driving while taking [place] No lifting over 10 pounds You may shower. No soaking or tub baths Very light activity until you are reevaluated at your follow up appointment with your surgeon Discharge Disposition: HOME WITH HOME HEALTH SERVICES
== END 2020-04-08 14:37 | disposition home health service (06) | DRG 326 ==
LOC: EC 14:35 → 2SICU 20:45
PROVIDERS: ADMIT Surgery; ATTEND Surgery
PROC: 0D9670Z Drainage of Stomach with Drainage Device, Via Natural or Artificial Opening (ICD-10-PCS; 2020-03-29)
PROC: 0DB80ZZ Excision of Small Intestine, Open Approach (ICD-10-PCS; principal; 2020-03-29 19:20)
PROC: 0BQT0ZZ Repair Diaphragm, Open Approach (ICD-10-PCS; principal; 2020-03-29 19:20)
PROC: 0W9B30Z Drainage of Left Pleural Cavity with Drainage Device, Percutaneous Approach (ICD-10-PCS; principal; 2020-03-29 19:20)
PROC: 3E0336Z Introduction of Nutritional Substance into Peripheral Vein, Percutaneous Approach (ICD-10-PCS; 2020-04-02)
DX: K44.0 Diaphragmatic hernia with obstruction, without gangrene (principal); J13 Pneumonia due to Streptococcus pneumoniae; J96.01 Acute respiratory failure with hypoxia; J81.0 Acute pulmonary edema; K55.019 Acute (reversible) ischemia of small intestine, extent unspecified; J14 Pneumonia due to Hemophilus influenzae; K66.1 Hemoperitoneum; F10.231 Alcohol dependence with withdrawal delirium; E87.3 Alkalosis; E87.1 Hypo-osmolality and hyponatremia; J44.0 Chronic obstructive pulmonary disease with (acute) lower respiratory infection; R47.01 Aphasia; G45.9 Transient cerebral ischemic attack, unspecified; J98.11 Atelectasis; I48.0 Paroxysmal atrial fibrillation; E16.2 Hypoglycemia, unspecified; Z11.59 Encounter for screening for other viral diseases; I11.9 Hypertensive heart disease without heart failure; K29.20 Alcoholic gastritis without bleeding; E87.70 Fluid overload, unspecified; K29.80 Duodenitis without bleeding; K59.03 Drug induced constipation; T40.605A Adverse effect of unspecified narcotics, initial encounter; J98.2 Interstitial emphysema; T50.2X5A Adverse effect of carbonic-anhydrase inhibitors, benzothiadiazides and other diuretics, initial encounter; R40.2144 Coma scale, eyes open, spontaneous, 24 hours or more after hospital admission; D50.9 Iron deficiency anemia, unspecified; E87.6 Hypokalemia; F51.04 Psychophysiologic insomnia; R40.2364 Coma scale, best motor response, obeys commands, 24 hours or more after hospital admission; R40.2254 Coma scale, best verbal response, oriented, 24 hours or more after hospital admission; K21.9 Gastro-esophageal reflux disease without esophagitis; M19.90 Unspecified osteoarthritis, unspecified site; G89.29 Other chronic pain; R29.6 Repeated falls; M54.9 Dorsalgia, unspecified; F17.210 Nicotine dependence, cigarettes, uncomplicated; Z71.6 Tobacco abuse counseling; Z79.899 Other long term (current) drug therapy; Z87.19 Personal history of other diseases of the digestive system; Z90.49 Acquired absence of other specified parts of digestive tract; Z98.890 Other specified postprocedural states; Z81.4 Family history of other substance abuse and dependence; Z83.79 Family history of other diseases of the digestive system; S22.42XD Multiple fractures of ribs, left side, subsequent encounter for fracture with routine healing
CPT/HCPCS: 36415; 36600; 70450; 70496; 70498; 71045; 74177; 80048; 80053; 81003; 82140; 82150; 82330; 82805; 83540; 83550; 83690; 83735; 83930; 83935; 84100; 84145; 84295; 84443; 84478; 84484; 85025; 85610; 85730; 87040; 87070; 87077; 87186; 87205; 87324; 88307; 93306; 94002; 94003; 94640; 96361; 96365; 96375; 96376; 99285

== ENCOUNTER 2020-05-24 09:41 | Inpatient (IN) | payer MEDICARE ==
[2020-05-24] MEDS ORDERED: HYDROmorphone 1 MG/ML 1 ML SYRINGE IVP STA (10:10)
[2020-05-24] MEDS ORDERED: SODIUM CHLORIDE 0.9% 500 ML 500 ML IV STA (10:10)
[2020-05-24] MEDS ORDERED: IOPAMIDOL CONTRAST (ORAL USE) VIAL PO PRN (10:19)
[2020-05-24] MEDS ORDERED: SODIUM CHLORIDE 0.9% 500 ML 500 ML IV ONE (10:19)
[2020-05-24] MEDS ORDERED: ONDANSETRON 4 MG/2 ML VIAL IVP STA (10:21)
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
[2020-05-24 10:59] LABS: Partial Thromboplastin Time 25.3 sec (22.0-30.0); Prothrombin Time 10.3 sec (9.0-12.0)
[2020-05-24 11:01] LABS: ALT 10 U/L (4-49); AST 28 U/L (17-59); African American GFR (CKD) >90 (>60 ml/min/1.73 sqM); Albumin 3.4 g/dL (3.5-5.0); Alkaline Phosphatase 69 U/L (38-126); Amylase <30 U/L (30-110); Anion Gap 7 mmol/L; Blood Urea Nitrogen 7 mg/dL (9-20); Calcium 8.7 mg/dL (8.4-10.2); Carbon Dioxide 24 mmol/L (22-30); Chloride 95 mmol/L (98-107); Glucose 105 mg/dL (74-99); Non-African American GFR(CKD) >90 (>60 ml/min/1.73 sqM); Sodium 126 mmol/L (137-145); Total Bilirubin 1.1 mg/dL (0.2-1.3); Total Protein 6.3 g/dL (6.3-8.2)
[2020-05-24 11:07] LABS: Basophils % (A) 0 %; Eosinophils # (A) 0.1 k/uL (0-0.7); Eosinophils % (A) 0 %; HCT 37.4 % (39.0-53.0); Lymphocytes # (A) 1.6 k/uL (1.0-4.8); Lymphocytes % (A) 10 %; MCH 30.3 pg (25.0-35.0); MCHC 31.7 g/dL (31.0-37.0); Mean Platelet Volume 7.4; Monocytes % (A) 6 %; Neutrophils # (A) 12.7 k/uL (1.3-7.7); Neutrophils % (A) 82 %; Platelet Count 426 k/uL (150-450); RBC 3.91 m/uL (4.30-5.90); RDW 15.6 % (11.5-15.5); WBC 15.5 k/uL (3.8-10.6)
[2020-05-24 11:16] LABS: Potassium 4.7 mmol/L (3.5-5.1)
[2020-05-24 11:22] LABS: HGB 11.8 gm/dL (13.0-17.5); MCV 95.7 fL (80.0-100.0)
[2020-05-24] MEDS ORDERED: PIPERACILLIN-TAZOBACTAM 3.375 GM in SODIUM CHLORIDE 0.9% 100 ML IVPB STA (12:08)
--- NOTE | 2020-05-24 12:11 | CT ---
EXAMINATION TYPE: CT abdomen pelvis w con DATE OF EXAM: 05/24/2020 COMPARISON: 03/29/2020 HISTORY: Generalized pain with nausea and vomiting. Post OP Colon resection 5-[address] DLP: 953.1 mGycm Automated exposure control for dose reduction was used. CONTRAST: CT scan of the abdomen pelvis is performed with IV Contrast, patient injected with 100 mL of Isovue 3 00. FINDINGS- LUNG BASES-bilateral lower lobe consolidation correlate for atelectasis versus infiltrate.. LIVER/GB- No gross abnormality is appreciated. PANCREAS-mildly prominent pancreatic duct SPLEEN- No gross abnormality is seen. ADRENALS- No gross abnormality is seen. KIDNEYS/BLADDER- no hydronephrosis nephrolithiasis or renal mass. BOWEL-there is a hiatal hernia. Gastric wall is somewhat thickened but may be on the basis of incompl ete distention correlate clinically. There are a few dilated small bowel loops. There is thickening of the wall of bowel loops in the mida bdomen. There is an adjacent fluid collection within the mesentery measuring 4.2 x 6.4 x 4.2 cm sugge stive of a developing abscess. Hyperdensity seen within the collection suggesting either extravasatio n or perforation of the adjacent small bowel loop. Less likely consideration which within the suspect ed abscess sac. Diverticulosis of the colon. No sizable free air. Postsurgical changes are noted. LYMPH NODES- No greater than 1cm abdominal or pelvic lymph nodes areappreciated. OSSEOUS STRUCTURES-hypertrophic and degenerative change of the spine.. OTHER- aorta of normal caliber. There also is a small amount of fluid within the pelvis which is non descript. Trace amount fluid surrounding the liver. Report called to ER physician. IMPRESSION- 1. Mesenteric edema with a large fluid collection measuring 4.2 x 6.4 x 4.2 cm within the mesentery s uspicious for developing the intra-abdominal abscess. Adjacent thickened small bowel loops could been the basis of a reactive enteritis. Partial obstruction not excluded. Note is made within the collect ion there appears to be hyperdensity best noted on axial image 53 and coronal image 36 within the flu id collection suggesting a degree of extravasation from the bowel into the collection and probable catalina wel perforation or leak. Less likely consideration would be a hemorrhage. 2. Mild gastric wall thickening most likely in the basis of incomplete distention correlate with dire ct visualization as clinically warranted. 3. Coronary artery disease correlate clinically
[2020-05-24] MEDS ORDERED: HYDROmorphone 1 MG/ML 1 ML SYRINGE IVP PRN (12:39)
[2020-05-24] MEDS ORDERED: ACETAMINOPHEN TAB 325 MG TAB PO PRN (12:39)
[2020-05-24] MEDS ORDERED: NALOXONE 0.4 MG/ML 1 ML VIAL IV PRN ×2 (12:39→16:07)
[2020-05-24] MEDS ORDERED: IV FLUID CONTINUATION 100 ML IV ONE (13:18)
[2020-05-24] MEDS ORDERED: LACTATED RINGERS 1,000 ML IV ONE ×2 (13:19→16:07)
[2020-05-24] MEDS ORDERED: HYDROmorphone 0.5 MG/0.5 ML SYRINGE IVP ONE ×2 (13:33→16:21)
[2020-05-24] MEDS ORDERED: HEPARIN SODIUM,PORCINE 5,000 UNIT/ML 1 ML VIAL ONE (13:57)
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
[2020-05-24] MEDS ORDERED: HEPARIN SODIUM,PORCINE 5,000 UNIT/ML 1 ML VIAL SQ ONE (14:00)
[2020-05-24] MEDS ORDERED: ALBUTEROL NEBULIZED 2.5 MG/3 ML INHALATION PRN (14:13)
[2020-05-24] MEDS ORDERED: MIDAZOLAM 2 MG/2 ML VIAL ONE (14:16)
[2020-05-24] MEDS ORDERED: ePHEDrine SULFATE/0.9% NACL/PF 50 MG/5 ML SYRINGE IV ONE (14:16)
[2020-05-24] MEDS ORDERED: LIDOCAINE 1% INJ 10MG/ML (20 ML MDV) ONE (14:16)
[2020-05-24] MEDS ORDERED: PHENYLEPHRINE-0.9% NACL SYG 1 MG/10 ML SYRINGE ONE (14:16)
[2020-05-24] MEDS ORDERED: PROPOFOL 10 MG/ML 20 ML VIAL IV ONE (14:16)
[2020-05-24] MEDS ORDERED: NEOSTIGMINE 1 MG/ML 10 ML VIAL ONE (14:16)
[2020-05-24] MEDS ORDERED: ROCURONIUM BROMIDE 10 MG/ML 5 ML VIAL IV ONE (14:16)
[2020-05-24] MEDS ORDERED: GLYCOPYRROLATE 0.2 MG/ML 2 ML VIAL ONE (14:16)
[2020-05-24] MEDS ORDERED: SUCCINYLCHOLINE CHLORIDE 100 MG/5 ML SYR IV ONE (14:16)
[2020-05-24] MEDS ORDERED: fentaNYL (PF) 50 MCG/ML 2 ML AMP ONE (14:16)
[2020-05-24] MEDS ORDERED: ONDANSETRON 4 MG/2 ML VIAL IVP PRN (16:07)
--- NOTE | 2020-05-24 16:07 | P.OP ---
Date of Procedure: 05/24/20 Preoperative Diagnosis: Digital abscess Postoperative Diagnosis: Small bowel mass with inflammatory change 2 Adhesions Procedure(s) Performed: Laparotomy Lysis of adhesions Small bowel resection 2 Anesthesia: HERMILO Surgeon: Suhas Rowe Estimated Blood Loss (ml): 50 Pathology: other (Small bowel 2) Condition: stable Disposition: PACU Description of Procedure: Patient's placed in the operative table in supine position. He received general anesthesia. His abdomen was prepped and draped usual sterile fashion. The skin was incised through midline scar and then using electrocautery the fascia was divided. There were adhesions noted fascia these were lysed with sharp dissection. The small bowel was then run there was evidence of inflammatory masses in 2 portions of the small bowel. It was unsure if this was due to hematoma or small bowel perforation. At this point the proximal mass was examined. The adhesions to the mass were divided with sharp dissection and then the small bowel was transected proximally distally the GI stapler and then using the Enseal device the mesentery the bowel was divided. A [id number] functional stapled [id number] functional end-to-end staple anastomosis was created using MINNA and TA stapler. The window in the mesentery was closed with 3-0 GI silk suture. Next in the distal small bowel another inflammatory mass was seen. This measured approximately 5 cm in diameter. The adhesions to the mass were dissected with sharp dissection and the bowel was transected proximally distally with the MINNA stapler. A size hiatal and and stable mass was created with the MINNA and TA stapler. The window in the mesentery was closed with 3-0 GI silk suture. The abdomen was irrigated is no bleeding seen. The fascia was then closed with looped #1 PDS suture. Skin was closed boyd. Patient was sent to recovery room in stable condition.
[2020-05-24] MEDS ORDERED: fentaNYL (PF) 50 MCG/ML 2 ML AMP IVP ONE ×2 (16:44→17:10)
[2020-05-24] MEDS: SODIUM CHLORIDE 0.9% 1,000 ML IV SCH ×2 (17:40→23:53)
[2020-05-24] MEDS: HYDROmorphone 1 MG/ML 1 ML SYRINGE IVP PRN ×2 (18:16→22:01)
[2020-05-24] MEDS: PIPERACILLIN-TAZOBACTAM 3.375 GM in SODIUM CHLORIDE 0.9% 100 ML IVPB SCH (19:40)
[2020-05-24] MEDS: MAGNESIUM OXIDE 400 MG TAB PO SCH (19:52)
[2020-05-24] MEDS: METOPROLOL TARTRATE 50 MG TAB PO SCH (19:52)
[2020-05-24] MEDS: MELATONIN 5 MG TABLET PO SCH (19:52)
[2020-05-25] MEDS: HYDROmorphone 1 MG/ML 1 ML SYRINGE IVP PRN ×8 (00:50→23:15)
[2020-05-25] MEDS: PIPERACILLIN-TAZOBACTAM 3.375 GM in SODIUM CHLORIDE 0.9% 100 ML IVPB SCH ×3 (04:05→21:22)
[2020-05-25 07:43] LABS: Basophils % (A) 0 %; Eosinophils % (A) 0 %; HCT 40.4 % (39.0-53.0); HGB 12.9 gm/dL (13.0-17.5); Hypochromasia Slight; Lymphocytes # (A) 1.1 k/uL (1.0-4.8); Lymphocytes % (A) 8 %; MCH 30.6 pg (25.0-35.0); MCHC 31.9 g/dL (31.0-37.0); MCV 96.1 fL (80.0-100.0); Mean Platelet Volume 6.4; Monocytes % (A) 7 %; Neutrophils # (A) 12.5 k/uL (1.3-7.7); Neutrophils % (A) 84 %; Platelet Count 426 k/uL (150-450); RDW 15.5 % (11.5-15.5); WBC 14.8 k/uL (3.8-10.6)
[2020-05-25 08:01] LABS: ALT 9 U/L (4-49); AST 16 U/L (17-59); African American GFR (CKD) >90 (>60 ml/min/1.73 sqM); Albumin 2.6 g/dL (3.5-5.0); Alkaline Phosphatase 65 U/L (38-126); Anion Gap 6 mmol/L; Blood Urea Nitrogen 12 mg/dL (9-20); Calcium 8.2 mg/dL (8.4-10.2); Carbon Dioxide 26 mmol/L (22-30); Chloride 97 mmol/L (98-107); Glucose 119 mg/dL (74-99); Non-African American GFR(CKD) >90 (>60 ml/min/1.73 sqM); Potassium 4.4 mmol/L (3.5-5.1); Sodium 129 mmol/L (137-145); Total Bilirubin 0.7 mg/dL (0.2-1.3); Total Protein 5.1 g/dL (6.3-8.2)
[2020-05-25] MEDS: AMIODARONE 200 MG TAB PO SCH (08:10)
[2020-05-25] MEDS: METOPROLOL TARTRATE 50 MG TAB PO SCH ×2 (08:10→21:22)
[2020-05-25] MEDS: MAGNESIUM OXIDE 400 MG TAB PO SCH ×2 (08:10→21:21)
[2020-05-25] MEDS: ENOXAPARIN 40 MG/0.4 ML SYRINGE SQ SCH (08:11)
[2020-05-25] MEDS: SODIUM CHLORIDE 0.9% 1,000 ML IV SCH ×2 (08:12→16:50)
[2020-05-25] MEDS: HYDROcodone/APAP 5-325MG 1 EACH TAB PO PRN (08:14)
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
--- NOTE | 2020-05-25 12:03 | XR ---
EXAMINATION TYPE: XR chest 1V portable DATE OF EXAM: 05/25/2020 CLINICAL HISTORY: NG tube placement TECHNIQUE: Frontal portable view of the chest obtained COMPARISON: Chest radiograph 04/06/2020 FINDINGS: Enteric tube distal tip over the left upper quadrant projected area of the gastric fundus, with side port at the level of the GE junction. The cardiomediastinal silhouette is within normal li mits for size. There is nonvisualization of the bilateral lung apices. There is redemonstrated small right pleural effusion. Improvement of previously demonstrated left pleural effusion. Patchy mild bib asilar airspace opacities. IMPRESSION: 1. Enteric tube distal tip overlies the stomach, with side port at the level of the GE junction. 2. Bibasilar airspace opacities and small right pleural effusion. Improvement of left pleural effusi on versus 04/06/2020 comparison.
[2020-05-25] MEDS: IPRATROPIUM-ALBUTEROL 3 ML NEB INHALATION SCH ×2 (13:15→19:48)
--- NOTE | 2020-05-25 19:37 | P.PN ---
Progress Note - Text Progress Note Date: 05/25/20 Patient's postoperative day 1 from small bowel resection 2. He has some complaints of incisional pain. On exam vitals are stable. Abdomen soft. Incision is clean dry intact. Patient remain nothing by mouth. We will await return of bowel function prior to feeding him.
[2020-05-25] MEDS: MELATONIN 5 MG TABLET PO SCH (21:22)
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
[2020-05-26] MEDS: HYDROmorphone 1 MG/ML 1 ML SYRINGE IVP PRN ×7 (02:30→23:37)
[2020-05-26] MEDS: SODIUM CHLORIDE 0.9% 1,000 ML IV SCH ×3 (06:27→23:38)
[2020-05-26] MEDS: PIPERACILLIN-TAZOBACTAM 3.375 GM in SODIUM CHLORIDE 0.9% 100 ML IVPB SCH ×3 (06:27→20:31)
[2020-05-26] MEDS: AMIODARONE 200 MG TAB PO SCH (07:19)
[2020-05-26] MEDS: METOPROLOL TARTRATE 50 MG TAB PO SCH ×2 (07:19→20:30)
[2020-05-26] MEDS: MAGNESIUM OXIDE 400 MG TAB PO SCH ×2 (07:19→20:30)
[2020-05-26] MEDS: ENOXAPARIN 40 MG/0.4 ML SYRINGE SQ SCH (07:20)
[2020-05-26] MEDS: IPRATROPIUM-ALBUTEROL 3 ML NEB INHALATION SCH ×3 (07:58→19:59)
[2020-05-26 08:57] LABS: African American GFR (CKD) >90 (>60 ml/min/1.73 sqM); Anion Gap 8 mmol/L; Blood Urea Nitrogen 12 mg/dL (9-20); Calcium 7.9 mg/dL (8.4-10.2); Carbon Dioxide 24 mmol/L (22-30); Chloride 97 mmol/L (98-107); Glucose 77 mg/dL (74-99); Magnesium 1.7 mg/dL (1.6-2.3); Non-African American GFR(CKD) >90 (>60 ml/min/1.73 sqM); Sodium 129 mmol/L (137-145)
[2020-05-26 09:04] LABS: Potassium 4.4 mmol/L (3.5-5.1)
[2020-05-26 09:41] LABS: Basophils % (A) 0 %; Eosinophils # (A) 0.1 k/uL (0-0.7); Eosinophils % (A) 0 %; HCT 34.9 % (39.0-53.0); HGB 10.9 gm/dL (13.0-17.5); Lymphocytes # (A) 1.4 k/uL (1.0-4.8); Lymphocytes % (A) 10 %; MCH 29.2 pg (25.0-35.0); MCHC 31.3 g/dL (31.0-37.0); MCV 93.5 fL (80.0-100.0); Mean Platelet Volume 8.3; Monocytes # (A) 1.1 k/uL (0-1.0); Monocytes % (A) 9 %; Neutrophils % (A) 77 %; Platelet Count 398 k/uL (150-450); RBC 3.73 m/uL (4.30-5.90); RDW 15.6 % (11.5-15.5); WBC 12.9 k/uL (3.8-10.6)
--- NOTE | 2020-05-26 09:45 | P.PN ---
Subjective This is a pleasant 64 years old male with past medical history of GI bleed, hypertension. Patient presents because of acute pain of one-day duration and he had CAT scan of the abdomen showed possible abscess with a possible small bowel perforation as the cause for his She underwent exploratory laparotomy yesterday, with lysis of adhesions and th ere was evidence of inflammatory masses in 2 portions of small bowel, followed by small bowel resection 2. Today he was lying in bed comfortable, has NG tube with about 250-300 of dark aspirate, he does not have bowel movement, he is still have some expected abdominal pain but is not in acute distress Vitas looks stable, he is afebrile. Labs showed leukocytosis of 15.5, hemoglobin of 11.8, platelets and INR within normal limits, sodium 126, potassium 4.7 and creatinine is normal at 0.4 CT of the abdomen and pelvis: Mesenteric edema with large fluid collection measuring 4.2 x 6.4 x 4.2 in the mesentery suspicious for intra-abdominal abscess on admission patient was started on Zosyn and normal sound 100 mL per hour 05/26/2020 Patient is lying in bed but was able to walk using her walker. Still has NG tube was about 2:30 milliliter of dark colored aspirate, Hayward catheter is in place with clear urine. This allowed same abdominal pain, feeling nauseous but no vomiting, he did not have bowel movement. But is passing gases. Vitals are stable, leukocytosis improving down to 12.9 K, sodium is stable at 129, creatinine is normal We'll keep the patient on Zosyn and normal saline at 100 mL per hour Review of Systems Review of systems CONSTITUTIONAL: No fever, no malaise, no fatigue. HEENT: No recent visual problems or hearing problems. Denied any sore throat. CARDIOVASCULAR: No orthopnea, PND, no palpitations, no syncope. PULMONARY: No shortness of breath, no cough, no hemoptysis. GASTROINTESTINAL: No diarrhea,. Normoactive bowel sounds. NEUROLOGICAL: No headaches, no weakness, no numbness. HEMATOLOGICAL: Denies any bleeding or petechiae. GENITOURINARY: Denies any burning micturition, frequency, or urgency. MUSCULOSKELETAL/RHEUMATOLOGICAL: Denies any joint pain, swelling, or any muscle pain. ENDOCRINE: Denies any polyuria or polydipsia. Active Medications Generic Name Dose Route Start Last Admin Trade Name Freq PRN Reason Stop Dose Admin Acetaminophen 650 mg 05/24/20 12:39 Tylenol Tab PO Q6HR PRN Mild Pain or Fever > 100.5 Hydrocodone Bitart/Acetaminophen 2 each 05/24/20 16:07 05/25/20 08:14 [place] 5-325 PO 2 each Q6HR PRN Administration Moderate to Severe Pain Albuterol Sulfate 2.5 mg 05/24/20 14:13 Ventolin Nebulized INHALATION Q6H PRN Wheezing Albuterol/Ipratropium 3 ml 05/25/20 13:00 05/26/20 07:58 Duoneb 0.5 Mg-3 Mg/3 Ml Soln INHALATION Not Given RT-TID YAJAIRA Amiodarone HCl 400 mg 05/25/20 09:00 05/26/20 07:19 Cordarone PO 400 mg DAILY YAJAIRA Administration Enoxaparin Sodium 40 mg 05/25/20 09:00 05/26/20 07:20 Lovenox SQ 40 mg DAILY YAJAIRA Administration Hydromorphone HCl 0.5 mg 05/24/20 12:39 Dilaudid IVP Q3HR PRN Moderate Pain Hydromorphone HCl 1 mg 05/24/20 16:07 05/26/20 09:40 Dilaudid IVP 1 mg Q3HR PRN Administration Moderate to Severe Pain Piperacillin Sod/Tazobactam 100 mls @ 25 mls/hr 05/24/20 21:00 05/26/20 06:27 Sod 3.375 gm/ Sodium Chloride IVPB 25 mls/hr Q8H YAJAIRA Administration Sodium Chloride 1,000 mls @ 100 mls/hr 05/24/20 12:15 05/26/20 06:27 Saline 0.9% IV 100 mls/hr .Q10H YAJAIRA Administration Magnesium Oxide 200 mg 05/24/20 21:00 05/26/20 07:19 Mag-Ox PO 200 mg BID YAJAIRA Administration Melatonin 5 mg 05/24/20 21:00 05/25/20 21:22 Melatonin PO 5 mg HS YAJAIRA Administration Metoprolol Tartrate 100 mg 05/24/20 21:00 05/26/20 07:19 Lopressor PO 100 mg BID YAJAIRA Administration Naloxone HCl 0.2 mg 05/24/20 12:39 Narcan IV Q2M PRN Opioid Reversal Ondansetron HCl 4 mg 05/24/20 16:07 Zofran IVP Q6HR PRN Nausea And Vomiting Objective - Vital Signs Vital signs: Vital Signs Temp 98.1 F 05/26/20 07:00 Pulse 85 05/26/20 07:00 Resp 18 05/26/20 07:40 BP 168/90 05/26/20 07:00 Pulse Ox 91 L 05/26/20 07:00 Intake & Output 05/25/20 05/26/20 05/26/20 18:59 06:59 18:59 Output Total 1600 1175 Balance -1600 -1175 Output: Gastric Drainage 1450 450 Urine 150 725 Other: Voiding Method Indwelling Catheter Indwelling Catheter Indwelling Catheter - Exam GENERAL: The patient is alert and oriented x3, not in any acute distress. Well developed, well nourished. HEENT: Pupils are round and equally reacting to light. EOMI. No scleral icterus. No conjunctival pallor. Normocephalic, atraumatic. No pharyngeal erythema. No thyromegaly. CARDIOVASCULAR: S1 and S2 present. No murmurs, rubs, or gallops. PULMONARY: Chest is clear to auscultation, no wheezing or crackles. -ABDOMEN: Soft, nontender, nondistended, normoactive bowel sounds. No palpable organomegaly. Surgical wound in a dressing, expected tenderness, rest of exam is deferred to surgery team MUSCULOSKELETAL: No joint swelling or deformity. EXTREMITIES: No cyanosis, clubbing, or pedal edema. NEUROLOGICAL: Gross neurological examination did not reveal any focal deficits. SKIN: No rashes. no petechiae. - Labs CBC & Chem 7: 05/25/20 07:11 05/26/20 07:05 Labs: Abnormal Lab Results - Last 24 Hours (Table) 05/26/20 Range/Units 07:05 Sodium 129 L (137-145) mmol/L Chloride 97 L (98-107) mmol/L Creatinine 0.45 L (0.66-1.25) mg/dL Calcium 7.9 L (8.4-10.2) mg/dL Assessment and Plan Assessment: -intra-abdominal abscess , status post exploratory laparotomy and with lysis of adhesions and there was evidence of inflammatory masses in 2 portions of small bowel, followed by small bowel resection 2 -Hyp bilateral basal pulmonary infiltrate/atelectasis, hiatal hernia -Hyponatremia -Hypertension -History of GI bleed Plan: this is a pleasant 64 years old male who presents with intra-abdominal abscess. Continue with antibiotics. Continue with IV fluids . Besides surgery primary team patient is followed closely by pulmonary team Labs and medication were reviewed.. Continue same treatment. Continue with symptomatic treatment. Resume home medication. Monitor lytes and vitals. DVT and GI prophylaxis. Further recommendations of the clinical course of the patient DVT prophylasis: Lovenox GI Prophylaxis: Pepcid
--- NOTE | 2020-05-26 12:02 | P.PN ---
Progress Note - Text Progress Note Date: 05/26/20 Postoperative day 2 Patient is resting comfortably in his bed. He is in no significant bowel f unction. On exam vital signs are stable. Abdomen soft. Incisions is clean and intact. Status post exploratory laparotomy with small bowel resection 2. Patient will start on diet once his bowel function has returned.
[2020-05-26] MEDS: MELATONIN 5 MG TABLET PO SCH (20:30)
[2020-05-27] MEDS: HYDROmorphone 1 MG/ML 1 ML SYRINGE IVP PRN ×2 (02:39→05:42)
[2020-05-27] MEDS: PIPERACILLIN-TAZOBACTAM 3.375 GM in SODIUM CHLORIDE 0.9% 100 ML IVPB SCH ×3 (05:42→21:50)
[2020-05-27] MEDS: METOPROLOL TARTRATE 50 MG TAB PO SCH ×2 (08:36→21:50)
[2020-05-27] MEDS: MAGNESIUM OXIDE 400 MG TAB PO SCH ×2 (08:36→21:51)
[2020-05-27] MEDS: AMIODARONE 200 MG TAB PO SCH (08:36)
[2020-05-27] MEDS: ENOXAPARIN 40 MG/0.4 ML SYRINGE SQ SCH (08:37)
[2020-05-27] MEDS: HYDROcodone/APAP 5-325MG 1 EACH TAB PO PRN (08:48)
[2020-05-27] MEDS: IPRATROPIUM-ALBUTEROL 3 ML NEB INHALATION SCH ×3 (09:16→20:09)
[2020-05-27 10:03] LABS: African American GFR (CKD) >90 (>60 ml/min/1.73 sqM); Anion Gap 8 mmol/L; Blood Urea Nitrogen 13 mg/dL (9-20); Calcium 7.9 mg/dL (8.4-10.2); Carbon Dioxide 25 mmol/L (22-30); Chloride 96 mmol/L (98-107); Glucose 71 mg/dL (74-99); Magnesium 1.7 mg/dL (1.6-2.3); Non-African American GFR(CKD) >90 (>60 ml/min/1.73 sqM); Potassium 3.6 mmol/L (3.5-5.1); Sodium 129 mmol/L (137-145)
[2020-05-27 10:17] LABS: Basophils % (A) 0 %; Eosinophils # (A) 0.2 k/uL (0-0.7); Eosinophils % (A) 2 %; HCT 30.1 % (39.0-53.0); HGB 9.6 gm/dL (13.0-17.5); Hypochromasia Slight; Lymphocytes # (A) 1.3 k/uL (1.0-4.8); Lymphocytes % (A) 14 %; MCH 30.3 pg (25.0-35.0); MCHC 32.1 g/dL (31.0-37.0); MCV 94.6 fL (80.0-100.0); Mean Platelet Volume 6.5; Monocytes # (A) 0.8 k/uL (0-1.0); Monocytes % (A) 8 %; Neutrophils # (A) 7.2 k/uL (1.3-7.7); Neutrophils % (A) 74 %; Platelet Count 360 k/uL (150-450); RBC 3.18 m/uL (4.30-5.90); RDW 14.9 % (11.5-15.5); WBC 9.7 k/uL (3.8-10.6)
--- NOTE | 2020-05-27 14:12 | P.PN ---
Subjective Progress Note Date: 05/27/20 CHIEF COMPLAINT: Small bowel obstruction HISTORY OF PRESENT ILLNESS: The patient is a 65-year-old male status post exploratory laparotomy with small bowel resection, 05/24/20. He reports he is unhappy with the NG tube. He started passing flatus last night. No bowel movement. Family is at bedside. Per report of patient, IV dilaudid was discontinued. He is on oral medications. Per discussion with nursing, he only sits up in a chair. He has dark succunt from his NGT worse today, started last night. ROS: No reports of nausea and vomiting. No bowel movements. No fevers or chills. No new chest pain. No productive sputum PHYSICAL EXAM: VITAL SIGNS: Reviewed CONSTITUTIONAL: Well developed and in no acute distress. EYES: Conjuctivae without sclera icterus. Extraocular movements grossly intact. HEAD, EARS, NOSE, THROAT: Moist buccal mucosa. Head is atraumatic, normocephalic. Hears conversational speech. No nasal drainage. NECK: Supple. No thyroidomegaly. RESPIRATORY: Non-labored respirations and equal bilateral excursions. CARDIOVASCULAR: Palpable 2+ radial pulses. ABDOMEN: No peritonitis Has blood in NG tube and cannister. NGT 250 to 400 mL. MUSCULOSKELETAL: No gross deformity of the lower extremities noted. No clubbing. No cyanosis. SKIN: Good skin turgor. Well perfused. NEUROLOGIC: Cranial nerves II through XII grossly intact. No focal or lateralizing signs. PSYCH: Appropriate affect. Alert and oriented to person, place and time. LABS: Hgb down 12.9 to 9.6 ASSESSMENT: 1. Small bowel resection 2. Anemia PLAN: 1. Start Protonix 40 mg BID 2. Continue ice ships 3. Start popsicles 4. Hold Lovenox dose for blood in NG tube with drop in hemoglobin 5. Repeat CBC Objective - Vital Signs Vital signs: Vital Signs Temp 98.7 F 05/27/20 07:00 Pulse 69 05/27/20 08:00 Resp 17 05/27/20 08:00 BP 149/81 05/27/20 07:00 Pulse Ox 90 L 05/27/20 07:00 Intake & Output 05/26/20 05/27/20 05/27/20 18:59 06:59 18:59 Output Total 900 400 Balance -900 -400 Output: Gastric Drainage 400 Urine 500 400 Other: Voiding Method Indwelling Catheter Indwelling Catheter Indwelling Catheter - Labs CBC & Chem 7: 05/27/20 09:31 05/27/20 09:31 Labs: Abnormal Lab Results - Last 24 Hours (Table) 05/27/20 05/27/20 Range/Units 09:31 09:31 RBC 3.18 L (4.30-5.90) m/uL Hgb 9.6 L (13.0-17.5) gm/dL Hct 30.1 L (39.0-53.0) % Sodium 129 L (137-145) mmol/L Chloride 96 L (98-107) mmol/L Creatinine 0.46 L (0.66-1.25) mg/dL Glucose 71 L (74-99) mg/dL Calcium 7.9 L (8.4-10.2) mg/dL Assessment and Plan (1) Small bowel obstruction Current Visit: Yes Status: Acute Code(s): K56.609 - UNSP INTESTNL OBST, UNSP TO PARTIAL VERSUS COMPLETE OBST SNOMED Code(s): 350765464 (2) Gastrointestinal bleeding Current Visit: Yes Status: Acute Code(s): K92.2 - GASTROINTESTINAL HEMORRHAGE, UNSPECIFIED SNOMED Code(s): 96549570
[2020-05-27] MEDS: PANTOPRAZOLE 40 MG/10 ML VIAL IVP SCH ×2 (15:06→21:50)
--- NOTE | 2020-05-27 21:18 | P.PN ---
Subjective This is a pleasant 64 years old male with past medical history of GI bleed, hypertension. Patient presents because of acute pain of one-day duration and he had CAT scan of the abdomen showed possible abscess with a possible small bowel perforation as the cause for his She underwent exploratory laparotomy yesterday, with lysis of adhesions and th ere was evidence of inflammatory masses in 2 portions of small bowel, followed by small bowel resection 2. Today he was lying in bed comfortable, has NG tube with about 250-300 of dark aspirate, he does not have bowel movement, he is still have some expected abdominal pain but is not in acute distress Vitas looks stable, he is afebrile. Labs showed leukocytosis of 15.5, hemoglobin of 11.8, platelets and INR within normal limits, sodium 126, potassium 4.7 and creatinine is normal at 0.4 CT of the abdomen and pelvis: Mesenteric edema with large fluid collection measuring 4.2 x 6.4 x 4.2 in the mesentery suspicious for intra-abdominal abscess on admission patient was started on Zosyn and normal sound 100 mL per hour 05/26/2020 Patient is lying in bed but was able to walk using her walker. Still has NG tube was about 2:30 milliliter of dark colored aspirate, Hayward catheter is in place with clear urine. This allowed same abdominal pain, feeling nauseous but no vomiting, he did not have bowel movement. But is passing gases. Vitals are stable, leukocytosis improving down to 12.9 K, sodium is stable at 129, creatinine is normal We'll keep the patient on Zosyn and normal saline at 100 mL per hour 05/27/2020 Patient is awake, his abdomen is less distended and his pain is controlled, patient is asking to eat however he still have NG tube in place with about more than 300 of dark brown aspirate through his NG. Patient did not have bowel movement. Explained the patient risks of not taking the NG tube out including risk of aspiration and sudden and he verbalized understanding. His WBC back to normal at 10.7 K, sodium stable at 129. Surgery team following the case closely, hold Lovenox for possible blood in the NG tube and add Protonix twice daily Objective - Vital Signs Vital signs: Vital Signs Temp 97.0 F L 05/27/20 15:00 Pulse 83 05/27/20 20:18 Resp 16 05/27/20 16:00 BP 165/88 05/27/20 15:00 Pulse Ox 93 L 05/27/20 15:00 Intake & Output 05/27/20 05/27/20 05/28/20 06:59 18:59 06:59 Intake Total 540 Output Total 400 500 Balance -400 40 Intake: Oral 540 Output: Urine 400 500 Other: Voiding Method Indwelling Catheter Indwelling Catheter - Exam GENERAL: The patient is alert and oriented x3, not in any acute distress. Well developed, well nourished. HEENT: Pupils are round and equally reacting to light. EOMI. No scleral icterus. No conjunctival pallor. Normocephalic, atraumatic. No pharyngeal erythema. No thyromegaly. CARDIOVASCULAR: S1 and S2 present. No murmurs, rubs, or gallops. PULMONARY: Chest is clear to auscultation, no wheezing or crackles. -ABDOMEN: Soft, nontender, nondistended, normoactive bowel sounds. No palpable organomegaly. Surgical wound in a dressing, expected tenderness, rest of exam is deferred to surgery team MUSCULOSKELETAL: No joint swelling or deformity. EXTREMITIES: No cyanosis, clubbing, or pedal edema. NEUROLOGICAL: Gross neurological examination did not reveal any focal deficits. SKIN: No rashes. no petechiae. - Labs CBC & Chem 7: 05/27/20 09:31 05/27/20 09:31 Labs: Abnormal Lab Results - Last 24 Hours (Table) 05/27/20 05/27/20 Range/Units 09:31 09:31 RBC 3.18 L (4.30-5.90) m/uL Hgb 9.6 L (13.0-17.5) gm/dL Hct 30.1 L (39.0-53.0) % Sodium 129 L (137-145) mmol/L Chloride 96 L (98-107) mmol/L Creatinine 0.46 L (0.66-1.25) mg/dL Glucose 71 L (74-99) mg/dL Calcium 7.9 L (8.4-10.2) mg/dL Assessment and Plan Assessment: -intra-abdominal abscess , status post exploratory laparotomy and with lysis of adhesions and there was evidence of inflammatory masses in 2 portions of small bowel, followed by small bowel resection 2 -Hyp bilateral basal pulmonary infiltrate/atelectasis, -hiatal hernia -Hyponatremia -Hypertension -History of GI bleed Plan: this is a pleasant 64 years old male who presents with intra-abdominal abscess. Continue with antibiotics. Continue with IV fluids . DC Lovenox, add Protonix and monitor hemoglobin as per surgery team recommendation. Keep monitoring sodium which is a stable now. Besides surgery primary team patient is evaluated by pulmonary team Labs and medication were reviewed.. Continue same treatment. Continue with symptomatic treatment. Resume home medication. Monitor lytes and vitals. DVT and GI prophylaxis. Further recommendations of the clinical course of the patient DVT prophylasis: Hold Lovenox in view of Hemoglobin and possible upper GI bleed GI Prophylaxis: Pepcid
[2020-05-27] MEDS: MELATONIN 5 MG TABLET PO SCH (21:50)
[2020-05-27] MEDS: SODIUM CHLORIDE 0.9% 1,000 ML IV SCH ×2 (21:51→21:58)
[2020-05-27] MEDS: HYDROmorphone 0.5 MG/0.5 ML SYRINGE IVP PRN (22:49)
[2020-05-28] MEDS: HYDROmorphone 0.5 MG/0.5 ML SYRINGE IVP PRN ×2 (02:15→21:32)
[2020-05-28] MEDS: PIPERACILLIN-TAZOBACTAM 3.375 GM in SODIUM CHLORIDE 0.9% 100 ML IVPB SCH ×3 (05:05→20:32)
[2020-05-28] MEDS: HYDROmorphone 1 MG/ML 1 ML SYRINGE IVP PRN ×3 (05:09→17:24)
[2020-05-28] MEDS: IPRATROPIUM-ALBUTEROL 3 ML NEB INHALATION SCH ×3 (08:01→18:56)
[2020-05-28] MEDS: MAGNESIUM OXIDE 400 MG TAB PO SCH ×2 (08:18→20:31)
[2020-05-28] MEDS: PANTOPRAZOLE 40 MG/10 ML VIAL IVP SCH ×2 (08:19→20:31)
[2020-05-28] MEDS: METOPROLOL TARTRATE 50 MG TAB PO SCH ×2 (08:19→20:31)
[2020-05-28] MEDS: AMIODARONE 200 MG TAB PO SCH (08:19)
[2020-05-28 10:37] LABS: Basophils % (A) 0 %; Eosinophils # (A) 0.3 k/uL (0-0.7); Eosinophils % (A) 4 %; HCT 32.6 % (39.0-53.0); HGB 10.4 gm/dL (13.0-17.5); Hypochromasia Slight; Lymphocytes # (A) 1.1 k/uL (1.0-4.8); Lymphocytes % (A) 13 %; MCV 93.8 fL (80.0-100.0); Mean Platelet Volume 6.6; Monocytes # (A) 0.6 k/uL (0-1.0); Monocytes % (A) 8 %; Neutrophils % (A) 73 %; Platelet Count 436 k/uL (150-450); RBC 3.47 m/uL (4.30-5.90); WBC 8.3 k/uL (3.8-10.6)
[2020-05-28 10:47] LABS: African American GFR (CKD) >90 (>60 ml/min/1.73 sqM); Anion Gap 8 mmol/L; Blood Urea Nitrogen 9 mg/dL (9-20); Calcium 8.4 mg/dL (8.4-10.2); Carbon Dioxide 25 mmol/L (22-30); Chloride 95 mmol/L (98-107); Glucose 87 mg/dL (74-99); Magnesium 1.8 mg/dL (1.6-2.3); Non-African American GFR(CKD) >90 (>60 ml/min/1.73 sqM); Potassium 3.6 mmol/L (3.5-5.1); Sodium 128 mmol/L (137-145)
--- NOTE | 2020-05-28 11:55 | P.PN ---
Subjective Progress Note Date: 05/28/20 CHIEF COMPLAINT: Small bowel obstruction HISTORY OF PRESENT ILLNESS: The patient is a 65-year-old male status post exploratory laparotomy with small bowel resection, 05/24/20. He is POD 4. He is passing moderate flatus. He pulled out his NG tube last night. "I want to eat a steak!" He still has his benson. He is yet to ambulate. No complaints of moderate abdominal pain. Previous dark succunt improved after Protonix BID. ROS: No reports of nausea and vomiting. No bowel movements. No fevers or chi lls. No new chest pain. No productive sputum PHYSICAL EXAM: VITAL SIGNS: Reviewed CONSTITUTIONAL: Well developed and in no acute distress. EYES: Conjuctivae without sclera icterus. Extraocular movements grossly intact. HEAD, EARS, NOSE, THROAT: Moist buccal mucosa. Head is atraumatic, normoc ephalic. Hears conversational speech. No nasal drainage. NECK: Supple. No thyroidomegaly. RESPIRATORY: Non-labored respirations and equal bilateral excursions. CARDIOVASCULAR: Palpable 2+ radial pulses. ABDOMEN: No peritonitis. : Benson rell. No sediments MUSCULOSKELETAL: No gross deformity of the lower extremities noted. No clubbing. No cyanosis. SKIN: Good skin turgor. Well perfused. NEUROLOGIC: Cranial nerves II through XII grossly intact. No focal or lateralizing signs. PSYCH: Appropriate affect. Alert and oriented to person, place and time. LABS: Hgb down 12.9 to 9.6 now up to 10.9. WBC normal 8.3 ASSESSMENT: 1. Small bowel resection 2. Anemia PLAN: 1. Start liquid diet. 2. Patient advised to ambulate for optimal bowel function. 3. May benefit from prokinetic agent such as Entereg. 4. Discontinue benson. Objective - Vital Signs Vital signs: Vital Signs Temp 97.6 F 05/28/20 07:00 Pulse 75 05/28/20 08:20 Resp 14 05/28/20 08:20 BP 147/77 05/28/20 07:00 Pulse Ox 95 05/28/20 07:00 Intake & Output 05/27/20 05/28/20 05/28/20 18:59 06:59 18:59 Intake Total 540 Output Total 500 950 Balance 40 -950 Intake: Oral 540 Output: Urine 500 950 Other: Voiding Method Indwelling Catheter Indwelling Catheter Indwelling Catheter - Labs CBC & Chem 7: 05/28/20 10:11 05/28/20 10:11 Labs: Abnormal Lab Results - Last 24 Hours (Table) 05/28/20 05/28/20 Range/Units 10:11 10:11 RBC 3.47 L (4.30-5.90) m/uL Hgb 10.4 L (13.0-17.5) gm/dL Hct 32.6 L (39.0-53.0) % Sodium 128 L (137-145) mmol/L Chloride 95 L (98-107) mmol/L Creatinine 0.49 L (0.66-1.25) mg/dL Assessment and Plan (1) Small bowel obstruction Current Visit: Yes Status: Acute Code(s): K56.609 - UNSP INTESTNL OBST, UNSP TO PARTIAL VERSUS COMPLETE OBST SNOMED Code(s): 855316157 (2) Gastrointestinal bleeding Current Visit: Yes Status: Acute Code(s): K92.2 - GASTROINTESTINAL HEMORRHAGE, UNSPECIFIED SNOMED Code(s): 55415255
[2020-05-28] MEDS: ALVIMOPAN 12 MG CAPSULE PO SCH ×2 (12:04→20:31)
[2020-05-28 13:04] VITALS: BMI 25.8
--- NOTE | 2020-05-28 15:12 | P.PN ---
Subjective This is a pleasant 64 years old male with past medical history of GI bleed, hypertension. Patient presents because of acute pain of one-day duration and he had CAT scan of the abdomen showed possible abscess with a possible small bowel perforation as the cause for his She underwent exploratory laparotomy yesterday, with lysis of adhesions and th ere was evidence of inflammatory masses in 2 portions of small bowel, followed by small bowel resection 2. Today he was lying in bed comfortable, has NG tube with about 250-300 of dark aspirate, he does not have bowel movement, he is still have some expected abdominal pain but is not in acute distress Vitas looks stable, he is afebrile. Labs showed leukocytosis of 15.5, hemoglobin of 11.8, platelets and INR within normal limits, sodium 126, potassium 4.7 and creatinine is normal at 0.4 CT of the abdomen and pelvis: Mesenteric edema with large fluid collection measuring 4.2 x 6.4 x 4.2 in the mesentery suspicious for intra-abdominal abscess on admission patient was started on Zosyn and normal sound 100 mL per hour 05/26/2020 Patient is lying in bed but was able to walk using her walker. Still has NG tube was about 2:30 milliliter of dark colored aspirate, Hayward catheter is in place with clear urine. This allowed same abdominal pain, feeling nauseous but no vomiting, he did not have bowel movement. But is passing gases. Vitals are stable, leukocytosis improving down to 12.9 K, sodium is stable at 129, creatinine is normal We'll keep the patient on Zosyn and normal saline at 100 mL per hour 05/27/2020 Patient is awake, his abdomen is less distended and his pain is controlled, patient is asking to eat however he still have NG tube in place with about more than 300 of dark brown aspirate through his NG. Patient did not have bowel movement. Explained the patient risks of not taking the NG tube out including risk of aspiration and sudden and he verbalized understanding. His WBC back to normal at 10.7 K, sodium stable at 129. Surgery team following the case closely, hold Lovenox for possible blood in the NG tube and add Protonix twice daily 05/28/2020 Patient NG tube came off as he is telling me, she was started on liquid diet, as per patient history to that well, his abdominal pain is controlled, he did not have bowel movement but he has the feeling that this coming soon. No other complaints like no chest pain or dyspnea. He looks more pleasant and relaxed than yesterday. Vitals are stable. WBCs normal at 8.3K, sodium 128. He remains on Zosyn on normal saline at the milliliter per hour, also he is on a Protonix 40 mg twice a day Yesterday his Lovenox was stopped because there was suspicion for upper GI bleed with a drop of hemoglobin however his hemoglobin is stable we are comment. Check hemoglobin tomorrow if he remains stable then may consider starting on DVT prophylaxis lack subcutaneous heparin, however we that's decision to the [facility] primary team. Objective - Vital Signs Vital signs: Vital Signs Temp 98.0 F 05/28/20 15:00 Pulse 70 05/28/20 15:00 Resp 19 05/28/20 15:00 BP 146/84 05/28/20 15:00 Pulse Ox 96 05/28/20 15:00 Intake & Output 05/27/20 05/28/20 05/28/20 18:59 06:59 18:59 Intake Total 540 800 Output Total 500 950 400 Balance 40 -950 400 Weight 77.111 kg Intake: Intake, IV Titration 800 Amount Piperacillin-Tazobactam 3 100 .375 gm In Sodium Chloride 0.9% 100 ml @ 25 mls/hr IVPB Q8H YAJAIRA Rx#: [id number] Sodium Chloride 0.9% 1, 700 000 ml @ 100 mls/hr IV . Q10H YAJAIRA Rx#:[id number] Oral 540 Output: Urine 500 950 400 Other: Voiding Method Indwelling Catheter Indwelling Catheter Indwelling Catheter - Exam GENERAL: The patient is alert and oriented x3, not in any acute distress. Well developed, well nourished. HEENT: Pupils are round and equally reacting to light. EOMI. No scleral icterus. No conjunctival pallor. Normocephalic, atraumatic. No pharyngeal erythema. No thyromegaly. CARDIOVASCULAR: S1 and S2 present. No murmurs, rubs, or gallops. PULMONARY: Chest is clear to auscultation, no wheezing or crackles. -ABDOMEN: Soft, nontender, nondistended, normoactive bowel sounds. No palpable organomegaly. Surgical wound in a dressing, expected tenderness, rest of exam is deferred to surgery team MUSCULOSKELETAL: No joint swelling or deformity. EXTREMITIES: No cyanosis, clubbing, or pedal edema. NEUROLOGICAL: Gross neurological examination did not reveal any focal deficits. SKIN: No rashes. no petechiae. - Labs CBC & Chem 7: 05/28/20 10:11 05/28/20 10:11 Labs: Abnormal Lab Results - Last 24 Hours (Table) 05/28/20 05/28/20 Range/Units 10:11 10:11 RBC 3.47 L (4.30-5.90) m/uL Hgb 10.4 L (13.0-17.5) gm/dL Hct 32.6 L (39.0-53.0) % Sodium 128 L (137-145) mmol/L Chloride 95 L (98-107) mmol/L Creatinine 0.49 L (0.66-1.25) mg/dL Assessment and Plan Assessment: -intra-abdominal abscess , status post exploratory laparotomy and with lysis of adhesions and there was evidence of inflammatory masses in 2 portions of small bowel, followed by small bowel resection 2 -Hyp bilateral basal pulmonary infiltrate/atelectasis, -hiatal hernia -Hyponatremia -Hypertension -History of GI bleed Plan: this is a pleasant 64 years old male who presents with intra-abdominal abscess. Continue with antibiotics. Continue with IV fluids . Continue with Protonix and monitor hemoglobin as per surgery team recommendation. Keep monitoring sodium which is a stable now. Besides surgery primary team patient is evaluated by pulmonary team . DVT prophylaxis and pain management as per surgery primary team Labs and medication were reviewed.. Continue same treatment. Continue with symptomatic treatment. Resume home medication. Monitor lytes and vitals. DVT and GI prophylaxis. Further recommendations of the clinical course of the patient DVT prophylasis: Lovenox is on hold, DVT prophylaxis as per primary surgery team GI Prophylaxis: Ppi
[2020-05-28] MEDS: SODIUM CHLORIDE 0.9% 1,000 ML IV SCH ×2 (18:55→20:30)
[2020-05-28] MEDS: MELATONIN 5 MG TABLET PO SCH (20:31)
[2020-05-29] MEDS: HYDROmorphone 1 MG/ML 1 ML SYRINGE IVP PRN ×4 (02:30→20:26)
[2020-05-29] MEDS: SODIUM CHLORIDE 0.9% 1,000 ML IV SCH (03:26)
[2020-05-29] MEDS: PIPERACILLIN-TAZOBACTAM 3.375 GM in SODIUM CHLORIDE 0.9% 100 ML IVPB SCH ×3 (05:34→20:26)
[2020-05-29] MEDS: IPRATROPIUM-ALBUTEROL 3 ML NEB INHALATION SCH ×3 (07:02→20:36)
[2020-05-29] MEDS: HYDROmorphone 0.5 MG/0.5 ML SYRINGE IVP PRN (07:44)
[2020-05-29] MEDS: PANTOPRAZOLE 40 MG/10 ML VIAL IVP SCH ×2 (09:52→20:25)
[2020-05-29] MEDS: ALVIMOPAN 12 MG CAPSULE PO SCH ×2 (10:31→20:25)
[2020-05-29] MEDS: AMIODARONE 200 MG TAB PO SCH (10:31)
[2020-05-29] MEDS: MAGNESIUM OXIDE 400 MG TAB PO SCH ×2 (10:32→20:25)
[2020-05-29] MEDS: METOPROLOL TARTRATE 50 MG TAB PO SCH ×2 (10:32→20:25)
--- NOTE | 2020-05-29 15:56 | P.PN ---
Progress Note - Text Progress Note Date: 05/29/20 The patient feels better. He has passed some gas. He is tolerating liquids. On exam vital signs are stable. Abdomen soft. Incision site is clean dry and intact. Status post small bowel resection. Patient will have his diet advanced.
[2020-05-29] MEDS: MELATONIN 5 MG TABLET PO SCH (20:25)
--- NOTE | 2020-05-29 20:50 | P.PN ---
Progress Note - Text Progress Note Date: 05/29/20 65-year-old patient who follows a Dr. Michel. Patient long-standing history of smoking and drinking significant amount of alcohol. Chronic stable conditions also include nicotine dependence, hypertension, gastritis duodenitis as per EGD in 2019. presented to the hospital on March 22 he took a fall was admitted with left-sided rib fractures 4 to-5 also found to be severely hyponatremic. On March 29 underwent surgery for acute strangulate a diaphragmatic hernia with small bowel loops with ischemia has strangulated small bowel by Dr. Rowe. Patient now presented again with abdominal pain was taken to the operating room May 24 found to have what appears to be an abscess and partial small bowel resection was carried out. Patient has an abdominal dressing. Today-patient tolerating a diet. Had bowel movement. Slightly loose. No fever no chills. No nausea or vomiting. Has been out of bed. Review of systems: Done for constitutional, cardiovascular, GI, pulmonary. relevant finding as above Active Medications Acetaminophen (Tylenol Tab) 650 mg PO Q6HR PRN PRN Reason: Mild Pain or Fever > 100.5 Albuterol Sulfate (Ventolin Nebulized) 2.5 mg INHALATION Q6H PRN PRN Reason: Wheezing Albuterol/Ipratropium (Duoneb 0.5 Mg-3 Mg/3 Ml Soln) 3 ml INHALATION RT-TID [facility] Last Admin: 05/29/20 20:36 Dose: Not Given Documented by: Alvimopan (Entereg) 12 mg PO BID [facility] Stop: 06/03/20 21:01 Last Admin: 05/29/20 20:25 Dose: 12 mg Documented by: Amiodarone HCl (Cordarone) 400 mg PO DAILY [facility] Last Admin: 05/29/20 10:31 Dose: 400 mg Documented by: Hydromorphone HCl (Dilaudid) 0.5 mg IVP Q3HR PRN PRN Reason: Moderate Pain Last Admin: 05/29/20 07:44 Dose: 0.5 mg Documented by: Hydromorphone HCl (Dilaudid) 1 mg IVP Q3HR PRN PRN Reason: Moderate to Severe Pain Last Admin: 05/29/20 20:26 Dose: 1 mg Documented by: Piperacillin Sod/Tazobactam (Sod 3.375 gm/ Sodium Chloride) 100 mls @ 25 mls/hr IVPB Q8H [facility] Last Admin: 05/29/20 20:26 Dose: 25 mls/hr Documented by: Sodium Chloride (Saline 0.9%) 1,000 mls @ 100 mls/hr IV .Q10H [facility] Last Admin: 05/29/20 03:26 Dose: 100 mls/hr Documented by: Magnesium Oxide (Mag-Ox) 200 mg PO BID [facility] Last Admin: 05/29/20 20:25 Dose: 200 mg Documented by: Melatonin (Melatonin) 5 mg PO HS [facility] Last Admin: 05/29/20 20:25 Dose: 5 mg Documented by: Metoprolol Tartrate (Lopressor) 100 mg PO BID [facility] Last Admin: 05/29/20 20:25 Dose: 100 mg Documented by: Naloxone HCl (Narcan) 0.2 mg IV Q2M PRN PRN Reason: Opioid Reversal Ondansetron HCl (Zofran) 4 mg IVP Q6HR PRN PRN Reason: Nausea And Vomiting Pantoprazole Sodium (Protonix) 40 mg IVP BID [facility] Last Admin: 05/29/20 20:25 Dose: 40 mg Documented by: Physical examination: VITAL SIGNS: 97.3, 64, 17, 155/71, 94% room air GENERAL: Negative bed, comfortable EYES: Pupils equal. Conjunctiva normal. HEENT: External appearance of nose and ears normal, oral cavity grossly normal. NECK: JVD not raised; masses not palpable. HEART: Heart sounds irregular; mild edema LUNGS: Respiratory rate normal, decreased breath sounds ABDOMEN: Tenderness present. Dressing present. No guarding rigidity. Liver and spleen not palpable. PSYCH:AO - times three. Mood and affect normal . INVESTIGATIONS, reviewed in the clinical context: White count 8.3 hemoglobin 10.4 percussion 3.6 creatinine 0.49 Admission testing: White count 15.5 hemoglobin 11.8 sodium 126 creatinine 0.4 COVID 19 PCI-not detected Computed tomography scan of the abdomen-mesenteric edema and large fluid collection suspicious for an abdominal abscess. 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 Has been in and out of atrial fibrillation. On amiodarone.- -Alcohol dependence syndrome Plan: Gen. discussed with the patient. Patient is on IV Zosyn. IV fluids. Tolerating diet. DC IV fluids Thank you
[2020-05-30] MEDS: HYDROmorphone 0.5 MG/0.5 ML SYRINGE IVP PRN ×5 (00:32→21:24)
[2020-05-30] MEDS: SODIUM CHLORIDE 0.9% 1,000 ML IV SCH ×4 (00:32→16:50)
[2020-05-30] MEDS: PIPERACILLIN-TAZOBACTAM 3.375 GM in SODIUM CHLORIDE 0.9% 100 ML IVPB SCH ×3 (05:27→21:23)
[2020-05-30] MEDS: METOPROLOL TARTRATE 50 MG TAB PO SCH ×2 (07:10→21:24)
[2020-05-30] MEDS: PANTOPRAZOLE 40 MG/10 ML VIAL IVP SCH ×2 (07:10→21:23)
[2020-05-30] MEDS: MAGNESIUM OXIDE 400 MG TAB PO SCH ×2 (07:11→21:24)
[2020-05-30] MEDS: AMIODARONE 200 MG TAB PO SCH (07:11)
[2020-05-30] MEDS: ALVIMOPAN 12 MG CAPSULE PO SCH ×2 (07:11→21:24)
[2020-05-30] MEDS: IPRATROPIUM-ALBUTEROL 3 ML NEB INHALATION SCH ×3 (08:13→19:41)
--- NOTE | 2020-05-30 17:23 | P.PN ---
Progress Note - Text Progress Note Date: 05/30/20 The patient states he feels well. He has no points of pain. On exam vital signs are stable. Abdomen soft. Incision site is clean dry intact. Patient status post small bowel resection. We will plan for discharge home tomorrow.
[2020-05-30] MEDS: MELATONIN 5 MG TABLET PO SCH (21:24)
--- NOTE | 2020-05-31 00:11 | P.PN ---
Progress Note - Text Progress Note Date: 05/31/20 interval history: 65-year-old patient who follows a Dr. Michel. Patient long-standing history of smoking and drinking significant amount of alcohol. Chronic stable conditions also include nicotine dependence, hypertension, gastritis duodenitis as per EGD in 2019. presented to the hospital on March 22 he took a fall was admitted with left-sided rib fractures 4 to-5 also found to be severely hyponatremic. On March 29 underwent surgery for acute strangulate a diaphragmatic hernia with small bowel loops with ischemia has strangulated small bowel by Dr. Rowe. Patient now presented again with abdominal pain was taken to the operating room May 24 found to have what appears to be an abscess and partial small bowel resection was carried out. Patient has an abdominal dressing. Today-abdominal pain control. eating food. Had bowel movement. Has been out of bed. Review of systems: Done for constitutional, cardiovascular, GI, pulmonary. relevant finding as above Active Medications Acetaminophen (Tylenol Tab) 650 mg PO Q6HR PRN PRN Reason: Mild Pain or Fever > 100.5 Albuterol Sulfate (Ventolin Nebulized) 2.5 mg INHALATION Q6H PRN PRN Reason: Wheezing Albuterol/Ipratropium (Duoneb 0.5 Mg-3 Mg/3 Ml Soln) 3 ml INHALATION RT-TID [facility] Last Admin: 05/30/20 19:41 Dose: Not Given Documented by: Alvimopan (Entereg) 12 mg PO BID [facility] Stop: 06/03/20 21:01 Last Admin: 05/30/20 21:24 Dose: 12 mg Documented by: Amiodarone HCl (Cordarone) 400 mg PO DAILY [facility] Last Admin: 05/30/20 07:11 Dose: 400 mg Documented by: Hydromorphone HCl (Dilaudid) 0.5 mg IVP Q3HR PRN PRN Reason: Moderate Pain Last Admin: 05/30/20 21:24 Dose: 0.5 mg Documented by: Hydromorphone HCl (Dilaudid) 1 mg IVP Q3HR PRN PRN Reason: Moderate to Severe Pain Last Admin: 05/29/20 20:26 Dose: 1 mg Documented by: Piperacillin Sod/Tazobactam (Sod 3.375 gm/ Sodium Chloride) 100 mls @ 25 mls/hr IVPB Q8H [facility] Last Admin: 05/30/20 21:23 Dose: 25 mls/hr Documented by: Sodium Chloride (Saline 0.9%) 1,000 mls @ 100 mls/hr IV .Q10H [facility] Last Admin: 05/30/20 16:50 Dose: 100 mls/hr Documented by: Magnesium Oxide (Mag-Ox) 200 mg PO BID [facility] Last Admin: 05/30/20 21:24 Dose: 200 mg Documented by: Melatonin (Melatonin) 5 mg PO HS [facility] Last Admin: 05/30/20 21:24 Dose: 5 mg Documented by: Metoprolol Tartrate (Lopressor) 100 mg PO BID [facility] Last Admin: 05/30/20 21:24 Dose: 100 mg Documented by: Naloxone HCl (Narcan) 0.2 mg IV Q2M PRN PRN Reason: Opioid Reversal Ondansetron HCl (Zofran) 4 mg IVP Q6HR PRN PRN Reason: Nausea And Vomiting Pantoprazole Sodium (Protonix) 40 mg IVP BID [facility] Last Admin: 05/30/20 21:23 Dose: 40 mg Documented by: Physical examination: VITAL SIGNS:98.4, 73, 16, 168/87, 98% room air GENERAL: sitting up in the chair, comfortable EYES: Pupils equal. Conjunctiva normal. HEENT: External appearance of nose and ears normal, oral cavity grossly normal. NECK: JVD not raised; masses not palpable. HEART: Heart sounds irregular; mild edema LUNGS: Respiratory rate normal, decreased breath sounds ABDOMEN: Tenderness present. Dressing present. No guarding rigidity. Liver and spleen not palpable. PSYCH:AO - times three. Mood and affect normal . INVESTIGATIONS, reviewed in the clinical context: White count 8.3 hemoglobin 10.4 percussion 3.6 creatinine 0.49 Admission testing: White count 15.5 hemoglobin 11.8 sodium 126 creatinine 0.4 COVID 19 PCI-not detected Computed tomography scan of the abdomen-mesenteric edema and large fluid collection suspicious for an abdominal abscess. 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 Has been in and out of atrial fibrillation. On amiodarone.- -Alcohol dependence syndrome Plan: much improved. Having bowel movements. Tolerating a diet. On IV Zosyn. Hopefully discharge tomorrow. Discussed with the patient. Thank you
[2020-05-31] MEDS: SODIUM CHLORIDE 0.9% 1,000 ML IV SCH (05:07)
[2020-05-31] MEDS: PIPERACILLIN-TAZOBACTAM 3.375 GM in SODIUM CHLORIDE 0.9% 100 ML IVPB SCH (05:08)
[2020-05-31] MEDS: HYDROmorphone 0.5 MG/0.5 ML SYRINGE IVP PRN (05:08)
[2020-05-31 07:05] VITALS: BP 184/83; RESP 17; TEMP 98.4
[2020-05-31] MEDS: MAGNESIUM OXIDE 400 MG TAB PO SCH (07:05)
[2020-05-31] MEDS: AMIODARONE 200 MG TAB PO SCH (07:06)
[2020-05-31] MEDS: METOPROLOL TARTRATE 50 MG TAB PO SCH (07:06)
[2020-05-31] MEDS: PANTOPRAZOLE 40 MG/10 ML VIAL IVP SCH (07:06)
[2020-05-31] MEDS: ALVIMOPAN 12 MG CAPSULE PO SCH (07:08)
[2020-05-31] MEDS: IPRATROPIUM-ALBUTEROL 3 ML NEB INHALATION SCH ×2 (07:36→11:10)
--- NOTE | 2020-05-31 10:36 | CDI ---
Documentation Clarification Form Date: 05/31/2020 10:26:44 AM From: Carin Delgado RN, CCDS Admit Date: 05/24/2020 12:39:00 PM Patient Name: Yordy Garland Visit Number: [id number] ATTENTION: The Clinical Documentation Specialists (CDI) and [facility] Coding Staff appreciate your assistance in clarifying documentation. Please respond to the clarification below the line at the bottom and electronically sign. The CDI & [facility] Coding staff will review the response and follow-up if needed. Please note: Queries are made part of the Legal Health Record. If you have any questions, please contact the author of this message via ITS. Dr. Yang Gaspar Anemia is documented in the H&P, consults, and progress notes and requires further specificity. History/Risk Factors: Anemia, GIB, HTN, smoker Clinical indicators: 05/27 & 05/28 Surgical Progress Note: "Anemia" 05/24-05/28 Hemoglobin: 11.8/12.9/10.9/9.6/10.4 05/24-05/28 Hematocrit: 37.4/40.4/34.9/30.1/32.6 05/24 Laprotomy w/ LEXI an small bowel resection x 2 w 50 CC EBL Treatment: 05/24 1L IVF bolus followed by 100 cc/hr In order to capture the severity of condition, please clarify the type of anemia and etiology if known. Acute blood loss anemia Acute on chronic blood loss anemia Chronic blood loss anemia Iron deficiency anemia Nutritional anemia Anemia of chronic disease Unable to determine Other, please specify (Last Form Revision: January 2020) Possible acute post procedure blood loss anemia as expected from surgery MTDD
[2020-05-31 11:14] VITALS: PULSE 84
--- NOTE | 2020-05-31 11:14 | P.DS ---
Providers Date of admission: 05/24/20 12:39 Expected date of discharge: 05/31/20 Attending physician: Suhas Rowe Consults: 05/24/20 16:07 Consult Physician Routine Consulting Provider: Kaela Vickers Consult Reason/Comments: Patient known Do you want consulting provider notified?: Yes Consult Physician Routine Consulting Provider: Yang Gaspar Consult Reason/Comments: Medical management Do you want consulting provider notified?: Yes Primary care physician: [facility] Course: This a 65-year-old male who underwent total laparotomy small bowel resection. Patient did well postoperatively. Please see hospital chart for details. Procedures: Leal laparotomy with small bowel resection Patient Condition at Discharge: Good Plan - Discharge Summary Discharge Rx Participant: Yes New Discharge Prescriptions: New Docusate [Colace] 100 mg PO BID #20 capsule HYDROcodone/APAP 5-325MG [[place] 5-325] 1 tab PO Q6HR PRN #10 tab PRN Reason: Pain No Action Omeprazole [PriLOSEC] 20 mg PO DAILY Multivitamins, Thera [Multivitamin (formulary)] 1 tab PO DAILY Albuterol Sulfate [Ventolin HFA] 1 - 2 puff INHALATION Q6H PRN #1 inhaler PRN Reason: Wheezing Apixaban [Eliquis] 2.5 mg PO BID #60 tab Amiodarone [Cordarone] 400 mg PO DAILY #30 tab Potassium Chloride ER [K-Dur 20] 20 meq PO DAILY #14 tab Furosemide [Lasix] 40 mg PO DAILY #10 tab Metoprolol Tartrate [Lopressor] 100 mg PO BID #60 tab Magnesium Oxide [Mag-Oxide] 200 mg PO BID #60 tablet Melatonin 5 mg PO HS Discharge Medication List Omeprazole [PriLOSEC] 20 mg PO DAILY 10/14/19 [History] Multivitamins, Thera [Multivitamin (formulary)] 1 tab PO DAILY 03/22/20 [History] Albuterol Sulfate [Ventolin HFA] 1 - 2 puff INHALATION Q6H PRN #1 inhaler 03/24/20 [Rx] Apixaban [Eliquis] 2.5 mg PO BID #60 tab 04/07/20 [Rx] Amiodarone [Cordarone] 400 mg PO DAILY #30 tab 04/08/20 [Rx] Furosemide [Lasix] 40 mg PO DAILY #10 tab 04/08/20 [Rx] Magnesium Oxide [Mag-Oxide] 200 mg PO BID #60 tablet 04/08/20 [Rx] Metoprolol Tartrate [Lopressor] 100 mg PO BID #60 tab 04/08/20 [Rx] Potassium Chloride ER [K-Dur 20] 20 meq PO DAILY #14 tab 04/08/20 [Rx] Melatonin 5 mg PO HS 05/24/20 [History] Docusate [Colace] 100 mg PO BID #20 capsule 05/31/20 [Rx] HYDROcodone/APAP 5-325MG [[place] 5-325] 1 tab PO Q6HR PRN #10 tab 05/31/20 [Rx] Follow up Appointment(s)/Referral(s): Jc Michel DO [Primary Care Provider] - 06/05/20 8:40 am Suhas Rowe MD [STAFF PHYSICIAN] - 1 Week Discharge Disposition: HOME SELF-CARE
[2020-05-31] MEDS ORDERED: APIXABAN 2.5 MG TABLET PO SCH (11:30)
--- NOTE | 2020-05-31 23:29 | P.PN ---
Progress Note - Text Progress Note Date: 05/31/20 interval history: 65-year-old patient who follows a Dr. Michel. Patient long-standing history of smoking and drinking significant amount of alcohol. Chronic stable conditions also include nicotine dependence, hypertension, gastritis duodenitis as per EGD in 2019. presented to the hospital on March 22 he took a fall was admitted with left-sided rib fractures 4 to-5 also found to be severely hyponatremic. On March 29 underwent surgery for acute strangulate a diaphragmatic hernia with small bowel loops with ischemia has strangulated small bowel by Dr. Rowe. Patient now presented again with abdominal pain was taken to the operating room May 24 found to have what appears to be an abscess and partial small bowel resection was carried out. Patient has an abdominal dressing. Today-up and about in the room. Very keen to go home. Occasional cough. He tolerated diet. Did have a bowel movement. Pain well controlled. Review of systems: Done for constitutional, cardiovascular, GI, pulmonary. relevant finding as above Current medications reviewed in today's electronic records Physical examination: VITAL SIGNS: 98.4, 70, 17, 97% room air GENERAL: sitting comfortable EYES: Pupils equal. Conjunctiva normal. HEENT: External appearance of nose and ears normal, oral cavity grossly normal. NECK: JVD not raised; masses not palpable. HEART: Heart sounds irregular; mild edema LUNGS: Respiratory rate normal, decreased breath sounds ABDOMEN: Tenderness present. Dressing present. No guarding rigidity. Liver and spleen not palpable. PSYCH:AO - times three. Mood and affect normal . INVESTIGATIONS, reviewed in the clinical context: White count 8.3 hemoglobin 10.4 potassium 3.6 creatinine 0.49 sodium 128 Admission testing: White count 15.5 hemoglobin 11.8 sodium 126 creatinine 0.4 COVID 19 PCI-not detected Computed tomography scan of the abdomen-mesenteric edema and large fluid collection suspicious for an abdominal abscess. 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 Has been in and out of atrial fibrillation. On amiodarone.- -Alcohol dependence syndrome Plan: Patient's initial to oral Augmentin. Care was discussed with the patient. Questions answered. Thank you Smoke cessation counseling: This was done with the patient. Nicotine patch is being given. More than 3 minutes was spent for this
--- NOTE | 2020-06-01 11:08 | CDI ---
Documentation Clarification Form Date: 06/01/2020 10:58:59 AM From: Stefanie Lassiter Phone: If you have a question about this query, please contact Becky Dill Psychiatric Attendant at [phone] between 8am and 5pm. Admit Date: 05/24/2020 12:39:00 PM Patient Name: Yordy Garland Visit Number: [id number] Discharge Date: 05/31/2020 11:48:00 AM ATTENTION: The Clinical Documentation Specialists (CDI) and [facility] Coding Staff appreciate your assistance in clarifying documentation. Please respond to the clarification below the line at the bottom and electronically sign. The CDI & [facility] Coding staff will review the response and follow-up if needed. Please note: Queries are made part of the Legal Health Record. If you have any questions, please contact the author of this message via ITS. Dr. Suhas Rowe Documentation in the Operative Report included:lysis of adhesions of small bowel. Please clarify if lysis of adhesions was extensive or not. History/Risk factors: previous abdominal surgery Pre-Operative Diagnosis: abscess Postoperative Diagnosis: Small bowel mass with inflammatory changes x 2 adhesions Treatment: Excision SB x 2 and lysis of adhesions In order to capture the severity of condition, please specify the following: Lysis of adhesions extensive Lysis of adhesions non-extensive Lysis of extensive adhesions MTDD
== END 2020-05-31 11:48 | disposition home or self-care (01) | DRG 329 ==
LOC: EC 09:41 → 4SSUR 12:39
PROVIDERS: ADMIT Surgery; ATTEND Surgery
PROC: 0DB80ZZ Excision of Small Intestine, Open Approach (ICD-10-PCS; principal; 2020-05-24 08:50)
PROC: 0DN80ZZ Release Small Intestine, Open Approach (ICD-10-PCS; principal; 2020-05-24 08:50)
DX: K63.0 Abscess of intestine (principal); K63.1 Perforation of intestine (nontraumatic); J96.01 Acute respiratory failure with hypoxia; E87.1 Hypo-osmolality and hyponatremia; J98.11 Atelectasis; D62 Acute posthemorrhagic anemia; F10.20 Alcohol dependence, uncomplicated; Z71.6 Tobacco abuse counseling; F17.210 Nicotine dependence, cigarettes, uncomplicated; I10 Essential (primary) hypertension; I48.0 Paroxysmal atrial fibrillation; K21.9 Gastro-esophageal reflux disease without esophagitis; K29.20 Alcoholic gastritis without bleeding; K29.80 Duodenitis without bleeding; Z87.19 Personal history of other diseases of the digestive system; Z11.59 Encounter for screening for other viral diseases; S22.42XD Multiple fractures of ribs, left side, subsequent encounter for fracture with routine healing; W19.XXXD Unspecified fall, subsequent encounter; Z79.01 Long term (current) use of anticoagulants; Z79.899 Other long term (current) drug therapy; Z81.1 Family history of alcohol abuse and dependence; Z90.49 Acquired absence of other specified parts of digestive tract; T41.45XA Adverse effect of unspecified anesthetic, initial encounter; K66.0 Peritoneal adhesions (postprocedural) (postinfection)
CPT/HCPCS: 36415; 71045; 74177; 80048; 80053; 82150; 83605; 83690; 83735; 85025; 85610; 85730; 88307; 94640; 96361; 96374; 96375; 99285

== ENCOUNTER → 2020-10-13 | Day surgery (SDC) | payer MEDICARE ==
[2020-10-10 17:33] VITALS: BMI 25.8
[~2020-10-13] MED LIST changes: +ACETAMINOPHEN TAB 500 MG TAB PO PRN; +DEXAMETHASONE SOD PHOSPHATE 4 MG/ML 1 ML VIAL IV ONE; +HEPARIN SODIUM,PORCINE 5,000 UNIT/ML 1 ML VIAL SQ PRN; +HYDROmorphone 0.5 MG/0.5 ML SYRINGE IVP PRN; -LIDOCAINE 1% 20 ML VIAL (10MG/ML) FOR IV START INTRADERMA PRN; +MIDAZOLAM 2 MG/2 ML VIAL IV PRN; +ONDANSETRON 4 MG/2 ML VIAL IVP ONE
== END ==
LOC: OR 09:21
PROVIDERS: ATTEND Surgery
DX: K43.0 Incisional hernia with obstruction, without gangrene (principal); I10 Essential (primary) hypertension; I48.91 Unspecified atrial fibrillation; Z79.01 Long term (current) use of anticoagulants; Z53.09 Procedure and treatment not carried out because of other contraindication

== ENCOUNTER → 2020-10-20 | Outpatient (CLI) | payer MEDICARE ==
[~2020-10-20] MED LIST changes: -ACETAMINOPHEN TAB 500 MG TAB PO PRN; -DEXAMETHASONE SOD PHOSPHATE 4 MG/ML 1 ML VIAL IV ONE; -HEPARIN SODIUM,PORCINE 5,000 UNIT/ML 1 ML VIAL SQ PRN; -HYDROmorphone 0.5 MG/0.5 ML SYRINGE IVP PRN; -LACTATED RINGERS 1,000 ML IV SCH; -MIDAZOLAM 2 MG/2 ML VIAL IV PRN; -ONDANSETRON 4 MG/2 ML VIAL IVP ONE; +REGADENOSON 0.4 MG/5 ML SYRINGE IV ONE
--- NOTE | 2020-10-20 10:41 | NM ---
EXAMINATION TYPE: NM stress lexiscan cardiolite DATE OF EXAM: 10/20/2020 COMPARISON: NONE HISTORY: Preop clearance TECHNIQUE: After the intravenous administration of 9.86 mCi Tc 99m Sestamibi - Cardiolite resting SP ECT images acquired 45 minutes post injection. The patient received 0.4mg Lexiscan, 26.2 mCi Tc 99m Sestamibi - Stress images obtained [address] injection FINDINGS: Review of stress and rest SPECT images demonstrates large fixed defect involving the inferior wall an d apical portion of the myocardium. Small area of stress-induced reversible ischemia involving the la teral wall not excluded. Corresponding wall motion abnormality. Ejection fraction 47%. IMPRESSION: 1. Sizable fixed defect involving the apex and inferior wall. Along the apical lateral portion of the myocardium a tiny area of stress-induced reversible ischemia is not excluded correlate clinically. 2. Ejection fraction of 47%. A Yellow level critical message alert has been initiated for Yony Lockwood MD via the [employer] Critical Results System on 10/20/2020 10:39 AM. This message alert has been sent to Yony Lockwood MD v ia the preferences provided by the clinician for the receipt of Radiology Critical Findings. Message ID [id number].
--- NOTE | 2020-10-20 12:10 | P.STRESS ---
- Stress Test Note Stress Test Results/Findings: Exam Performed: NM stress lexiscan cardiolite Exam Date: 10/20/20 Reason for Exam: PRE-OP Height: 5 ft 8 in Weight: 77.3 kg Protocol: LEXISCAN Stage: N/A Duration of Exercise: 5 MINUTES Resting Heart Rate: 74 Resting Blood Pressure: 161/83 Maximum Achieved Heart Rate: 87 Maximum Achieved Blood Pressure: 161/83 85% PMHR: 131 100% PMHR: 154 METS: N/A Technologist Comment: Stress Test Results/Findings: At baseline EKG showed normal sinus rhythm, minimal J-point elevation inferiorly, no significant ST or T-wave abnormalities. Patient recieved IV infusion of Lexiscan 0.4mg and at peak infusion EKG showed no significant change from baseline, rare PVC noted. Conclusions: 1. Normal EKG response to Lexiscan infusion 2. Nuclear imaging to be reported separately.
== END | disposition home or self-care (01) ==
LOC: RADNMMAIN 07:51
PROVIDERS: ATTEND Internal Medicine Interventional Cardiology
DX: Z01.810 Encounter for preprocedural cardiovascular examination (principal); R06.02 Shortness of breath
CPT/HCPCS: 93017; 78452; A9500; J2785

== ENCOUNTER 2020-10-24 10:11 | Day surgery (SDC) | payer MEDICARE ==
[2020-10-23 11:43] VITALS: BMI 24.9
[~2020-10-24 10:11] MED LIST changes: +ALPRAZolam 0.25 MG TAB PO PRN; +ALPRAZolam 0.5 MG TAB PO PRN; +ASPIRIN 325 MG TAB PO ONE; +ATORVASTATIN 80 MG TAB PO ONE; +NITROGLYCERIN SL TABS 0.4 MG TAB SUBLINGUAL PRN; -REGADENOSON 0.4 MG/5 ML SYRINGE IV ONE; +SODIUM CHLORIDE 0.9% 1,000 ML in EMPTY BAG 1 BAG IV ONE
[2020-10-24 10:42] VITALS: RESP 18; TEMP 97.9
[2020-10-24] MEDS ORDERED: VERAPAMIL 2.5 MG/ML 2 ML AMP ONE (10:54)
[2020-10-24] MEDS ORDERED: LIDOCAINE 1% INJ 10MG/ML (20 ML MDV) ONE (10:54)
[2020-10-24] MEDS ORDERED: MIDAZOLAM 2 MG/2 ML VIAL IVP ONE (11:02)
[2020-10-24 11:05] LABS: Basophils % (A) 1 %; Eosinophils # (A) 0.2 k/uL (0-0.7); Eosinophils % (A) 3 %; HCT 35.1 % (39.0-53.0); HGB 11.5 gm/dL (13.0-17.5); Hypochromasia Slight; Lymphocytes # (A) 1.6 k/uL (1.0-4.8); Lymphocytes % (A) 27 %; MCH 31.2 pg (25.0-35.0); MCHC 32.8 g/dL (31.0-37.0); MCV 94.9 fL (80.0-100.0); Mean Platelet Volume 6.9; Monocytes # (A) 0.4 k/uL (0-1.0); Monocytes % (A) 7 %; Neutrophils # (A) 3.4 k/uL (1.3-7.7); Neutrophils % (A) 58 %; Platelet Count 366 k/uL (150-450); RDW 13.1 % (11.5-15.5); WBC 5.9 k/uL (3.8-10.6)
[2020-10-24] MEDS ORDERED: fentaNYL (PF) 50 MCG/ML 2 ML AMP ONE (11:05)
[2020-10-24] MEDS: fentaNYL (PF) 50 MCG/ML 2 ML AMP IVP ONE ×2 (11:11→11:18)
[2020-10-24] MEDS ORDERED: LIDOCAINE 1% INJ 10MG/ML (20 ML MDV) SQ ONE (11:14)
[2020-10-24] MEDS ORDERED: VERAPAMIL SYRINGE (5 MG/10 ML) INTRAARTER ONE (11:16)
[2020-10-24] MEDS ORDERED: HEPARIN SODIUM 1,000 UN/ML (10ML VL) ONE (11:16)
[2020-10-24] MEDS ORDERED: HEPARIN SODIUM 1,000 UN/ML (10ML VL) IV ONE (11:17)
[2020-10-24] MEDS ORDERED: IOPAMIDOL-370 125ML BTL INJ ONE (11:28)
[2020-10-24] MEDS ORDERED: RX INFO: IV CONTRAST WAS GIVEN 1 EACH MISC MISCELLANE PRN (11:29)
[2020-10-24] MEDS ORDERED: SODIUM CHLORIDE 0.9% 1,000 ML IV SCH (11:30)
[2020-10-24 13:03] LABS: African American GFR (CKD) >90 (>60 ml/min/1.73 sqM); Anion Gap 4 mmol/L; Blood Urea Nitrogen 10 mg/dL (9-20); Calcium 8.8 mg/dL (8.4-10.2); Carbon Dioxide 30 mmol/L (22-30); Chloride 99 mmol/L (98-107); Glucose 88 mg/dL (74-99); Non-African American GFR(CKD) >90 (>60 ml/min/1.73 sqM); Potassium 4.3 mmol/L (3.5-5.1); Sodium 133 mmol/L (137-145)
--- NOTE | 2020-10-24 15:55 | CC ---
CARDIAC CATHETERIZATION REPORT DATE OF SERVICE: October 24, 2020 PERFORMING PHYSICIAN: Yony Lockwood MD. PROCEDURE PERFORMED: 1. Selective right and left coronary angiogram. 2. Left heart catheterization. INDICATION: This is a 65-year-old gentleman who was experiencing symptoms of chest discomfort with exertion concerning for severe underlying coronary artery disease. He is a smoker and also does have hypertension and dyslipidemia. COMPLICATION: None. APPROACH: Right radial artery. LEVEL OF SEDATION: Moderate with sedation length of 13 minutes. PROCEDURE DESCRIPTION: After obtaining an informed consent, the patient was brought to the cardiac boat laborer. The right radial artery was cannulated using micropuncture technique and a micropuncture wire passed easily then I placed a 6-Portuguese sheath at the right radial artery. I gave the patient 2 mg of verapamil IA and 6000 units of heparin IV. Selective right and left coronary angiogram performed using JR4 and JL4 catheters. I did after that left heart catheterization using 5-Portuguese pigtail catheter. The procedure was completed without any complication. SELECTIVE CORONARY ANGIOGRAM: 1. The RCA is a large caliber vessel and it is a dominant vessel. The RCA is angiographically normal. Distally bifurcates into PDA and PLV branches, both appeared to be angiographically normal. 2. The left main is angiographically normal. It bifurcates into LCX and LAD. 3. The left circumflex is a large caliber vessel. It is a nondominant vessel. The LCX is angiographically normal. In the midportion, it gives rise into a large OM branch which appeared to be angiographically normal. 4. The LAD is a large caliber vessel. The LAD is angiographically normal. In the proximal portion, it gives rise into a large diagonal branch which seems to be normal. The mid and distal LAD appeared to be angiographically normal. The mid LAD does give rise into second and third diagonal branches, both appeared to be angiographically normal. HEMODYNAMICS: The LVEDP was 12 mmHg without significant gradient across the aortic valve. CONCLUSION: Normal coronary angiogram and showed normal LVEDP. POSTPROCEDURE MANAGEMENT: 1. Medical treatment. 2. Follow up with the patient. AISSATOU / ANNIKAN: [id number] /
[2020-10-24 17:01] VITALS: PULSE 68
[2020-10-24 17:15] VITALS: BP 146/79
== END 2020-10-24 16:08 | disposition home or self-care (01) ==
LOC: CATHCVL 10:11
PROVIDERS: ATTEND Internal Medicine Interventional Cardiology
DX: R07.89 Other chest pain (principal); I20.0 Unstable angina; I10 Essential (primary) hypertension; E78.00 Pure hypercholesterolemia, unspecified; I48.0 Paroxysmal atrial fibrillation; E78.5 Hyperlipidemia, unspecified; R06.02 Shortness of breath; F17.210 Nicotine dependence, cigarettes, uncomplicated; Z87.11 Personal history of peptic ulcer disease; Z79.01 Long term (current) use of anticoagulants; Z79.899 Other long term (current) drug therapy
CPT/HCPCS: 93458; 80048; 85025; C1769; C1894; J2250; J2001; J3010; J1644; Q9967

== ENCOUNTER 2020-11-06 06:02 | Observation (INO) | payer MEDICARE ==
[2020-10-31 12:00] VITALS: BMI 25.4
[~2020-11-06 06:02] MED LIST changes: +ACETAMINOPHEN TAB 500 MG TAB PO PRN; -ALPRAZolam 0.25 MG TAB PO PRN; -ALPRAZolam 0.5 MG TAB PO PRN; -ASPIRIN 325 MG TAB PO ONE; -ATORVASTATIN 80 MG TAB PO ONE; +DEXAMETHASONE SOD PHOSPHATE 4 MG/ML 1 ML VIAL IV ONE; +HEPARIN SODIUM,PORCINE 5,000 UNIT/ML 1 ML VIAL SQ PRN; +LIDOCAINE 1% (10MG/ML) FOR IV START INTRADERMA PRN; -NITROGLYCERIN SL TABS 0.4 MG TAB SUBLINGUAL PRN; +ONDANSETRON 4 MG/2 ML VIAL IVP ONE; -SODIUM CHLORIDE 0.9% 1,000 ML in EMPTY BAG 1 BAG IV ONE
[2020-11-06] MEDS: LACTATED RINGERS 1,000 ML IV SCH ×3 (06:33→20:23)
[2020-11-06] MEDS ORDERED: ONDANSETRON 4 MG/2 ML VIAL ONE (06:41)
[2020-11-06] MEDS ORDERED: DEXAMETHASONE SOD PHOSPHATE 4 MG/ML 1 ML VIAL IVP ONE (06:45)
[2020-11-06] MEDS ORDERED: NEOSTIGMINE 1 MG/ML 10 ML VIAL ONE (07:49)
[2020-11-06] MEDS ORDERED: ROCURONIUM 10 MG/ML (10 ML VIAL) IV ONE (07:49)
[2020-11-06] MEDS ORDERED: GLYCOPYRROLATE 0.2 MG/ML 2 ML VIAL ONE (07:49)
[2020-11-06] MEDS ORDERED: PROPOFOL 10 MG/ML 20 ML VIAL IV ONE (07:49)
[2020-11-06] MEDS ORDERED: SUCCINYLCHOLINE CHLORIDE 100 MG/5 ML SYR IV ONE (07:49)
[2020-11-06] MEDS ORDERED: HYDROmorphone (PF) 1 MG/ML ONE (07:49)
[2020-11-06] MEDS ORDERED: MIDAZOLAM 2 MG/2 ML VIAL ONE (07:49)
[2020-11-06] MEDS ORDERED: fentaNYL (PF) 50 MCG/ML 2 ML AMP ONE (07:49)
[2020-11-06] MEDS ORDERED: PHENYLEPHRINE 10 MG/ML VIAL ONE (07:49)
[2020-11-06] MEDS ORDERED: LIDOCAINE 1% INJ 10MG/ML (20 ML MDV) ONE (07:49)
[2020-11-06] MEDS ORDERED: LACTATED RINGERS 1,000 ML IV ONE ×2 (08:45→09:26)
[2020-11-06] MEDS: HYDROmorphone 0.5 MG/0.5 ML SYRINGE IVP PRN ×6 (09:22→16:43)
[2020-11-06] MEDS ORDERED: ACETAMINOPHEN TAB 325 MG TAB PO PRN (09:26)
[2020-11-06] MEDS ORDERED: ONDANSETRON 4 MG/2 ML VIAL IVP PRN (09:26)
[2020-11-06] MEDS ORDERED: NALOXONE 0.4 MG/ML 1 ML VIAL IV PRN (09:26)
[2020-11-06] MEDS: fentaNYL (PF) 50 MCG/ML 2 ML AMP IVP ONE ×2 (09:36→09:46)
[2020-11-06] MEDS: KETOROLAC 15 MG/ML 1 ML VIAL IVP SCH ×4 (09:36→23:51)
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
--- NOTE | 2020-11-06 10:04 | P.OP ---
Date of Procedure: 11/06/20 Preoperative Diagnosis: Incisional hernia Postoperative Diagnosis: Incisional hernia Adhesions Procedure(s) Performed: Place of adhesions Partial omentectomy Repair of incisional hernia with mesh Anesthesia: HERMILO Surgeon: Suhas Rowe Estimated Blood Loss (ml): 50 Pathology: other (omentum) Condition: stable Disposition: PACU Description of Procedure: The patient was placed on the operative table supine position. He received a general anesthesia. His abdomen was prepped and draped in sterile fashion. The skin was incised midline. The hernia sac was opened. There were adhesions the hernia sac was lysed with sharp dissection. The fascia was then repaired using [id number] 0 Ethibond suture. And then a #1 strep effect sutures used to repair the fascia. Then a piece of Prolene mesh placed over top apparent secured to secure strep tacker. Sharri's fascia close Pa[place]. A DARCI drains placed. The drains placed over top of mesh. Brought through separate stab incision. Skin was closed boyd. Patient top she will was sent to recovery in stable condition.
[2020-11-06] MEDS ORDERED: MEPERIDINE 50 MG/ML SYRINGE IVP ONE (10:16)
[2020-11-06] MEDS ORDERED: diphenhydrAMINE 50 MG/ML 1 ML VIAL IVP ONE (10:20)
[2020-11-06] MEDS ORDERED: MELATONIN 5 MG TABLET PO PRN (12:47)
[2020-11-06] MEDS: HYDROcodone/APAP 5-325MG 1 EACH TAB PO PRN ×2 (15:05→20:39)
[2020-11-06] MEDS: carvediloL 6.25 MG TAB PO SCH (20:37)
[2020-11-06] MEDS: DOCUSATE 100 MG CAP PO SCH (21:40)
[2020-11-06] MEDS: PANTOPRAZOLE 40 MG TABLET PO SCH (21:40)
[2020-11-07] MEDS: HYDROmorphone 0.5 MG/0.5 ML SYRINGE IVP PRN ×3 (02:38→20:51)
[2020-11-07] MEDS: HYDROcodone/APAP 5-325MG 1 EACH TAB PO PRN (02:39)
[2020-11-07] MEDS: KETOROLAC 15 MG/ML 1 ML VIAL IVP SCH ×3 (06:20→17:38)
[2020-11-07] MEDS: carvediloL 6.25 MG TAB PO SCH ×2 (06:20→17:39)
[2020-11-07] MEDS: LACTATED RINGERS 1,000 ML IV SCH (08:38)
[2020-11-07] MEDS: lisinopriL 20 MG TAB PO SCH (08:42)
[2020-11-07] MEDS: MULTIVITAMINS, THERA 1 EACH TAB PO SCH (08:42)
[2020-11-07] MEDS: DOCUSATE 100 MG CAP PO SCH ×2 (08:42→20:51)
[2020-11-07] MEDS: ATORVASTATIN 20 MG TAB PO SCH (08:42)
[2020-11-07] MEDS ORDERED: ENOXAPARIN 40 MG/0.4 ML SYRINGE SQ SCH (09:00)
[2020-11-07] MEDS: APIXABAN 2.5 MG TABLET PO SCH ×2 (11:42→20:51)
[2020-11-07] MEDS ORDERED: LORazepam 2 MG/ML INJ IV PRN ×3 (12:38)
[2020-11-07] MEDS ORDERED: THIAMINE 100 MG/ML 2 ML VIAL IM STA (12:38)
--- NOTE | 2020-11-07 13:22 | P.PN ---
Subjective Progress Note Date: 11/07/20 CHIEF COMPLAINT: Incisional hernia HISTORY OF PRESENT ILLNESS: Patient is postop day #1 status post repair of incisional hernia with mesh, partial omentectomy and lysis of adhesions. Patient reports pain is controlled. He did have some nausea and an episode of vomiting this morning. Denies any bowel movement or passing of gas. Tolerating regular diet. Afebrile PHYSICAL EXAM: VITAL SIGNS: Reviewed. GENERAL: Well-developed in no acute distress. HEENT: No sclera icterus. Extraocular movements grossly intact. Moist buccal mucosa. Head is atraumatic, normocephalic. ABDOMEN: Soft. Incision site clean dry and intact. DARCI drain in place with serosanguineous fluid NEUROLOGIC: Alert and oriented. Cranial nerves II through XII grossly intact. ASSESSMENT: 1. Incisional hernia and adhesions status post repair of incisional hernia with mesh, partial omentectomy and lysis of adhesions 2. Daily alcohol use PLAN: -Add CIWA protocol with Ativan, multivitamin and thiamine for alcohol withdrawal -Continue regular diet -Continue pain control -Encouraged patient to use incentive spirometer -Encouraged patient to ambulate -Okay to restart Eliquis for patient's atrial fibrillation Physician Deaf/Hard Of Hearing Specialist note has been reviewed by physician. Signing provider agrees with the documented findings, assessment, and plan of care. Objective - Vital Signs Vital signs: Vital Signs Temp 96.4 F L 11/07/20 08:25 Pulse 71 11/07/20 08:25 Resp 16 11/07/20 08:25 BP 130/71 11/07/20 08:25 Pulse Ox 96 11/07/20 08:25 Intake & Output 11/06/20 11/07/20 11/07/20 18:59 06:59 18:59 Intake Total 2290 300 Output Total 238 847 Balance 2051 - Weight 75.1 kg Intake: IV 1450 Oral 840 300 Output: Drainage 60 122 Abdomen 60 122 Urine 725 Post Void Residual 68 Estimated Blood Loss 110 Other: Voiding Method Urinal # Voids 5
[2020-11-07] MEDS: THIAMINE 100 MG TAB PO SCH (17:39)
[2020-11-07] MEDS: PANTOPRAZOLE 40 MG TABLET PO SCH (20:51)
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
[2020-11-08] MEDS: KETOROLAC 15 MG/ML 1 ML VIAL IVP SCH ×2 (00:14→06:43)
[2020-11-08] MEDS: HYDROmorphone 0.5 MG/0.5 ML SYRINGE IVP PRN (03:50)
[2020-11-08] MEDS: carvediloL 6.25 MG TAB PO SCH (06:43)
[2020-11-08] MEDS: THIAMINE 100 MG TAB PO SCH (06:43)
[2020-11-08 08:12] VITALS: BP 135/81; PULSE 82; RESP 20; TEMP 97.6
[2020-11-08] MEDS: ATORVASTATIN 20 MG TAB PO SCH (09:06)
[2020-11-08] MEDS: DOCUSATE 100 MG CAP PO SCH (09:06)
[2020-11-08] MEDS: APIXABAN 2.5 MG TABLET PO SCH (09:06)
[2020-11-08] MEDS: MULTIVITAMINS, THERA 1 EACH TAB PO SCH (09:06)
--- NOTE | 2020-11-08 12:10 | P.DS ---
Providers Date of admission: 11/08/20 11:46 Expected date of discharge: 11/08/20 Attending physician: Suhas Rowe Consults: 11/06/20 09:26 Consult Physician Routine Consulting Provider: Yang Gaspar Consult Reason/Comments: med manage Do you want consulting provider notified?: Yes Primary care physician: [facility] Hospital Course: Discharge diagnosis 1. Incisional hernia and adhesions status post repair of incisional hernia with mesh, partial omentectomy and lysis of adhesions 2. Daily alcohol use Hospital course This is a 65-year-old male who presented for repair of incisional hernia. Patient is status post repair of incisional hernia with mesh, partial omentectomy and lysis of adhesions for incisional hernia and adhesions. Patient has tolerated surgery well. He is tolerating a regular diet. His pain is controlled. He is ambulating. He is stable for discharge. Please refer to chart for any further details. Physician Chalk Molding Machine Operator note has been reviewed by physician. Signing provider agrees with the documented findings, assessment, and plan of care. Patient Condition at Discharge: Stable Plan - Discharge Summary Discharge Rx Participant: No New Discharge Prescriptions: New Docusate [Colace] 100 mg PO BID #30 capsule HYDROcodone/APAP 7.5-325MG [[place] 7.5-325] 1 tab PO Q6HR PRN 3 Days #12 tab PRN Reason: Pain Continue Omeprazole [PriLOSEC] 20 mg PO HS Multivitamins, Thera [Multivitamin (formulary)] 1 tab PO DAILY Albuterol Sulfate [Ventolin HFA] 1 - 2 puff INHALATION Q6H PRN #1 inhaler PRN Reason: Wheezing Melatonin 20 mg PO HS PRN PRN Reason: Insomnia Atorvastatin [Lipitor] 20 mg PO DAILY Apixaban [Eliquis] 2.5 mg PO BID carvediloL [Coreg] 6.25 mg PO BID lisinopriL [Zestril] 20 mg PO DAILY Discharge Medication List Omeprazole [PriLOSEC] 20 mg PO HS 10/14/19 [History] Multivitamins, Thera [Multivitamin (formulary)] 1 tab PO DAILY 03/22/20 [History] Albuterol Sulfate [Ventolin HFA] 1 - 2 puff INHALATION Q6H PRN #1 inhaler 03/24/20 [Rx] Melatonin 20 mg PO HS PRN 07/22/20 [History] Atorvastatin [Lipitor] 20 mg PO DAILY 10/09/20 [History] Apixaban [Eliquis] 2.5 mg PO BID 10/31/20 [History] carvediloL [Coreg] 6.25 mg PO BID 10/31/20 [History] lisinopriL [Zestril] 20 mg PO DAILY 10/31/20 [History] Docusate [Colace] 100 mg PO BID #30 capsule 11/08/20 [Rx] HYDROcodone/APAP 7.5-325MG [[place] 7.5-325] 1 tab PO Q6HR PRN 3 Days #12 tab 11/08/20 [Rx] Follow up Appointment(s)/Referral(s): [facility], [NON-STAFF] - 1 Week Suhas Rowe MD [STAFF PHYSICIAN] - 11/16/20 1:15 pm Activity/Diet/Wound Care/Special Instructions: No driving while taking [place] No lifting over 10 pounds You may shower. No soaking or tub baths for 2 weeks Very light activity until you are reevaluated at your follow up appointment with your surgeon Keep a log of DARCI drain output and bring with you to your follow-up appointment Milk/strip drains 2-3 times a day Discharge Disposition: HOME WITH HOME HEALTH SERVICES
[2020-11-08] MEDS: lisinopriL 20 MG TAB PO SCH (12:26)
[2020-11-08] MEDS: HYDROcodone/APAP 5-325MG 1 EACH TAB PO PRN (13:23)
--- NOTE | 2020-11-09 17:17 | P.PN ---
Progress Note - Text Progress Note Date: 11/08/20 - Chief Complaint Abdominal pain - History of Present Illness Consultation: This is a pleasant 65-year-old patient who follows a Dr. Michel. Patient long- standing history of smoking and drinking significant amount of alcohol. Chronic stable conditions also include nicotine dependence, gastritis duodenitis as per EGD in 2018. In March 2020-strangulate diaphragmatic hernia with small bowel loops with ischemia strangulate the small bowel-status post surgery.May 24 found to have what appears to be an abscess and partial small bowel resection was carried out Patient now presents repair of incisional hernia. Had underwent exploratory laparotomy. Adhesions and omentectomy was carried out. Today-feeling much better. Diet has been advanced. Passing flatus.. No chest pain or shortness of breath. Review of systems: Was done for constitutional, cardiovascular, GI, pulmonary. relevant finding as above Current medications reviewed in today's electronic records Physical examination: VITAL SIGNS: 97.6, 82, 20, 135/81, 95% on room air GENERAL: Sitting up in bed, comfortable EYES: Pupils equal. Conjunctiva normal. HEENT: External appearance of nose and ears normal, oral cavity grossly normal. NECK: JVD not raised; masses not palpable. HEART: First and second heart sounds are normal; no edema. LUNGS: Respiratory rate increased, decreased breath sounds . ABDOMEN: Tender, no guarding or rigidity, dressing over midline incision, liver spleen not palpable,, DARCI drain PSYCH: Alert and oriented x3; mood and affect normal. NEUROLOGICAL: Cranial nerves grossly intact; no facial asymmetry, power and sensation grossly intact. LYMPHATICS: No lymph nodes palpable in the axilla and neck Assessment: -Repair of incisional hernia with adhesion lysis and omentectomy rate -Recent admission for strangulate diaphragmatic hernia with small bowel loops with ischemia strangulate the small bowel-status post surgery, followed by intra-abdominal abscess -Chronic nicotine dependence patient cigarette smoker -Chronic alcohol use disorder -Hyponatremia suspect hypoosmolar -Chronic gastritis, duodenitis from alcoholism -GERD -Essential hypertension -Multiple left-sided fractures from recent falls -Paroxysmal atrial fibrillation -Alcohol use disorder Plan: Patient is feeling much better. Continue current medication treatment plan. If discharged by Dr. Rowe should follow with his family doctor. Discussed with the patient. Advised against smoking. Thank you Dr. Rowe
== END 2020-11-08 13:31 | disposition home or self-care (01) ==
LOC: OR 06:02 → 1SOBS 09:18 → OR 11-07 10:25 → 1SOBS 11-07 10:25 → INTOOBSV 11-08 11:46 → OBSVTOIN 11-08 11:46
PROVIDERS: ADMIT Surgery; ATTEND Surgery
DX: K43.2 Incisional hernia without obstruction or gangrene (principal); K66.0 Peritoneal adhesions (postprocedural) (postinfection); K29.20 Alcoholic gastritis without bleeding; K29.80 Duodenitis without bleeding; F10.20 Alcohol dependence, uncomplicated; K21.9 Gastro-esophageal reflux disease without esophagitis; I10 Essential (primary) hypertension; I48.0 Paroxysmal atrial fibrillation; E78.5 Hyperlipidemia, unspecified; R94.39 Abnormal result of other cardiovascular function study; F17.210 Nicotine dependence, cigarettes, uncomplicated; M19.90 Unspecified osteoarthritis, unspecified site; E87.1 Hypo-osmolality and hyponatremia; Z87.11 Personal history of peptic ulcer disease; Z79.01 Long term (current) use of anticoagulants; Z79.899 Other long term (current) drug therapy; Z87.19 Personal history of other diseases of the digestive system; Z86.2 Personal history of diseases of the blood and blood-forming organs and certain disorders involving the immune mechanism; Z91.81 History of falling; Z87.81 Personal history of (healed) traumatic fracture; Z90.49 Acquired absence of other specified parts of digestive tract; Z98.890 Other specified postprocedural states; Z86.19 Personal history of other infectious and parasitic diseases; Z72.89 Other problems related to lifestyle; Y90.9 Presence of alcohol in blood, level not specified; Z97.2 Presence of dental prosthetic device (complete) (partial); Z83.79 Family history of other diseases of the digestive system; Z81.1 Family history of alcohol abuse and dependence
CPT/HCPCS: 88302; 49560; 49568; G0378 ×2; C1781; J2250; J2060; J1200; J1644; J1100; J2370; J2710; J3411; J2175; J0690; J2405; J2001; J1650; J3010; J1170 ×4; J1885 ×3; J0330; J2704

== ENCOUNTER 2020-11-09 09:43 | Emergency (ER) | payer MEDICARE ==
[2020-11-09 09:53] VITALS: BP 123/75; PULSE 78; RESP 18; TEMP 98
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
== END 2020-11-09 10:27 | disposition home or self-care (01) ==
LOC: EC 09:43
DX: Z09 Encounter for follow-up examination after completed treatment for conditions other than malignant neoplasm (principal); I48.91 Unspecified atrial fibrillation; I10 Essential (primary) hypertension; E78.5 Hyperlipidemia, unspecified; K21.9 Gastro-esophageal reflux disease without esophagitis; F17.200 Nicotine dependence, unspecified, uncomplicated; Z79.01 Long term (current) use of anticoagulants; Z79.02 Long term (current) use of antithrombotics/antiplatelets; Z79.899 Other long term (current) drug therapy
CPT/HCPCS: 99283

== ENCOUNTER 2021-02-02 11:14 | Day surgery (SDC) | payer MEDICARE ==
[2021-01-31 10:05] VITALS: BMI 25.4
[2021-02-02 11:48] VITALS: TEMP 97.9
[2021-02-02] MEDS: LACTATED RINGERS 1,000 ML IV SCH ×2 (11:49→13:06)
[2021-02-02] MEDS ORDERED: PROPOFOL 10 MG/ML 20 ML VIAL IV ONE (13:09)
[2021-02-02] MEDS ORDERED: LIDOCAINE 1% INJ 10MG/ML (20 ML MDV) ONE (13:09)
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
--- NOTE | 2021-02-02 13:38 | P.OP ---
Date of Procedure: 02/02/21 Preoperative Diagnosis: GI bleed Postoperative Diagnosis: Antral gastritis Right colon biopsy pathology pending Procedure(s) Performed: EGD Colonoscopy Anesthesia: MAC Surgeon: Suhas Rowe Pathology: other (Antrum, right colon) Condition: stable Disposition: PACU Description of Procedure: Patient's placed on the endoscopy table in the lateral position. He received IV sedation. The gastroscope was placed patient oropharynx passed in the esophagus and stomach. Scope was then placed through the pylorus. The first and second portion of duodenum appeared normal. Back the antrum this appeared mildly inflamed. A biopsies performed. The scope was then retroflexed and remainder the stomach appeared normal. There is no evidence of a gastric or duodenal ulcers. The GE junction was at 40 cm. The distal esophagus appeared normal. The proximal esophagus appeared normal. Withdrawn for patient. Next digital rectal exam was performed which revealed no ebonized. The flexible colonoscope was then placed patient anus passed rotator entire colon. The ileocecal valve was visually is. The cecum appeared normal. In the right colon there was a mucosal lesion which appeared vascular. This was biopsied. The remainder the ascending colon, transverse colon descending colon and sigmoid colon appeared normal. Is known to any bleeding in the colon. The rectum was normal. Scope was withdrawn for patient.
[2021-02-02 13:59] VITALS: BP 99/71; PULSE 76; RESP 20
== END 2021-02-02 14:07 | disposition home or self-care (01) ==
LOC: ORWHC2ENDO 11:14
PROVIDERS: ATTEND Surgery
DX: D12.6 Benign neoplasm of colon, unspecified (principal); K63.89 Other specified diseases of intestine; K29.51 Unspecified chronic gastritis with bleeding; R89.7 Abnormal histological findings in specimens from other organs, systems and tissues; D64.9 Anemia, unspecified; I48.91 Unspecified atrial fibrillation; K21.9 Gastro-esophageal reflux disease without esophagitis; E78.5 Hyperlipidemia, unspecified; I10 Essential (primary) hypertension; M19.90 Unspecified osteoarthritis, unspecified site; L98.8 Other specified disorders of the skin and subcutaneous tissue; K08.109 Complete loss of teeth, unspecified cause, unspecified class; F17.210 Nicotine dependence, cigarettes, uncomplicated; J44.9 Chronic obstructive pulmonary disease, unspecified; Z87.19 Personal history of other diseases of the digestive system; Z87.81 Personal history of (healed) traumatic fracture; Z91.81 History of falling; Z90.49 Acquired absence of other specified parts of digestive tract; Z87.09 Personal history of other diseases of the respiratory system; Z98.890 Other specified postprocedural states; Z79.899 Other long term (current) drug therapy; Z79.01 Long term (current) use of anticoagulants; Z79.891 Long term (current) use of opiate analgesic; Z83.79 Family history of other diseases of the digestive system; Z81.1 Family history of alcohol abuse and dependence
CPT/HCPCS: 88305; 45380; 43239; J2001; J2704

== ENCOUNTER 2021-05-09 | Emergency (ER) | payer MEDICARE | END 2021-05-09 11:56 | disposition home or self-care (01) | CPT/HCPCS: 99283 ==

== ENCOUNTER 2022-05-15 07:10 | Inpatient (IN) | payer MEDICARE ==
[2022-05-15] MEDS ORDERED: PANTOPRAZOLE 40 MG/10 ML VIAL IVP STA (07:42)
[2022-05-15] MEDS ORDERED: SODIUM CHLORIDE 0.9% 500 ML 500 ML IV STA (07:42)
[2022-05-15 08:37] LABS: Anisocytosis Slight; Basophils % (A) 0 %; Eosinophils % (A) 1 %; HCT 32.4 % (39.0-53.0); HGB 9.6 gm/dL (13.0-17.5); Hypochromasia Marked; Lymphocytes # (A) 1.1 k/uL (1.0-4.8); Lymphocytes % (A) 17 %; MCH 22.6 pg (25.0-35.0); MCHC 29.7 g/dL (31.0-37.0); MCV 76.1 fL (80.0-100.0); Mean Platelet Volume 6.9; Microcytosis Slight; Monocytes # (A) 0.5 k/uL (0-1.0); Monocytes % (A) 7 %; Neutrophils # (A) 4.9 k/uL (1.3-7.7); Neutrophils % (A) 72 %; Platelet Count 303 k/uL (150-450); RBC 4.26 m/uL (4.30-5.90); RDW 18.5 % (11.5-15.5); WBC 6.8 k/uL (3.8-10.6)
[2022-05-15 08:44] LABS: Partial Thromboplastin Time 23.5 sec (22.0-30.0); Prothrombin Time 10.8 sec (9.0-12.0)
[2022-05-15 08:47] LABS: ALT 11 U/L (4-49); AST 25 U/L (17-59); African American GFR (CKD) >90 (>60 ml/min/1.73 sqM); Albumin 3.5 g/dL (3.5-5.0); Alkaline Phosphatase 107 U/L (38-126); Anion Gap 5 mmol/L; Blood Urea Nitrogen 6 mg/dL (9-20); Calcium 8.2 mg/dL (8.4-10.2); Carbon Dioxide 23 mmol/L (22-30); Chloride 97 mmol/L (98-107); Glucose 92 mg/dL (74-99); Magnesium 1.5 mg/dL (1.6-2.3); Non-African American GFR(CKD) >90 (>60 ml/min/1.73 sqM); Potassium 4.3 mmol/L (3.5-5.1); Sodium 125 mmol/L (137-145); Total Bilirubin 0.6 mg/dL (0.2-1.3); Total Protein 6.6 g/dL (6.3-8.2)
--- NOTE | 2022-05-15 09:34 | CT ---
EXAMINATION TYPE: CT abdomen pelvis w con DATE OF EXAM: 05/15/2022 COMPARISON: 05/24/2020 HISTORY: Abdominal pain CT DLP: 814.1 mGycm CONTRAST: CT scan of the abdomen and pelvis is performed without Oral Contrast and with IV Contrast, patient in jected with 100 ml mL of Isovue 300. FINDINGS: LUNG BASES-: No visible nodule. No infiltrate. LIVER/GB: No calcified gallstones. There is a small amount of fluid adjacent to the gallbladder wit hout wall thickening of the adjacent duodenum. Correlate for gallbladder or duodenal pathology. No sp raphael occupying hepatic lesion. Biliary tree is of normal caliber. PANCREAS: No inflammation. No distinct mass. SPLEEN: No splenic enlargement. No lesion seen. ADRENALS: No nodule. No thickening. KIDNEYS/BLADDER: No hydronephrosis. No nephrolithiasis. No distinct renal mass. Urinary bladder g rossly unremarkable. BOWEL: Nonvisualization of the appendix. As noted above there is wall thickening involving the duoden al bulb and proximal duodenum which may reflect duodenitis. There is adjacent fluid noted as well. No free air is present or abscess. Fluid distention of the colon and small bowel may reflect enteritis. Normal bowel caliber. No inflammation. GENITAL ORGANS: No gross abnormality. LYMPH NODES: No greater than 1cm abdominal or pelvic lymph nodes are appreciated. AORTA: No significant abnormality. OSSEOUS STRUCTURES: No significant abnormality is seen. OTHER: No significant additional abnormality is seen. IMPRESSION: 1. Wall thickening involving the duodenal bulb and descending duodenum may reflect duodenitis. There is adjacent fluid. 2. Fluid adjacent to the gallbladder without gallbladder wall thickening or cholelithiasis. Consider ultrasound if felt to be indicated. 3. Mild fluid distention of the large and small bowel could reflect the enterocolitis.
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
[2022-05-15] MEDS ORDERED: ONDANSETRON 4 MG/2 ML VIAL IVP PRN (09:59)
[2022-05-15] MEDS ORDERED: NALOXONE 0.4 MG/ML 1 ML VIAL IV PRN (09:59)
[2022-05-15] MEDS: SODIUM CHLORIDE 0.9% 1,000 ML IV SCH (10:19)
--- NOTE | 2022-05-15 11:28 | US ---
EXAMINATION TYPE: US gallbladder DATE OF EXAM: 05/15/2022 COMPARISON: 05/15/2022 CLINICAL HISTORY: Abnormal CT,pain. fluid seen near GB on CT, abd pain EXAM MEASUREMENTS: Liver Length: 14.8 cm Gallbladder Wall: 0.3 cm CBD: 0.5 cm Right Kidney: 10.8 x 4.8 x 5.8 cm Pancreas: not seen due to bowel gas Liver: left lobe not seen due to bowel gas, right lobe intercostal imaging due to gas and patient co ughing throughout exam Gallbladder: wnl, unable to appreciate any fluid around GB Evidence for sonographic Szymanski's sign: no CBD: wnl Right Kidney: wnl IMPRESSION: 1. No gallstones or diagnostic evidence of gallbladder wall thickening.
[2022-05-15 13:31] LABS: Anisocytosis Slight; Basophils % (A) 0 %; Eosinophils % (A) 0 %; HGB 9.2 gm/dL (13.0-17.5); Hypochromasia Marked; Lymphocytes # (A) 1.3 k/uL (1.0-4.8); Lymphocytes % (A) 20 %; MCH 22.9 pg (25.0-35.0); MCHC 29.8 g/dL (31.0-37.0); MCV 76.8 fL (80.0-100.0); Mean Platelet Volume 7.1; Microcytosis Slight; Monocytes # (A) 0.4 k/uL (0-1.0); Monocytes % (A) 7 %; Neutrophils # (A) 4.3 k/uL (1.3-7.7); Neutrophils % (A) 70 %; Platelet Count 277 k/uL (150-450); RBC 4.04 m/uL (4.30-5.90); RDW 18.5 % (11.5-15.5); WBC 6.2 k/uL (3.8-10.6)
--- NOTE | 2022-05-15 14:56 | P.GSCN ---
History of Present Illness Consult date: 05/15/22 History of present illness: CHIEF COMPLAINT: Abdominal pain HISTORY OF PRESENT ILLNESS: This is a 66-year-old male who presented to the hospitalist complaints of abdominal pain. Patient reports increased abdominal pain over the last few days. He has been having black tarry stools. He does have a history of GI bleed and stomach ulcers. Patient has been feeling very weak and rundown. Patient does have daily alcohol use. Patient's last EGD and colonoscopy was in February [address] camara and results demonstrated antral gastritis and right colon polyp biopsy which was benign. Computed tomography scan of abdomen and pelvis shows wall thickening involving the duodenal bulb and descending duodenum may reflect duodenitis. There is adjacent fluid. Fluid ad jacent to the gallbladder without gallbladder wall thickening or cholelithiasis. Mild fluid distention of the large and small bowel could reflect enterocolitis. Abdominal ultrasound shows no gallstones or diagnostic evidence of gallbladder wall thickening. No fluid was noted around the gallbladder. Patient denies any fever chills or sweats. Denies any nausea or vomiting. Patient also being f ollowed by GI service. Currently on PPI. Denies any NSAID use. Denies any blood thinner use. Hgb 9.2 Patient seen and examined with Dr. camara PAST MEDICAL HISTORY: Atrial Fibrillation, GERD/Reflux, GI Bleed, Hyperlipidemia, Hypertension, Osteoarthritis (OA), TIA, hx of Fall w/ rib fxs 03/2020 with traumatic diaphragmatic strangulated hernia with repair with small bowel resection and left pneumothorax with chest tube., Readmitted for small bowel resection with lysis of adhesions (05/2020) & developed A-fib., PAST SURGICAL HISTORY: Appendectomy, small bowel resections, inguinal hernia repair, heart catheterization MEDICATIONS: See list. ALLERGIES: See list. SOCIAL HISTORY: No illicit drug use. REVIEW OF SYSTEMS: CONSTITUTIONAL: Denies fever or chills. HEENT: Denies blurred vision, vision changes, or eye pain. Denies hemoptysis CARDIOVASCULAR: Denies chest pain or pressure. RESPIRATORY: No shortness of breath. GASTROINTESTINAL: See HPI for pertinent findings HEMATOLOGIC: Denies bleeding disorders. GENITOURINARY: Denies any blood in urine or increased urinary frequency. SKIN: Denies pruitis. Denies rash. PHYSICAL EXAM: VITAL SIGNS: Reviewed GENERAL: Well-developed in no acute distress. HEENT: No sclera icterus. Extraocular movements grossly intact. Moist buccal mucosa. Head is atraumatic, normocephalic. No nasal drainage. ABDOMEN: Soft. Nondistended. NEUROLOGIC: Alert and oriented. Cranial nerves II through XII grossly intact. LABORATORY DATA: WBC 6.2 HGB 9.6 with repeat of 9.2 platelets 277 INR 1.0 Sodium 125 potassium 4.3 creatinine 0.69 Magnesium 1.5 Troponin negative IMAGING: Computed tomography scan of abdomen and pelvis shows wall thickening involving the duodenal bulb and descending duodenum may reflect duodenitis. There is ad jacent fluid. Fluid adjacent to the gallbladder without gallbladder wall thickening or cholelithiasis. Mild fluid distention of the large and small bowel could reflect enterocolitis. Abdominal ultrasound shows no gallstones or diagnostic evidence of gallbladder wall thickening. No fluid was noted around the gallbladder. ASSESSMENT: 1. Abdominal pain 2. Acute GI bleed with black stools 3. Duodenitis noted on CAT scan 4. Possible enterocolitis 5. Microcytic anemia 6. Hypomagnesemia 7. Hyponatremia 8. Daily alcohol use PLAN: -Surgical service will be on standby. Patient also being followed by GI service. -Continue IV Protonix -Continue to monitor hemoglobin -Continue to monitor for any signs or symptoms of bleeding -Replace magnesium -Continue clear liquids Thank you for this consultation [employer] note has been reviewed by physician. Signing provider agrees with the documented findings, assessment, and plan of care. Past Medical History Past Medical History: Atrial Fibrillation, GERD/Reflux, GI Bleed, Hyperlipidemi a, Hypertension, Osteoarthritis (OA) Additional Past Medical History / Comment(s): Paroxysmal Afib, lower GI bleed, PUD, anemia, ETOH, chronic back pain, occasional numbness/tingling bilateral hands and feet, bilateral carpal tunnel syndome, 03/2020 fall with rib fractures/traumatic diaphragmatic strangulated hernia with surgery and L pneumothorax with chest tube. History of Any Multi-Drug Resistant Organisms: None Reported Past Surgical History: Appendectomy, Bowel Resection, Heart Catheterization, Hernia Repair, Orthopedic Surgery Additional Past Surgical History / Comment(s): 03/2020 small bowel resection and repair of diaghragmatic hernia d/t injury, 05/2020 exploratory laparotomy with small bowel resection/lysis of adhesions, L inguinal hernia repair, incisional hernia repair, EGD, colonoscopy/polypectomy, L shoulder surgery x2 d/t muscle tears, R shoulder rotator cuff repair, L ankle surgery, forehead laceration repair, Past Anesthesia/Blood Transfusion Reactions: No Reported Reaction Additional Past Anesthesia/Blood Transfusion Reaction / Comm: Pt has received blood in past without reaction. Smoking Status: Current every day smoker - Past Family History Father History Unknown: Yes Mother Family Medical History: Liver Disease Additional Family Medical History / Comment(s): Mother of liver failure related to ETOH Medications and Allergies Home Medications Medication Instructions Recorded Confirmed Type Omeprazole [PriLOSEC] 20 mg PO DAILY 10/14/19 05/15/22 History Multivitamins, Thera [Multivitamin 1 tab PO DAILY 03/22/20 05/15/22 History (formulary)] lisinopriL [Zestril] 20 mg PO DAILY 10/31/20 05/15/22 History Amiodarone [Cordarone] 100 mg PO DAILY 02/25/22 05/15/22 History Allergies Allergy/AdvReac Type Severity Reaction Status Date / Time No Known Allergies Allergy Verified 05/15/22 10:12 Surgical - Exam Vital Signs Temp Pulse Resp BP Pulse Ox 98 F 68 20 142/68 99 05/15/22 07:21 05/15/22 07:21 05/15/22 07:21 05/15/22 07:21 05/15/22 07:21 Results - Labs 05/15/22 13:11 05/15/22 07:49 Abnormal Lab Results - Last 24 Hours (Table) 05/15/22 05/15/22 Range/Units 07:49 07:49 RBC 4.26 L (4.30-5.90) m/uL Hgb 9.6 L (13.0-17.5) gm/dL Hct 32.4 L (39.0-53.0) % MCV 76.1 L (80.0-100.0) fL MCH 22.6 L (25.0-35.0) pg MCHC 29.7 L (31.0-37.0) g/dL RDW 18.5 H (11.5-15.5) % Sodium 125 L (137-145) mmol/L Chloride 97 L (98-107) mmol/L BUN 6 L (9-20) mg/dL Calcium 8.2 L (8.4-10.2) mg/dL Magnesium 1.5 L (1.6-2.3) mg/dL Diabetes panel 05/15/22 Range/Units 07:49 Sodium 125 L (137-145) mmol/L Potassium 4.3 (3.5-5.1) mmol/L Chloride 97 L (98-107) mmol/L Carbon Dioxide 23 (22-30) mmol/L BUN 6 L (9-20) mg/dL Creatinine 0.69 (0.66-1.25) mg/dL Glucose 92 (74-99) mg/dL Calcium 8.2 L (8.4-10.2) mg/dL AST 25 (17-59) U/L ALT 11 (4-49) U/L Alkaline Phosphatase 107 (38-126) U/L Total Protein 6.6 (6.3-8.2) g/dL Albumin 3.5 (3.5-5.0) g/dL Calcium panel 05/15/22 Range/Units 07:49 Calcium 8.2 L (8.4-10.2) mg/dL Albumin 3.5 (3.5-5.0) g/dL Pituitary panel 05/15/22 Range/Units 07:49 Sodium 125 L (137-145) mmol/L Potassium 4.3 (3.5-5.1) mmol/L Chloride 97 L (98-107) mmol/L Carbon Dioxide 23 (22-30) mmol/L BUN 6 L (9-20) mg/dL Creatinine 0.69 (0.66-1.25) mg/dL Glucose 92 (74-99) mg/dL Calcium 8.2 L (8.4-10.2) mg/dL Adrenal panel 05/15/22 Range/Units 07:49 Sodium 125 L (137-145) mmol/L Potassium 4.3 (3.5-5.1) mmol/L Chloride 97 L (98-107) mmol/L Carbon Dioxide 23 (22-30) mmol/L BUN 6 L (9-20) mg/dL Creatinine 0.69 (0.66-1.25) mg/dL Glucose 92 (74-99) mg/dL Calcium 8.2 L (8.4-10.2) mg/dL Total Bilirubin 0.6 (0.2-1.3) mg/dL AST 25 (17-59) U/L ALT 11 (4-49) U/L Alkaline Phosphatase 107 (38-126) U/L Total Protein 6.6 (6.3-8.2) g/dL Albumin 3.5 (3.5-5.0) g/dL
[2022-05-15] MEDS ORDERED: MAGNESIUM SULFATE-D5W PMX 1 GM in DEXTROSE/WATER 1 100ML.BAG IVPB ONE (16:00)
--- NOTE | 2022-05-15 16:27 | P.CONS ---
History of Present Illness - Reason for Consult Consult date: 05/15/22 GI bleed Requesting physician: Olu Crystal - Chief Complaint Abdominal pain - History of Present Illness This is a pleasant 66-year-old male who presented to the hospital with complaints of abdominal pain. Patient reports increased abdominal pain over the last three days. He has been having dark black stools. He does have a history of GI bleed and stomach ulcers. Patient has been feeling very weak and rundown. Patient does drink alcohol daily. Patient's last EGD and colonoscopy was in February [address] Rowe and results demonstrated antral gastritis and right colon polyp biopsy which was benign. Computed tomography scan of abdomen and pelvis shows wall thickening involving the duodenal bulb and descending duodenum may reflect duodenitis. There is adjacent fluid. Fluid adjacent to the gallbladder without gallbladder wall thickening or cholelithiasis. Mild fluid distention of the large and small bowel could reflect enterocolitis. Abdominal ultrasound shows no gallstones or diagnostic evidence of gallbladder wall thickening. No fluid was noted around the gallbladder. Patient denies any fever chills or sweats. Denies any nausea or vomiting. Patient denies any NSAID use or anticoagulation. He does take Prilosec at home. Review of Systems REVIEW OF SYSTEMS: CARDIOPULMONARY: No chest pain or shortness of breath. Gastrointestinal: Abdominal pain, epigastric pain. No nausea or vomiting. No hematemesis, coffee-ground emesis. No rectal bleeding, reports black tarry stool. GENITOURINARY: No dysuria or hematuria. MUSCULOSKELETAL: Reports normal range of motion. SKIN: No rashes. No jaundice. ENDOCRINE: No chills, fevers. No excessive weight gain or loss. No polydipsia or polyuria. PSYCHIATRIC: Unremarkable. NEUROLOGY: No change in mental status. Denies dizziness, headache. ENT: Vision unremarkable. CONSTITUTIONAL: No recent weight loss. No fever, chills, night sweats. Increased weakness and fatigue. Past Medical History Past Medical History: Atrial Fibrillation, GERD/Reflux, GI Bleed, Hyperlipidemia, Hypertension, Osteoarthritis (OA) Additional Past Medical History / Comment(s): Paroxysmal Afib, lower GI bleed, PUD, anemia, ETOH, chronic back pain, occasional numbness/tingling bilateral hands and feet, bilateral carpal tunnel syndome, 03/2020 fall with rib fractures/traumatic diaphragmatic strangulated hernia with surgery and L pneumothorax with chest tube. History of Any Multi-Drug Resistant Organisms: None Reported Past Surgical History: Appendectomy, Bowel Resection, Heart Catheterization, Hernia Repair, Orthopedic Surgery Additional Past Surgical History / Comment(s): 03/2020 small bowel resection and repair of diaghragmatic hernia d/t injury, 05/2020 exploratory laparotomy with small bowel resection/lysis of adhesions, L inguinal hernia repair, incisional hernia repair, EGD, colonoscopy/polypectomy, L shoulder surgery x2 d/t muscle tears, R shoulder rotator cuff repair, L ankle surgery, forehead laceration repair, Past Anesthesia/Blood Transfusion Reactions: No Reported Reaction Additional Past Anesthesia/Blood Transfusion Reaction / Comm: Pt has received blood in past without reaction. Smoking Status: Current every day smoker - Past Family History Father History Unknown: Yes Mother Family Medical History: Liver Disease Additional Family Medical History / Comment(s): Mother of liver failure related to ETOH Medications and Allergies Home Medications Medication Instructions Recorded Confirmed Type Omeprazole [PriLOSEC] 20 mg PO DAILY 10/14/19 05/15/22 History Multivitamins, Thera [Multivitamin 1 tab PO DAILY 03/22/20 05/15/22 History (formulary)] lisinopriL [Zestril] 20 mg PO DAILY 10/31/20 05/15/22 History Amiodarone [Cordarone] 100 mg PO DAILY 02/25/22 05/15/22 History Allergies Allergy/AdvReac Type Severity Reaction Status Date / Time No Known Allergies Allergy Verified 05/15/22 10:12 Physical Exam Vitals: Vital Signs Temp Pulse Pulse Resp BP BP Pulse Ox 05/15/22 12:08 97.7 F 85 19 158/91 100 05/15/22 11:58 76 18 164/84 96 05/15/22 10:14 76 16 165/99 98 05/15/22 07:21 98 F 68 20 142/68 99 Intake and Output 05/14/22 05/15/22 05/15/22 22:59 06:59 14:59 Other: Weight 74.843 kg General appearance: The patient is alert, oriented, appears in no acute distress. HET: Head is normocephalic and atraumatic. Conjunctiva pink. Sclera anicteric. Neck: Supple without lymphadenopathy. Trachea midline. Heart: S1 S2. Regular rate and rhythm. Lungs: Clear to auscultation. Abdomen: Soft, right upper quadrant and epigastric tenderness, nondistended with bowel sounds. No guarding or rigidity. Skin: No rashes. No jaundice. Extremities: Normal skin color and turgor. No pedal edema. Neurological: No focal deficits. Alert and oriented x3. Results CBC & Chem 7: 05/15/22 13:11 05/15/22 07:49 Labs: Abnormal Lab Results - Last 24 Hours (Table) 05/15/22 05/15/22 Range/Units 07:49 07:49 RBC 4.26 L (4.30-5.90) m/uL Hgb 9.6 L (13.0-17.5) gm/dL Hct 32.4 L (39.0-53.0) % MCV 76.1 L (80.0-100.0) fL MCH 22.6 L (25.0-35.0) pg MCHC 29.7 L (31.0-37.0) g/dL RDW 18.5 H (11.5-15.5) % Sodium 125 L (137-145) mmol/L Chloride 97 L (98-107) mmol/L BUN 6 L (9-20) mg/dL Calcium 8.2 L (8.4-10.2) mg/dL Magnesium 1.5 L (1.6-2.3) mg/dL Comments: Computed tomography scan of abdomen and pelvis shows wall thickening involving the duodenal bulb and descending duodenum may reflect duodenitis. There is adjacent fluid. Fluid adjacent to the gallbladder without gallbladder wall thickening or cholelithiasis. Mild fluid distention of the large and small bowel could reflect enterocolitis. Abdominal ultrasound shows no gallstones or diagnostic evidence of gallbladder wall thickening. No fluid was noted around the gallbladder. Assessment and Plan (1) Gastrointestinal bleeding Narrative/Plan: 66-year-old male with a past history of GI bleed who is followed with the general surgeon Dr. Humphrey in the past. Presented to the emergency department with abdominal pain and reports of black tarry stool. His last EGD colonoscopy was done by Dr. Humphrey on 02/02/2021 with findings of antral gastritis and colonoscopy was normal. He had a CT of the abdomen and pelvis that is showing thickening of the duodenal bulb possibility of duodenitis. Labs are consistent with a microcytic anemia. Patient is not on any NSAIDs or anticoagulation. Currently on PPI. We will proceed with EGD for further evaluation of possible GI bleed. Current Visit: Yes Status: Acute Code(s): K92.2 - GASTROINTESTINAL HEMORRHAGE, UNSPECIFIED SNOMED Code(s): 80666510 (2) Alcohol abuse Current Visit: Yes Status: Acute Code(s): F10.10 - ALCOHOL ABUSE, UNCOMPLICATED SNOMED Code(s): 47607750 (3) Melena Current Visit: Yes Status: Acute Code(s): K92.1 - MELENA SNOMED Code(s): 9237526 Plan: 1. Continue symptomatic and supportive care 2. Protonix 40 mg twice a day 3. Patient may have clear liquid diet 4. Daily CBC, transfuse for hemoglobin less than 7 5. We'll plan to proceed with the EGD within the next 1-2 days Thank you for this consultation, we will continue to follow. Dr. Renée Zarate I agree with the dictator's note, documented as a scribe by Adelaide Miller.
[2022-05-15 18:47] LABS: Anisocytosis Slight; Basophils % (A) 0 %; Eosinophils % (A) 1 %; HCT 27.5 % (39.0-53.0); Hypochromasia Marked; Lymphocytes # (A) 1.5 k/uL (1.0-4.8); Lymphocytes % (A) 22 %; MCH 22.7 pg (25.0-35.0); MCV 78.1 fL (80.0-100.0); Mean Platelet Volume 8.1; Microcytosis Slight; Monocytes # (A) 0.4 k/uL (0-1.0); Monocytes % (A) 6 %; Neutrophils # (A) 4.5 k/uL (1.3-7.7); Neutrophils % (A) 68 %; Platelet Count 243 k/uL (150-450); RBC 3.51 m/uL (4.30-5.90); RDW 18.7 % (11.5-15.5); WBC 6.7 k/uL (3.8-10.6)
[2022-05-15] MEDS: PANTOPRAZOLE 40 MG/10 ML VIAL IV SCH (20:56)
[2022-05-15] MEDS: ZOLPIDEM 5 MG TAB PO SCH (20:57)
[2022-05-15] MEDS ORDERED: THIAMINE 100 MG/ML 2 ML VIAL IM STA (22:40)
[2022-05-15] MEDS ORDERED: LORazepam 1 MG TAB PO PRN ×3 (22:40)
--- NOTE | 2022-05-15 22:52 | P.HPIM ---
History of Present Illness H&P Date: 05/15/22 Chief Complaint: Abdominal pain This is a 66-year-old patient who follows with Dr. Michel. Chronic stable medical conditions include atrial fibrillation, GERD, hypertension . In 2019 patient of the small bowel resection for repair of diaphragmatic hernia. Subsequently in, months at small bowel resection with ice of adhesions. Patient has continued to drink anywhere from 10-14 drinks a day. Also smokes about a pack a day. Patient presented to 3 days of increasing abdominal pain. Having dark stools. Has prior history of gastritis duodenitis. Patient does have a chronic cough some phlegm. Clear. No fever no chills. Feels tired and rundown. Review of systems: GEN.: Tired EYES: None HEENT: None NECK: None RESPIRATORY: Chronic cough or shortness of breath CARDIOVASCULAR: None GASTROINTESTINAL: As above] GENITOURINARY: None MUSCULOSKELETAL: None LYMPHATICS: None HEMATOLOGICAL: None PSYCHIATRY: None NEUROLOGICAL: None Past medical history to include: Atrial fibrillation, GERD, hypertension, hyperlipidemia, osteoarthritis, peptic ulcer disease, gastritis, duodenitis, alcohol use disorder, chronic low back pain, occasional numbness and tingling in the hand and feet, carpal tunnel syndrome, left pneumothorax with chest tube. Social history: . Has been smoking a pack a day since 1965. Drinks any me from 10-14 alcoholic drinks a day. Family history: Mother of liver failure from alcohol Physical examination: VITAL SIGNS: 97.6, 88, 16, 1 38 x 84, 95% room air GENERAL: BMI 25.1, laying in bed, tired. EYES: Pupils equal. Conjunctiva normal. HEENT: External appearance of nose and ears normal, oral cavity grossly normal. NECK: JVD not raised; masses not palpable. HEART: First and second heart sounds are normal; no edema. LUNGS: Respiratory rate increased; decreased breath sounds or wheezing. ABDOMEN: Soft, upper abdominal tenderness, no guarding rigidity, liver spleen not palpable, no masses palpable. PSYCH: Alert and oriented x3; mood and affect anxiousl. MUSCULOSKELETAL:No Clubbing/cyanosis;muscles-grossly intact NEUROLOGICAL: Cranial nerves grossly intact; no facial asymmetry, power and sensation grossly intact. LYMPHATICS: No lymph nodes palpable in the axilla and neck INVESTIGATIONS, reviewed in the clinical context: White count 6.7 hemoglobin 8 platelets 243 sodium 125 potassium 4.3 creatinine 0.69. AST 25 ALT 11 Admission hemoglobin 9.6 Assessment and plan: -Acute GI bleed. This is a patient with known duodenitis gastritis peptic ulcer disease continues to drink alcohol. Presents with abdominal pain and dark stools. PPI. Consultation to GI and general surgery. -Alcohol use disorder Patient drinks anywhere from 10-14 alcoholic drinks a day. CIWA scale. Valium 5 mg every 8 for DT prophylaxis. -COPD in a current smoker DuoNeb 4 times a day -Acute GI bleed leading to acute blood loss anemia Follow H&H -Essential hypertension Zestril 20 mg a day -Paroxysmal atrial fibrillation Amiodarone 100 mg a day -Hyponatremia from decreased solute intake Normal saline Clear liquids. PPI. Resume all medication. Valium. CIWA scale. DuoNeb. Telemetry. Consultation to GI and surgery. Nicotine patch. Past Medical History Past Medical History: Atrial Fibrillation, GERD/Reflux, GI Bleed, Hyperlipidemia, Hypertension, Osteoarthritis (OA) Additional Past Medical History / Comment(s): Paroxysmal Afib, lower GI bleed, PUD, anemia, ETOH, chronic back pain, occasional numbness/tingling bilateral hands and feet, bilateral carpal tunnel syndome, 03/2020 fall with rib fractures/traumatic diaphragmatic strangulated hernia with surgery and L pneumothorax with chest tube. History of Any Multi-Drug Resistant Organisms: None Reported Past Surgical History: Appendectomy, Bowel Resection, Heart Catheterization, Hernia Repair, Orthopedic Surgery Additional Past Surgical History / Comment(s): 03/2020 small bowel resection and repair of diaghragmatic hernia d/t injury, 05/2020 exploratory laparotomy with small bowel resection/lysis of adhesions, L inguinal hernia repair, incisional hernia repair, EGD, colonoscopy/polypectomy, L shoulder surgery x2 d/t muscle tears, R shoulder rotator cuff repair, L ankle surgery, forehead laceration repair, Past Anesthesia/Blood Transfusion Reactions: No Reported Reaction Additional Past Anesthesia/Blood Transfusion Reaction / Comment(s): Pt has received blood in past without reaction. Smoking Status: Current every day smoker - Past Family History Father History Unknown: Yes Mother Family Medical History: Liver Disease Additional Family Medical History / Comment(s): Mother of liver failure related to ETOH Medications and Allergies Home Medications Medication Instructions Recorded Confirmed Type Omeprazole [PriLOSEC] 20 mg PO DAILY 10/14/19 05/15/22 History Multivitamins, Thera [Multivitamin 1 tab PO DAILY 03/22/20 05/15/22 History (formulary)] lisinopriL [Zestril] 20 mg PO DAILY 10/31/20 05/15/22 History Amiodarone [Cordarone] 100 mg PO DAILY 02/25/22 05/15/22 History Allergies Allergy/AdvReac Type Severity Reaction Status Date / Time No Known Allergies Allergy Verified 05/15/22 10:12 Physical Exam Vitals: Vital Signs Temp Pulse Pulse Resp BP BP Pulse Ox 05/15/22 13:54 98.3 F 84 20 176/70 100 05/15/22 12:08 97.7 F 85 19 158/91 100 05/15/22 11:58 76 18 164/84 96 05/15/22 10:14 76 16 165/99 98 05/15/22 07:21 98 F 68 20 142/68 99 Intake and Output 05/15/22 05/15/22 05/15/22 06:59 14:59 22:59 Other: # Voids 6 # Bowel Movements 1 Weight 74.843 kg Results CBC & Chem 7: 05/15/22 18:35 05/15/22 07:49 Labs: Abnormal Lab Results - Last 24 Hours (Table) 05/15/22 05/15/22 05/15/22 Range/Units 07:49 07:49 13:11 RBC 4.26 L 4.04 L (4.30-5.90) m/uL Hgb 9.6 L 9.2 L (13.0-17.5) gm/dL Hct 32.4 L 31.0 L (39.0-53.0) % MCV 76.1 L 76.8 L (80.0-100.0) fL MCH 22.6 L 22.9 L (25.0-35.0) pg MCHC 29.7 L 29.8 L (31.0-37.0) g/dL RDW 18.5 H 18.5 H (11.5-15.5) % Sodium 125 L (137-145) mmol/L Chloride 97 L (98-107) mmol/L BUN 6 L (9-20) mg/dL Calcium 8.2 L (8.4-10.2) mg/dL Magnesium 1.5 L (1.6-2.3) mg/dL Thrombosis Risk Factor Assmnt - Choose All That Apply Any of the Below Risk Factors Present?: Yes Other Risk Factors: Yes Each Risk Factor Represents 2 Points: Age 61-74 years Other congenital or acquired thrombophilia - If yes, enter type in comment: No Thrombosis Risk Factor Assessment Total Risk Factor Score: 2 Thrombosis Risk Factor Assessment Level: Low Risk
[2022-05-15] MEDS ORDERED: SODIUM CHLORIDE 0.9% 500 ML 500 ML IV ONE (23:06)
[2022-05-15 23:18] LABS: Glucose,Whole Blood 186 mg/dL (70-110)
--- NOTE | 2022-05-15 23:19 | XR ---
EXAMINATION TYPE: XR chest 1V portable DATE OF EXAM: 05/15/2022 COMPARISON: 05/25/2020 HISTORY: Smoker TECHNIQUE: Single view FINDINGS: Heart and mediastinum are fairly normal. There is mild linear density left lung base. Right lung is clear. No heart failure. Bony thorax is intact. There are old left-sided healed rib fracture s. IMPRESSION: There is some pleural reaction and scarring at the lateral left lung base. There is clear ing of infiltrate left lower lobe compared to old exam. No heart failure.
[2022-05-15 23:29] LABS: Anisocytosis Slight; Basophils % (A) 0 %; Eosinophils # (A) 0.1 k/uL (0-0.7); Eosinophils % (A) 1 %; HCT 21.4 % (39.0-53.0); Hypochromasia Marked; Lymphocytes % (A) 19 %; MCH 21.6 pg (25.0-35.0); MCHC 27.3 g/dL (31.0-37.0); MCV 79.1 fL (80.0-100.0); Mean Platelet Volume 7.6; Microcytosis Slight; Monocytes # (A) 0.7 k/uL (0-1.0); Monocytes % (A) 7 %; Neutrophils # (A) 7.6 k/uL (1.3-7.7); Neutrophils % (A) 72 %; Platelet Count 233 k/uL (150-450); RBC 2.71 m/uL (4.30-5.90); RDW 18.5 % (11.5-15.5); WBC 10.7 k/uL (3.8-10.6)
[2022-05-15 23:41] LABS: HGB 5.9 gm/dL (13.0-17.5)
[2022-05-15 23:51] LABS: Glucose,Whole Blood 160 mg/dL (70-110)
[2022-05-15 23:56] LABS: African American GFR (CKD) >90 (>60 ml/min/1.73 sqM); Anion Gap 6 mmol/L; Blood Urea Nitrogen 8 mg/dL (9-20); Calcium 7.2 mg/dL (8.4-10.2); Carbon Dioxide 18 mmol/L (22-30); Chloride 101 mmol/L (98-107); Glucose 163 mg/dL (74-99); Magnesium 1.7 mg/dL (1.6-2.3); Non-African American GFR(CKD) >90 (>60 ml/min/1.73 sqM); Potassium 4.1 mmol/L (3.5-5.1); Sodium 125 mmol/L (137-145)
[2022-05-16] MEDS ORDERED: Magnesium Replacement Protocol 1 EACH MISC MISCELLANE PRN (00:27)
[2022-05-16] MEDS: diazePAM 5 MG TAB PO SCH ×4 (01:58→21:14)
[2022-05-16] MEDS: MAGNESIUM SULFATE-D5W PMX 1 GM in DEXTROSE/WATER 1 100ML.BAG IVPB SCH ×2 (02:08→03:23)
[2022-05-16] MEDS: SODIUM CHLORIDE 0.9% 1,000 ML IV SCH (02:11)
[2022-05-16] MEDS: NICOTINE 21MG/24HR PATCH TRANSDERM SCH ×2 (02:11→09:15)
[2022-05-16] MEDS: IPRATROPIUM-ALBUTEROL 3 ML NEB INHALATION SCH ×4 (07:10→19:18)
[2022-05-16] MEDS ORDERED: lisinopriL 20 MG TAB PO SCH (09:00)
[2022-05-16 09:03] LABS: Anisocytosis Slight; HCT 26.1 % (39.0-53.0); Hypochromasia Marked; MCH 24.8 pg (25.0-35.0); MCHC 30.5 g/dL (31.0-37.0); MCV 81.2 fL (80.0-100.0); Mean Platelet Volume 7.5; Microcytosis Slight; Platelet Count 192 k/uL (150-450); Poikilocytosis Moderate; RBC 3.22 m/uL (4.30-5.90); RDW 18.7 % (11.5-15.5); WBC 7.7 k/uL (3.8-10.6)
[2022-05-16] MEDS: THIAMINE 100 MG TAB PO SCH ×2 (09:04→18:33)
[2022-05-16] MEDS: PANTOPRAZOLE 40 MG/10 ML VIAL IV SCH ×2 (09:04→21:14)
[2022-05-16] MEDS: LACTATED RINGERS 1,000 ML IV SCH ×2 (09:07→21:15)
[2022-05-16 09:09] LABS: African American GFR (CKD) >90 (>60 ml/min/1.73 sqM); Anion Gap 0 mmol/L; Blood Urea Nitrogen 9 mg/dL (9-20); Calcium 6.9 mg/dL (8.4-10.2); Carbon Dioxide 24 mmol/L (22-30); Chloride 103 mmol/L (98-107); Glucose 86 mg/dL (74-99); Magnesium 2.3 mg/dL (1.6-2.3); Non-African American GFR(CKD) >90 (>60 ml/min/1.73 sqM); Potassium 4.1 mmol/L (3.5-5.1); Sodium 127 mmol/L (137-145)
--- NOTE | 2022-05-16 10:27 | P.CNPUL ---
History of Present Illness Consult date: 05/16/22 Requesting physician: Yang Gaspar Reason for consult: other Chief complaint: GI bleed. History of present illness: Pulmonary consult dated 05/16/2022. 66-year-old male who presented to the emergency department on May 15, with abdominal pain, and melena. The patient apparently been having symptoms for a few days prior to admission. He noted black tarry stools. He does have a previous history of GI bleed with ulcers. The patient was admitted to the general medical floor on the , and was transferred to the intensive care unit last night, with hypotension, and a falling episode, with a chin laceration. The patient did receive so far 2 units of PRBCs. He also was found to have a low sodium of 125. The patient's currently on room air. He is getting saline at 75 mL an hour. Apparently scheduled to have an EGD today. His medical problems include atrial fibrillation, GERD, GI bleed, hyperlipidemia, hypertension, and osteoarthritis. White count 7.7, hemoglobin 8, lowest hemoglobin 5.9, hematocrit 26.1, and platelet count 192,000. Sodium is 127, potassium 4.1, chloride 103, CO2 24, BUN 9, with creatinine 0.7. There is wall thickening involving do on the above and descending duodenum, which may reflect duodenitis. There is fluid adjacent to the gallbladder without gallbladder wall thickening or cholelithiasis. Is also mild fluid distention of the large and small bowel. Chest x-ray shows pleural reaction and scarring at the left lung base. Review of Systems REVIEW OF SYSTEMS: CONSTITUTIONAL: Weakness NEUROLOGIC: [ Negative.] HEENT: [ Negative.] CARDIAC: [Negative.] PULMONARY: [Negative.] GI: Abdominal pain, and black tarry stools. : [Negative.] RHEUMATOLOGIC: [ Negative.] IMMUNOLOGIC: [ Negative.] ENDOCRINE: [Negative. ] DERMATOLOGIC: [Negative.] Past Medical History Past Medical History: Atrial Fibrillation, GERD/Reflux, GI Bleed, Hyperlipidemia, Hypertension, Osteoarthritis (OA) Additional Past Medical History / Comment(s): Paroxysmal Afib, lower GI bleed, PUD, anemia, ETOH, chronic back pain, occasional numbness/tingling bilateral hands and feet, bilateral carpal tunnel syndome, 03/2020 fall with rib fractures/traumatic diaphragmatic strangulated hernia with surgery and L pneumothorax with chest tube. History of Any Multi-Drug Resistant Organisms: None Reported Past Surgical History: Appendectomy, Bowel Resection, Heart Catheterization, Hernia Repair, Orthopedic Surgery Additional Past Surgical History / Comment(s): 03/2020 small bowel resection and repair of diaghragmatic hernia d/t injury, 05/2020 exploratory laparotomy with small bowel resection/lysis of adhesions, L inguinal hernia repair, incisional hernia repair, EGD, colonoscopy/polypectomy, L shoulder surgery x2 d/t muscle tears, R shoulder rotator cuff repair, L ankle surgery, forehead laceration repair, Past Anesthesia/Blood Transfusion Reactions: No Reported Reaction Additional Past Anesthesia/Blood Transfusion Reaction / Comment(s): Pt has received blood in past without reaction. Smoking Status: Current every day smoker - Past Family History Father History Unknown: Yes Mother Family Medical History: Liver Disease Additional Family Medical History / Comment(s): Mother of liver failure related to ETOH Medications and Allergies Home Medications Medication Instructions Recorded Confirmed Type Omeprazole [PriLOSEC] 20 mg PO DAILY 10/14/19 05/15/22 History Multivitamins, Thera [Multivitamin 1 tab PO DAILY 03/22/20 05/15/22 History (formulary)] lisinopriL [Zestril] 20 mg PO DAILY 10/31/20 05/15/22 History Amiodarone [Cordarone] 100 mg PO DAILY 02/25/22 05/15/22 History Allergies Allergy/AdvReac Type Severity Reaction Status Date / Time No Known Allergies Allergy Verified 05/15/22 10:12 Physical Exam Osteopathic Statement: *. No significant issues noted on an osteopathic structural exam other than those noted in the History and Physical/Consult. Vitals: Vital Signs Temp Pulse Pulse Resp BP BP Pulse Ox 05/16/22 09:00 85 12 126/98 98 05/16/22 08:30 85 13 138/91 98 05/16/22 08:00 98.2 F 81 14 132/97 98 05/16/22 07:30 80 11 L 122/79 100 05/16/22 07:00 80 13 117/70 99 05/16/22 06:30 80 12 117/72 97 05/16/22 06:10 99.1 F 84 12 117/72 99 05/16/22 06:00 85 12 127/79 100 05/16/22 05:30 86 20 103/67 100 05/16/22 05:00 75 24 113/64 99 05/16/22 04:30 79 13 103/69 99 05/16/22 04:00 98.6 F 78 11 L 95/65 99 05/16/22 03:54 98.5 F 77 12 95/65 97 05/16/22 03:30 86 12 109/76 98 05/16/22 03:24 98.7 F 88 14 109/76 99 05/16/22 03:14 98.9 F 93 18 113/97 97 05/16/22 03:00 79 11 L 110/76 100 05/16/22 02:55 98.8 F 87 12 110/76 97 05/16/22 02:30 78 12 121/78 97 05/16/22 02:00 77 13 95/65 97 05/16/22 01:30 80 12 106/69 100 05/16/22 01:00 93 12 94/70 05/16/22 00:58 98.4 F 94 13 94/70 98 05/16/22 00:30 98 15 88/65 88 L 05/16/22 00:23 97.9 F 88 12 105/54 90 L 05/16/22 00:18 98 F 92 12 88/65 94 L 05/16/22 00:00 97.9 F 98 15 108/73 05/15/22 23:44 23 05/15/22 23:40 114 H 24 05/15/22 23:00 120 H 24 63/58 62 L 05/15/22 19:31 97.6 F 88 16 138/84 95 05/15/22 13:54 98.3 F 84 20 176/70 100 05/15/22 12:08 97.7 F 85 19 158/91 100 05/15/22 11:58 76 18 164/84 96 Intake and Output 05/15/22 05/16/22 05/16/22 22:59 06:59 14:59 Intake Total 1259 150 Output Total 200 Balance 1059 150 Intake: IV 375 150 Lactated Ringers 1,000 ml 75 @ 75 mls/hr IV .[id number] [facility] Rx#:[id number] Sodium Chloride 0.9% 1, 375 75 000 ml @ 75 mls/hr IV . [id number] Rx#:[id number] Intake, IV Titration 200 Amount Magnesium Sulfate-D5w Pmx 200 1 gm In Dextrose/Water 1 100ml.bag @ 100 mls/hr IVPB Q1H [facility] Rx#: [id number] Blood Product 594 Rc As-1 Unit 310 [id number] Rc Pheresis As-3 Unit 284 [id number] Other 90 Rc As-1 Unit 40 [id number] Rc Pheresis As-3 Unit 50 [id number] Output: Urine 200 Other: Voiding Method Bedpan # Voids 6 1 # Bowel Movements 1 1 No acute distress, oriented 3. HEENT examination is grossly unremarkable. Small laceration noted in the chin area. Neck supple. Full range of motion. No adenopathy thyromegaly or neck vein distention. Cardiovascular examination reveals regular rhythm rate. S1-S2 normal. No S3 or S4. No discernible murmur noted. Heart rate 85 bpm. Lungs reveal clear breath sounds. Breath sounds are equal bilaterally. No adventitious lung sounds including wheezes rhonchi or crackles. Abdomen soft bowel sounds are heard. No masses or tenderness. Extremities are intact. No cyanosis clubbing or edema. Skin is without rash or lesion. Neurologic examination is brief but nonfocal. Results - Laboratory Findings CBC and BMP: 05/16/22 08:19 05/16/22 08:19 PT/INR, D-dimer PT 10.8 sec (9.0-12.0) 05/15/22 07:49 INR 1.0 (<1.2) 05/15/22 07:49 Abnormal lab findings: Abnormal Labs 05/15/22 05/15/22 05/15/22 07:49 07:49 07:49 WBC RBC 4.26 L Hgb 9.6 L Hct 32.4 L MCV 76.1 L MCH 22.6 L MCHC 29.7 L RDW 18.5 H Sodium 125 L Chloride 97 L Carbon Dioxide BUN 6 L Glucose POC Glucose (mg/dL) Calcium 8.2 L Magnesium 1.5 L Crossmatch See Detail 05/15/22 05/15/22 05/15/22 13:11 18:35 22:58 WBC RBC 4.04 L 3.51 L Hgb 9.2 L 8.0 L Hct 31.0 L 27.5 L MCV 76.8 L 78.1 L MCH 22.9 L 22.7 L MCHC 29.8 L 29.0 L RDW 18.5 H 18.7 H Sodium Chloride Carbon Dioxide BUN Glucose POC Glucose (mg/dL) 186 H Calcium Magnesium Crossmatch 05/15/22 05/15/22 05/15/22 23:19 23:19 23:47 WBC 10.7 H RBC 2.71 L Hgb 5.9 L* D Hct 21.4 L MCV 79.1 L MCH 21.6 L MCHC 27.3 L RDW 18.5 H Sodium 125 L Chloride Carbon Dioxide 18 L BUN 8 L Glucose 163 H POC Glucose (mg/dL) 160 H Calcium 7.2 L Magnesium Crossmatch 05/16/22 05/16/22 08:19 08:19 WBC RBC 3.22 L Hgb 8.0 L D Hct 26.1 L MCV MCH 24.8 L MCHC 30.5 L RDW 18.7 H Sodium 127 L Chloride Carbon Dioxide BUN Glucose POC Glucose (mg/dL) Calcium 6.9 L Magnesium Crossmatch - Diagnostic Findings Chest x-ray: image reviewed Assessment and Plan Assessment: Gastrointestinal bleed, with abdominal pain, and melena, in a patient with prior history of ulcers and GI bleed. Acute anemia, secondary to GI bleed. History of atrial fibrillation. History of GERD. History of hyperlipidemia. History of hypertension. History of osteoarthritis. Multiple other medical problems and comorbidities. Plan: Plan dated 05/16/2022. Because of hypotension, and ongoing gastrointestinal bleeding, the patient was transferred to the ICU, last night. The patient has received 2 units of packed red blood cells. Currently, the patient's on room air. In addition, the patient's getting saline at 75 mL an hour. He fell because of hypotension, and sustained a small chin laceration. His primary care physician is Dr. Jc Michel. Labs, x-rays, and medications are reviewed. Prognosis is guarded. The patient is to have an EGD today by the engineering professor. Time with Patient: Greater than 30
--- NOTE | 2022-05-16 10:55 | P.PN ---
Subjective Progress Note Date: 05/16/22 CHIEF COMPLAINT: GI bleed HISTORY OF PRESENT ILLNESS: Patient had been having black stools at home. Appa rently up on the fourth floor he had a fall in the bathroom with a large bloody bowel movement. Hemoglobin did drop from 8 to 5.9. He received 2 units of blood. Repeat hemoglobin is at 8.0. He did require transfer to the ICU. And GI service is planning EGD today. Afebrile. Vitals stable. WBC 7.7 Hgb 8.0 platelet 192 sodium is 127 potassium is 4.1 creatinine 0.70 magnesium 2.3 PHYSICAL EXAM: VITAL SIGNS: Reviewed. GENERAL: Well-developed in no acute distress. HEENT: No sclera icterus. Extraocular movements grossly intact. Moist buccal mucosa. Head is atraumatic, normocephalic. ABDOMEN: Soft. Nondistended. epigastric tenderness NEUROLOGIC: Alert and oriented. Cranial nerves II through XII grossly intact. ASSESSMENT: 1. Epigastric abdominal pain 2. Acute GI bleed 3. Acute blood loss anemia 4. Duodenitis 5. Hypomagnesemia improved 6. hyponatremia 7. Daily alcohol use PLAN: -GI service planning EGD today -Surgical service on standby -Continue supportive care -Continue IV Protonix -Continue to monitor hemoglobin -Continue monitor for any signs and symptoms of bleeding Physician Trimmer Machine note has been reviewed by physician. Signing provider agrees with the documented findings, assessment, and plan of care. I have personally seen and examined the patient, reviewed the COUNTER ROLLER /PAs history, exam and MDM and agree with the assessment and plan as written. Based on total visit time, I have performed more than 50% of the visit. As above: Patient did have some further bleeding today. Await EGD by GI later today. Will follow. Objective - Vital Signs Vital signs: Vital Signs Temp 98.2 F 05/16/22 08:00 Pulse 83 05/16/22 10:00 Resp 19 05/16/22 10:00 BP 121/90 05/16/22 10:00 Pulse Ox 92 L 05/16/22 10:00 FiO2 Intake & Output 05/15/22 05/16/22 05/16/22 18:59 06:59 18:59 Intake Total 1259 225 Output Total 200 200 Balance 1059 25 Weight 74.843 kg Intake: IV 375 225 Lactated Ringers 1,000 ml 150 @ 75 mls/hr IV .[id number] [facility] Rx#:[id number] Sodium Chloride 0.9% 1, 375 75 000 ml @ 75 mls/hr IV . [id number] [facility] Rx#:[id number] Intake, IV Titration 200 Amount Magnesium Sulfate-D5w Pmx 200 1 gm In Dextrose/Water 1 100ml.bag @ 100 mls/hr IVPB Q1H [facility] Rx#: [id number] Blood Product 594 Rc As-1 Unit 310 [id number] Rc Pheresis As-3 Unit 284 [id number] Other 90 Rc As-1 Unit 40 [id number] Rc Pheresis As-3 Unit 50 [id number] Output: Urine 200 200 Other: Voiding Method Bedpan # Voids 6 1 1 # Bowel Movements 1 1 - Labs CBC & Chem 7: 05/16/22 08:19 05/16/22 08:19 Labs: Abnormal Lab Results - Last 24 Hours (Table) 05/15/22 05/15/22 05/15/22 Range/Units 07:49 13:11 18:35 WBC (3.8-10.6) k/uL RBC 4.04 L 3.51 L (4.30-5.90) m/uL Hgb 9.2 L 8.0 L (13.0-17.5) gm/dL Hct 31.0 L 27.5 L (39.0-53.0) % MCV 76.8 L 78.1 L (80.0-100.0) fL MCH 22.9 L 22.7 L (25.0-35.0) pg MCHC 29.8 L 29.0 L (31.0-37.0) g/dL RDW 18.5 H 18.7 H (11.5-15.5) % Sodium (137-145) mmol/L Carbon Dioxide (22-30) mmol/L BUN (9-20) mg/dL Glucose (74-99) mg/dL POC Glucose (mg/dL) (70-110) mg/dL Calcium (8.4-10.2) mg/dL Crossmatch See Detail 05/15/22 05/15/22 05/15/22 Range/Units 22:58 23:19 23:19 WBC 10.7 H (3.8-10.6) k/uL RBC 2.71 L (4.30-5.90) m/uL Hgb 5.9 L* D (13.0-17.5) gm/dL Hct 21.4 L (39.0-53.0) % MCV 79.1 L (80.0-100.0) fL MCH 21.6 L (25.0-35.0) pg MCHC 27.3 L (31.0-37.0) g/dL RDW 18.5 H (11.5-15.5) % Sodium 125 L (137-145) mmol/L Carbon Dioxide 18 L (22-30) mmol/L BUN 8 L (9-20) mg/dL Glucose 163 H (74-99) mg/dL POC Glucose (mg/dL) 186 H (70-110) mg/dL Calcium 7.2 L (8.4-10.2) mg/dL Crossmatch 05/15/22 05/16/22 05/16/22 Range/Units 23:47 08:19 08:19 WBC (3.8-10.6) k/uL RBC 3.22 L (4.30-5.90) m/uL Hgb 8.0 L D (13.0-17.5) gm/dL Hct 26.1 L (39.0-53.0) % MCV (80.0-100.0) fL MCH 24.8 L (25.0-35.0) pg MCHC 30.5 L (31.0-37.0) g/dL RDW 18.7 H (11.5-15.5) % Sodium 127 L (137-145) mmol/L Carbon Dioxide (22-30) mmol/L BUN (9-20) mg/dL Glucose (74-99) mg/dL POC Glucose (mg/dL) 160 H (70-110) mg/dL Calcium 6.9 L (8.4-10.2) mg/dL Crossmatch
--- NOTE | 2022-05-16 11:21 | P.PN ---
Progress Note - Text Progress Note Date: 05/16/22 Patient was transferred to the ICU yesterday evening after he was up to use the bathroom and blacked out. Apparently patient also had significant amount of black stool. He had a drop in his hemoglobin to 5.9 and became hypotensive so was transferred to the ICU for further management. Today he states he is feeling better. He received 2 units of PRBC transfusion. Repeat hemoglobin 8.0. Denies abdominal pain, nausea, or vomiting. He is scheduled for EGD this afternoon. Dr. Renée Zarate I agree with the dictator's note, documented as a scribe by Adelaide Miller.
--- NOTE | 2022-05-16 14:36 | P.PN ---
Progress Note - Text Progress Note Date: 05/16/22 Chief Complaint: Abdominal pain This is a 66-year-old patient who follows with Dr. Michel. Chronic stable medical conditions include atrial fibrillation, GERD, hypertension . In 2019 patient of the small bowel resection for repair of diaphragmatic hernia. Subsequently in, months at small bowel resection with ice of adhesions. Patient has continued to drink anywhere from 10-14 drinks a day. Also smokes about a pack a day. Patient presented to 3 days of increasing abdominal pain. Having dark stools. Has prior history of gastritis duodenitis. Patient does have a chronic cough some phlegm. Clear. No fever no chills. Feels tired and rundown. May 16: Last night patient with large bloody BM in the bathroom. Passed out. Blood pressure dropped over 60 systolic. . Moved to the ICU. Hemoglobin came back at 5.9. Receive 2 units of blood. Patient due for endoscopy later today. Tired. Some abdominal discomfort. Had a small bloody BM this morning. Active Medications Acetaminophen (Acetaminophen Tab 325 Mg Tab) 650 mg PO Q6HR PRN PRN Reason: Mild Pain or Fever > 100.5 Albuterol/Ipratropium (Ipratropium-Albuterol 3 Ml Neb) 3 ml INHALATION RT-QID [facility] Last Admin: 05/16/22 11:29 Dose: Not Given Diazepam (Diazepam 5 Mg Tab) 5 mg PO TID [facility] Last Admin: 05/16/22 09:03 Dose: 5 mg Lactated Ringer's (Lactated Ringers) 1,000 mls @ 75 mls/hr IV .[id number] [facility] Last Admin: 05/16/22 09:07 Dose: 75 mls/hr Lisinopril (Lisinopril 20 Mg Tab) 20 mg PO DAILY [facility] Last Admin: 05/16/22 09:04 Dose: 20 mg Lorazepam (Lorazepam 1 Mg Tab) 1 mg PO Q2HR PRN PRN Reason: CIWA 8 or 9 Lorazepam (Lorazepam 1 Mg Tab) 1 mg PO Q1HR PRN PRN Reason: CIWA 10 to 15 Lorazepam (Lorazepam 1 Mg Tab) 2 mg PO Q10M PRN PRN Reason: CIWA 16 or higher Stop: 05/17/22 22:40 Miscellaneous Information (Magnesium Replacement Protocol 1 Each Misc) 1 each MISCELLANE DAILY PRN; Protocol PRN Reason: Per Protocol Naloxone HCl (Naloxone 0.4 Mg/Ml 1 Ml Vial) 0.2 mg IV Q2M PRN PRN Reason: Opioid Reversal Nicotine (Nicotine 21mg/24hr Patch) 1 patch TRANSDERM DAILY [facility] Last Admin: 05/16/22 09:15 Dose: Not Given Ondansetron HCl (Ondansetron 4 Mg/2 Ml Vial) 4 mg IVP Q8HR PRN PRN Reason: Nausea And Vomiting Last Admin: 05/15/22 20:57 Dose: 4 mg Pantoprazole Sodium (Pantoprazole 40 Mg/10 Ml Vial) 40 mg IV BID [facility] Last Admin: 05/16/22 09:04 Dose: 40 mg Thiamine HCl (Thiamine 100 Mg Tab) 100 mg PO BID-W/MEALS [facility] Last Admin: 05/16/22 09:04 Dose: 100 mg Zolpidem Tartrate (Zolpidem 5 Mg Tab) 5 mg PO HS [facility] Last Admin: 05/15/22 20:57 Dose: 5 mg Past medical history to include: Atrial fibrillation, GERD, hypertension, hyperlipidemia, osteoarthritis, peptic ulcer disease, gastritis, duodenitis, alcohol use disorder, chronic low back pain, occasional numbness and tingling in the hand and feet, carpal tunnel syndrome, left pneumothorax with chest tube. Social history: . Has been smoking a pack a day since 1965. Drinks any me from 10-14 alcoholic drinks a day. Family history: Mother of liver failure from alcohol Physical examination: VITAL SIGNS: 98.2, 78, 12, 101 with 87, 97% room air GENERAL: Laying in bed, awake, tired EYES: Pupils equal. Conjunctiva pale HEENT: External appearance of nose and ears normal, oral cavity grossly normal. NECK: JVD not raised; masses not palpable. HEART: First and second heart sounds are normal; no edema. LUNGS: Respiratory rate increased; decreased breath sounds ABDOMEN: Soft, upper abdominal tenderness, no guarding rigidity, liver spleen not palpable, no masses palpable. PSYCH: Alert and oriented x3; mood and affect anxious MUSCULOSKELETAL:No Clubbing/cyanosis;muscles-grossly intact INVESTIGATIONS, reviewed in the clinical context: May 16: Hemoglobin 5.9 and after 2 units of PRBC: Hemoglobin 8 sodium 127 White count 6.7 hemoglobin 8 platelets 243 sodium 125 potassium 4.3 creatinine 0.69. AST 25 ALT 11 Admission hemoglobin 9.6 Assessment and plan: -Acute GI bleed. This is a patient with known duodenitis gastritis peptic ulcer disease continues to drink alcohol. Presents with abdominal pain and dark stools. Had a bloody BM on the floor Follow with GI and surgery. For endoscopy today. -Alcohol use disorder Patient drinks anywhere from 10-14 alcoholic drinks a day. CIWA scale. Valium 5 mg every 8 for DT prophylaxis. -COPD in a current smoker DuoNeb 4 times a day -Acute GI bleed leading to acute blood loss anemia: Worsening Receive 2 units of blood -Essential hypertension Zestril 20 mg a day-hold -Paroxysmal atrial fibrillation Amiodarone 100 mg a day -Hyponatremia from decreased solute intake: Slow to respond Normal saline Patient received 2 units of blood. Moved to the ICU. Nothing by mouth. Pending endoscopy. Hold Zestril. Discussed with patient.
[2022-05-16] MEDS ORDERED: LIDOCAINE 2% INJ 20 MG/ML (2 ML VIAL) ONE (17:01)
[2022-05-16] MEDS ORDERED: PROPOFOL 10 MG/ML 20 ML VIAL IV ONE (17:01)
[2022-05-16] MEDS ORDERED: IV FLUID CONTINUATION 1,000 ML IV ONE (17:15)
--- NOTE | 2022-05-16 17:16 | P.PCN ---
Date of Procedure: 05/16/22 Procedure(s) Performed: BRIEF HISTORY: Patient is a 66-year-old, pleasant, white male admitted hospital with black tarry stools of 2 days' duration. He dropped his hemoglobin to 5.6 g/dL left-sided and was transferred to the intensive care unit. He'll simply disappeared with the transition and this morning hemoglobin is 8.3 g/dL. Schedule for an upper endoscopy to evaluate for upper GI source of bleeding. PROCEDURE PERFORMED: Esophagogastroduodenoscopy with biopsy. PREOPERATIVE DIAGNOSIS: Acute upper GI bleed. IV sedation per anesthesia. PROCEDURE: After informed consent was obtained, the patient was brought into the endoscopy unit. IV sedation was administered by Anesthesia under continuous monitoring. Initially the Olympus GIF-140 video endoscope was inserted into the mouth. Esophagus intubated without any difficulty. It was gradually advanced into the stomach and duodenum and carefully examined. The bulb of the duodenum had a 5 mm duodenal bulbar ulcer and a 2 cm deep ulceration along the duodenal sweep with no active bleeding. The second part of the duodenum appeared normal. The scope at this time was withdrawn to the stomach, adequately insufflated with air, and upon careful examination, mucosa of the antrum, and mild gastritis and biopsies were done from this area. Thebody, cardia and the fundus appeared normal. no active bleeding identified.The scope was then withdrawn into the esophagus. The GE junction was located at 39 cm from the incisors. small hiatal hernia noted. The esophagus appeared normal. There were no erosions or ulcerations seen and the patient tolerated the procedure well. IMPRESSION: 1. 2 cm deep ulceration along the duodenal sweep with no active bleeding.. 2. 5 mm duodenal bulbar ulcer with no active bleeding. RECOMMENDATIONS: The findings of this examination were discussed with the patient as well as his family. He will be started on a clear liquid diet. Continue Protonix 40 mg twice daily. Monitor CBC every 12 hours and transfuse if the hemoglobin is less than 7.
[2022-05-16] MEDS: ZOLPIDEM 5 MG TAB PO SCH (21:14)
[2022-05-17] MEDS: THIAMINE 100 MG TAB PO SCH ×2 (06:13→16:44)
[2022-05-17 06:56] LABS: Anisocytosis Slight; Basophils % (A) 0 %; Eosinophils # (A) 0.2 k/uL (0-0.7); Eosinophils % (A) 2 %; HCT 24.2 % (39.0-53.0); HGB 7.3 gm/dL (13.0-17.5); Hypochromasia Marked; Lymphocytes # (A) 1.6 k/uL (1.0-4.8); Lymphocytes % (A) 21 %; MCH 24.5 pg (25.0-35.0); MCHC 30.2 g/dL (31.0-37.0); MCV 81.3 fL (80.0-100.0); Mean Platelet Volume 7.8; Microcytosis Slight; Monocytes # (A) 0.6 k/uL (0-1.0); Monocytes % (A) 8 %; Neutrophils # (A) 5.1 k/uL (1.3-7.7); Neutrophils % (A) 66 %; Platelet Count 194 k/uL (150-450); Poikilocytosis Moderate; RBC 2.98 m/uL (4.30-5.90); RDW 19.2 % (11.5-15.5); WBC 7.7 k/uL (3.8-10.6)
[2022-05-17 07:12] LABS: African American GFR (CKD) >90 (>60 ml/min/1.73 sqM); Anion Gap -1 mmol/L; Blood Urea Nitrogen 7 mg/dL (9-20); Calcium 7.1 mg/dL (8.4-10.2); Carbon Dioxide 27 mmol/L (22-30); Chloride 99 mmol/L (98-107); Glucose 99 mg/dL (74-99); Non-African American GFR(CKD) >90 (>60 ml/min/1.73 sqM); Potassium 4.3 mmol/L (3.5-5.1); Sodium 125 mmol/L (137-145)
[2022-05-17] MEDS: IPRATROPIUM-ALBUTEROL 3 ML NEB INHALATION SCH ×4 (07:22→20:04)
[2022-05-17] MEDS ORDERED: LORazepam 1 MG/0.5 ML VIAL IV STA (08:48)
[2022-05-17] MEDS: PANTOPRAZOLE 40 MG/10 ML VIAL IV SCH ×2 (09:11→20:23)
[2022-05-17] MEDS: NICOTINE 21MG/24HR PATCH TRANSDERM SCH ×2 (09:12→09:17)
[2022-05-17] MEDS: diazePAM 5 MG TAB PO SCH ×3 (09:12→22:01)
--- NOTE | 2022-05-17 10:18 | P.PN ---
Subjective Progress Note Date: 05/17/22 Principal diagnosis: Alcohol withdrawal, GI bleed. Pulmonary consult dated 05/16/2022. 66-year-old male who presented to the emergency department on May 15, with abdominal pain, and melena. The patient apparently been having symptoms for a few days prior to admission. He noted black tarry stools. He does have a previous history of GI bleed with ulcers. The patient was admitted to the general medical floor on the , and was transferred to the intensive care unit last night, with hypotension, and a falling episode, with a chin laceration. The patient did receive so far 2 units of PRBCs. He also was found to have a low sodium of 125. The patient's currently on room air. He is getting saline at 75 mL an hour. Apparently scheduled to have an EGD today. His medical problems include atrial fibrillation, GERD, GI bleed, hyperlipidemia, hypertension, and osteoarthritis. White count 7.7, hemoglobin 8, lowest hemoglobin 5.9, hematocrit 26.1, and platelet count 192,000. Sodium is 127, potassium 4.1, chloride 103, CO2 24, BUN 9, with creatinine 0.7. There is wall thickening involving do on the above and descending duodenum, which may reflect duodenitis. There is fluid adjacent to the gallbladder without gallbladder wall thickening or cholelithiasis. Is also mild fluid distention of the large and small bowel. Chest x-ray shows pleural reaction and scarring at the left lung base. Progress note dated 05/17/2022. 66-year-old male seen in consultation yesterday. He is again seen today in room 264. He had an EGD done yesterday, which showed a nonbleeding gastric ulcer. The patient's currently on room air. He is getting lactated Ringer's at 75 mL an hour. This morning's hemoglobin is 7.3. In addition, the patient has a history of 10-12 beers a day, and is currently undergoing alcohol withdrawal. He is currently getting Ativan per protocol. He is a bit agitated today. White count 7.7, hemoglobin 7.3, hematocrit 24.2, platelet count 194,000. Sodium 125, potassium 4.3, chlorides 99, CO2 27, BUN 7, creatinine 0.66. Calcium is 7.1. Objective - Vital Signs Vital signs: Vital Signs Temp 98.6 F 07/15/22 08:00 Pulse 86 05/17/22 09:00 Resp 15 05/17/22 09:00 BP 133/119 05/17/22 09:00 Pulse Ox 98 05/17/22 09:00 FiO2 Intake & Output 05/16/22 05/17/22 05/17/22 18:59 06:59 18:59 Intake Total 1650 1225 225 Output Total 200 1445 500 Balance 1450 -220 -275 Weight 74.843 kg 68.5 kg Intake: IV 1200 825 225 Lactated Ringers 1,000 ml 825 825 225 @ 75 mls/hr IV .[id number] Rx#:[id number] Sodium Chloride 0.9% 1, 75 000 ml @ 75 mls/hr IV . [id number] [facility] Rx#:[id number] Oral 450 Tube Feeding 400 Output: Urine 200 1440 500 Stool 5 Other: Voiding Method Urinal # Voids 1 1 # Bowel Movements 2 - Exam No acute distress, oriented, but a bit agitated today. Room air saturation is 98 %. HEENT examination is grossly unremarkable. Small laceration noted in the chin area. Neck supple. Full range of motion. No adenopathy thyromegaly or neck vein distention. Cardiovascular examination reveals regular rhythm rate. S1-S2 normal. No S3 or S4. No discernible murmur noted. Heart rate 86 bpm. Lungs reveal clear breath sounds. Breath sounds are equal bilaterally. No adve ntitious lung sounds including wheezes rhonchi or crackles. Abdomen soft bowel sounds are heard. No masses or tenderness. Extremities are intact. No cyanosis clubbing or edema. Skin is without rash or lesion. Neurologic examination is brief but nonfocal. - Labs CBC & Chem 7: 05/17/22 06:38 05/17/22 06:38 Labs: Abnormal Lab Results - Last 24 Hours (Table) 05/17/22 05/17/22 Range/Units 06:38 06:38 RBC 2.98 L (4.30-5.90) m/uL Hgb 7.3 L (13.0-17.5) gm/dL Hct 24.2 L (39.0-53.0) % MCH 24.5 L (25.0-35.0) pg MCHC 30.2 L (31.0-37.0) g/dL RDW 19.2 H (11.5-15.5) % Sodium 125 L (137-145) mmol/L BUN 7 L (9-20) mg/dL Calcium 7.1 L (8.4-10.2) mg/dL Assessment and Plan Assessment: Gastrointestinal bleed, with abdominal pain, and melena, in a patient with prior history of ulcers and GI bleed. EGD revealed a nonbleeding gastric ulcer. History of heavy alcohol abuse, patient at high risk for alcohol withdrawal syndrome. Acute anemia, secondary to GI bleed. History of atrial fibrillation. History of GERD. History of hyperlipidemia. History of hypertension. History of osteoarthritis. Multiple other medical problems and comorbidities. Plan: Plan dated 05/16/2022. Because of hypotension, and ongoing gastrointestinal bleeding, the patient was transferred to the ICU, last night. The patient has received 2 units of packed red blood cells. Currently, the patient's on room air. In addition, the patient's getting saline at 75 mL an hour. He fell because of hypotension, and sustained a small chin laceration. His primary care physician is Dr. Jc Michel. Labs, x-rays, and medications are reviewed. Prognosis is guarded. The patient is to have an EGD today by the pot runner. Plan dated 05/17/2022. The patient is currently getting Ativan per protocol, for possible alcohol withdrawal syndrome. EGD showed a nonbleeding gastric ulcer. Biopsies were done. Labs, x-rays, and medications are all reviewed. Prognosis is guarded. The patient will remain in the intensive care unit. He is not requiring any supplemental oxygen. He is getting lactated Ringer's at 75 mL an hour. Time with Patient: Less than 30
[2022-05-17] MEDS ORDERED: diazePAM 2 MG TAB PO STA (12:28)
[2022-05-17 12:37] LABS: Anisocytosis Slight; HGB 7.9 gm/dL (13.0-17.5); Hypochromasia Marked; MCH 24.7 pg (25.0-35.0); MCHC 30.3 g/dL (31.0-37.0); MCV 81.8 fL (80.0-100.0); Mean Platelet Volume 7.4; Microcytosis Slight; Platelet Count 203 k/uL (150-450); Poikilocytosis Moderate; RBC 3.18 m/uL (4.30-5.90); RDW 19.3 % (11.5-15.5)
--- NOTE | 2022-05-17 12:41 | P.PN ---
Subjective Progress Note Date: 05/17/22 CHIEF COMPLAINT: GI bleed HISTORY OF PRESENT ILLNESS: Patient remains in the ICU. He had EGD completed y ester with Dr. Zarate that showed a 2 cm deep ulceration along the duodenal sweep with no active bleeding and a 5 mm duodenal bulbar ulcer with no active bleeding. Last night patient had 4 bloody bowel movements. He denies any abdominal pain. Tolerating a clear liquid diet. Patient is starting to have ETOH withdrawal symptoms and is requiring Ativan and Valium. Vitals stable. Hemoglobin trending downward from 8-7.3. Patient complaining of left knee pain and swelling. PHYSICAL EXAM: VITAL SIGNS: Reviewed. GENERAL: Well-developed in no acute distress. HEENT: No sclera icterus. Extraocular movements grossly intact. Moist buccal mucosa. Head is atraumatic, normocephalic. ABDOMEN: Soft. Nondistended. epigastric tenderness NEUROLOGIC: Alert and oriented. Cranial nerves II through XII grossly intact. Extremities: Left knee swelling and evidence of fluid. Tender with palpation ASSESSMENT: 1. Epigastric abdominal pain status post EGD with evidence of 2 duodenal ulcers. No active bleeding. 2. Acute GI bleed 3. Acute blood loss anemia 4. Duodenitis 5. Hypomagnesemia improved 6. hyponatremia 7. Daily alcohol use PLAN: -Repeat CBC at noon is pending -Continue IV Protonix -Surgical service on standby -Continue supportive care -Continue to monitor hemoglobin -Continue monitor for any signs and symptoms of bleeding -Continue EtOH withdrawal protocol Physician Podiatry Assistant note has been reviewed by physician. Signing provider agrees with the documented findings, assessment, and plan of care. I have personally seen and examined the patient, reviewed the [employer] TOP HELPERS /PAs history, exam and MDM and agree with the assessment and plan as written. Based on total visit time, I have performed more than 50% of the visit. As above: Patient had additional bloody stools last night. Most likely etiology remains the duodenal ulcer visualized by EGD yesterday. No further bleeding today. No pain. He has been somewhat confused intermittently. Anatomically remained stable. Hemoglobin actually increased from 7.3-7.9 without transfusion. Continue antiacids. Monitor for recurrent bleeding. Objective - Vital Signs Vital signs: Vital Signs Temp 98.6 F 05/17/22 08:00 Pulse 80 05/17/22 11:00 Resp 12 05/17/22 11:00 BP 127/79 05/17/22 11:00 Pulse Ox 96 05/17/22 11:00 FiO2 Intake & Output 05/16/22 05/17/22 05/17/22 18:59 06:59 18:59 Intake Total 1650 1225 375 Output Total 200 1445 1100 Balance 1450 -220 -725 Weight 74.843 kg 68.5 kg Intake: IV 1200 825 375 Lactated Ringers 1,000 ml 825 825 375 @ 75 mls/hr IV .[id number] [facility] Rx#:[id number] Sodium Chloride 0.9% 1, 75 000 ml @ 75 mls/hr IV . [id number] [facility] Rx#:[id number] Oral 450 Tube Feeding 400 Output: Urine 200 1440 1100 Stool 5 Other: Voiding Method Urinal Urinal # Voids 1 1 # Bowel Movements 2 - Labs CBC & Chem 7: 05/17/22 12:11 05/17/22 06:38 Labs: Abnormal Lab Results - Last 24 Hours (Table) 05/17/22 05/17/22 Range/Units 06:38 06:38 RBC 2.98 L (4.30-5.90) m/uL Hgb 7.3 L (13.0-17.5) gm/dL Hct 24.2 L (39.0-53.0) % MCH 24.5 L (25.0-35.0) pg MCHC 30.2 L (31.0-37.0) g/dL RDW 19.2 H (11.5-15.5) % Sodium 125 L (137-145) mmol/L BUN 7 L (9-20) mg/dL Calcium 7.1 L (8.4-10.2) mg/dL
[2022-05-17] MEDS: ACETAMINOPHEN TAB 325 MG TAB PO PRN ×2 (12:51→20:22)
--- NOTE | 2022-05-17 13:07 | P.PN ---
Subjective Progress Note Date: 05/17/22 Principal diagnosis: GI bleed This is a pleasant 66-year-old male who presented to the hospital with complaints of abdominal pain. Patient reports increased abdominal pain over the last three days. He has been having dark black stools. He does have a history of GI bleed and stomach ulcers. Patient has been feeling very weak and rundown. Patient does drink alcohol daily. Patient's last EGD and colonoscopy was in February [address] Rowe and results demonstrated antral gastritis and right colon polyp biopsy which was benign. Computed tomography scan of abdomen and pelvis shows wall thickening involving the duodenal bulb and descending duodenum may reflect duodenitis. There is adjacent fluid. Fluid adjacent to the gallbladder without gallbladder wall thickening or cholelithiasis. Mild fluid distention of the large and small bowel could reflect enterocolitis. Abdominal ultrasound shows no gallstones or diagnostic evidence of gallbladder wall thickening. No fluid was noted around the gallbladder. Patient denies any fever chills or sweats. Denies any nausea or vomiting. Patient denies any NSAID use or anticoagulation. He does take Prilosec at home. 05/17/2022: Patient is seen and examined as a follow-up. He remains in the ICU. According to nursing he had 4 bloody bowel movements through the night. He is currently going through withdrawal symptoms. He did have a drop in his hemoglobin to 7.3 from 8.0 yesterday. Yesterday he underwent an EGD with findings of 2 ulcers. He had a 2 cm deep ulceration along the duodenal sweep with no active bleeding and a 5 mm to 10 bulbar ulcer with no active bleeding. He denies any abdominal pain, nausea or vomiting. He is tolerating clear liquid diet. Objective - Vital Signs Vital signs: Vital Signs Temp 98.6 F 05/17/22 08:00 Pulse 86 05/17/22 09:00 Resp 15 05/17/22 09:00 BP 133/119 05/17/22 09:00 Pulse Ox 98 05/17/22 09:00 FiO2 Intake & Output 05/16/22 05/17/22 05/17/22 18:59 06:59 18:59 Intake Total 1650 1225 225 Output Total 200 1445 500 Balance 1450 -220 -275 Weight 74.843 kg 68.5 kg Intake: IV 1200 825 225 Lactated Ringers 1,000 ml 825 825 225 @ 75 mls/hr IV .[id number] [facility] Rx#:[id number] Sodium Chloride 0.9% 1, 75 000 ml @ 75 mls/hr IV . [id number] [facility] Rx#:[id number] Oral 450 Tube Feeding 400 Output: Urine 200 1440 500 Stool 5 Other: Voiding Method Urinal # Voids 1 1 # Bowel Movements 2 - Exam General appearance: The patient is alert, oriented, appears in no acute distress. HET: Head is normocephalic and atraumatic. Conjunctiva pink. Sclera anicteric. Neck: Supple without lymphadenopathy. Abdomen: Soft, nontender, nondistended with bowel sounds. No guarding or rigidity. Extremities: Normal skin color and turgor. No pedal edema Skin: No rashes, no jaundice Neurological: No focal deficits. Alert and oriented. - Labs CBC & Chem 7: 05/17/22 12:11 05/17/22 06:38 Labs: Abnormal Lab Results - Last 24 Hours (Table) 05/17/22 05/17/22 Range/Units 06:38 06:38 RBC 2.98 L (4.30-5.90) m/uL Hgb 7.3 L (13.0-17.5) gm/dL Hct 24.2 L (39.0-53.0) % MCH 24.5 L (25.0-35.0) pg MCHC 30.2 L (31.0-37.0) g/dL RDW 19.2 H (11.5-15.5) % Sodium 125 L (137-145) mmol/L BUN 7 L (9-20) mg/dL Calcium 7.1 L (8.4-10.2) mg/dL Assessment and Plan (1) Gastrointestinal bleeding Narrative/Plan: 66-year-old male with a past history of GI bleed who is followed with the general surgeon Dr. Humphrey in the past. Presented to the emergency department with abdominal pain and reports of black tarry stool. His last EGD colonoscopy was done by Dr. Humphrey on 02/02/2021 with findings of antral gastritis and colonoscopy was normal. He had a CT of the abdomen and pelvis that is showing thickening of the duodenal bulb possibility of duodenitis. Labs are consistent with a microcytic anemia. Patient is not on any NSAIDs or anticoagulation. Currently on PPI. We will proceed with EGD for further evaluation of possible GI bleed. Patient is status post EGD with findings of 2 nonbleeding ulcers. Current Visit: Yes Status: Acute Code(s): K92.2 - GASTROINTESTINAL HEMORRHAGE, UNSPECIFIED SNOMED Code(s): 45875011 (2) Alcohol abuse Current Visit: Yes Status: Acute Code(s): F10.10 - ALCOHOL ABUSE, UNCOMPLICATED SNOMED Code(s): 23006616 (3) Melena Current Visit: Yes Status: Acute Code(s): K92.1 - MELENA SNOMED Code(s): 5001973 Plan: 1. Continue symptomatic and supportive care 2. Protonix 40 mg twice a day 3. Patient may have clear liquid diet 4. CBC every 12 hours, transfuse for hemoglobin less than 7 5. Patient is status post EGD 6. Continue CIWA protocol, monitor for withdrawal symptoms 7. Alcohol abstinence 8. It was further discussed with PCP and will just continue to monitor Thank you for allowing us to participate in the care of the patient, the GI s ervice will sign off, gastroenterology will not be available at the hospital this weekend. If further evaluation by gastroenterology is required the patient will need transfer as per the primary team's discretion. Dr. Renée Zarate I agree with the dictator's note, documented as a scribe by Adelaide Miller.
--- NOTE | 2022-05-17 14:24 | P.PN ---
Progress Note - Text Progress Note Date: 05/17/22 Chief Complaint: Abdominal pain This is a 66-year-old patient who follows with Dr. Michel. Chronic stable medical conditions include atrial fibrillation, GERD, hypertension . In 2019 patient of the small bowel resection for repair of diaphragmatic hernia. Subsequently in, months at small bowel resection with ice of adhesions. Patient has continued to drink anywhere from 10-14 drinks a day. Also smokes about a pack a day. Patient presented to 3 days of increasing abdominal pain. Having dark stools. Has prior history of gastritis duodenitis. Patient does have a chronic cough some phlegm. Clear. No fever no chills. Feels tired and rundown. May 16: Last night patient with large bloody BM in the bathroom. Passed out. Blood pressure dropped over 60 systolic. . Moved to the ICU. Hemoglobin came back at 5.9. Receive 2 units of blood. Patient due for endoscopy later today. Tired. Some abdominal discomfort. Had a small bloody BM this morning. May 17: Underwent EGD yesterday. Showed 2 cm deep ulcer along the duodenal CPAP and 5 mm total bulb ulcer with no active bleeding. Overnight patient had 3 more bloody bowel movements. Clear liquids. Nurse checking with GI if capsule study will be done. Patient had earlier got agitated. Tremors. Dose of Valium being increased. For alcohol withdrawal. Care was discussed with the patient and at the bedside. Had been refusing his medications. Reassured. Active Medications Acetaminophen (Acetaminophen Tab 325 Mg Tab) 650 mg PO Q6HR PRN PRN Reason: Mild Pain or Fever > 100.5 Last Admin: 05/17/22 12:51 Dose: 650 mg Albuterol/Ipratropium (Ipratropium-Albuterol 3 Ml Neb) 3 ml INHALATION RT-QID [facility] Last Admin: 05/17/22 10:46 Dose: Not Given Diazepam (Diazepam 5 Mg Tab) 7.5 mg PO TID [facility] Lactated Ringer's (Lactated Ringers) 1,000 mls @ 75 mls/hr IV .[id number] [facility] Last Admin: 05/16/22 21:15 Dose: 75 mls/hr Lorazepam (Lorazepam 1 Mg Tab) 1 mg PO Q2HR PRN PRN Reason: CIWA 8 or 9 Lorazepam (Lorazepam 1 Mg Tab) 1 mg PO Q1HR PRN PRN Reason: CIWA 10 to 15 Lorazepam (Lorazepam 1 Mg Tab) 2 mg PO Q10M PRN PRN Reason: CIWA 16 or higher Stop: 05/17/22 22:40 Magnesium Citrate (Magnesium Citrate 296 Ml Bottle) 296 ml PO ONCE ONE Stop: 05/17/22 19:01 Miscellaneous Information (Magnesium Replacement Protocol 1 Each Misc) 1 each MISCELLANE DAILY PRN; Protocol PRN Reason: Per Protocol Naloxone HCl (Naloxone 0.4 Mg/Ml 1 Ml Vial) 0.2 mg IV Q2M PRN PRN Reason: Opioid Reversal Nicotine (Nicotine 21mg/24hr Patch) 1 patch TRANSDERM DAILY [facility] Last Admin: 05/17/22 09:17 Dose: Not Given Ondansetron HCl (Ondansetron 4 Mg/2 Ml Vial) 4 mg IVP Q8HR PRN PRN Reason: Nausea And Vomiting Last Admin: 05/15/22 20:57 Dose: 4 mg Pantoprazole Sodium (Pantoprazole 40 Mg/10 Ml Vial) 40 mg IV BID [facility] Last Admin: 05/17/22 09:11 Dose: 40 mg Thiamine HCl (Thiamine 100 Mg Tab) 100 mg PO BID-W/MEALS [facility] Last Admin: 05/17/22 06:13 Dose: 100 mg Past medical history to include: Atrial fibrillation, GERD, hypertension, hyperlipidemia, osteoarthritis, peptic ulcer disease, gastritis, duodenitis, alcohol use disorder, chronic low back pain, occasional numbness and tingling in the hand and feet, carpal tunnel syndrome, left pneumothorax with chest tube. Social history: . Has been smoking a pack a day since 1965. Drinks any me from 10-14 alcoholic drinks a day. Family history: Mother of liver failure from alcohol Physical examination: VITAL SIGNS: 98.6, 86, 15, 133/79, 98% room air GENERAL: Sitting on bed, awake, anxious EYES: Pupils equal. Conjunctiva pale HEENT: External appearance of nose and ears normal, oral cavity grossly normal. NECK: JVD not raised; masses not palpable. HEART: First and second heart sounds are normal; no edema. LUNGS: Respiratory rate increased; decreased breath sounds ABDOMEN: Soft, upper abdominal tenderness, no guarding rigidity, liver spleen not palpable, no masses palpable. PSYCH: Alert and oriented x3; mood and affect anxious MUSCULOSKELETAL:No Clubbing/cyanosis;muscles-grossly intact INVESTIGATIONS, reviewed in the clinical context: May 17: White count 9 hemoglobin 7.9 sodium 125 progression 4.3 creatinine 0.66 May 16: Hemoglobin 5.9 and after 2 units of PRBC: Hemoglobin 8 sodium 127 White count 6.7 hemoglobin 8 platelets 243 sodium 125 potassium 4.3 creatinine 0.69. AST 25 ALT 11 Admission hemoglobin 9.6 Assessment and plan: -Acute GI bleed.-continues to drink alcohol. Duodenal ulcer-fit no active evidence of bleeding: Slow to respond Head bloody BMs overnight. May benefit from capsule study. -Alcohol use disorder Patient drinks anywhere from 10-14 alcoholic drinks a day. -Alcohol withdrawal symptoms: Slow to respond CIWA scale. Increase Valium 7.5 mg every 8. Add Lopressor 12.5 by mouth twice a day -COPD in a current smoker DuoNeb 4 times a day -Acute GI bleed leading to acute blood loss anemia: Worsening Receive 2 units of blood -Essential hypertension Zestril 20 mg a day-hold -Paroxysmal atrial fibrillation Amiodarone 100 mg a day -Hyponatremia from decreased solute intake: Slow to respond Lactated Ringer's Follow H&H. Clear liquids. PPI. Consider capsule study. Follow with GI and surgery. GI services not available this weekend. Discussed with patient and .
--- NOTE | 2022-05-17 15:55 | XR ---
Left knee HISTORY: Pain and swelling, trauma 3 views the left knee There is joint space loss and marginal spurring especially the medial compartment with some subchondr al sclerosis. Alignment is maintained. Bone mineralization within normal limits. No fracture or dislo cation. Suprapatellar joint space density is consistent with joint effusion. Atherosclerotic vascular calcifications are present. impression: Osteoarthritis. Joint effusion.
[2022-05-17] MEDS: LACTATED RINGERS 1,000 ML IV SCH (16:44)
[2022-05-17] MEDS ORDERED: MAGNESIUM CITRATE 296 ML BOTTLE PO ONE (19:00)
[2022-05-17] MEDS: METOPROLOL TARTRATE 12.5 MG TAB PO SCH (20:23)
[2022-05-18] MEDS: LACTATED RINGERS 1,000 ML IV SCH (01:03)
[2022-05-18 06:11] LABS: Anisocytosis Slight; Basophils % (A) 0 %; Eosinophils # (A) 0.2 k/uL (0-0.7); Eosinophils % (A) 3 %; HCT 25.5 % (39.0-53.0); HGB 7.6 gm/dL (13.0-17.5); Hypochromasia Marked; Lymphocytes # (A) 1.7 k/uL (1.0-4.8); Lymphocytes % (A) 21 %; MCH 24.4 pg (25.0-35.0); MCHC 29.9 g/dL (31.0-37.0); MCV 81.7 fL (80.0-100.0); Mean Platelet Volume 7.2; Microcytosis Slight; Monocytes # (A) 0.7 k/uL (0-1.0); Monocytes % (A) 9 %; Neutrophils # (A) 4.9 k/uL (1.3-7.7); Neutrophils % (A) 63 %; Platelet Count 203 k/uL (150-450); Poikilocytosis Moderate; RBC 3.12 m/uL (4.30-5.90); RDW 19.5 % (11.5-15.5); WBC 7.8 k/uL (3.8-10.6)
[2022-05-18 06:21] LABS: African American GFR (CKD) >90 (>60 ml/min/1.73 sqM); Anion Gap 1 mmol/L; Blood Urea Nitrogen 4 mg/dL (9-20); Calcium 7.8 mg/dL (8.4-10.2); Carbon Dioxide 29 mmol/L (22-30); Chloride 96 mmol/L (98-107); Glucose 84 mg/dL (74-99); Non-African American GFR(CKD) >90 (>60 ml/min/1.73 sqM); Potassium 4.4 mmol/L (3.5-5.1); Sodium 126 mmol/L (137-145)
[2022-05-18] MEDS: THIAMINE 100 MG TAB PO SCH ×2 (06:48→15:25)
[2022-05-18] MEDS: IPRATROPIUM-ALBUTEROL 3 ML NEB INHALATION SCH ×4 (08:01→20:39)
[2022-05-18] MEDS: NICOTINE 21MG/24HR PATCH TRANSDERM SCH (09:19)
[2022-05-18] MEDS: PANTOPRAZOLE 40 MG/10 ML VIAL IV SCH ×2 (09:36→20:58)
[2022-05-18] MEDS: METOPROLOL TARTRATE 12.5 MG TAB PO SCH ×2 (09:37→20:58)
[2022-05-18] MEDS: diazePAM 5 MG TAB PO SCH ×3 (09:37→20:58)
--- NOTE | 2022-05-18 11:06 | P.PN ---
Subjective Progress Note Date: 05/18/22 Principal diagnosis: Alcohol withdrawal, GI bleed. Pulmonary consult dated 05/16/2022. 66-year-old male who presented to the emergency department on May 15, with abdominal pain, and melena. The patient apparently been having symptoms for a few days prior to admission. He noted black tarry stools. He does have a previous history of GI bleed with ulcers. The patient was admitted to the general medical floor on the , and was transferred to the intensive care unit last night, with hypotension, and a falling episode, with a chin laceration. The patient did receive so far 2 units of PRBCs. He also was found to have a low sodium of 125. The patient's currently on room air. He is getting saline at 75 mL an hour. Apparently scheduled to have an EGD today. His medical problems include atrial fibrillation, GERD, GI bleed, hyperlipidemia, hypertension, and osteoarthritis. White count 7.7, hemoglobin 8, lowest hemoglobin 5.9, hematocrit 26.1, and platelet count 192,000. Sodium is 127, potassium 4.1, chloride 103, CO2 24, BUN 9, with creatinine 0.7. There is wall thickening involving do on the above and descending duodenum, which may reflect duodenitis. There is fluid adjacent to the gallbladder without gallbladder wall thickening or cholelithiasis. Is also mild fluid distention of the large and small bowel. Chest x-ray shows pleural reaction and scarring at the left lung base. Progress note dated 05/17/2022. 66-year-old male seen in consultation yesterday. He is again seen today in room 264. He had an EGD done yesterday, which showed a nonbleeding gastric ulcer. The patient's currently on room air. He is getting lactated Ringer's at 75 mL an hour. This morning's hemoglobin is 7.3. In addition, the patient has a history of 10-12 beers a day, and is currently undergoing alcohol withdrawal. He is currently getting Ativan per protocol. He is a bit agitated today. White count 7.7, hemoglobin 7.3, hematocrit 24.2, platelet count 194,000. Sodium 125, potassium 4.3, chlorides 99, CO2 27, BUN 7, creatinine 0.66. Calcium is 7.1. Progress note dated 05/18/2022. 66-year-old male seen in room 264. Currently, the patient's getting lactated Ringer's at 75 mL an hour, and is not requiring any supplemental oxygen. He's been very stable with no additional GI bleeding. The patient could be transferred to general medical floor. Labs are reviewed. White count 7.8, hemoglobin 7.6, hematocrit 25.5, and platelet count 203,000. Sodium 126, potassium 4.4, chlorides 96, CO2 29, BUN 4, creatinine 0.63. Objective - Vital Signs Vital signs: Vital Signs Temp 98.6 F 05/18/22 04:00 Pulse 83 05/18/22 10:00 Resp 19 05/18/22 10:00 BP 128/66 05/18/22 10:00 Pulse Ox 100 05/18/22 10:00 FiO2 Intake & Output 05/17/22 05/18/22 05/18/22 18:59 06:59 18:59 Intake Total 900 1375 150 Output Total 2250 1910 200 Balance -1350 -535 -50 Weight 69 kg Intake: IV 900 975 150 Lactated Ringers 1,000 ml 900 975 150 @ 75 mls/hr IV .[id number] Rx#:[id number] Oral 400 Output: Urine 2250 1910 200 Other: Voiding Method Urinal Urinal # Bowel Movements 1 - Exam No acute distress, oriented, but a bit agitated today. Room air saturation is 100%.. HEENT examination is grossly unremarkable. Small laceration noted in the chin area. Neck supple. Full range of motion. No adenopathy thyromegaly or neck vein distention. Cardiovascular examination reveals regular rhythm rate. S1-S2 normal. No S3 or S4. No discernible murmur noted. Heart rate 83 bpm. Lungs reveal clear breath sounds. Breath sounds are equal bilaterally. No adventitious lung sounds including wheezes rhonchi or crackles. Abdomen soft bowel sounds are heard. No masses or tenderness. Extremities are intact. No cyanosis clubbing or edema. Skin is without rash or lesion. Neurologic examination is brief but nonfocal. - Labs CBC & Chem 7: 05/18/22 05:42 05/18/22 05:42 Labs: Abnormal Lab Results - Last 24 Hours (Table) 05/17/22 05/18/22 05/18/22 Range/Units 12:11 05:42 05:42 RBC 3.18 L 3.12 L (4.30-5.90) m/uL Hgb 7.9 L 7.6 L (13.0-17.5) gm/dL Hct 26.0 L 25.5 L (39.0-53.0) % MCH 24.7 L 24.4 L (25.0-35.0) pg MCHC 30.3 L 29.9 L (31.0-37.0) g/dL RDW 19.3 H 19.5 H (11.5-15.5) % Sodium 126 L (137-145) mmol/L Chloride 96 L (98-107) mmol/L BUN 4 L (9-20) mg/dL Creatinine 0.63 L (0.66-1.25) mg/dL Calcium 7.8 L (8.4-10.2) mg/dL Assessment and Plan Assessment: Gastrointestinal bleed, with abdominal pain, and melena, in a patient with prior history of ulcers and GI bleed. EGD revealed a nonbleeding gastric ulcer. History of heavy alcohol abuse, patient at high risk for alcohol withdrawal syndrome. Hyponatremia, secondary to beer potomania. Acute anemia, secondary to GI bleed. History of atrial fibrillation. History of GERD. History of hyperlipidemia. History of hypertension. History of osteoarthritis. Multiple other medical problems and comorbidities. Plan: Plan dated 05/16/2022. Because of hypotension, and ongoing gastrointestinal bleeding, the patient was transferred to the ICU, last night. The patient has received 2 units of packed red blood cells. Currently, the patient's on room air. In addition, the patient's getting saline at 75 mL an hour. He fell because of hypotension, and sustained a small chin laceration. His primary care physician is Dr. Jc Michel. Labs, x-rays, and medications are reviewed. Prognosis is guarded. The patient is to have an EGD today by the career services coordinator. Plan dated 05/17/2022. The patient is currently getting Ativan per protocol, for possible alcohol withdrawal syndrome. EGD showed a nonbleeding gastric ulcer. Biopsies were done. Labs, x-rays, and medications are all reviewed. Prognosis is guarded. The patient will remain in the intensive care unit. He is not requiring any supplemental oxygen. He is getting lactated Ringer's at 75 mL an hour. Plan dated 05/18/2022. The patient is doing relatively well. The patient seemed much less agitated. The patient is currently receiving Ativan as needed. Room air saturations are high and percent. The patient's sodium is up to 126. The patient is receiving lactated Ringer's at 75 mL an hour. The patient could be transferred up to the general medical floor. He does not need any telemetry. We'll follow as needed. Time with Patient: Less than 30
--- NOTE | 2022-05-18 13:14 | P.PN ---
Subjective Progress Note Date: 05/18/22 CHIEF COMPLAINT: GI bleed HISTORY OF PRESENT ILLNESS: The patient is a 66-year-old male with GI bleed. He is status post upper endoscopy per GI with finding of non-bleeding large duodenal ulcer. Patient is in the intensive care unit. His family is at bedside. He sitting up in the chair. He denies abdominal pain. He denies bloody bowel movements today. No bowel movements today. He is on liquids. He reports bloody bowel movements yesterday. ROS: No reports of nausea and vomiting. No bowel movements. No fevers or chills. No new chest pain. No productive sputum PHYSICAL EXAM: VITAL SIGNS: Reviewed CONSTITUTIONAL: Well developed and in no acute distress. EYES: Conjuctivae with sclera icterus. Extraocular movements grossly intact. HEAD, EARS, NOSE, THROAT: Moist buccal mucosa. Head is atraumatic, normocephalic. Hears conversational speech. No nasal drainage. RESPIRATORY: Non-labored respirations and equal bilateral excursions. CARDIOVASCULAR: Palpable 2+ radial pulses. ABDOMEN: MUSCULOSKELETAL: No gross deformity of the lower extremities noted. No clubbing. No cyanosis. SKIN: Good skin turgor. Well perfused. NEUROLOGIC: Cranial nerves II through XII grossly intact. No focal or lateralizing signs. PSYCH: Appropriate affect. Alert and oriented to person, place and time. CLINICAL LABS: Reviewed. Hemoglobin down 7.9 to 7.6. ASSESSMENT: 1. GI bleed 2. Duodenal ulcer PLAN: 1. Monitor hemoglobin. 2. Continue protonix Objective - Vital Signs Vital signs: Vital Signs Temp 98.6 F 05/18/22 04:00 Pulse 84 05/18/22 12:00 Resp 15 05/18/22 12:00 BP 117/80 05/18/22 11:00 Pulse Ox 99 05/18/22 12:00 FiO2 Intake & Output 05/17/22 05/18/22 05/18/22 18:59 06:59 18:59 Intake Total 900 1375 150 Output Total 2250 1910 650 Balance -4997 -408 -723 Weight 69 kg Intake: IV 900 975 150 Lactated Ringers 1,000 ml 900 975 150 @ 75 mls/hr IV .[id number] [facility] Rx#:[id number] Oral 400 Output: Urine 2250 1910 650 Other: Voiding Method Urinal Urinal # Voids 1 # Bowel Movements 1 - Labs CBC & Chem 7: 05/18/22 05:42 05/18/22 05:42 Labs: Abnormal Lab Results - Last 24 Hours (Table) 05/18/22 05/18/22 Range/Units 05:42 05:42 RBC 3.12 L (4.30-5.90) m/uL Hgb 7.6 L (13.0-17.5) gm/dL Hct 25.5 L (39.0-53.0) % MCH 24.4 L (25.0-35.0) pg MCHC 29.9 L (31.0-37.0) g/dL RDW 19.5 H (11.5-15.5) % Sodium 126 L (137-145) mmol/L Chloride 96 L (98-107) mmol/L BUN 4 L (9-20) mg/dL Creatinine 0.63 L (0.66-1.25) mg/dL Calcium 7.8 L (8.4-10.2) mg/dL
--- NOTE | 2022-05-18 15:22 | P.PN ---
Progress Note - Text Progress Note Date: 05/18/22 Chief Complaint: Abdominal pain This is a 66-year-old patient who follows with Dr. Michel. Chronic stable medical conditions include atrial fibrillation, GERD, hypertension . In 2019 patient of the small bowel resection for repair of diaphragmatic hernia. Subsequently in, months at small bowel resection with ice of adhesions. Patient has continued to drink anywhere from 10-14 drinks a day. Also smokes about a pack a day. Patient presented to 3 days of increasing abdominal pain. Having dark stools. Has prior history of gastritis duodenitis. Patient does have a chronic cough some phlegm. Clear. No fever no chills. Feels tired and rundown. May 16: Last night patient with large bloody BM in the bathroom. Passed out. Blood pressure dropped over 60 systolic. . Moved to the ICU. Hemoglobin came back at 5.9. Receive 2 units of blood. Patient due for endoscopy later today. Tired. Some abdominal discomfort. Had a small bloody BM this morning. May 17: Underwent EGD yesterday. Showed 2 cm deep ulcer along the duodenal CPAP and 5 mm total bulb ulcer with no active bleeding. Overnight patient had 3 more bloody bowel movements. Clear liquids. Nurse checking with GI if capsule study will be done. Patient had earlier got agitated. Tremors. Dose of Valium being increased. For alcohol withdrawal. Care was discussed with the patient and at the bedside. Had been refusing his medications. Reassured. May 18: Up in a chair. Appears most stable. No tremors. On asking questions appropriately. at the bedside. Valium cutback to 5 mg 3 times a day. Started on clear liquids today. If no further bleeding then advanced to full liquids tomorrow. Discussed with Dr. Renée Zarate yesterday. Duodenal ulcers felt to be source of bleeding. It was felt small bowel capsule study wound help. Discussed with patient. Had a dark stool yesterday. No further bleeding. Active Medications Acetaminophen (Acetaminophen Tab 325 Mg Tab) 650 mg PO Q6HR PRN PRN Reason: Mild Pain or Fever > 100.5 Last Admin: 05/17/22 20:22 Dose: 650 mg Albuterol/Ipratropium (Ipratropium-Albuterol 3 Ml Neb) 3 ml INHALATION RT-QID YAJAIRA Last Admin: 05/18/22 11:45 Dose: Not Given Diazepam (Diazepam 5 Mg Tab) 5 mg PO TID [facility] Lorazepam (Lorazepam 1 Mg Tab) 1 mg PO Q2HR PRN PRN Reason: CIWA 8 or 9 Lorazepam (Lorazepam 1 Mg Tab) 1 mg PO Q1HR PRN PRN Reason: CIWA 10 to 15 Metoprolol Tartrate (Metoprolol Tartrate 12.5 Mg Tab) 12.5 mg PO BID [facility] Last Admin: 05/18/22 09:37 Dose: 12.5 mg Miscellaneous Information (Magnesium Replacement Protocol 1 Each Misc) 1 each MISCELLANE DAILY PRN; Protocol PRN Reason: Per Protocol Naloxone HCl (Naloxone 0.4 Mg/Ml 1 Ml Vial) 0.2 mg IV Q2M PRN PRN Reason: Opioid Reversal Nicotine (Nicotine 21mg/24hr Patch) 1 patch TRANSDERM DAILY [facility] Last Admin: 05/18/22 09:19 Dose: Not Given Ondansetron HCl (Ondansetron 4 Mg/2 Ml Vial) 4 mg IVP Q8HR PRN PRN Reason: Nausea And Vomiting Last Admin: 05/15/22 20:57 Dose: 4 mg Pantoprazole Sodium (Pantoprazole 40 Mg/10 Ml Vial) 40 mg IV BID [facility] Last Admin: 05/18/22 09:36 Dose: 40 mg Thiamine HCl (Thiamine 100 Mg Tab) 100 mg PO BID-W/MEALS [facility] Last Admin: 05/18/22 06:48 Dose: 100 mg Past medical history to include: Atrial fibrillation, GERD, hypertension, hyperlipidemia, osteoarthritis, peptic ulcer disease, gastritis, duodenitis, alcohol use disorder, chronic low back pain, occasional numbness and tingling in the hand and feet, carpal tunnel syndrome, left pneumothorax with chest tube. Social history: . Has been smoking a pack a day since 1965. Drinks any me from 10-14 alcoholic drinks a day. Family history: Mother of liver failure from alcohol Physical examination: VITAL SIGNS: 98.4, 74, 17, 127/79, 99% room air GENERAL: Sitting up in chair, awake, essential anxious EYES: Pupils equal. Conjunctiva pale HEENT: External appearance of nose and ears normal, oral cavity grossly normal. NECK: JVD not raised; masses not palpable. HEART: First and second heart sounds are normal; no edema. LUNGS: Respiratory rate increased; decreased breath sounds ABDOMEN: Soft, decreased abdominal tenderness, no guarding rigidity, liver spleen not palpable, no masses palpable. PSYCH: Alert and oriented x3; mood and affect anxious MUSCULOSKELETAL:No Clubbing/cyanosis;muscles-grossly intact INVESTIGATIONS, reviewed in the clinical context: May 18: White count 7.8.7.6 potassium 4.4. Sodium 126 May 17: White count 9 hemoglobin 7.9 sodium 125 progression 4.3 creatinine 0.66 May 16: Hemoglobin 5.9 and after 2 units of PRBC: Hemoglobin 8 sodium 127 White count 6.7 hemoglobin 8 platelets 243 sodium 125 potassium 4.3 creatinine 0.69. AST 25 ALT 11 Admission hemoglobin 9.6 Assessment and plan: -Acute GI bleed.-continues to drink alcohol. Duodenal ulcers on EGD -Alcohol use disorder Patient drinks anywhere from 10-14 alcoholic drinks a day. -Alcohol withdrawal symptoms: Better CIWA scale. Increase decrease Valium 5 mg every 8. Add Lopressor 12.5 by mouth twice a day -COPD in a current smoker DuoNeb 4 times a day -Acute GI bleed leading to acute blood loss anemia: Stable Receive 2 units of blood -Essential hypertension Zestril 20 mg a day-hold -Paroxysmal atrial fibrillation Amiodarone 100 mg a day -Hyponatremia from decreased solute intake: Slow to respond Lactated Ringer's Clear liquid diet. Discussed with patient and . No need for any further endoscopy currently. Cutback Valium 5 mg 3 times a day. If no bleeding then advanced to full liquids tomorrow.
[2022-05-19] MEDS: ACETAMINOPHEN TAB 325 MG TAB PO PRN (02:12)
[2022-05-19] MEDS: THIAMINE 100 MG TAB PO SCH ×2 (07:35→18:02)
[2022-05-19] MEDS: METOPROLOL TARTRATE 12.5 MG TAB PO SCH (07:35)
[2022-05-19] MEDS: PANTOPRAZOLE 40 MG/10 ML VIAL IV SCH ×2 (07:35→21:07)
[2022-05-19] MEDS: diazePAM 5 MG TAB PO SCH (07:36)
[2022-05-19] MEDS: NICOTINE 21MG/24HR PATCH TRANSDERM SCH (07:36)
[2022-05-19] MEDS: IPRATROPIUM-ALBUTEROL 3 ML NEB INHALATION SCH ×4 (08:03→20:47)
--- NOTE | 2022-05-19 11:08 | P.PN ---
Progress Note - Text Progress Note Date: 05/19/22 Chief Complaint: Abdominal pain This is a 66-year-old patient who follows with Dr. Michel. Chronic stable medical conditions include atrial fibrillation, GERD, hypertension . In 2019 patient of the small bowel resection for repair of diaphragmatic hernia. Subsequently in, months at small bowel resection with ice of adhesions. Patient has continued to drink anywhere from 10-14 drinks a day. Also smokes about a pack a day. Patient presented to 3 days of increasing abdominal pain. Having dark stools. Has prior history of gastritis duodenitis. Patient does have a chronic cough some phlegm. Clear. No fever no chills. Feels tired and rundown. May 16: Last night patient with large bloody BM in the bathroom. Passed out. Blood pressure dropped over 60 systolic. . Moved to the ICU. Hemoglobin came back at 5.9. Receive 2 units of blood. Patient due for endoscopy later today. Tired. Some abdominal discomfort. Had a small bloody BM this morning. May 17: Underwent EGD yesterday. Showed 2 cm deep ulcer along the duodenal CPAP and 5 mm total bulb ulcer with no active bleeding. Overnight patient had 3 more bloody bowel movements. Clear liquids. Nurse checking with GI if capsule study will be done. Patient had earlier got agitated. Tremors. Dose of Valium being increased. For alcohol withdrawal. Care was discussed with the patient and at the bedside. Had been refusing his medications. Reassured. May 18: Up in a chair. Appears most stable. No tremors. On asking questions appropriately. at the bedside. Valium cutback to 5 mg 3 times a day. Started on clear liquids today. If no further bleeding then advanced to full liquids tomorrow. Discussed with Dr. Renée Zarate yesterday. Duodenal ulcers felt to be source of bleeding. It was felt small bowel capsule study wound help. Discussed with patient. Had a dark stool yesterday. No further bleeding. May 19: Dark stools. No blood. No abdominal pain. Tolerating full liquids. Up to the bathroom. Advance to soft bland the supper. Discussed with patient. Cutback Valium to 2 mg 3 times a day. Patient smoked,. Active Medications Acetaminophen (Acetaminophen Tab 325 Mg Tab) 650 mg PO Q6HR PRN PRN Reason: Mild Pain or Fever > 100.5 Last Admin: 05/19/22 02:12 Dose: 650 mg Albuterol/Ipratropium (Ipratropium-Albuterol 3 Ml Neb) 3 ml INHALATION RT-QID [facility] Last Admin: 05/19/22 08:03 Dose: Not Given Diazepam (Diazepam 2 Mg Tab) 2 mg PO TID [facility] Lorazepam (Lorazepam 1 Mg Tab) 1 mg PO Q2HR PRN PRN Reason: CIWA 8 or 9 Lorazepam (Lorazepam 1 Mg Tab) 1 mg PO Q1HR PRN PRN Reason: CIWA 10 to 15 Miscellaneous Information (Magnesium Replacement Protocol 1 Each Misc) 1 each MISCELLANE DAILY PRN; Protocol PRN Reason: Per Protocol Naloxone HCl (Naloxone 0.4 Mg/Ml 1 Ml Vial) 0.2 mg IV Q2M PRN PRN Reason: Opioid Reversal Nicotine (Nicotine 21mg/24hr Patch) 1 patch TRANSDERM DAILY [facility] Last Admin: 05/19/22 07:36 Dose: Not Given Ondansetron HCl (Ondansetron 4 Mg/2 Ml Vial) 4 mg IVP Q8HR PRN PRN Reason: Nausea And Vomiting Last Admin: 05/15/22 20:57 Dose: 4 mg Pantoprazole Sodium (Pantoprazole 40 Mg/10 Ml Vial) 40 mg IV BID [facility] Last Admin: 05/19/22 07:35 Dose: 40 mg Thiamine HCl (Thiamine 100 Mg Tab) 100 mg PO BID-W/MEALS [facility] Last Admin: 05/19/22 07:35 Dose: 100 mg Past medical history to include: Atrial fibrillation, GERD, hypertension, hyperlipidemia, osteoarthritis, peptic ulcer disease, gastritis, duodenitis, alcohol use disorder, chronic low back pain, occasional numbness and tingling in the hand and feet, carpal tunnel syndrome, left pneumothorax with chest tube. Social history: . Has been smoking a pack a day since 1965. Drinks any me from 10-14 alcoholic drinks a day. Family history: Mother of liver failure from alcohol Physical examination: VITAL SIGNS: 97.7, 76, 20, 120/77, 96 was room air GENERAL: Awake, less anxious EYES: Pupils equal. Conjunctiva pale HEENT: External appearance of nose and ears normal, oral cavity grossly normal. NECK: JVD not raised; masses not palpable. HEART: First and second heart sounds are normal; no edema. LUNGS: Respiratory rate increased; decreased breath sounds ABDOMEN: Soft, no abdominal tenderness, no guarding rigidity, liver spleen not palpable, no masses palpable. PSYCH: Alert and oriented x3; mood and affect less anxious MUSCULOSKELETAL:No Clubbing/cyanosis;muscles-grossly intact INVESTIGATIONS, reviewed in the clinical context: May 18: White count 7.8.7.6 potassium 4.4. Sodium 126 May 17: White count 9 hemoglobin 7.9 sodium 125 progression 4.3 creatinine 0.66 May 16: Hemoglobin 5.9 and after 2 units of PRBC: Hemoglobin 8 sodium 127 White count 6.7 hemoglobin 8 platelets 243 sodium 125 potassium 4.3 creatinine 0.69. AST 25 ALT 11 Admission hemoglobin 9.6 Assessment and plan: -Acute GI bleed.-continues to drink alcohol. Duodenal ulcers on EGD -Alcohol use disorder Patient drinks anywhere from 10-14 alcoholic drinks a day. -Alcohol withdrawal symptoms: Better CIWA scale. Increase decrease Valium to mg every 8. Stop Lopressor -COPD in a current smoker DuoNeb 4 times a day -Acute GI bleed leading to acute blood loss anemia: Stable Receive 2 units of blood -Essential hypertension Zestril 20 mg a day-hold -Paroxysmal atrial fibrillation Amiodarone 100 mg a day -Hyponatremia from decreased solute intake: Slow to respond Lactated Ringer's Tolerating full liquid diet. Advance to soft bland this evening. Cutback Valium 2 mg 3 times a day. Stop Lopressor. Activity is started. Repeat labs in the morning.
--- NOTE | 2022-05-19 12:35 | P.PN ---
Subjective Progress Note Date: 05/19/22 CHIEF COMPLAINT: GI bleed HISTORY OF PRESENT ILLNESS: The patient is a 66-year-old male with GI bleed. He has non-bleeding large duodenal ulcer. He is tolerating diet. He denies abdominal pain. Hemoglobin is stable. Patient is now medical floor from the ICU. No signs of bleeding. ROS: No reports of nausea and vomiting. No bowel movements. No fevers or chills. No new chest pain. No productive sputum PHYSICAL EXAM: VITAL SIGNS: Reviewed CONSTITUTIONAL: Well developed and in no acute distress. EYES: Conjuctivae with sclera icterus. Extraocular movements grossly intact. HEAD, EARS, NOSE, THROAT: Moist buccal mucosa. Head is atraumatic, normocephalic. Hears conversational speech. No nasal drainage. RESPIRATORY: Non-labored respirations and equal bilateral excursions. CARDIOVASCULAR: Palpable 2+ radial pulses. ABDOMEN: MUSCULOSKELETAL: No gross deformity of the lower extremities noted. No clubbing. No cyanosis. SKIN: Good skin turgor. Well perfused. NEUROLOGIC: Cranial nerves II through XII grossly intact. No focal or lateralizing signs. PSYCH: Appropriate affect. Alert and oriented to person, place and time. CLINICAL LABS: Reviewed. Hemoglobin 7.6, prior ASSESSMENT: 1. GI bleed 2. Duodenal ulcer PLAN: 1. Continue to monitor hemoglobin. 2. Diet as tolerated. Objective - Vital Signs Vital signs: Vital Signs Temp 97.7 F 05/19/22 07:53 Pulse 76 05/19/22 07:53 Resp 20 05/19/22 07:53 BP 120/77 05/19/22 07:53 Pulse Ox 96 05/19/22 07:53 FiO2 Intake & Output 05/18/22 05/19/22 05/19/22 18:59 06:59 18:59 Intake Total 150 Output Total 1070 Balance -920 Intake: IV 150 Lactated Ringers 1,000 ml 150 @ 75 mls/hr IV .[id number] Rx#:[id number] Output: Urine 1070 Other: Voiding Method Urinal Urinal Urinal # Voids 0 - Labs CBC & Chem 7: 05/18/22 05:42 05/18/22 05:42
[2022-05-19] MEDS: diazePAM 2 MG TAB PO SCH ×2 (18:03→21:05)
[2022-05-20 02:10] VITALS: RESP 16
[2022-05-20 05:58] LABS: Anisocytosis Slight; Basophils % (A) 0 %; Eosinophils # (A) 0.2 k/uL (0-0.7); Eosinophils % (A) 3 %; HCT 25.1 % (39.0-53.0); HGB 7.2 gm/dL (13.0-17.5); Hypochromasia Marked; Lymphocytes # (A) 1.7 k/uL (1.0-4.8); Lymphocytes % (A) 21 %; MCH 23.8 pg (25.0-35.0); MCHC 28.7 g/dL (31.0-37.0); MCV 82.8 fL (80.0-100.0); Mean Platelet Volume 7.4; Microcytosis Slight; Monocytes # (A) 0.7 k/uL (0-1.0); Monocytes % (A) 9 %; Neutrophils # (A) 5.1 k/uL (1.3-7.7); Neutrophils % (A) 64 %; Platelet Count 256 k/uL (150-450); Poikilocytosis Slight; RBC 3.04 m/uL (4.30-5.90); RDW 19.9 % (11.5-15.5)
[2022-05-20 06:14] LABS: ALT 8 U/L (4-49); AST 19 U/L (17-59); African American GFR (CKD) >90 (>60 ml/min/1.73 sqM); Albumin 2.1 g/dL (3.5-5.0); Albumin/Globulin Ratio 0.9; Alkaline Phosphatase 71 U/L (38-126); Anion Gap -1 mmol/L; Blood Urea Nitrogen 11 mg/dL (9-20); Calcium 7.6 mg/dL (8.4-10.2); Carbon Dioxide 31 mmol/L (22-30); Chloride 99 mmol/L (98-107); Globulin 2.3 g/dL; Glucose 80 mg/dL (74-99); Non-African American GFR(CKD) >90 (>60 ml/min/1.73 sqM); Potassium 4.2 mmol/L (3.5-5.1); Sodium 129 mmol/L (137-145); Total Bilirubin 0.1 mg/dL (0.2-1.3); Total Protein 4.4 g/dL (6.3-8.2)
[2022-05-20] MEDS: diazePAM 2 MG TAB PO SCH (07:19)
[2022-05-20] MEDS: THIAMINE 100 MG TAB PO SCH (07:19)
[2022-05-20] MEDS: NICOTINE 21MG/24HR PATCH TRANSDERM SCH (07:19)
[2022-05-20] MEDS: PANTOPRAZOLE 40 MG/10 ML VIAL IV SCH ×2 (07:19→07:24)
[2022-05-20] MEDS ORDERED: PANTOPRAZOLE 40 MG TABLET PO SCH (07:30)
[2022-05-20] MEDS: IPRATROPIUM-ALBUTEROL 3 ML NEB INHALATION SCH ×3 (08:43→15:47)
--- NOTE | 2022-05-20 09:43 | P.PN ---
Subjective Progress Note Date: 05/20/22 Principal diagnosis: GI bleed This is a pleasant 66-year-old male who presented to the hospital with complaints of abdominal pain. Patient reports increased abdominal pain over the last three days. He has been having dark black stools. He does have a history of GI bleed and stomach ulcers. Patient has been feeling very weak and rundown. Patient does drink alcohol daily. Patient's last EGD and colonoscopy was in [address] Rowe and results demonstrated antral gastritis and right colon polyp biopsy which was benign. Computed tomography scan of abdomen and pelvis shows wall thickening involving the duodenal bulb and descending duodenum may reflect duodenitis. There is adjacent fluid. Fluid adjacent to the gallbladder without gallbladder wall thickening or cholelithiasis. Mild fluid distention of the large and small bowel could reflect enterocolitis. Abdominal ultrasound shows no gallstones or diagnostic evidence of gallbladder wall thickening. No fluid was noted around the gallbladder. Patient denies any fever chills or sweats. Denies any nausea or vomiting. Patient denies any NSAID use or anticoagulation. He does take Prilosec at home. 05/17/2022: Patient is seen and examined as a follow-up. He remains in the ICU. According to nursing he had 4 bloody bowel movements through the night. He is currently going through withdrawal symptoms. He did have a drop in his hemoglobin to 7.3 from 8.0 yesterday. Yesterday he underwent an EGD with findings of 2 ulcers. He had a 2 cm deep ulceration along the duodenal sweep with no active bleeding and a 5 mm to 10 bulbar ulcer with no active bleeding. He denies any abdominal pain, nausea or vomiting. He is tolerating clear liquid diet. 05/20/2022: Patient is seen and examined as a follow-up. He has been transferred to the floor. He states that he has not had any further bleeding. He states he had a large cyst soft brown bowel movement today. Denies any abdominal pain, nausea, or vomiting. Hemoglobin 7.2. Objective - Vital Signs Vital signs: Vital Signs Temp 98.3 F 05/20/22 07:59 Pulse 101 H 05/20/22 07:59 Resp 16 05/20/22 07:59 BP 109/73 05/20/22 07:59 Pulse Ox 98 05/20/22 07:59 FiO2 Intake & Output 05/19/22 05/20/22 05/20/22 18:59 06:59 18:59 Output Total 390 Balance -390 Output: Urine 390 Other: Voiding Method Urinal Toilet Urinal # Voids 1 # Bowel Movements 1 - Exam General appearance: The patient is alert, oriented, appears in no acute distress. HET: Head is normocephalic and atraumatic. Conjunctiva pink. Sclera anicteric. Neck: Supple without lymphadenopathy. Abdomen: Soft, nontender, nondistended with bowel sounds. No guarding or rigidity. Extremities: Normal skin color and turgor. No pedal edema Skin: No rashes, no jaundice Neurological: No focal deficits. Alert and oriented. - Labs CBC & Chem 7: 05/20/22 05:29 05/20/22 05:29 Labs: Abnormal Lab Results - Last 24 Hours (Table) 05/20/22 05/20/22 Range/Units 05:29 05:29 RBC 3.04 L (4.30-5.90) m/uL Hgb 7.2 L (13.0-17.5) gm/dL Hct 25.1 L (39.0-53.0) % MCH 23.8 L (25.0-35.0) pg MCHC 28.7 L (31.0-37.0) g/dL RDW 19.9 H (11.5-15.5) % Sodium 129 L (137-145) mmol/L Carbon Dioxide 31 H (22-30) mmol/L Calcium 7.6 L (8.4-10.2) mg/dL Total Bilirubin 0.1 L (0.2-1.3) mg/dL Total Protein 4.4 L (6.3-8.2) g/dL Albumin 2.1 L (3.5-5.0) g/dL Assessment and Plan (1) Gastrointestinal bleeding Narrative/Plan: 66-year-old male with a past history of GI bleed who is followed with the general surgeon Dr. Humphrey in the past. Presented to the emergency department with abdominal pain and reports of black tarry stool. His last EGD colonoscopy was done by Dr. Humphrey on 02/02/2021 with findings of antral gastritis and colonoscopy was normal. He had a CT of the abdomen and pelvis that is showing thickening of the duodenal bulb possibility of duodenitis. Labs are consistent with a microcytic anemia. Patient is not on any NSAIDs or anticoagulation. Currently on PPI. We will proceed with EGD for further evaluation of possible GI bleed. Patient is status post EGD with findings of 2 nonbleeding ulcers. Current Visit: Yes Status: Acute Code(s): K92.2 - GASTROINTESTINAL HEMORRHAGE, UNSPECIFIED SNOMED Code(s): 15271495 (2) Alcohol abuse Current Visit: Yes Status: Acute Code(s): F10.10 - ALCOHOL ABUSE, UNCOMPLICATED SNOMED Code(s): 60231086 (3) Melena Current Visit: Yes Status: Acute Code(s): K92.1 - MELENA SNOMED Code(s): 7971310 Plan: 1. Continue symptomatic and supportive care 2. Protonix 40 mg twice a day 3. Diet as tolerated 4. Patient is status post EGD 5. Alcohol abstinence Thank you for this consultation, we will continue to follow Dr. Renée Zarate I agree with the dictator's note, documented as a scribe by Adelaide Miller.
--- NOTE | 2022-05-20 14:00 | P.PN ---
Subjective Progress Note Date: 05/20/22 CHIEF COMPLAINT: GI bleed HISTORY OF PRESENT ILLNESS: Patient currently on a regular medical floor. He d enies any abdominal pain. His stools have been brown. Denies any nausea vomiting. Tolerating diet. He is scheduled for discharge today. Afebrile. Hemoglobin 7.6-7.2. Patient seen and examined with Dr. Rowe PHYSICAL EXAM: VITAL SIGNS: Reviewed. GENERAL: Well-developed in no acute distress. HEENT: No sclera icterus. Extraocular movements grossly intact. Moist buccal mucosa. Head is atraumatic, normocephalic. ABDOMEN: Soft. Nondistended. Nontender NEUROLOGIC: Alert and oriented. Cranial nerves II through XII grossly intact. Extremities: Left knee swelling and evidence of fluid. Tender with palpation ASSESSMENT: 1. Epigastric abdominal pain status post EGD with evidence of 2 duodenal ulcers. No active bleeding. 2. Acute GI bleed 3. Acute blood loss anemia 4. Duodenitis 5. Hypomagnesemia improved 6. hyponatremia 7. Daily alcohol use PLAN: -Patient can be discharged from surgical standpoint -Continue PPI Physician Director Organizational note has been reviewed by physician. Signing provider agrees with the documented findings, assessment, and plan of care. Objective - Vital Signs Vital signs: Vital Signs Temp 98.3 F 05/20/22 07:59 Pulse 101 H 05/20/22 07:59 Resp 16 05/20/22 07:59 BP 109/73 05/20/22 07:59 Pulse Ox 98 05/20/22 07:59 FiO2 Intake & Output 05/19/22 05/20/22 05/20/22 18:59 06:59 18:59 Output Total 390 Balance -390 Output: Urine 390 Other: Voiding Method Urinal Toilet Urinal # Voids 1 # Bowel Movements 1 - Labs CBC & Chem 7: 05/20/22 05:29 05/20/22 05:29 Labs: Abnormal Lab Results - Last 24 Hours (Table) 05/20/22 05/20/22 Range/Units 05:29 05:29 RBC 3.04 L (4.30-5.90) m/uL Hgb 7.2 L (13.0-17.5) gm/dL Hct 25.1 L (39.0-53.0) % MCH 23.8 L (25.0-35.0) pg MCHC 28.7 L (31.0-37.0) g/dL RDW 19.9 H (11.5-15.5) % Sodium 129 L (137-145) mmol/L Carbon Dioxide 31 H (22-30) mmol/L Calcium 7.6 L (8.4-10.2) mg/dL Total Bilirubin 0.1 L (0.2-1.3) mg/dL Total Protein 4.4 L (6.3-8.2) g/dL Albumin 2.1 L (3.5-5.0) g/dL
[2022-05-20 15:13] VITALS: BP 125/76; PULSE 89; TEMP 98.7
[2022-05-20 15:14] VITALS: BMI 23.1
--- NOTE | 2022-05-20 15:35 | P.DS ---
Providers Date of admission: 05/15/22 09:44 Expected date of discharge: 05/20/22 Attending physician: Yang Gaspar Consults: 05/15/22 09:59 Consult Physician Urgent Consulting Provider: Suhas Rowe Consult Reason/Comments: Duodenitis, established patient Do you want consulting provider notified?: Yes Consult Physician Urgent Consulting Provider: Britni Zarate Consult Reason/Comments: GI bleed Do you want consulting provider notified?: Yes 05/16/22 07:22 Consult Physician Routine Consulting Provider: Jorge Soto Consult Reason/Comments: icu manangement Do you want consulting provider notified?: Already Contacted Primary care physician: [facility] Course: Chief Complaint: Abdominal pain This is a 66-year-old patient who follows with Dr. Michel. Chronic stable medical conditions include atrial fibrillation, GERD, hypertension . In 2019 patient of the small bowel resection for repair of diaphragmatic hernia. Subsequently in, months at small bowel resection with ice of adhesions. Patient has continued to drink anywhere from 10-14 drinks a day. Also smokes about a pack a day. Patient presented to 3 days of increasing abdominal pain. Having dark stools. Has prior history of gastritis duodenitis. Patient does have a chronic cough some phlegm. Clear. No fever no chills. Feels tired and rundown. May 16: Last night patient with large bloody BM in the bathroom. Passed out. Blood pressure dropped over 60 systolic. . Moved to the ICU. Hemoglobin came back at 5.9. Receive 2 units of blood. Patient due for endoscopy later today. Tired. Some abdominal discomfort. Had a small bloody BM this morning. May 17: Underwent EGD yesterday. Showed 2 cm deep ulcer along the duodenal CPAP and 5 mm total bulb ulcer with no active bleeding. Overnight patient had 3 more bloody bowel movements. Clear liquids. Nurse checking with GI if capsule study will be done. Patient had earlier got agitated. Tremors. Dose of Valium being increased. For alcohol withdrawal. Care was discussed with the patient and at the bedside. Had been refusing his medications. Reassured. May 18: Up in a chair. Appears most stable. No tremors. On asking questions appropriately. at the bedside. Valium cutback to 5 mg 3 times a day. Started on clear liquids today. If no further bleeding then advanced to full liquids tomorrow. Discussed with Dr. Renée Zarate yesterday. Duodenal ulcers felt to be source of bleeding. It was felt small bowel capsule study wound help. Discussed with patient. Had a dark stool yesterday. No further bleeding. May 19: Dark stools. No blood. No abdominal pain. Tolerating full liquids. Up to the bathroom. Advance to soft bland the supper. Discussed with patient. Cutback Valium to 2 mg 3 times a day. Patient smoked,. May 20: Brown stool. No abdominal pain. Oral intake good. Consult again about smoking and alcohol. Valium was discontinued. DC on PPI. Discussion and discharge planning more than 35 minutes Past medical history to include: Atrial fibrillation, GERD, hypertension, hyperlipidemia, osteoarthritis, peptic ulcer disease, gastritis, duodenitis, alcohol use disorder, chronic low back pain, occasional numbness and tingling in the hand and feet, carpal tunnel syndrome, left pneumothorax with chest tube. Social history: . Has been smoking a pack a day since 1965. Drinks any me from 10-14 alcoholic drinks a day. Family history: Mother of liver failure from alcohol Physical examination: VITAL SIGNS: 98.7, 89, 16, 125/76, 99% room air GENERAL: Sitting up in a chair, comfortable EYES: Pupils equal. Conjunctiva pale HEENT: External appearance of nose and ears normal, oral cavity grossly normal. NECK: JVD not raised; masses not palpable. HEART: First and second heart sounds are normal; no edema. LUNGS: Respiratory rate increased; decreased breath sounds ABDOMEN: Soft, no abdominal tenderness, no guarding rigidity, liver spleen not palpable, no masses palpable. PSYCH: Alert and oriented x3; mood and affect less anxious MUSCULOSKELETAL:No Clubbing/cyanosis;muscles-grossly intact INVESTIGATIONS, reviewed in the clinical context: May 20: White count 8 hemoglobin 7.2 potassium 4.2 creatinine 0.7 sodium 129 May 16: Hemoglobin 5.9 and after 2 units of PRBC: Hemoglobin 8 sodium 127 White count 6.7 hemoglobin 8 platelets 243 sodium 125 potassium 4.3 creatinine 0.69. AST 25 ALT 11 Admission hemoglobin 9.6 Assessment and plan: -Acute GI bleed.-continues to drink alcohol. Duodenal ulcers on EGD -Alcohol use disorder Patient drinks anywhere from 10-14 alcoholic drinks a day. -Chronic nicotine dependence, cigarette smoker Nicotine patch -Alcohol withdrawal symptoms: Better CIWA scale. Relevant Lopressor been discontinued -COPD in a current smoker DuoNeb 4 times a day. Discharge on Qvar and albuterol when necessary -Acute GI bleed leading to acute blood loss anemia: Stable Receive 2 units of blood -Essential hypertension Zestril 20 mg a day-hold -Paroxysmal atrial fibrillation Amiodarone 100 mg a day -Hyponatremia from decreased solute intake: Slow to respond Lactated Ringer's Disposition: Home Plan - Discharge Summary Discharge Rx Participant: No New Discharge Prescriptions: New Beclomethasone Dipropionate [Qvar 40 mcg Redihaler] 1 puff INHALATION BID #1 each Thiamine [Vitamin B-1] 100 mg PO BID-W/MEALS #30 tab Albuterol Sulfate [Albuterol Sulfate Hfa] 1 puff PO Q4-6H #8.5 gm Nicotine 21Mg/24Hr Patch [Habitrol] 1 patch TRANSDERM DAILY #14 patch Continue Multivitamins, Thera [Multivitamin (formulary)] 1 tab PO DAILY lisinopriL [Zestril] 20 mg PO DAILY Amiodarone [Cordarone] 100 mg PO DAILY Changed Omeprazole [PriLOSEC] 20 mg PO BID #60 cap Discharge Medication List Multivitamins, Thera [Multivitamin (formulary)] 1 tab PO DAILY 03/22/20 [History] lisinopriL [Zestril] 20 mg PO DAILY 10/31/20 [History] Amiodarone [Cordarone] 100 mg PO DAILY 02/25/22 [History] Albuterol Sulfate [Albuterol Sulfate Hfa] 1 puff PO Q4-6H #8.5 gm 05/20/22 [Rx] Beclomethasone Dipropionate [Qvar 40 mcg Redihaler] 1 puff INHALATION BID #1 each 05/20/22 [Rx] Nicotine 21Mg/24Hr Patch [Habitrol] 1 patch TRANSDERM DAILY #14 patch 05/20/22 [Rx] Omeprazole [PriLOSEC] 20 mg PO BID #60 cap 05/20/22 [Rx] Thiamine [Vitamin B-1] 100 mg PO BID-W/MEALS #30 tab 05/20/22 [Rx] Follow up Appointment(s)/Referral(s): Jc Michel DO [Primary Care Provider] - 05/22/22 3:20 pm Britni Zarate MD [STAFF PHYSICIAN] - 2 Weeks (Please call the office to arrange a follow up appointment) Patient Instructions/Handouts: Duodenitis (DC) Discharge/Stand Alone Forms: [facility] F[facility]ardo, Outpatient Counseling, In Substance Abuse Facilities
== END 2022-05-20 16:32 | disposition home or self-care (01) | DRG 378 ==
LOC: EC 07:10 → 4SSUR 09:44 → 2SICU 05-16 01:52 → 4SSUR 05-18 14:29
PROVIDERS: ADMIT Hospitalist; ATTEND Hospitalist
PROC: HZ2ZZZZ Detoxification Services for Substance Abuse Treatment (ICD-10-PCS; 2022-05-15)
PROC: 30233N1 Transfusion of Nonautologous Red Blood Cells into Peripheral Vein, Percutaneous Approach (ICD-10-PCS; 2022-05-16)
PROC: 0DB78ZX Excision of Stomach, Pylorus, Via Natural or Artificial Opening Endoscopic, Diagnostic (ICD-10-PCS; principal; 2022-05-16 09:50)
PROC: 0DJ07ZZ Inspection of Upper Intestinal Tract, Via Natural or Artificial Opening (ICD-10-PCS; 2022-05-18)
DX: K26.4 Chronic or unspecified duodenal ulcer with hemorrhage (principal); D62 Acute posthemorrhagic anemia; E87.1 Hypo-osmolality and hyponatremia; F10.239 Alcohol dependence with withdrawal, unspecified; K29.70 Gastritis, unspecified, without bleeding; E78.5 Hyperlipidemia, unspecified; E83.42 Hypomagnesemia; F17.210 Nicotine dependence, cigarettes, uncomplicated; G56.00 Carpal tunnel syndrome, unspecified upper limb; G89.29 Other chronic pain; I10 Essential (primary) hypertension; I48.0 Paroxysmal atrial fibrillation; J44.9 Chronic obstructive pulmonary disease, unspecified; M19.90 Unspecified osteoarthritis, unspecified site; S01.81XA Laceration without foreign body of other part of head, initial encounter; K21.9 Gastro-esophageal reflux disease without esophagitis; K25.9 Gastric ulcer, unspecified as acute or chronic, without hemorrhage or perforation; K52.9 Noninfective gastroenteritis and colitis, unspecified; I95.9 Hypotension, unspecified; K44.9 Diaphragmatic hernia without obstruction or gangrene; K63.5 Polyp of colon; Z87.19 Personal history of other diseases of the digestive system; W19.XXXA Unspecified fall, initial encounter; Y92.231 Patient bathroom in hospital as the place of occurrence of the external cause; Z79.899 Other long term (current) drug therapy; Z86.73 Personal history of transient ischemic attack (TIA), and cerebral infarction without residual deficits; Z90.49 Acquired absence of other specified parts of digestive tract; Z87.11 Personal history of peptic ulcer disease; Z86.010 Personal history of colon polyps
CPT/HCPCS: 36415; 43239; 71045; 74177; 76705; 80048; 80053; 83605; 83735; 84484; 85025; 85027; 85610; 85730; 86850; 86900; 86901; 86920; 88305; 93005; 96361; 96374; 99285

== ENCOUNTER 2023-03-15 00:13 | Inpatient (IN) | payer MEDICARE ==
[2023-03-15] MEDS ORDERED: SODIUM CHLORIDE 0.9% 1,000 ML IV STA ×3 (00:41→02:42)
[2023-03-15] MEDS ORDERED: ONDANSETRON 4 MG/2 ML VIAL IVP STA (00:41)
[2023-03-15] MEDS ORDERED: PANTOPRAZOLE 40 MG/10 ML VIAL IVP STA (00:41)
[2023-03-15] MEDS ORDERED: MORPHINE SULFATE 4 MG/ML SYRINGE IVP STA ×2 (00:43→03:14)
[2023-03-15 00:55] LABS: Basophils % (A) 0 %; Eosinophils % (A) 1 %; HCT 38.6 % (39.0-53.0); HGB 12.5 gm/dL (13.0-17.5); Lymphocytes # (A) 1.1 k/uL (1.0-4.8); Lymphocytes % (A) 15 %; MCH 28.9 pg (25.0-35.0); MCHC 32.3 g/dL (31.0-37.0); MCV 89.5 fL (80.0-100.0); Mean Platelet Volume 7.1; Monocytes # (A) 0.4 k/uL (0-1.0); Monocytes % (A) 6 %; Neutrophils # (A) 5.3 k/uL (1.3-7.7); Neutrophils % (A) 75 %; Platelet Count 280 k/uL (150-450); RBC 4.32 m/uL (4.30-5.90); RDW 13.9 % (11.5-15.5)
[2023-03-15 01:06] LABS: INR 0.9 (<1.2); Partial Thromboplastin Time 23.6 sec (22.0-30.0); Prothrombin Time 9.9 sec (9.0-12.0)
[2023-03-15 01:21] LABS: ALT 15 U/L (4-49); AST 37 U/L (17-59); African American GFR (CKD) >90 (>60 ml/min/1.73 sqM); Albumin 4.4 g/dL (3.5-5.0); Alkaline Phosphatase 61 U/L (38-126); Amylase 50 U/L (30-110); Anion Gap 15 mmol/L; Blood Urea Nitrogen 10 mg/dL (9-20); Calcium 9.5 mg/dL (8.4-10.2); Carbon Dioxide 23 mmol/L (22-30); Chloride 89 mmol/L (98-107); Glucose 120 mg/dL (74-99); Lipase 119 U/L (23-300); Non-African American GFR(CKD) >90 (>60 ml/min/1.73 sqM); Potassium 3.3 mmol/L (3.5-5.1); Sodium 127 mmol/L (137-145); Total Bilirubin 0.5 mg/dL (0.2-1.3); Total Protein 7.4 g/dL (6.3-8.2)
[2023-03-15 01:29] LABS: Alcohol 127 mg/dL
[2023-03-15] MEDS ORDERED: THIAMINE 100 MG/ML 2 ML VIAL IM STA (01:31)
[2023-03-15] MEDS ORDERED: LORazepam 2 MG/ML INJ IV PRN ×3 (01:31)
--- NOTE | 2023-03-15 02:09 | ED ---
General Adult HPI - General Chief complaint: Abdominal Pain Stated complaint: ABD PAIN Time Seen by Provider: 03/15/23 00:32 Source: patient, family, RN notes reviewed, old records reviewed Mode of arrival: wheelchair Limitations: no limitations - History of Present Illness Initial comments: Patient is a 67-year-old male who presents emergency Department complaining of abdominal pain, nausea, vomiting. Has a history significant for atrial fibrillation, GI bleed, hypertension, alcohol abuse. Patient did drink today. Began having sudden onset diffuse nonspecific abdominal pain with associated nonbilious nonbloody emesis multiple times over the last 3 hours. No diarrhea. No chest pain or shortness of breath. Denies constipation. Denies urinary complaints. Patient does have a history of abdominal surgeries for what sounds like a hernia. Denies chest pain or shortness of breath. Presents for further evaluation at this time. - Related Data Home Medications Medication Instructions Recorded Confirmed Multivitamins, Thera [Multivitamin 1 tab PO DAILY 03/22/20 05/15/22 (formulary)] lisinopriL [Zestril] 20 mg PO DAILY 10/31/20 05/15/22 Amiodarone [Cordarone] 100 mg PO DAILY 02/25/22 05/15/22 Previous Rx's Medication Instructions Recorded Albuterol Sulfate [Albuterol 1 puff PO Q4-6H #8.5 gm 05/20/22 Sulfate Hfa] Beclomethasone Dipropionate [Qvar 1 puff INHALATION BID #1 each 05/20/22 40 mcg Redihaler] Nicotine 21Mg/24Hr Patch [Habitrol] 1 patch TRANSDERM DAILY #14 patch 05/20/22 Omeprazole [PriLOSEC] 20 mg PO BID #60 cap 05/20/22 Thiamine [Vitamin B-1] 100 mg PO BID-W/MEALS #30 tab 05/20/22 Allergies Allergy/AdvReac Type Severity Reaction Status Date / Time No Known Allergies Allergy Verified 03/15/23 00:20 Review of Systems ROS Statement: Those systems with pertinent positive or pertinent negative responses have been documented in the HPI. Review of Systems: CONST: Denies fever EYES: Denies blurry vision ENT: Denies nasal congestion C/V: Denies Chest pain RESP: Denies shortness of breath GI: Endorses abdominal pain : Denies dysuria SKIN: Denies rash. MSK: Denies joint pain. NEURO: Denies headache ROS Other: All systems not noted in ROS Statement are negative. Past Medical History Past Medical History: Atrial Fibrillation, GERD/Reflux, GI Bleed, Hyperlip idemia, Hypertension, Osteoarthritis (OA) Additional Past Medical History / Comment(s): Paroxysmal Afib, lower GI bleed, PUD, anemia, ETOH, chronic back pain, occasional numbness/tingling bilateral hands and feet, bilateral carpal tunnel syndome, 03/2020 fall with rib fractur es/traumatic diaphragmatic strangulated hernia with surgery and L pneumothorax with chest tube. History of Any Multi-Drug Resistant Organisms: None Reported Past Surgical History: Appendectomy, Bowel Resection, Heart Catheterization, Hernia Repair, Orthopedic Surgery Additional Past Surgical History / Comment(s): 03/2020 small bowel resection and repair of diaghragmatic hernia d/t injury, 05/2020 exploratory laparotomy with small bowel resection/lysis of adhesions, L inguinal hernia repair, incisional hernia repair, EGD, colonoscopy/polypectomy, L shoulder surgery x2 d/t muscle tears, R shoulder rotator cuff repair, L ankle surgery, forehead laceration repair, Past Anesthesia/Blood Transfusion Reactions: No Reported Reaction Additional Past Anesthesia/Blood Transfusion Reaction / Comment(s): Pt has received blood in past without reaction. Past Psychological History: No Psychological Hx Reported Smoking Status: Current every day smoker Past Alcohol Use History: Abuse, Daily, Heavy Past Drug Use History: None Reported - Past Family History Father History Unknown: Yes Mother Family Medical History: Liver Disease Additional Family Medical History / Comment(s): Mother of liver failure related to ETOH General Exam - General Exam Comments Initial Comments: General: Actively throwing up. In moderate distress secondary to this. HEAD: Normal with no signs of head trauma. EYES: PERRLA, EOMI, conjunctiva normal, no discharge. Pupils 3 mm and equal bilaterally. ENT: Hearing grossly intact, normal oropharynx. Dry mucous membranes. RESPIRATORY: Clear breath sounds bilaterally. No wheezes, rales, or rhonchi. C/V: Regular rate and rhythm. S1 and S2 auscultated, no edema, peripheral pulses 2+ and intact throughout ABD: Mild Abdominal distention. Generalized tender to palpation with no focal areas. No guarding. No peritoneal signs. No rebound tenderness. EXT: Normal range of motion, no obvious deformity SKIN: No rashes or lesions observed on exposed skin. NEURO: Alert and oriented 4. Limitations: no limitations Course Vital Signs 03/15/23 03/15/23 03/15/23 00:20 01:23 05:00 Temperature 96.9 F L Pulse Rate 45 L 83 92 Respiratory 48 H 30 H 20 Rate Blood Pressure 207/152 155/102 161/92 O2 Sat by Pulse 97 100 96 Oximetry Medical Decision Making - Medical Decision Making Was pt. sent in by a medical professional or institution (, PA, DRAPERY EXAMINER, urgent care, hospital, or fci...) When possible be specific @ -No Did you speak to anyone other than the patient for history (EMS, parent, family, police, friend...)? What history was obtained from this source @ -No Did you review nursing and triage notes (agree or disagree)? Why? @ -I reviewed and agree with nursing and triage notes Were old charts reviewed (outside hosp., previous admission, EMS record, old EKG, old radiological studies, urgent care reports/EKG's, fci records)? Report findings @ -No old charts were reviewed Differential Diagnosis (chest pain, altered mental status, abdominal pain women, abdominal pain men, vaginal bleeding, weakness, fever, dyspnea, syncope, headache, dizziness, GI bleed, back pain, seizure, CVA, palpatations, mental health, musculoskeletal)? @ -Differential Abdominal Pain Men: Appendicitis, cholecystitis, diverticulosis, ischemic bowel, pancreatitis, hepatitis, UTI, gastroenteritis, AAA, incarcerated hernia, bowel obstruction, constipation, inflammatory bowel, hepatitis, peptic ulcer disease, splenic infarction, perforated viscus, testicular torsion, this is not meant to be an all-inclusive list EKG interpreted by me (3pts min.). @ -As above X-rays interpreted by me (1pt min.). @ -Chest x-ray revealed no obvious acute cardio pulmonary process. CT interpreted by me (1pt min.). @ -CT abdomen and pelvis revealed small bowel obstruction. U/S interpreted by me (1pt. min.). @ -None done What testing was considered but not performed or refused? (CT, X-rays, U/S, labs)? Why? @ -None What meds were considered but not given or refused? Why? @ -None Did you discuss the management of the patient with other professionals (professionals i.e. , PA, DRAPERY EXAMINER, lab, RT, psych nurse, licensed social worker, bulk station operator, teacher, collection officer, family caseworker)? Give summary @ -Discussed case with Dr. Rowe who accepted the patient was in agreement with management as well as Dr. Gaspar for medical management.Dr. Gaspar requested patient be started on Catapres patch as well as scheduled Valium for his potential alcohol withdrawals which was ordered. Was smoking cessation discussed for >3mins.? @ -No Was critical care preformed (if so, how long)? @ -No Were there social determinants of health that impacted care today? How? (Homelessness, low income, unemployed, alcoholism, drug addiction, transportation, low edu. Level, literacy, decrease access to med. care, retirement, rehab)? @ -No Was there de-escalation of care discussed even if they declined (Discuss DNR or withdrawal of care, Hospice)? DNR status @ -No What co-morbidities impacted this encounter? (DM, HTN, Smoking, COPD, CAD, Cancer, CVA, ARF, Chemo, Hep., AIDS, mental health diagnosis, sleep apnea, mor bid obesity)? @ -History of alcohol abuse Was patient admitted / discharged? Hospital course, mention meds given and route, prescriptions, significant lab abnormalities, going to OR and other pertinent info. @ -Based on the patient's presentation and physical exam, I'm concerned for acute intra-abdominal process for the patient. We will also obtain screening EKG. He was in agreement this plan. Vital signs in triage were abnormal but re peated immediately upon entrance into the room and remarkable for increased work of breathing secondary to pain and active vomiting but otherwise within acceptable limits. Patient was symptomatically treat with IV fluids, will be placed on the CIWA protocol. He will receive IV morphine, Protonix, Zofran. Patient was in agreement this plan. CT abdomen pelvis also be obtained. Patient's labs are remarkable for a hyponatremia of 127, hypochloremia of 89. Mild hypokalemia of 3.3 which is replenished. Lactic acid is elevated to 3.5 likely secondary to dehydration. Troponin is minimally elevated likely secondary to the the other symptoms he is having at 0.034 and we will trend. A call was 127. EKG showed no signs of ischemia. Chest x-ray showed no acute cardio only process. CT abdomen and pelvis revealed a small bowel obstruction. On reevaluation, I updated the patient. We will provide the patient with analgesia medications. NG tube will be placed. He will be placed on Zosyn as well as IV fluids. He is made nothing by mouth. He will be admitted under surgery. I spoke with Dr. Rowe who accepted the patient. I spoke with Dr. Gaspar for medical consult. Patient was in agreement this plan. Physicians were in agreement with the plan. Undiagnosed new problem with uncertain prognosis? @ -No Drug Therapy requiring intensive monitoring for toxicity (Heparin, Nitro, Insulin, Cardizem)? @ -No Were any procedures done? @ -No Diagnosis/symptom? @ -Small bowel obstruction, dehydration, nausea and vomiting, alcohol intoxication Acute, or Chronic, or Acute on Chronic? @ -Acute Uncomplicated (without systemic symptoms) or Complicated (systemic symptoms)? @ -Complicated Side effects of treatment? @ -none Exacerbation, Progression, or Severe Exacerbation] @ -no Poses a threat to life or bodily function? @ -Yes - Lab Data Result diagrams: 03/15/23 00:45 03/15/23 00:45 Lab Results 03/15/23 03/15/23 03/15/23 Range/Units 00:45 00:45 00:45 WBC 7.0 (3.8-10.6) k/uL RBC 4.32 (4.30-5.90) m/uL Hgb 12.5 L (13.0-17.5) gm/dL Hct 38.6 L (39.0-53.0) % MCV 89.5 (80.0-100.0) fL MCH 28.9 (25.0-35.0) pg MCHC 32.3 (31.0-37.0) g/dL RDW 13.9 (11.5-15.5) % Plt Count 280 (150-450) k/uL MPV 7.1 Neutrophils % 75 % Lymphocytes % 15 % Monocytes % 6 % Eosinophils % 1 % Basophils % 0 % Neutrophils # 5.3 (1.3-7.7) k/uL Lymphocytes # 1.1 (1.0-4.8) k/uL Monocytes # 0.4 (0-1.0) k/uL Eosinophils # 0.0 (0-0.7) k/uL Basophils # 0.0 (0-0.2) k/uL PT 9.9 (9.0-12.0) sec INR 0.9 (<1.2) APTT 23.6 (22.0-30.0) sec Sodium 127 L (137-145) mmol/L Potassium 3.3 L (3.5-5.1) mmol/L Chloride 89 L (98-107) mmol/L Carbon Dioxide 23 (22-30) mmol/L Anion Gap 15 mmol/L BUN 10 (9-20) mg/dL Creatinine 0.58 L (0.66-1.25) mg/dL Est GFR (CKD-EPI)AfAm >90 (>60 ml/min/1.73 sqM) Est GFR (CKD-EPI)NonAf >90 (>60 ml/min/1.73 sqM) Glucose 120 H (74-99) mg/dL Lactic Ac Sepsis Rflx Plasma Lactic Acid Carlos (0.7-2.0) mmol/L Calcium 9.5 (8.4-10.2) mg/dL Total Bilirubin 0.5 (0.2-1.3) mg/dL AST 37 (17-59) U/L ALT 15 (4-49) U/L Alkaline Phosphatase 61 (38-126) U/L Troponin I (0.000-0.034) ng/mL Total Protein 7.4 (6.3-8.2) g/dL Albumin 4.4 (3.5-5.0) g/dL Amylase 50 (30-110) U/L Lipase 119 (23-300) U/L Serum Alcohol 127 mg/dL Blood Type Blood Type Recheck Bld Type Recheck Status Antibody Screen Spec Expiration Date 03/15/23 03/15/23 03/15/23 Range/Units 00:45 00:45 01:00 WBC (3.8-10.6) k/uL RBC (4.30-5.90) m/uL Hgb (13.0-17.5) gm/dL Hct (39.0-53.0) % MCV (80.0-100.0) fL MCH (25.0-35.0) pg MCHC (31.0-37.0) g/dL RDW (11.5-15.5) % Plt Count (150-450) k/uL MPV Neutrophils % % Lymphocytes % % Monocytes % % Eosinophils % % Basophils % % Neutrophils # (1.3-7.7) k/uL Lymphocytes # (1.0-4.8) k/uL Monocytes # (0-1.0) k/uL Eosinophils # (0-0.7) k/uL Basophils # (0-0.2) k/uL PT (9.0-12.0) sec INR (<1.2) APTT (22.0-30.0) sec Sodium (137-145) mmol/L Potassium (3.5-5.1) mmol/L Chloride (98-107) mmol/L Carbon Dioxide (22-30) mmol/L Anion Gap mmol/L BUN (9-20) mg/dL Creatinine (0.66-1.25) mg/dL Est GFR (CKD-EPI)AfAm (>60 ml/min/1.73 sqM) Est GFR (CKD-EPI)NonAf (>60 ml/min/1.73 sqM) Glucose (74-99) mg/dL Lactic Ac Sepsis Rflx Plasma Lactic Acid Carlos 3.5 H* (0.7-2.0) mmol/L Calcium (8.4-10.2) mg/dL Total Bilirubin (0.2-1.3) mg/dL AST (17-59) U/L ALT (4-49) U/L Alkaline Phosphatase (38-126) U/L Troponin I 0.034 (0.000-0.034) ng/mL Total Protein (6.3-8.2) g/dL Albumin (3.5-5.0) g/dL Amylase (30-110) U/L Lipase (23-300) U/L Serum Alcohol mg/dL Blood Type O Negative Blood Type Recheck O Neg Bld Type Recheck Status No Antibody Screen NEGATIVE Spec Expiration Date 03/18/2023 - 229903/15/23 Range/Units 01:31 WBC (3.8-10.6) k/uL RBC (4.30-5.90) m/uL Hgb (13.0-17.5) gm/dL Hct (39.0-53.0) % MCV (80.0-100.0) fL MCH (25.0-35.0) pg MCHC (31.0-37.0) g/dL RDW (11.5-15.5) % Plt Count (150-450) k/uL MPV Neutrophils % % Lymphocytes % % Monocytes % % Eosinophils % % Basophils % % Neutrophils # (1.3-7.7) k/uL Lymphocytes # (1.0-4.8) k/uL Monocytes # (0-1.0) k/uL Eosinophils # (0-0.7) k/uL Basophils # (0-0.2) k/uL PT (9.0-12.0) sec INR (<1.2) APTT (22.0-30.0) sec Sodium (137-145) mmol/L Potassium (3.5-5.1) mmol/L Chloride (98-107) mmol/L Carbon Dioxide (22-30) mmol/L Anion Gap mmol/L BUN (9-20) mg/dL Creatinine (0.66-1.25) mg/dL Est GFR (CKD-EPI)AfAm (>60 ml/min/1.73 sqM) Est GFR (CKD-EPI)NonAf (>60 ml/min/1.73 sqM) Glucose (74-99) mg/dL Lactic Ac Sepsis Rflx Y Plasma Lactic Acid Carlos (0.7-2.0) mmol/L Calcium (8.4-10.2) mg/dL Total Bilirubin (0.2-1.3) mg/dL AST (17-59) U/L ALT (4-49) U/L Alkaline Phosphatase (38-126) U/L Troponin I (0.000-0.034) ng/mL Total Protein (6.3-8.2) g/dL Albumin (3.5-5.0) g/dL Amylase (30-110) U/L Lipase (23-300) U/L Serum Alcohol mg/dL Blood Type Blood Type Recheck Bld Type Recheck Status Antibody Screen Spec Expiration Date - EKG Data -: EKG Interpreted by Me EKG Comments: 12-lead Electrocardiogram Interpretation Note EKG was reviewed and interpreted by myself. 12-lead ECG performed at 0120 is interpreted by me as revealing normal sinus rhythm at a rate of 81 beats per minute. [place] is normal. MI interval is 170 ms, QRS duration is 97 ms, QTc is 432 ms.. Frequent PVCs present. There were no acute ST or T wave abnormalities to suggest myocardial ischemia or injury. R wave progression across the precordium was satisfactory. By my interpretation this EKG is non-diagnostic for acute ischemia. Disposition Clinical Impression: Small bowel obstruction, Dehydration, Nausea and vomiting Disposition: ADMITTED IP TO THIS HOSP Condition: Stable Time of Disposition: 02:56
--- NOTE | 2023-03-15 02:18 | CT ---
EXAM: CT Abdomen and Pelvis With Intravenous Contrast CLINICAL HISTORY: ITS.REASON CT Reason: abdominal pain TECHNIQUE: Axial computed tomography images of the abdomen and pelvis with intravenous contrast. CTDI is 18.6 mGy and DLP is 842.1 mGy-cm. This CT exam was performed using one or more of the following dose reduction techniques: automated exposure control, adjustment of the mA and/or kV according to patient size, and/or use of iterative reconstruction technique. COMPARISON: 05/15/2022 FINDINGS: ABDOMEN: Liver: Unremarkable. Gallbladder and bile ducts: Unremarkable. Pancreas: Unremarkable. Spleen: Unremarkable. Adrenals: Unremarkable. Kidneys and ureters: No hydronephrosis. Stomach and bowel: Prior bowel surgery. Dilated small bowel loops with transition point in the right abdomen. Colonic diverticulosis. PELVIS: Appendix: No evidence of appendicitis. Bladder: Unremarkable. Reproductive: Enlarged. ABDOMEN and PELVIS: Intraperitoneal space: Moderate ascites. Bones/joints: No acute fractures. Soft tissues: Unremarkable. Vasculature: No abdominal aortic aneurysm. Lymph nodes: No enlarged lymph nodes. IMPRESSION: Small bowel obstruction. Moderate ascites. Large prostate gland.
--- NOTE | 2023-03-15 02:18 | XR ---
EXAM: XR Chest, 1 View CLINICAL HISTORY: ITS.REASON XR Reason: abdominal pain TECHNIQUE: Frontal view of the chest. COMPARISON: No relevant prior studies available. FINDINGS: Lungs: No consolidation or mass. Pleural space: No acute findings Heart: No cardiomegaly. Bones/joints: No acute findings. IMPRESSION: No acute cardiopulmonary process.
[2023-03-15] MEDS: PIPERACILLIN-TAZOBACTAM 3.375 GM in SODIUM CHLORIDE 0.9% 100 ML IVPB SCH ×3 (03:04→20:46)
[2023-03-15] MEDS: POTASSIUM CHLORIDE 10 MEQ in WATER FOR INJECTION 1 100ML.BAG IVPB SCH ×3 (03:04→06:09)
[2023-03-15] MEDS ORDERED: ONDANSETRON 4 MG/2 ML VIAL IVP PRN (03:15)
[2023-03-15] MEDS ORDERED: SODIUM CHLORIDE 0.9% 1,000 ML IV SCH (03:15)
[2023-03-15] MEDS ORDERED: MORPHINE SULFATE 4 MG/ML SYRINGE IV PRN (03:15)
[2023-03-15] MEDS ORDERED: NALOXONE 0.4 MG/ML 1 ML VIAL IV PRN (03:15)
[2023-03-15] MEDS ORDERED: METOCLOPRAMIDE 5 MG/ML 2 ML VIAL IVP STA (04:11)
--- NOTE | 2023-03-15 04:57 | XR ---
EXAM: XR Chest, 1 View CLINICAL HISTORY: ITS.REASON XR Reason: ngt placement confirmation TECHNIQUE: Frontal view of the chest. COMPARISON: No relevant prior studies available. IMPRESSION: NGT terminates in the mid esophagus. Recommend advancing 10-15 cm.
[2023-03-15] MEDS ORDERED: cloNIDine 0.1 MG/24HR PATCH TRANSDERM SCH (07:00)
[2023-03-15] MEDS: ALBUTEROL NEBULIZED 2.5 MG/3 ML INHALATION SCH ×4 (08:02→14:25)
[2023-03-15] MEDS: diazePAM 5 MG TAB NG-TUBE SCH ×3 (08:20→22:05)
[2023-03-15] MEDS ORDERED: AMIODARONE 200 MG TAB PO SCH (09:00)
[2023-03-15] MEDS ORDERED: lisinopriL 20 MG TAB PO SCH (09:00)
--- NOTE | 2023-03-15 09:28 | P.GSHP ---
History of Present Illness H&P Date: 03/15/23 Chief Complaint: Abdominal pain distention This a 67-year-old male with previous history of exploratory laparotomy for traumatic diaphragmatic hernia. Patient has developed pain nausea. His imaging is suggestive of small bowel obstruction. Patient had a nasogastric tube placed last night. However the patient removed it this morning, and was irritating his throat. Patient has a drinking history. Past Medical History Past Medical History: Atrial Fibrillation, GERD/Reflux, GI Bleed, Hyperlipidemia, Hypertension, Osteoarthritis (OA) Additional Past Medical History / Comment(s): Paroxysmal Afib, lower GI bleed, PUD, anemia, ETOH, chronic back pain, occasional numbness/tingling bilateral hands and feet, bilateral carpal tunnel syndome, 03/2020 fall with rib fractures/traumatic diaphragmatic strangulated hernia with surgery and L pneumothorax with chest tube. History of Any Multi-Drug Resistant Organisms: None Reported Past Surgical History: Appendectomy, Bowel Resection, Heart Catheterization, Hernia Repair, Orthopedic Surgery Additional Past Surgical History / Comment(s): 03/2020 small bowel resection and repair of diaghragmatic hernia d/t injury, 05/2020 exploratory laparotomy with small bowel resection/lysis of adhesions, L inguinal hernia repair, incisional hernia repair, EGD, colonoscopy/polypectomy, L shoulder surgery x2 d/t muscle tears, R shoulder rotator cuff repair, L ankle surgery, forehead laceration rep air, Past Anesthesia/Blood Transfusion Reactions: No Reported Reaction Additional Past Anesthesia/Blood Transfusion Reaction / Comment(s): Pt has rece ived blood in past without reaction. Past Psychological History: No Psychological Hx Reported Smoking Status: Current every day smoker Past Alcohol Use History: Abuse, Daily, Heavy Past Drug Use History: None Reported - Past Family History Father History Unknown: Yes Mother Family Medical History: Liver Disease Additional Family Medical History / Comment(s): Mother of liver failure related to ETOH Medications and Allergies Home Medications Medication Instructions Recorded Confirmed Type Multivitamins, Thera [Multivitamin 1 tab PO DAILY 03/22/20 05/15/22 History (formulary)] lisinopriL [Zestril] 20 mg PO DAILY 10/31/20 05/15/22 History Amiodarone [Cordarone] 100 mg PO DAILY 02/25/22 05/15/22 History Albuterol Sulfate [Albuterol 1 puff PO Q4-6H #8.5 gm 05/20/22 Rx Sulfate Hfa] Beclomethasone Dipropionate [Qvar 1 puff INHALATION BID #1 each 05/20/22 Rx 40 mcg Redihaler] Nicotine 21Mg/24Hr Patch [Habitrol] 1 patch TRANSDERM DAILY #14 patch 05/20/22 Rx Omeprazole [PriLOSEC] 20 mg PO BID #60 cap 05/20/22 Rx Thiamine [Vitamin B-1] 100 mg PO BID-W/MEALS #30 tab 05/20/22 Rx Allergies Allergy/AdvReac Type Severity Reaction Status Date / Time No Known Allergies Allergy Verified 03/15/23 00:20 Surgical - Exam Vital Signs Temp Pulse Resp BP Pulse Ox 96.9 F L 45 L 48 H 207/152 97 03/15/23 00:20 03/15/23 00:20 03/15/23 00:20 03/15/23 00:20 03/15/23 00:20 - General well developed, well nourished, no distress - Eyes PERRL - ENT normal pinna - Neck no masses - Respiratory normal expansion - Cardiovascular Rhythm: regular - Abdomen Distended Abdomen: soft Results - Labs 03/15/23 00:45 03/15/23 00:45 Abnormal Lab Results - Last 24 Hours (Table) 03/15/23 03/15/23 03/15/23 Range/Units 00:45 00:45 00:45 Hgb 12.5 L (13.0-17.5) gm/dL Hct 38.6 L (39.0-53.0) % Sodium 127 L (137-145) mmol/L Potassium 3.3 L (3.5-5.1) mmol/L Chloride 89 L (98-107) mmol/L Creatinine 0.58 L (0.66-1.25) mg/dL Glucose 120 H (74-99) mg/dL Plasma Lactic Acid Carlos 3.5 H* (0.7-2.0) mmol/L 03/15/23 Range/Units 04:38 Hgb (13.0-17.5) gm/dL Hct (39.0-53.0) % Sodium (137-145) mmol/L Potassium (3.5-5.1) mmol/L Chloride (98-107) mmol/L Creatinine (0.66-1.25) mg/dL Glucose (74-99) mg/dL Plasma Lactic Acid Carlos 3.1 H* (0.7-2.0) mmol/L Diabetes panel 03/15/23 Range/Units 00:45 Sodium 127 L (137-145) mmol/L Potassium 3.3 L (3.5-5.1) mmol/L Chloride 89 L (98-107) mmol/L Carbon Dioxide 23 (22-30) mmol/L BUN 10 (9-20) mg/dL Creatinine 0.58 L (0.66-1.25) mg/dL Glucose 120 H (74-99) mg/dL Calcium 9.5 (8.4-10.2) mg/dL AST 37 (17-59) U/L ALT 15 (4-49) U/L Alkaline Phosphatase 61 (38-126) U/L Total Protein 7.4 (6.3-8.2) g/dL Albumin 4.4 (3.5-5.0) g/dL Calcium panel 03/15/23 Range/Units 00:45 Calcium 9.5 (8.4-10.2) mg/dL Albumin 4.4 (3.5-5.0) g/dL Pituitary panel 03/15/23 Range/Units 00:45 Sodium 127 L (137-145) mmol/L Potassium 3.3 L (3.5-5.1) mmol/L Chloride 89 L (98-107) mmol/L Carbon Dioxide 23 (22-30) mmol/L BUN 10 (9-20) mg/dL Creatinine 0.58 L (0.66-1.25) mg/dL Glucose 120 H (74-99) mg/dL Calcium 9.5 (8.4-10.2) mg/dL Adrenal panel 03/15/23 Range/Units 00:45 Sodium 127 L (137-145) mmol/L Potassium 3.3 L (3.5-5.1) mmol/L Chloride 89 L (98-107) mmol/L Carbon Dioxide 23 (22-30) mmol/L BUN 10 (9-20) mg/dL Creatinine 0.58 L (0.66-1.25) mg/dL Glucose 120 H (74-99) mg/dL Calcium 9.5 (8.4-10.2) mg/dL Total Bilirubin 0.5 (0.2-1.3) mg/dL AST 37 (17-59) U/L ALT 15 (4-49) U/L Alkaline Phosphatase 61 (38-126) U/L Total Protein 7.4 (6.3-8.2) g/dL Albumin 4.4 (3.5-5.0) g/dL - Imaging CT scan - abdomen: report reviewed (Small bowel obstruction with transition point right upper quadrant) Assessment and Plan Assessment: Small bowel obstruction. Patient will be medically optimized. We'll plan for exploratory laparotomy tomorrow.
[2023-03-15 13:04] LABS: Appearance,Urine Clear (Clear); Bilirubin,Urine Negative (Negative); Blood,Urine Negative (Negative); Color,Urine Yellow; Glucose,Urine (UA) Negative (Negative); Ketones,Urine Trace (Negative); Leukocyte Esterase,Urine Negative (Negative); Nitrite,Urine Negative (Negative); PH, Urine 5.5 (5.0-8.0); Protein,Urine 1+ (Negative); RBC,Urine 2 /hpf (0-5); Specific Gravity,Urine >1.050 (1.001-1.035); Urobilinogen,Urine <2.0 mg/dL (<2.0); WBC,Urine <1 /hpf (0-5)
--- NOTE | 2023-03-15 13:26 | XR ---
EXAMINATION TYPE: XR chest 1V confirm line [facility] DATE OF EXAM: 03/15/2023 COMPARISON: 03/15/2023 INDICATION: Nasogastric tube placement TECHNIQUE: Single frontal view of the chest is obtained. FINDINGS: The heart size is normal. The pulmonary vasculature is normal. The lungs are clear. Nasogastric tube is present with the tip in the left upper quadrant of the abdomen. IMPRESSION: 1. No acute pulmonary process.
[2023-03-15 18:04] LABS: Glucose,Whole Blood 182 mg/dL (70-110)
[2023-03-15] MEDS ORDERED: SODIUM CHLORIDE 0.9% 500 ML 500 ML IV ONE (18:20)
[2023-03-15] MEDS: IPRATROPIUM-ALBUTEROL 3 ML NEB INHALATION SCH (18:50)
[2023-03-15] MEDS: BUDESONIDE 1 MG/2 ML NEBU INHALATION SCH (18:53)
--- NOTE | 2023-03-15 18:54 | P.CONS ---
History of Present Illness - Reason for Consult Consult date: 03/15/23 Medical management Requesting physician: Suhas Rowe - Chief Complaint Abdominal pain - History of Present Illness This is a 67-year-old patient who follows with Dr. Michel. Chronic stable medical conditions include atrial fibrillation, GERD, hypertension . Duodenal bulb ulcer. In 2019 - small bowel resection for repair of diaphragmatic hernia. Patient presented to the ER complaining of abdominal pain. Nausea vomiting. Abdominal pain is diffuse. Had emesis multiple times with no blood in the same. No bowel movement. When I saw the patient this morning rather lethargic but can answer simple questions. Has continued to drink about half a pint a day. S mokes less than a pack a day. Tachycardic. Computed tomography scan in the ER showed small bowel obstruction. NG tube was placed. Patient was tachycardic and blood pressure is high. [place] to be from DTs. Ordered a Catapres patch and Valium. Review of systems: Difficult to open his patient somewhat lethargic. With a occasional question Past medical history to include: Atrial fibrillation, GERD, hypertension, hyperlipidemia, osteoarthritis, peptic ulcer disease, gastritis, duodenitis, alcohol use disorder, chronic low back pain, occasional numbness and tingling in the hand and feet, carpal tunnel syndrome, left pneumothorax with chest tube. Duodenal bulb ulcer Social history: . Has been smoking a pack a day since 1965. Alcohol variable amount. Family history: Mother of liver failure from alcohol Physical examination: VITAL SIGNS: Afebrile, 120, 18, 203/109, 92% room air GENERAL: BMI 24.3, laying in bed lethargic EYES: Pupils equal. Conjunctiva normal. HEENT: External appearance of nose and ears normal, oral cavity grossly normal. NECK: JVD not raised; masses not palpable. HEART: Heart sounds regular; no edema. LUNGS: Respiratory rate increased; decreased breath sounds ABDOMEN: Soft, abdominal tenderness, no guarding rigidity, liver spleen not palpable, no masses palpable. Hyperactive bowel sounds PSYCH: Lethargic but able tonsil SIMPLE QUESTIONS MUSCULOSKELETAL:No Clubbing/cyanosis;muscles-grossly intact NEUROLOGICAL: Cranial nerves grossly intact; no facial asymmetry, moving all 4 limbs LYMPHATICS: No lymph nodes palpable in the axilla and neck INVESTIGATIONS, reviewed in the clinical context: White count 7 hemoglobin 12.5 platelets 2727 potassium 3.3 creatinine 0.58 Lactic acid 3.5, 3.1 Troponin I 0.034, 0.029 Serum alcohol 127 EKG tracing personally reviewed by me-normal sinus rhythm, PVC Chest x-ray film personally reviewed by me-no obvious infiltrate CT abdomen pelvis: Small bowel obstruction. Moderate ascites. Large prostate gland Assessment and plan: -Acute small bowel obstruction in a patient with known prior abdominal surgery. Likely from underlying fibrous bands. NG tube to suction. -Acute metabolic encephalopathy/delirium combination of DTs and and acute alcohol intake -Alcohol use disorder Alcohol intake variable. Alcohol level on presentation 157 -Acute delirium tremens with alcohol withdrawal. Valium 5 mg 3 times a day. CIWA scale. Patient's tachycardic and have blood pressure. Catapres patch also added. Follow vital signs closely -Chronic nicotine dependence, cigarette smoker Nicotine patch -COPD in a current smoker DuoNeb -Peptic ulcer disease with known duodenal ulcer PPI -Essential hypertension, currently uncontrolled from alcohol withdrawal Zestril 20 mg a, Catapres patch -Paroxysmal atrial fibrillation Amiodarone 100 mg a day. 922 admission because of duodenal ulcer bleed pre viously -Hyponatremia from decreased solute intake IV fluids Thank you Dr. Rowe Past Medical History Past Medical History: Atrial Fibrillation, GERD/Reflux, GI Bleed, Hyperlipidemia, Hypertension, Osteoarthritis (OA) Additional Past Medical History / Comment(s): Paroxysmal Afib, lower GI bleed, PUD, anemia, ETOH, chronic back pain, occasional numbness/tingling bilateral hands and feet, bilateral carpal tunnel syndome, 03/2020 fall with rib fractures/traumatic diaphragmatic strangulated hernia with surgery and L pneumothorax with chest tube. History of Any Multi-Drug Resistant Organisms: None Reported Past Surgical History: Appendectomy, Bowel Resection, Heart Catheterization, Hernia Repair, Orthopedic Surgery Additional Past Surgical History / Comment(s): 03/2020 small bowel resection and repair of diaghragmatic hernia d/t injury, 05/2020 exploratory laparotomy with small bowel resection/lysis of adhesions, L inguinal hernia repair, incisional hernia repair, EGD, colonoscopy/polypectomy, L shoulder surgery x2 d/t muscle tears, R shoulder rotator cuff repair, L ankle surgery, forehead laceration repair, Past Anesthesia/Blood Transfusion Reactions: No Reported Reaction Additional Past Anesthesia/Blood Transfusion Reaction / Comm: Pt has received blood in past without reaction. Past Psychological History: No Psychological Hx Reported Smoking Status: Current every day smoker Past Alcohol Use History: Abuse, Daily, Heavy Past Drug Use History: None Reported - Past Family History Father History Unknown: Yes Mother Family Medical History: Liver Disease Additional Family Medical History / Comment(s): Mother of liver failure related to ETOH Medications and Allergies Home Medications Medication Instructions Recorded Confirmed Type Multivitamins, Thera [Multivitamin 1 tab PO DAILY 03/22/20 03/15/23 History (formulary)] lisinopriL [Zestril] 20 mg PO DAILY 10/31/20 03/15/23 History Amiodarone [Cordarone] 100 mg PO DAILY 02/25/22 03/15/23 History Omeprazole [PriLOSEC] 20 mg PO BID #60 cap 05/20/22 03/15/23 Rx Allergies Allergy/AdvReac Type Severity Reaction Status Date / Time No Known Allergies Allergy Verified 03/15/23 11:45 Physical Exam Vitals: Vital Signs Temp Pulse Resp BP Pulse Ox 03/15/23 09:00 104 H 18 171/117 95 03/15/23 08:29 120 H 18 203/109 92 L 03/15/23 08:12 88 18 03/15/23 08:05 84 16 03/15/23 07:32 109 H 24 196/104 98 03/15/23 05:00 92 20 161/92 96 03/15/23 01:23 83 30 H 155/102 100 03/15/23 00:20 96.9 F L 45 L 48 H 207/152 97 Intake and Output 03/14/23 03/15/23 03/15/23 22:59 06:59 14:59 Other: Weight 70.307 kg Results CBC & Chem 7: 03/15/23 00:45 03/15/23 00:45 Labs: Abnormal Lab Results - Last 24 Hours (Table) 03/15/23 03/15/23 03/15/23 Range/Units 00:45 00:45 00:45 Hgb 12.5 L (13.0-17.5) gm/dL Hct 38.6 L (39.0-53.0) % Sodium 127 L (137-145) mmol/L Potassium 3.3 L (3.5-5.1) mmol/L Chloride 89 L (98-107) mmol/L Creatinine 0.58 L (0.66-1.25) mg/dL Glucose 120 H (74-99) mg/dL Plasma Lactic Acid Carlos 3.5 H* (0.7-2.0) mmol/L 03/15/23 Range/Units 04:38 Hgb (13.0-17.5) gm/dL Hct (39.0-53.0) % Sodium (137-145) mmol/L Potassium (3.5-5.1) mmol/L Chloride (98-107) mmol/L Creatinine (0.66-1.25) mg/dL Glucose (74-99) mg/dL Plasma Lactic Acid Carlos 3.1 H* (0.7-2.0) mmol/L
[2023-03-15] MEDS: methylPREDNISolone SOD SUCCI 40 MG/ML 1 ML VIAL IV SCH (18:55)
[2023-03-15] MEDS ORDERED: MIDODRINE 5 MG TAB PO SCH (18:55)
--- NOTE | 2023-03-15 19:11 | XR ---
EXAMINATION TYPE: XR chest 1V DATE OF EXAM: 03/15/2023 HISTORY: Shortness of breath. COMPARISON: 03/15/2023 TECHNIQUE: Single view of the chest is submitted. FINDINGS: Demonstrated are scattered senescent parenchymal change. There is no evidence for focal infiltrate. NG tube seen coursing into the stomach. Suspect basilar at electatic changes. The heart is stable. Hilar and mediastinal structures are within normal limits. Degenerative changes are seen of the dorsal spine. IMPRESSION: 1. Chronic changes without evidence for acute pulmonary disease.
[2023-03-15] MEDS ORDERED: NOREPINEPHRINE 4 MG in SODIUM CHLORIDE 0.9% 250 ML IV ONE (19:28)
[2023-03-15 20:26] LABS: Glucose,Whole Blood 139 mg/dL (70-110)
[2023-03-15] MEDS ORDERED: ETOMIDATE 2 MG/ML 10 ML VIAL IVP STA (20:38)
--- NOTE | 2023-03-15 20:53 | CT ---
EXAMINATION TYPE: CT abdomen pelvis wo con DATE OF EXAM: 03/15/2023 COMPARISON: 03/15/2023 HISTORY: r/o perforation of bowel CT DLP: 600.6 mGycm Examination of the solid and hollow viscera is limited given the lack of contrast. FINDINGS: LUNG BASES: No evidence for nodule. No evidence for infiltrate. LIVER/GB: The gallbladder is unremarkable. No space-occupying hepatic lesion. PANCREAS: No pancreatic mass identified. No inflammatory process seen. SPLEEN: No evidence for splenomegaly. No intrasplenic lesions seen. ADRENALS: No adrenal nodules identified. No evidence for thickening. KIDNEYS: No evidence for renal mass. No nephrolithiasis. No hydronephrosis. Large urinary bladder rios culus. Calculus measures 1.7 cm. BOWEL: NG tube is seen coursing into the stomach. There is progressive dilatation of small bowel jose uring up to 4.2 cm with air-fluid levels seen extending to distal enterocolonic anastomosis. Large catalina wel is collapsed. Findings are compatible with distal small bowel obstruction. There is edema of the small bowel mesentery. I do not see evidence for perforated viscus, abscess or free air. Again noted is small amount of ascites within the upper abdomen as well as small moderate ascites within the pelv is. Lymph nodes: No evidence for adenopathy greater than 1 cm. Abdominal aorta: Atheromatous changes seen. No evidence for aneurysm. Genital organs: No significant abnormality. Other: No significant abnormality. IMPRESSION: 1. Progressive distal small bowel obstruction. No evidence of perforated viscus. Edema of the small b owel mesentery. Ascites
[2023-03-15 21:11] LABS: ABG Base Excess -11.8 mmol/L; ABG HCO3 16 mmol/L (21-25); ABG Oxygen Saturation 98.8 % (94-97); ABG PCO2 38 mmHg (35-45); ABG PH 7.23 (7.35-7.45); ABG PO2 >400 mmHg (83-108); ABG TCO2 17 mmol/L (19-24); Allen Test Performed? Yes
[2023-03-15 21:20] LABS: Hypochromasia Moderate; MCH 29.4 pg (25.0-35.0); MCHC 30.9 g/dL (31.0-37.0); Mean Platelet Volume 8.2; Platelet Count 242 k/uL (150-450); RDW 13.8 % (11.5-15.5); WBC 7.3 k/uL (3.8-10.6)
[2023-03-15] MEDS ORDERED: MIDAZOLAM 1 MG/ML 5 ML VIAL IV STA ×2 (21:26→22:04)
[2023-03-15 21:29] LABS: MCV 95.2 fL (80.0-100.0)
[2023-03-15] MEDS: LACTATED RINGERS 2,000 ML IV SCH ×2 (21:40→22:32)
[2023-03-15 21:59] LABS: Albumin 3.5 g/dL (3.5-5.0); Calcium 8.6 mg/dL (8.4-10.2); Magnesium 1.9 mg/dL (1.6-2.3); Potassium 4.2 mmol/L (3.5-5.1); Total Protein 6.1 g/dL (6.3-8.2)
[2023-03-15] MEDS: NOREPINEPHRINE 32 MG in SODIUM CHLORIDE 0.9% 218 ML IV ONE ×2 (22:04→22:33)
[2023-03-15] MEDS ORDERED: SODIUM CHLORIDE 0.9% 1,000 ML IV ONE (22:06)
--- NOTE | 2023-03-15 22:06 | XR ---
EXAMINATION TYPE: XR chest 1V portable DATE OF EXAM: 03/15/2023 HISTORY: Shortness of breath. COMPARISON: 03/15/2023 TECHNIQUE: Single view of the chest is submitted. FINDINGS: Demonstrated are scattered senescent parenchymal change. Endotracheal tube is noted to be in place w ith the so distal tip 3.2 cm from the teo. Right IJ central venous line is noted with its distal t ip overlying the SVC. No evidence for pneumothorax. NG tube is seen coursing into the stomach. There is no evidence for focal infiltrate. Basilar atelectasis redemonstrated. The heart is stable. Hilar and mediastinal structures are within normal limits. Degenerative changes are seen of the dorsal spine. IMPRESSION: 1. Chronic changes without evidence for acute pulmonary disease.
[2023-03-15] MEDS ORDERED: SODIUM BICARB 8.4% 50 ML SYR (1 MEQ/ML) ONE (22:10)
[2023-03-15] MEDS ORDERED: VASOPRESSIN 60 UNIT in SODIUM CHLORIDE 0.9% 150 ML IV SCH (22:15)
[2023-03-15] MEDS ORDERED: SODIUM BICARB 8.4% 50 ML SYR (1 MEQ/ML) IV STA ×2 (22:21→22:22)
--- NOTE | 2023-03-15 22:26 | ED ---
Altered Mental Status HPI - General Chief Complaint: Abdominal Pain Stated Complaint: ABD PAIN Time Seen by Provider: 03/15/23 00:32 Source: patient, family, RN notes reviewed, old records reviewed Mode of arrival: wheelchair Limitations: no limitations - History of Present Illness Initial Comments: 67 male who is been holding in the emergency department was getting computed tomography scan when he became unresponsive, I presented the patient's bedside finding the patient unresponsive hypoxic with a very low respiratory rate. Low blood pressure. We did bring patient to trauma suite at that time where he was intubated and given the central line and began right re-resuscitation MD Complaint: altered mental status, confusion, decreased responsiveness, weakness -: unknown Severity: severe Consistency of Symptoms: getting worse, constant Context: alcohol abuse Associated Symptoms: denies other symptoms (Patient unable to give history secondary to altered mental state) Treatments Prior to Arrival: IV fluid, oxygen - Related Data Home Medications Medication Instructions Recorded Confirmed Multivitamins, Thera [Multivitamin 1 tab PO DAILY 03/22/20 03/15/23 (formulary)] lisinopriL [Zestril] 20 mg PO DAILY 10/31/20 03/15/23 Amiodarone [Cordarone] 100 mg PO DAILY 02/25/22 03/15/23 Previous Rx's Medication Instructions Recorded Omeprazole [PriLOSEC] 20 mg PO BID #60 cap 05/20/22 Allergies Allergy/AdvReac Type Severity Reaction Status Date / Time No Known Allergies Allergy Verified 03/15/23 11:45 Review of Systems ROS Statement: Those systems with pertinent positive or pertinent negative responses have been documented in the HPI. ROS Other: All systems not noted in ROS Statement are negative. Past Medical History Past Medical History: Atrial Fibrillation, GERD/Reflux, GI Bleed, Hyperlipidemia, Hypertension, Osteoarthritis (OA) Additional Past Medical History / Comment(s): Paroxysmal Afib, lower GI bleed, PUD, anemia, ETOH, chronic back pain, occasional numbness/tingling bilateral hands and feet, bilateral carpal tunnel syndome, 03/2020 fall with rib fractures/traumatic diaphragmatic strangulated hernia with surgery and L pneumothorax with chest tube. History of Any Multi-Drug Resistant Organisms: None Reported Past Surgical History: Appendectomy, Bowel Resection, Heart Catheterization, Hernia Repair, Orthopedic Surgery Additional Past Surgical History / Comment(s): 03/2020 small bowel resection and repair of diaghragmatic hernia d/t injury, 05/2020 exploratory laparotomy with small bowel resection/lysis of adhesions, L inguinal hernia repair, incisional hernia repair, EGD, colonoscopy/polypectomy, L shoulder surgery x2 d/t muscle tears, R shoulder rotator cuff repair, L ankle surgery, forehead laceration repair, Past Anesthesia/Blood Transfusion Reactions: No Reported Reaction Additional Past Anesthesia/Blood Transfusion Reaction / Comment(s): Pt has received blood in past without reaction. Past Psychological History: No Psychological Hx Reported Smoking Status: Current every day smoker Past Alcohol Use History: Abuse, Daily, Heavy Past Drug Use History: None Reported - Past Family History Father History Unknown: Yes Mother Family Medical History: Liver Disease Additional Family Medical History / Comment(s): Mother of liver failure related to ETOH General Exam Limitations: no limitations, altered mental status, physical limitation General appearance: lethargic, obtunded, in distress Head exam: Present: atraumatic, normocephalic, normal inspection Eye exam: Present: normal appearance, PERRL, EOMI. Absent: scleral icterus, conjunctival injection, periorbital swelling ENT exam: Present: normal exam, mucous membranes moist Neck exam: Present: normal inspection. Absent: tenderness, meningismus, lymphadenopathy Respiratory exam: Present: normal lung sounds bilaterally. Absent: respiratory distress, wheezes, rales, rhonchi, stridor Cardiovascular Exam: Present: regular rate, normal rhythm, normal heart sounds. Absent: systolic murmur, diastolic murmur, rubs, gallop, clicks GI/Abdominal exam: Present: soft, normal bowel sounds. Absent: distended, tenderness, guarding, rebound, rigid Extremities exam: Present: normal inspection, full ROM, normal capillary refill. Absent: tenderness, pedal edema, joint swelling, calf tenderness Back exam: Present: normal inspection Neurological exam: Present: alert, oriented X3, CN II-XII intact Psychiatric exam: Present: normal affect, normal mood Skin exam: Present: warm, dry, intact, normal color. Absent: rash Course Vital Signs 03/15/23 03/15/23 03/15/23 00:20 01:23 05:00 Temperature 96.9 F L Pulse Rate 45 L 83 92 Respiratory 48 H 30 H 20 Rate Blood Pressure 207/152 155/102 161/92 O2 Sat by Pulse 97 100 96 Oximetry Fraction of Inspired Oxygen (FIO2) 03/15/23 03/15/23 03/15/23 07:32 08:05 08:12 Temperature Pulse Rate 109 H 84 88 Respiratory 24 16 18 Rate Blood Pressure 196/104 O2 Sat by Pulse 98 Oximetry Fraction of Inspired Oxygen (FIO2) 03/15/23 03/15/23 03/15/23 08:29 09:00 11:01 Temperature Pulse Rate 120 H 104 H 100 Respiratory 18 18 18 Rate Blood Pressure 203/109 171/117 O2 Sat by Pulse 92 L 95 Oximetry Fraction of Inspired Oxygen (FIO2) 03/15/23 03/15/23 03/15/23 11:11 11:34 15:00 Temperature Pulse Rate 100 89 98 Respiratory 18 20 20 Rate Blood Pressure 158/99 94/64 O2 Sat by Pulse 94 L 94 L Oximetry Fraction of Inspired Oxygen (FIO2) 03/15/23 03/15/23 03/15/23 16:00 17:30 18:20 Temperature 93.6 F L 96.8 F L Pulse Rate 97 92 92 Respiratory 16 22 30 H Rate Blood Pressure 91/65 62/43 82/40 O2 Sat by Pulse 96 92 L Oximetry Fraction of Inspired Oxygen (FIO2) 03/15/23 03/15/23 03/15/23 18:52 19:01 19:22 Temperature Pulse Rate 86 85 91 Respiratory 20 20 26 H Rate Blood Pressure 61/32 O2 Sat by Pulse 94 L Oximetry Fraction of Inspired Oxygen (FIO2) 03/15/23 03/15/23 03/15/23 19:49 20:30 20:48 Temperature 96.2 F L Pulse Rate 103 H 105 H Respiratory 28 H 16 Rate Blood Pressure 91/56 90/62 O2 Sat by Pulse 93 L Oximetry Fraction of 100 Inspired Oxygen (FIO2) 03/15/23 03/15/23 03/15/23 20:50 21:00 21:52 Temperature Pulse Rate 105 H 112 H Respiratory 16 16 Rate Blood Pressure 87/71 100/72 O2 Sat by Pulse Oximetry Fraction of 50 Inspired Oxygen (FIO2) - Reevaluation(s) Reevaluation #1: 03/15/23 22:27 Medical record is reviewed 03/15/23 22:27 Patient's visit history in the ER notes have been reviewed - Consultations Consultation #1: Spoke with Dr. Phillips regarding patient, he is aware of change in condition Consultation #2: Spoke with Dr. Rowe who is also aware of patient's changes Consultation #3: Spoke with Dr. Dickson Procedures - Central Line Placement Right IJ Consent Obtained: emergent situation Patient Placed on Monitor/Pulse Ox: Yes MD Prep: mask, gown, gloves Central Line Prep: Povidone-Iodine 1%, Chlorhexidine scrub Local Anesthesia Used: Lidocaine 1% Ultrasound Used for Placement: Yes Central Line Lumen Inserted: triple Central Line Position: good blood return, all ports aspirated, flushed, capped, sutured in place with 2-0 silk Dressing Applied: Tegaderm Post Procedure X-Ray: tip of catheter in good position Patient Tolerated Procedure: well Complications: none - Intubation Sedative: Etomidate Laryngoscope: Aditya ET Tube Size: 7.5 ET Tube Uncuffed: No Tube Secured Location: teeth Tube Placement Confirmation: visualized tube passing through cords, equal breath sounds bilaterally, no breath sounds over epigastrium, confirmation by capnometry Patient Tolerated Procedure: well Intubation Complications: none Medical Decision Making - Medical Decision Making 67 male who has been in our ER for evaluation patient to the emergency department for evaluation of small bowel obstruction change in mental status, significantly hypotensive, hypovolemic shock, septic shock. Patient has central line, intubation and will be continued to transfer for ICU - Lab Data Result diagrams: 03/15/23 20:54 03/15/23 00:45 Lab Results 03/15/23 03/15/23 03/15/23 Range/Units 00:45 00:45 00:45 WBC 7.0 (3.8-10.6) k/uL RBC 4.32 (4.30-5.90) m/uL Hgb 12.5 L (13.0-17.5) gm/dL Hct 38.6 L (39.0-53.0) % MCV 89.5 (80.0-100.0) fL MCH 28.9 (25.0-35.0) pg MCHC 32.3 (31.0-37.0) g/dL RDW 13.9 (11.5-15.5) % Plt Count 280 (150-450) k/uL MPV 7.1 Neutrophils % 75 % Lymphocytes % 15 % Monocytes % 6 % Eosinophils % 1 % Basophils % 0 % Neutrophils # 5.3 (1.3-7.7) k/uL Lymphocytes # 1.1 (1.0-4.8) k/uL Monocytes # 0.4 (0-1.0) k/uL Eosinophils # 0.0 (0-0.7) k/uL Basophils # 0.0 (0-0.2) k/uL PT 9.9 (9.0-12.0) sec INR 0.9 (<1.2) APTT 23.6 (22.0-30.0) sec Sodium 127 L (137-145) mmol/L Potassium 3.3 L (3.5-5.1) mmol/L Chloride 89 L (98-107) mmol/L Carbon Dioxide 23 (22-30) mmol/L Anion Gap 15 mmol/L BUN 10 (9-20) mg/dL Creatinine 0.58 L (0.66-1.25) mg/dL Est GFR (CKD-EPI)AfAm >90 (>60 ml/min/1.73 sqM) Est GFR (CKD-EPI)NonAf >90 (>60 ml/min/1.73 sqM) Glucose 120 H (74-99) mg/dL Lactic Ac Sepsis Rflx Plasma Lactic Acid Carlos (0.7-2.0) mmol/L Calcium 9.5 (8.4-10.2) mg/dL Total Bilirubin 0.5 (0.2-1.3) mg/dL AST 37 (17-59) U/L ALT 15 (4-49) U/L Alkaline Phosphatase 61 (38-126) U/L Troponin I (0.000-0.034) ng/mL Total Protein 7.4 (6.3-8.2) g/dL Albumin 4.4 (3.5-5.0) g/dL Amylase 50 (30-110) U/L Lipase 119 (23-300) U/L Serum Alcohol 127 mg/dL Blood Type Blood Type Recheck Bld Type Recheck Status Antibody Screen Spec Expiration Date 03/15/23 03/15/23 03/15/23 Range/Units 00:45 00:45 01:00 WBC (3.8-10.6) k/uL RBC (4.30-5.90) m/uL Hgb (13.0-17.5) gm/dL Hct (39.0-53.0) % MCV (80.0-100.0) fL MCH (25.0-35.0) pg MCHC (31.0-37.0) g/dL RDW (11.5-15.5) % Plt Count (150-450) k/uL MPV Neutrophils % % Lymphocytes % % Monocytes % % Eosinophils % % Basophils % % Neutrophils # (1.3-7.7) k/uL Lymphocytes # (1.0-4.8) k/uL Monocytes # (0-1.0) k/uL Eosinophils # (0-0.7) k/uL Basophils # (0-0.2) k/uL PT (9.0-12.0) sec INR (<1.2) APTT (22.0-30.0) sec Sodium (137-145) mmol/L Potassium (3.5-5.1) mmol/L Chloride (98-107) mmol/L Carbon Dioxide (22-30) mmol/L Anion Gap mmol/L BUN (9-20) mg/dL Creatinine (0.66-1.25) mg/dL Est GFR (CKD-EPI)AfAm (>60 ml/min/1.73 sqM) Est GFR (CKD-EPI)NonAf (>60 ml/min/1.73 sqM) Glucose (74-99) mg/dL Lactic Ac Sepsis Rflx Plasma Lactic Acid Carlos 3.5 H* (0.7-2.0) mmol/L Calcium (8.4-10.2) mg/dL Total Bilirubin (0.2-1.3) mg/dL AST (17-59) U/L ALT (4-49) U/L Alkaline Phosphatase (38-126) U/L Troponin I 0.034 (0.000-0.034) ng/mL Total Protein (6.3-8.2) g/dL Albumin (3.5-5.0) g/dL Amylase (30-110) U/L Lipase (23-300) U/L Serum Alcohol mg/dL Blood Type O Negative Blood Type Recheck O Neg Bld Type Recheck Status No Antibody Screen NEGATIVE Spec Expiration Date 03/18/2023229903/15/23 Range/Units 01:31 WBC (3.8-10.6) k/uL RBC (4.30-5.90) m/uL Hgb (13.0-17.5) gm/dL Hct (39.0-53.0) % MCV (80.0-100.0) fL MCH (25.0-35.0) pg MCHC (31.0-37.0) g/dL RDW (11.5-15.5) % Plt Count (150-450) k/uL MPV Neutrophils % % Lymphocytes % % Monocytes % % Eosinophils % % Basophils % % Neutrophils # (1.3-7.7) k/uL Lymphocytes # (1.0-4.8) k/uL Monocytes # (0-1.0) k/uL Eosinophils # (0-0.7) k/uL Basophils # (0-0.2) k/uL PT (9.0-12.0) sec INR (<1.2) APTT (22.0-30.0) sec Sodium (137-145) mmol/L Potassium (3.5-5.1) mmol/L Chloride (98-107) mmol/L Carbon Dioxide (22-30) mmol/L Anion Gap mmol/L BUN (9-20) mg/dL Creatinine (0.66-1.25) mg/dL Est GFR (CKD-EPI)AfAm (>60 ml/min/1.73 sqM) Est GFR (CKD-EPI)NonAf (>60 ml/min/1.73 sqM) Glucose (74-99) mg/dL Lactic Ac Sepsis Rflx Y Plasma Lactic Acid Carlos (0.7-2.0) mmol/L Calcium (8.4-10.2) mg/dL Total Bilirubin (0.2-1.3) mg/dL AST (17-59) U/L ALT (4-49) U/L Alkaline Phosphatase (38-126) U/L Troponin I (0.000-0.034) ng/mL Total Protein (6.3-8.2) g/dL Albumin (3.5-5.0) g/dL Amylase (30-110) U/L Lipase (23-300) U/L Serum Alcohol mg/dL Blood Type Blood Type Recheck Bld Type Recheck Status Antibody Screen Spec Expiration Date - Radiology Data Radiology results: report reviewed (Chest x-ray shows positive ET tube, positive central line), image reviewed Critical Care Time Critical Care Time: Yes Total Critical Care Time: 65 Disposition Clinical Impression: Small bowel obstruction, Dehydration, Nausea and vomiting, Hypovolemic shock, Septic shock, Abdominal pain, Altered mental status, Acute respiratory failure Disposition: ADMITTED IP TO THIS [facility] Condition: Critical Is patient prescribed a controlled substance at d/c from ED?: No
[2023-03-15 22:28] LABS: Glucose,Whole Blood 101 mg/dL (70-110)
[2023-03-15] MEDS ORDERED: SODIUM CHLORIDE 0.9% 2,000 ML IV ONE (22:50)
[2023-03-15] MEDS ORDERED: Magnesium Replacement Protocol 1 EACH MISC MISCELLANE PRN (22:51)
[2023-03-15 22:54] LABS: Band Neutrophils % 12 %; Lymphocytes # (M) 1.02 k/uL (1.0-4.8); Monocytes # (M) 0.15 k/uL (0-1.0); Neutrophils % (M) 72 %; Nucleated Red Blood Cells 0 /100 WBC (0-0); Total Cells Counted 100
[2023-03-15] MEDS ORDERED: MAGNESIUM SULFATE-D5W PMX 1 GM in DEXTROSE/WATER 1 100ML.BAG IVPB ONE (23:00)
[2023-03-15 23:05] LABS: Anisocytosis (M) Present; Poikilocytosis (M) Present
[2023-03-15 23:07] LABS: RBC Fragments Present
[2023-03-15] MEDS: DEXTROSE 5% IN WATER 1,000 ML with SODIUM BICARB (1 MEQ/ML) 150 ML IV SCH (23:23)
[2023-03-15 23:31] VITALS: BP 83/63
[2023-03-15 23:39] LABS: ABG Base Excess -0.9 mmol/L; ABG HCO3 24 mmol/L (21-25); ABG Oxygen Saturation 97.6 % (94-97); ABG PCO2 37 mmHg (35-45); ABG PH 7.41 (7.35-7.45); ABG PO2 91 mmHg (83-108); ABG TCO2 25 mmol/L (19-24); Allen Test Performed? Yes
[2023-03-15 23:48] LABS: Glucose,Whole Blood 147 mg/dL (70-110)
[2023-03-16] MEDS ORDERED: methylPREDNISolone SOD SUCCI 40 MG/ML 1 ML VIAL IV SCH
[2023-03-16 00:08] VITALS: RESP 28
[2023-03-16] MEDS: IPRATROPIUM-ALBUTEROL 3 ML NEB INHALATION SCH ×3 (00:13→07:49)
[2023-03-16] MEDS: methylPREDNISolone SOD SUCCI 40 MG/ML 1 ML VIAL IV SCH (01:16)
[2023-03-16 01:29] LABS: Ionized Calcium 4.5 mg/dL (4.5-5.3)
[2023-03-16 01:37] LABS: Albumin 2.3 g/dL (3.5-5.0); Calcium 6.9 mg/dL (8.4-10.2); Magnesium 1.7 mg/dL (1.6-2.3); Potassium 3.5 mmol/L (3.5-5.1); Total Bilirubin 0.7 mg/dL (0.2-1.3); Total Protein 4.4 g/dL (6.3-8.2)
[2023-03-16] MEDS ORDERED: Potassium Replacement Protocol 1 EACH MISC MISCELLANE PRN (01:45)
[2023-03-16] MEDS ORDERED: MAGNESIUM SULFATE-D5W PMX 1 GM in DEXTROSE/WATER 1 100ML.BAG IVPB ONE ×2 (01:45→06:07)
[2023-03-16] MEDS ORDERED: CALCIUM GLUCONATE IN NACL 1 GM in SALINE 1 100ML.BAG IVPB ONE (02:00)
[2023-03-16] MEDS: POTASSIUM CHLORIDE 20 MEQ in WATER FOR INJECTION 1 100ML.BAG IVPB SCH ×2 (02:05→03:59)
[2023-03-16] MEDS: PIPERACILLIN-TAZOBACTAM 3.375 GM in SODIUM CHLORIDE 0.9% 100 ML IVPB SCH (03:59)
[2023-03-16 04:03] VITALS: TEMP 98.9
[2023-03-16] MEDS: DEXTROSE 5% IN WATER 1,000 ML with SODIUM BICARB (1 MEQ/ML) 150 ML IV SCH (04:42)
[2023-03-16 05:38] LABS: Glucose,Whole Blood 194 mg/dL (70-110)
[2023-03-16 05:54] LABS: Calcium 6.8 mg/dL (8.4-10.2); Magnesium 1.9 mg/dL (1.6-2.3); Potassium 4.1 mmol/L (3.5-5.1)
[2023-03-16 06:07] VITALS: PULSE 129
[2023-03-16 06:18] LABS: ABG Base Excess 1.8 mmol/L; ABG HCO3 26 mmol/L (21-25); ABG Oxygen Saturation 96.5 % (94-97); ABG PCO2 37 mmHg (35-45); ABG PH 7.46 (7.35-7.45); ABG PO2 80 mmHg (83-108); ABG TCO2 27 mmol/L (19-24); Allen Test Performed? Yes
[2023-03-16] MEDS ORDERED: CALCIUM GLUCONATE IN NACL 2 GM in SALINE 1 100ML.BAG IVPB ONE (06:21)
[2023-03-16 06:27] LABS: HCT 27.4 % (39.0-53.0); MCH 28.9 pg (25.0-35.0); MCHC 31.8 g/dL (31.0-37.0); MCV 90.6 fL (80.0-100.0); Mean Platelet Volume 8.3; Platelet Count 170 k/uL (150-450); RBC 3.03 m/uL (4.30-5.90); RDW 14.2 % (11.5-15.5); WBC 4.4 k/uL (3.8-10.6)
[2023-03-16 06:34] LABS: HGB 8.7 gm/dL (13.0-17.5)
[2023-03-16] MEDS ORDERED: fentaNYL (PF) 50 MCG/ML 2 ML AMP ONE (06:58)
[2023-03-16] MEDS ORDERED: LIDOCAINE 2% INJ 20 MG/ML (2 ML VIAL) ONE (06:58)
[2023-03-16] MEDS ORDERED: PROPOFOL 10 MG/ML 20 ML VIAL IV ONE (06:58)
[2023-03-16] MEDS ORDERED: LACTATED RINGERS 1,000 ML IV ONE (06:58)
--- NOTE | 2023-03-16 06:58 | P.PN ---
Progress Note - Text Progress Note Date: 03/16/23 I was called by Dr. Mares, last night around 20-30. Patient had been emergently intubated by Dr. Mares after having a repeat CAT scan performed. Patient was apparently hypotensive and tachypneic. The patient had been managed by Dr. delvalle prior to this. Apparently had become progressively hypotensive over the evening. I was unaware this. Dr. Lainez protocol was first I had heard about the patient will today. The patient repeat CAT scan shows evidence of progressive small bowel obstruction. The patient will be sent to the ICU for fluid resuscitation and optimization prior to the OR. The patient is currently on pressors. He is extremely high risk for surgery.
[2023-03-16 07:26] LABS: Anisocytosis (M) Present; Band Neutrophils % 35 %; Lymphocytes # (M) 0.44 k/uL (1.0-4.8); Metamyelocytes # (M) 0.09 k/uL (0); Metamyelocytes % 2 %; Monocytes # (M) 0.09 k/uL (0-1.0); Neutrophils % (M) 52 %; Nucleated Red Blood Cells 0 /100 WBC (0-0); Total Cells Counted 200
[2023-03-16 07:27] LABS: Poikilocytosis (M) Present
--- NOTE | 2023-03-16 07:45 | P.CNPUL ---
History of Present Illness Consult date: 03/16/23 Chief complaint: small bowel obstruction History of present illness: This is a 67-year-old male patient who presented to us initially with diffuse abdominal pain along with nausea and emesis. Apparently the patient was not having any bowel movements activity. He presented yesterday to the emergency department. Initially was being managed conservatively by the medical team in general surgeon. Subsequently, the patient became hypotensive, dropped his pressure significantly and he required pressors and he became more unstable. At that point, ICU consultation was requested. Noted the patient's was also given an NG tube in the emergency department. Output from the NG was 1400 immediately after insertion. Patient appeared to have elevated NG output. The patient had a CAT scan of the abdomen that was done in emergency department and it showed ascites and evidence of small bowel obstruction. General surgery was consulted. Lactic acid level was elevated. The patient was started on fluid resuscitation. The patient was started on pressors and norepinephrine was running at a rate of 0.2 mcg/kg/m and the patient was also on physiologic dose of vasopressin. The patient was covered with IV Zosyn. The patient resuscitated aggressively with IV fluids. During the course of resuscitation, the patient received a total of 8 L of IV fluids with normal saline. He was oliguric. Urine output was extremely low and improved slightly and earlier this morning he was producing only 10 mL an hour of urine output. Noted during the course of this emergency stay, the patient had another CAT scan of the abdomen suspecting a bowel perforation as the patient's condition was progressively declining. CAT scan of the abdomen is again showed ascites and small bowel obstruction. While in the emergency, the patient became unresponsive, he had to be intubated and placed on a mechanical ventilator also. The troponin WAS also inserted in his right IJ an arterial line was inserted. The patient earlier this morning was assist control mode at the rate of 28, tidal volume of 500, FiO2 was not found to 50% and a PEEP of 5. The most recent blood work from today shows a WBC count of 4.4 with a hemoglobin of 8.7 and a platelet count of 170. Blood gases from this morning showed a pH of 7.46 with a pCO2 of 37 and pO2 of 80. Electrolytes showed a sodium of 1:30, potassium of 4.1, BUN is 20 with a creatinine of 1.5. Serum bicarb was 23. Noted the patient was medically on a bicarb infusion rate of 150 mL an hour. Lactic acid level dropped down to 2.4 and earlier this morning it was at 3.0. Calcium level was low and the patie nt was given a total of 3 g of IV calcium. LFTs were normal. He did develop significant abdominal distention with fluid resuscitation essentially related to fluids and ascites. The patient is getting ready to be removed to the operating room for exploration laparotomy. Note that he is also alcoholic. He went into delirium tremens. He was mentally on propofol postintubation at 50 mcg/kg/m. T he morning chest x-ray showed smaller volumes and development of bilateral pleural effusions. Orotracheal tube is in a good location. The patient has a right IJ triple-lumen catheter in place. His cardiac rhythm is sinus tachycardia. The patient has previous history of atrial fibrillation maintained on amiodarone. He does not take any form of anticoagulants. Review of Systems ROS unobtainable: due to endotracheal tube Past Medical History Past Medical History: Atrial Fibrillation, GERD/Reflux, GI Bleed, Hyperl ipidemia, Hypertension, Osteoarthritis (OA) Additional Past Medical History / Comment(s): Paroxysmal Afib, lower GI bleed, PUD, anemia, ETOH, chronic back pain, occasional numbness/tingling bilateral hands and feet, bilateral carpal tunnel syndome, 03/2020 fall with rib fract ures/traumatic diaphragmatic strangulated hernia with surgery and L pneumothorax with chest tube. History of Any Multi-Drug Resistant Organisms: None Reported Past Surgical History: Appendectomy, Bowel Resection, Heart Catheterization, Hernia Repair, Orthopedic Surgery Additional Past Surgical History / Comment(s): 03/2020 small bowel resection and repair of diaghragmatic hernia d/t injury, 05/2020 exploratory laparotomy with small bowel resection/lysis of adhesions, L inguinal hernia repair, incisional hernia repair, EGD, colonoscopy/polypectomy, L shoulder surgery x2 d/t muscle tears, R shoulder rotator cuff repair, L ankle surgery, forehead laceration repair, Past Anesthesia/Blood Transfusion Reactions: No Reported Reaction Additional Past Anesthesia/Blood Transfusion Reaction / Comment(s): Pt has received blood in past without reaction. Past Psychological History: No Psychological Hx Reported Smoking Status: Current every day smoker Past Alcohol Use History: Abuse, Daily, Heavy Past Drug Use History: None Reported - Past Family History Father History Unknown: Yes Mother Family Medical History: Liver Disease Additional Family Medical History / Comment(s): Mother of liver failure related to ETOH Medications and Allergies Home Medications Medication Instructions Recorded Confirmed Type Multivitamins, Thera [Multivitamin 1 tab PO DAILY 03/22/20 03/15/23 History (formulary)] lisinopriL [Zestril] 20 mg PO DAILY 10/31/20 03/15/23 History Amiodarone [Cordarone] 100 mg PO DAILY 02/25/22 03/15/23 History Omeprazole [PriLOSEC] 20 mg PO BID #60 cap 05/20/22 03/15/23 Rx Allergies Allergy/AdvReac Type Severity Reaction Status Date / Time No Known Allergies Allergy Verified 03/15/23 11:45 Physical Exam Vitals: Vital Signs Temp Pulse Resp BP Pulse Ox FiO2 03/16/23 06:00 129 H 28 H 50 03/16/23 05:45 128 H 28 H 03/16/23 05:30 129 H 28 H 03/16/23 05:15 124 H 28 H 03/16/23 05:00 116 H 28 H 50 03/16/23 04:45 123 H 28 H 03/16/23 04:30 122 H 28 H 03/16/23 04:15 123 H 28 H 03/16/23 04:12 122 H 03/16/23 04:02 50 03/16/23 04:01 117 H 03/16/23 04:00 98.9 F 120 H 28 H 50 03/16/23 03:55 50 03/16/23 03:45 123 H 28 H 03/16/23 03:30 115 H 28 H 03/16/23 03:15 115 H 28 H 03/16/23 03:00 114 H 28 H 50 03/16/23 02:45 112 H 28 H 03/16/23 02:30 117 H 28 H 03/16/23 02:15 123 H 28 H 03/16/23 02:00 128 H 28 H 50 03/16/23 01:45 125 H 28 H 03/16/23 01:30 124 H 28 H 03/16/23 01:15 118 H 28 H 03/16/23 01:00 108 H 28 H 50 03/16/23 00:45 111 H 28 H 03/16/23 00:34 105 H 05/14/23 00:30 105 H 28 H 03/16/23 00:15 96 28 H 50 03/16/23 00:14 98 03/16/23 00:00 98 F 96 28 H 50 03/15/23 23:45 93 28 H 03/15/23 23:30 98 28 H 03/15/23 23:15 96 25 H 83/63 03/15/23 23:00 95.6 F L 92 32 H 90/53 50 03/15/23 21:52 50 03/15/23 21:00 112 H 16 100/72 03/15/23 20:50 105 H 16 87/71 03/15/23 20:48 105 H 16 90/62 03/15/23 20:30 100 03/15/23 19:49 96.2 F L 103 H 28 H 91/56 93 L 03/15/23 19:22 91 26 H 61/32 94 L 03/15/23 19:01 85 20 03/15/23 18:52 86 20 03/15/23 18:20 92 30 H 82/40 92 L 03/15/23 17:30 96.8 F L 92 22 62/43 96 03/15/23 16:00 93.6 F L 97 16 91/65 03/15/23 15:00 98 20 94/64 94 L 03/15/23 11:34 89 20 158/99 94 L 03/15/23 11:11 100 18 03/15/23 11:01 100 18 03/15/23 09:00 104 H 18 171/117 95 03/15/23 08:29 120 H 18 203/109 92 L 03/15/23 08:12 88 18 03/15/23 08:05 84 16 Intake and Output 03/15/23 03/16/23 03/16/23 22:59 06:59 14:59 Intake Total 131.486 4539.968 Output Total 0 145 Balance 635.158 1187.968 Intake: IV 100 4550 Calcium Gluconate in NaCl 200 1 gm In Saline 1 100ml. bag @ 100 mls/hr IVPB ONCE ONE Rx#:[id number] Dextrose 5% in Water 1, 1800 000 ml @ 200 mls/hr IV . Q5H45M YAJAIRA with Sodium Bicarb (1 Meq/ml) 150 ml Rx#:[id number] Magnesium Sulfate-D5w Pmx 100 200 1 gm In Dextrose/Water 1 100ml.bag @ 100 mls/hr IVPB ONCE ONE Rx#: [id number] Piperacillin-Tazobactam 3 100 .375 gm In Sodium Chloride 0.9% 100 ml @ 25 mls/hr IVPB Q8H [facility], [facility]–1983 Rx#: [id number] Potassium Chloride 20 meq 250 In Water For Injection 1 100ml.bag @ 50 mls/hr IVPB Q2H [facility], [facility]–1983 Rx#: [id number] Sodium Chloride 0.9% 2, 2000 000 ml @ 999 mls/hr IV . Q2H1M ONE Rx#:[id number] Intake, IV Titration 41.057 161.968 Amount Norepinephrine 32 mg In 0.478 42.622 Sodium Chloride 0.9% 218 ml @ 0.03 MCG/KG/MIN 0. 989 mls/hr IV .Q24H ONE Rx#:[id number] Norepinephrine 4 mg In 39.243 Sodium Chloride 0.9% 250 ml @ 0.03 MCG/KG/MIN 8. 036 mls/hr IV .Q24H ONE Rx#:[id number] propofoL 1,000 mg In 1.336 119.346 Empty Bag 1 bag @ 15 MCG/ KG/MIN 6.328 mls/hr IV . [id number] [facility], [facility]1983 Rx#:[id number] Output: Urine 0 145 Other: Voiding Method Indwelling Catheter Weight 69.3 kg ABP, PAP, CO, CI - Last 8 Hours Arterial Blood Pressure 134/62 Arterial Blood Pressure 132/62 Arterial Blood Pressure 102/57 Arterial Blood Pressure 98/60 Arterial Blood Pressure 89/57 Arterial Blood Pressure 113/58 Arterial Blood Pressure 120/67 Arterial Blood Pressure 127/70 Arterial Blood Pressure 104/61 Arterial Blood Pressure 114/62 Arterial Blood Pressure 111/56 Arterial Blood Pressure 92/54 Arterial Blood Pressure 101/56 Arterial Blood Pressure 127/62 Arterial Blood Pressure 123/58 Arterial Blood Pressure 171/81 Arterial Blood Pressure 144/71 Arterial Blood Pressure 112/55 Arterial Blood Pressure 121/56 Arterial Blood Pressure 83/50 Arterial Blood Pressure 94/50 Arterial Blood Pressure 117/60 Arterial Blood Pressure 160/66 Arterial Blood Pressure 137/60 Arterial Blood Pressure 129/62 The patient is currently intubated on a mechanical ventilator, sedated on propofol Head exam was generally normal. There was no scleral icterus or corneal arcus. Mucous membranes were moist. Neck is supple and the patient is a right IJ triple-lumen catheter in place Lungs sounds are diminished bilaterally. No wheezes or rhonchi. Cardiac exam revealed the PMI to be normally situated and sized. The rhythm was regular and no extrasystoles were noted during several minutes of auscultation. The first and second heart sounds were normal and physiologic splitting of the second heart sound was noted. There were no murmurs, rubs, clicks, or gallops. Abdomen is distended is firm and also distended. Bowel sounds are absent. Organs cannot be accurately palpated. There is a fluid wave consistent with ascites. Extremities are revealing diminished pulses. No cyanosis or clubbing. Neurologically, the patient sedated. Cranial nerves are intact. Results - Laboratory Findings CBC and BMP: 03/16/23 05:35 03/16/23 05:35 ABG ABG pH 7.46 (7.35-7.45) H 03/16/23 06:12 ABG pCO2 37 mmHg (35-45) 03/16/23 06:12 ABG pO2 80 mmHg (83-108) L 03/16/23 06:12 ABG O2 Saturation 96.5 % (94-97) 03/16/23 06:12 PT/INR, D-dimer PT 9.9 sec (9.0-12.0) 03/15/23 00:45 INR 0.9 (<1.2) 03/15/23 00:45 Abnormal lab findings: Abnormal Labs 03/15/23 03/15/23 03/15/23 00:45 00:45 00:45 RBC Hgb 12.5 L Hct 38.6 L MCHC Lymphocytes # (Manual) Metamyelocytes # (Man) ABG pH ABG pO2 ABG HCO3 ABG Total CO2 ABG O2 Saturation Sodium 127 L Potassium 3.3 L Chloride 89 L Carbon Dioxide Creatinine 0.58 L Glucose 120 H POC Glucose (mg/dL) Plasma Lactic Acid Carlos 3.5 H* Calcium Phosphorus AST Alkaline Phosphatase Total Protein Albumin Ur Specific [place] Urine Protein Urine Ketones Crossmatch 03/15/23 03/15/23 03/15/23 01:00 04:38 09:28 RBC Hgb Hct MCHC Lymphocytes # (Manual) Metamyelocytes # (Man) ABG pH ABG pO2 ABG HCO3 ABG Total CO2 ABG O2 Saturation Sodium Potassium Chloride Carbon Dioxide Creatinine Glucose POC Glucose (mg/dL) Plasma Lactic Acid Carlos 3.1 H* 2.2 H* Calcium Phosphorus AST Alkaline Phosphatase Total Protein Albumin Ur Specific [place] Urine Protein Urine Ketones Crossmatch See Detail 03/15/23 03/15/23 03/15/23 12:29 12:34 15:38 RBC Hgb Hct MCHC Lymphocytes # (Manual) Metamyelocytes # (Man) ABG pH ABG pO2 ABG HCO3 ABG Total CO2 ABG O2 Saturation Sodium Potassium Chloride Carbon Dioxide Creatinine Glucose POC Glucose (mg/dL) Plasma Lactic Acid Carlos 5.4 H* 6.9 H* Calcium Phosphorus AST Alkaline Phosphatase Total Protein Albumin Ur Specific [place] >1.050 H Urine Protein 1+ H Urine Ketones Trace H Crossmatch 03/15/23 03/15/23 03/15/23 18:02 20:25 20:54 RBC Hgb Hct MCHC Lymphocytes # (Manual) Metamyelocytes # (Man) ABG pH ABG pO2 ABG HCO3 ABG Total CO2 ABG O2 Saturation Sodium Potassium Chloride Carbon Dioxide Creatinine Glucose POC Glucose (mg/dL) 182 H 139 H Plasma Lactic Acid Carlos 11.4 H* Calcium Phosphorus AST Alkaline Phosphatase Total Protein Albumin Ur Specific [place] Urine Protein Urine Ketones Crossmatch 03/15/23 03/15/23 03/15/23 20:54 20:54 21:06 RBC 4.10 L Hgb 12.0 L Hct MCHC 30.9 L Lymphocytes # (Manual) Metamyelocytes # (Man) ABG pH 7.23 L ABG pO2 >400 H ABG HCO3 16 L ABG Total CO2 17 L ABG O2 Saturation 98.8 H Sodium 133 L Potassium Chloride 96 L Carbon Dioxide 15 L Creatinine 1.76 H Glucose 157 H POC Glucose (mg/dL) Plasma Lactic Acid Carlos Calcium Phosphorus 7.0 H AST Alkaline Phosphatase Total Protein 6.1 L Albumin Ur Specific [place] Urine Protein Urine Ketones Crossmatch 03/15/23 03/15/23 03/15/23 23:35 23:45 23:46 RBC Hgb Hct MCHC Lymphocytes # (Manual) Metamyelocytes # (Man) ABG pH ABG pO2 ABG HCO3 ABG Total CO2 25 H ABG O2 Saturation 97.6 H Sodium Potassium Chloride Carbon Dioxide Creatinine Glucose POC Glucose (mg/dL) 147 H Plasma Lactic Acid Carlos 2.4 H* Calcium Phosphorus AST Alkaline Phosphatase Total Protein Albumin Ur Specific [place] Urine Protein Urine Ketones Crossmatch 03/16/23 03/16/23 03/16/23 01:10 05:35 05:35 RBC 3.03 L Hgb 8.7 L D Hct 27.4 L MCHC Lymphocytes # (Manual) 0.44 L Metamyelocytes # (Man) 0.09 H ABG pH ABG pO2 ABG HCO3 ABG Total CO2 ABG O2 Saturation Sodium 131 L 130 L Potassium Chloride Carbon Dioxide Creatinine 1.47 H 1.53 H Glucose 167 H 173 H POC Glucose (mg/dL) Plasma Lactic Acid Carlos Calcium 6.9 L 6.8 L Phosphorus AST 90 H Alkaline Phosphatase 37 L Total Protein 4.4 L Albumin 2.3 L Ur Specific [place] Urine Protein Urine Ketones Crossmatch 03/16/23 03/16/23 03/16/23 05:35 05:36 06:12 RBC Hgb Hct MCHC Lymphocytes # (Manual) Metamyelocytes # (Man) ABG pH 7.46 H ABG pO2 80 L ABG HCO3 26 H ABG Total CO2 27 H ABG O2 Saturation Sodium Potassium Chloride Carbon Dioxide Creatinine Glucose POC Glucose (mg/dL) 194 H Plasma Lactic Acid Carlos 3.0 H* Calcium Phosphorus AST Alkaline Phosphatase Total Protein Albumin Ur Specific [place] Urine Protein Urine Ketones Crossmatch - Diagnostic Findings Chest x-ray: image reviewed Assessment and Plan Plan: Small bowel obstruction/acute abdomen and the patient is being taken to the operating room. Over the past 12 hours, the patient was excessively sustained IV fluids and the patient is currently on a combination of antibiotics and pressors and the patient is also intubated on a mechanical ventilator. Awaiting exploration laparotomy by general surgery today. Shock/hypotension secondary to above, currently on a combination of pressors Acute hypoxic respiratory failure, currently intubated on a mechanical ventilator secondary to above Acute kidney injury secondary to above and the patient is oliguric at this point in time Acute lactic acidosis, improved History of strangulated diaphragmatic hernia with previous expiratory laparotomy, small bowel resection and repair of a diaphragmatic hernia and this was done back in 2019 History of alcoholism Delirium tremens Previous history of GI bleed/gastritis/duodenitis Ascites probably related to chronic liver disease, normal coagulation profile Hiatal hernia History of A. candy, patient's current rhythm is sinus and the patient is on no anticoagulants Hypertension Plan The patient was taken to the operating room for especially laparotomy Keep sedated with propofol Continue ventilator support for now note dated changes without today Switch this patient on normal saline after arrival from the operating room Continue IV Zosyn Give the patient by mouth for now Blood gases postop IV Protonix Lovenox 40 mg subcu portably prophylaxis Cardiac rhythm is sinus for now Condition is critical and we'll continue to follow on monitor his progress.. Physical care evaluation that was done in more than 30 minutes. Time with Patient: Greater than 30
[2023-03-16] MEDS: BUDESONIDE 1 MG/2 ML NEBU INHALATION SCH (07:49)
[2023-03-16 08:23] LABS: Glucose,Whole Blood 162 mg/dL (70-110)
--- NOTE | 2023-03-16 08:29 | P.OP ---
Date of Procedure: 03/16/23 Preoperative Diagnosis: Small bowel obstruction Postoperative Diagnosis: Small bowel obstruction secondary to volvulus of small bowel with significant ischemia small bowel with patchy necrosis Procedure(s) Performed: Exploratory laparotomy Decompression of small bowel Anesthesia: HERMILO Surgeon: Suhas Rowe Estimated Blood Loss (ml): 25 Pathology: none sent Condition: critical Disposition: ICU Description of Procedure: Patient's placed on the operative table in the supine position. He received general endotracheal tube anesthesia. His abdomen was prepped and draped usual fashion. The abdomen was entered through midline incision. Patient a previous incisional hernia repair. There was mesh located on top of the fascia external oblique. The mesh was incised. The abdominal wall was then divided. There were some adhesions to the anterior abdominal wall. These were lysed with sharp dissection. The retractors this was placed into the abdominal cavity. The small bowel appeared to be very ischemic. There was patchy necrosis of the small bowel. This the entire small bowel appeared to be ischemic this was due to a portion of the small bowel mesentery the small bowel was examined. Color of the small bowel was initially dark purple. The small bowel mesentery was untorsed. There was some improvement of the ischemia of the bowel. It was decided not to perform a small bowel resection because the entire small bowel from the ligament of Treitz to the terminal ileum would need to be resected to remove the ischemic portion. This point I broke scrub and contacted the . I discussed the clinical findings with . After discussion with the it was decided to make the patient comfort care. I re-scrubbed in and then the abdomen was irrigated. There was some improvement with the ischemic portion of small bowel however there was significant patchy necrosis seen throughout the entire length of small bowel. In order to facilitate closure of the abdominal wall the small bowel was decompressed. A enterotomy is made at the midpoint small bowel. And then using a suction. These small bowel was suctioned presents with 2 L of enteric contents were removed from the small bowel. The enterotomy was then closed in the TA stapler. The abdomen was irrigated there is no bleeding seen. The nasogastric tube was replaced and stomach. Another 1000 mL of gastric fluid was removed via the nasogastric tube. The abdomen was irrigated again with warm saline. Small bowel spot. There had been some improvement of ischemia however overall there was significant patchy necrosis seen throughout small bowel. The fascia closed loop number PDS. Suture. Skin was closed boyd. Patient sent back to the ICU in critical condition. I had a lengthy discussion with the patient's and son and daughter. After going over the different clinical scenarios including a second look procedure the family have opted to proceed with comfort care measures.
--- NOTE | 2023-03-16 08:32 | XR ---
EXAMINATION TYPE: XR abdomen 1V DATE OF EXAM: 03/16/2023 COMPARISON: 12/03/2014 HISTORY: Increased abdominal distention TECHNIQUE: Abdomen examination of the supine view FINDINGS: Nasogastric tube tip is in the left upper quadrant of the abdomen. There are prominent dila taryn small bowel loops in the left upper quadrant. Right upper lobe quadrant small bowel gas appears t o be present. Previous Colonic bowel gas not clearly identified. Consider ileus and small bowel obstr uction within the differential. Follow-up is recommended. Psoas margins are poorly visualized. No mass effect is identified. Osseous structures appear intact. IMPRESSION: 1. Increasing prominence of what appear to be small bowel loops containing air. Correlate for ileus and small bowel obstruction. Follow-up is recommended. CT can be performed as clinically indicated.
[2023-03-16] MEDS ORDERED: MORPHINE SULFATE 4 MG/ML SYRINGE IV PRN (08:34)
[2023-03-16] MEDS ORDERED: MORPHINE SULFATE 2 MG/ML SYRINGE IV PRN (08:34)
[2023-03-16] MEDS ORDERED: MORPHINE SULFATE 4 MG/ML SYRINGE IVP ONE (08:34)
[2023-03-16] MEDS ORDERED: MORPHINE SULFATE (100 MG/2 ML) 100 MG in SODIUM CHLORIDE 0.9% 100 ML IV SCH (08:45)
[2023-03-16] MEDS ORDERED: THIAMINE 100 MG TAB PO SCH (09:00)
[2023-03-16] MEDS ORDERED: CHLORHEXIDINE GLUCONATE 15 ML CUP MUCOUS MEM SCH (09:00)
--- NOTE | 2023-03-16 09:29 | XR ---
EXAMINATION TYPE: XR chest 1V portable DATE OF EXAM: 03/16/2023 COMPARISON: 03/15/2023 INDICATION: Tube placement TECHNIQUE: Single frontal view of the chest is obtained. FINDINGS: The heart size is normal. The pulmonary vasculature is normal. There appears to be some elevation of the diaphragms or poor inspiration. Minimal compressive atelect asis may be adjacent to the diaphragms. Endotracheal tube tip is above the teo. Nasogastric tube transverses the thorax tip in the left up per quadrant of the abdomen. EKG leads overlie the chest. IMPRESSION: 1. Mild bibasilar infiltrates with poor inspiration. Correlate with atelectasis.
--- NOTE | 2023-03-16 12:23 | P.EN ---
Critical care note: Nurse called this afternoon. Patient had dropped his blood pressure. In the 60-70 systolics. Fluid bolus added. Patient is also sounding congested. I ordered DuoNeb, IV Solu-Medrol. Chest x-ray. Patient continued to run hypotensive. More fluids were given. Also ordered dose of midodrine. Checks x-ray did not show any infiltrates. Patient blood pressure later dropped further. I ordered on levo fed drip. [facility] Tap Dr. Phillips was consulted with the patient with ICU. Later patient was intubated in the ER. I then went to see the patient done in the ER. Patient's Catapres patch and Prinivil was discontinued. Physical examination: VITAL SIGNS: 96.2, 110, 28, 91/56, intubated GENERAL: BMI 24.3, laying in bed lethargic EYES: Pupils equal. Conjunctiva normal. HEENT: External appearance of nose and ears normal, oral cavity grossly normal. NECK: JVD not raised; masses not palpable. HEART: Heart sounds regular; no edema. LUNGS: Respiratory rate increased; decreased breath sounds ABDOMEN: Soft, abdominal tenderness, no guarding rigidity, liver spleen not palpable, no masses palpable. Hyperactive bowel sounds PSYCH: Lethargic but able tonsil SIMPLE QUESTIONS MUSCULOSKELETAL:No Clubbing/cyanosis;muscles-grossly intact NEUROLOGICAL: Cranial nerves grossly intact; no facial asymmetry, INVESTIGATIONS, reviewed in the clinical context: Chest x-ray film personally reviewed by me: No infiltrate White count 7.3 hemoglobin 12 platelets 242 potassium 4.2 BUN 17 creatinine 1.76 lactic acid 11.4 Assessment and plan: -Acute small bowel obstruction in a patient with known prior abdominal surgery. Likely from underlying fibrous bands. Possible ischemic bowel that patient has low blood pressure. Increase in lactic acid. NG tube to suction. -Acute metabolic encephalopathy/delirium combination of DTs and and acute alcohol intake -Acute COPD exacerbation and a smoker DuoNeb. IV Solu-Medrol. Pulmicort nebulizer. -Acute hypoxic respiratory failure from underlying COPD, patient intubated on ventilator assist -Possible septic slight hypotensive shock IV Zosyn. Fluid bolus. IV levo fed. -Alcohol use disorder Alcohol intake variable. Alcohol level on presentation 157 -Acute delirium tremens with alcohol withdrawal. Valium 5 mg 3 times a day. CIWA scale. Patient's tachycardic and have blood pressure. Catapres patch also added. Follow vital signs closely -Chronic nicotine dependence, cigarette smoker Nicotine patch -Peptic ulcer disease with known duodenal ulcer PPI -Essential hypertension, currently uncontrolled from alcohol withdrawal initially Zestril 20 mg a, Catapres patch: Discontinue -Paroxysmal atrial fibrillation Amiodarone 100 mg a day. No anticoagulation because of duodenal ulcer bleed previously -Hyponatremia from decreased solute intake IV fluids Patient on ventilator assist. IV levo fed. Had a presence is accessible discontinued. Fluid boluses. On IV Zosyn. Bronchodilators. Spoke to the nurse in the ER. She informed me that she already spoke to Dr. Evangelista, who informed surgery. Patient was seen in the ER trauma 2. Pending bed in ICU. Time spent for critical care 1 hour 15 minutes
--- NOTE | 2023-03-16 12:48 | P.DS ---
Providers Date of admission: 03/15/23 03:15 Expected date of discharge: 03/16/23 Attending physician: Suhas Rowe Consults: 03/15/23 03:15 Consult Physician Routine Consulting Provider: Yang Gaspar Consult Reason/Comments: medical management Do you want consulting provider notified?: Already Contacted 03/15/23 19:26 Consult Physician Routine Consulting Provider: Addie Phillips Consult Reason/Comments: hemodynamically unstable Do you want consulting provider notified?: Yes Primary care physician: [facility] Course: This is a 67-year-old male with multiple medical problems who was admitted through the emergency room with complaints of small bowel obstruction. Patient decompensated on 03/15/2023. Patient was intubated and then fluid resuscitated. He underwent exploratory laparotomy at 07 100 on 03/16/2002 3. 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 Due to the large involvement of the small bowel discussion was made with the family regarding comfort care measures. No further surgery was planned. The patient's family wishes. The patient was made comfort care immediately and in the ICU shortly after returning to the ICU. Procedures: Exploratory laparotomy Patient Condition at Discharge: Critical Plan - Discharge Summary New Discharge Prescriptions: No Action Multivitamins, Thera [Multivitamin (formulary)] 1 tab PO DAILY lisinopriL [Zestril] 20 mg PO DAILY Amiodarone [Cordarone] 100 mg PO DAILY Omeprazole [PriLOSEC] 20 mg PO BID #60 cap Discharge Medication List Multivitamins, Thera [Multivitamin (formulary)] 1 tab PO DAILY 03/22/20 [History] lisinopriL [Zestril] 20 mg PO DAILY 10/31/20 [History] Amiodarone [Cordarone] 100 mg PO DAILY 02/25/22 [History] Omeprazole [PriLOSEC] 20 mg PO BID #60 cap 05/20/22 [Rx] Follow up Appointment(s)/Referral(s): Jc Michel DO [Primary Care Provider] - 1-2 days Discharge Disposition: - Preliminary Cause of Preliminary Cause of : Ischemic bowel
--- NOTE | 2023-03-19 09:06 | CDI ---
Documentation Clarification Form Date: 03/19/2023 8:33:34 AM From: Stefanie Lassiter Admit Date: 03/15/2023 3:15:00 AM Patient Name: Yordy Garland Visit Number: [id number] Discharge Date: 03/16/2023 12:22:00 PM ATTENTION: The Clinical Documentation Specialists (CDI) and [facility] Coding Staff appreciate your assistance in clarifying documentation. Please respond to the clarification below the line at the bottom and electronically sign. The CDI & [facility] Coding staff will review the response and follow-up if needed. Please note: Queries are made part of the Legal Health Record. If you have any questions, please contact the author of this message via ITS. Dr. Suhas Rowe Per ED Note: Patient was seen in ER for evaluation of SBO change in mental status, significantly hypotensive, hypovolemic shock, septic shock. Documentation of sepsis does not continue through the chart. Please clarify if patient had sepsis / septic shock or was this ruled out. History/Risk Factors: Ischemic bowel, volvulus, alcohol abuse, ascites, lactic acidosis Clinical Indicators: WBC 7.3 Lactic acid: 2.4 3.0 Blood cultures: Vitals signs: 96.9F, 45 bpm, 207/152 down to 62/43, 94% RA Treatment: Rocephin and Kefzol IV Bolus: Fluid bolus Did patient have sepsis / septic shock or was this ruled out? [ ] Sepsis, present on admission [ xx ] Sepsis, developed during stay, not present on admission [ ] Sepsis ruled out [ ] Severe Sepsis with organ failure [ ] Septic Shock [ ] SIRS, without underlying infectious process [ ] Other, please specify [ ] Unable to determine SIRS Criteria: 2 or more of the following may indicate SIRS Temperature < 96.8F (36C) or > 101.0F (38.3C) Heart Rate > 90 bpm Respiratory Rate > 20 breaths/min or PaCO2 < 32 mmHg White Blood Cell Count > 12,000 or < 4,000 cells/mm3 or > 10% bands MTDD
== END 2023-03-16 12:22 | disposition expired | DRG 344 ==
LOC: EC 00:13 → 4SSUR 03:15 → 2SICU 20:05
PROVIDERS: ADMIT Surgery; ATTEND Surgery
PROC: 0D988ZZ Drainage of Small Intestine, Via Natural or Artificial Opening Endoscopic (ICD-10-PCS; principal; 2023-03-15)
PROC: 0DJ00ZZ Inspection of Upper Intestinal Tract, Open Approach (ICD-10-PCS; principal; 2023-03-15)
PROC: 5A1935Z Respiratory Ventilation, Less than 24 Consecutive Hours (ICD-10-PCS; 2023-03-15)
PROC: 0BH17EZ Insertion of Endotracheal Airway into Trachea, Via Natural or Artificial Opening (ICD-10-PCS; 2023-03-15)
PROC: 0D9670Z Drainage of Stomach with Drainage Device, Via Natural or Artificial Opening (ICD-10-PCS; 2023-03-15)
PROC: 5A09357 Assistance with Respiratory Ventilation, Less than 24 Consecutive Hours, Continuous Positive Airway Pressure (ICD-10-PCS; 2023-03-15)
PROC: 3E043XZ Introduction of Vasopressor into Central Vein, Percutaneous Approach (ICD-10-PCS; 2023-03-16)
DX: K55.9 Vascular disorder of intestine, unspecified (principal); A41.9 Sepsis, unspecified organism; G93.41 Metabolic encephalopathy; J96.01 Acute respiratory failure with hypoxia; K56.2 Volvulus; E87.1 Hypo-osmolality and hyponatremia; E87.20 Acidosis, unspecified; J44.1 Chronic obstructive pulmonary disease with (acute) exacerbation; R18.8 Other ascites; F10.131 Alcohol abuse with withdrawal delirium; E78.5 Hyperlipidemia, unspecified; E86.0 Dehydration; E87.6 Hypokalemia; E87.8 Other disorders of electrolyte and fluid balance, not elsewhere classified; R34 Anuria and oliguria; F17.210 Nicotine dependence, cigarettes, uncomplicated; F10.129 Alcohol abuse with intoxication, unspecified; Z51.5 Encounter for palliative care; I10 Essential (primary) hypertension; Z66 Do not resuscitate; I48.0 Paroxysmal atrial fibrillation; Y90.6 Blood alcohol level of 120-199 mg/100 ml; R57.1 Hypovolemic shock; K26.9 Duodenal ulcer, unspecified as acute or chronic, without hemorrhage or perforation; K44.9 Diaphragmatic hernia without obstruction or gangrene; I25.10 Atherosclerotic heart disease of native coronary artery without angina pectoris; K21.9 Gastro-esophageal reflux disease without esophagitis; Z81.1 Family history of alcohol abuse and dependence; Z79.899 Other long term (current) drug therapy; Z87.11 Personal history of peptic ulcer disease; Z91.81 History of falling; Z86.010 Personal history of colon polyps; Z87.19 Personal history of other diseases of the digestive system
CPT/HCPCS: 36415; 36600; 43762; 51798; 71045; 74018; 74176; 74177; 80048; 80053; 80320; 81001; 82150; 82330; 82805; 83605; 83690; 83735; 84100; 84484; 85025; 85610; 85730; 86850; 86900; 86901; 86920; 87070; 87077; 87186; 87205; 93005; 94002; 94003; 94640; 96361; 96365; 96366; 96367; 96368; 96372; 96375; 96376; 99285